=== PATIENT | female | born 1945 | race Caucasian/White ===

== ENCOUNTER → 2019-12-29 11:00 | Outpatient (BNVA) | payer MEDICARE, SELFPAY | PROVIDERS: PCP Internal Medicine; Referring Provider Internal Medicine; Visit Provider Internal Medicine Cardiovascular Disease | DX: J44.9 Chronic obstructive pulmonary disease, unspecified (principal); R91.1 Solitary pulmonary nodule; I25.10 Atherosclerotic heart disease of native coronary artery without angina pectoris; I10 Essential (primary) hypertension; I25.2 Old myocardial infarction; Z79.82 Long term (current) use of aspirin; Z79.899 Other long term (current) drug therapy; Z95.5 Presence of coronary angioplasty implant and graft | CPT/HCPCS: 93005; 99212 ==

== ENCOUNTER 2020-01-18 11:35 | Outpatient (REF) | payer MEDICARE, SELFPAY ==
--- NOTE | 2020-01-18 11:39 | MM_ITS ---
EXAMINATION: MM SCREENING DIGITAL BREAST TOMOSYNTHESIS, BILATERAL CLINICAL INFORMATION: Screening. Asymptomatic. The lifetime risk of breast cancer based on the Tyrer-Cuzick Model is 5.3%. COMPARISON: Mammography: July 08, 2018 and studies dating back to February 18, 2013 TECHNIQUE: Digital breast tomosynthesis is performed in both the craniocaudal and mediolateral oblique views along with computer-aided detection (CAD). Synthesized 2D images are generated from the tomosynthesis. FINDINGS: There are scattered areas of fibroglandular density (ACR BI-RADS breast composition Category b). There are no significant masses, abnormal calcifications, or other abnormalities. MM/MM tomosynthesis screening BI IMPRESSION: There are no significant changes from prior study. ASSESSMENT: BI-RADS 1: Negative RECOMMENDATION: Routine annual mammography screening. This patient's information was entered into a reminder system with a target due date for their next mammogram.
== END 2020-01-18 11:36 | disposition home or self-care (01) ==
LOC: HO.MAMMO 11:35
PROVIDERS: PCP Internal Medicine; Visit Provider Internal Medicine
DX: Z12.31 Encounter for screening mammogram for malignant neoplasm of breast (principal)
CPT/HCPCS: 77063; 77067

== ENCOUNTER 2020-03-21 07:17 | Outpatient (REF) | payer MEDICARE, SELFPAY ==
[2020-03-21 11:13] LABS: MANUAL DIFF FLAG NO
[2020-03-21 11:32] LABS: Basophils Percent Auto 0.6 % (0-2); Eosinophils Absolute Auto 0.3 X10*3/uL (0.0-0.4); Eosinophils Percent Auto 3.8 % (0-4); Hematocrit 47.6 % (37-47); Hemoglobin 14.7 g/dl (12.0-16.0); Imm Gran Abs Auto 0.02 X10*3/uL (0.00-0.03); Imm Gran Pct Auto 0.3 % (0.0-0.4); Lymphocytes Absolute Auto 2.2 X10*3/uL (1.2-4.9); Lymphocytes Percent Auto 33.1 % (20-40); Mean Corpuscular HGB Conc 30.9 g/dl (31.0-35.0); Mean Corpuscular Hemoglobin 26.7 pg (27.0-33.0); Mean Corpuscular Volume 86.5 fL (80-98); Mean Platelet Volume 10.6 fL (9.4-12.3); Monocytes Absolute Auto 0.6 X10*3/uL (0.1-1.2); Monocytes Percent Auto 8.8 % (2-11); Neutrophils Absolute Auto 3.5 X10*3/uL (2.0-8.3); Neutrophils Percent Auto 53.4 % (45-73); Platelet Count 268 X10*3/uL (160-400); Red Cell Distribution Width 14.1 % (11.0-16.0); White Blood Count 6.6 X10*3/uL (4.8-10.8)
[2020-03-21 11:35] LABS: Estimated Average Glucose 128 mg/dL; Hemoglobin A1c % 6.1 %
[2020-03-21 11:42] LABS: Alanine Aminotransferase 19 U/L (0-31); Albumin Level 4.2 g/dL (3.5-5.0); Alkaline Phosphatase 112 U/L (39-117); Anion Gap 14 (12-20); Aspartate Amino Transferase 19 U/L (5-31); Bilirubin Total 0.8 mg/dL (0.0-1.0); Blood Urea Nitrogen 15 mg/dL (9-16); Calcium 9.3 mg/dL (8.4-10.2); Carbon Dioxide 27 mmol/L (22-29); Chloride 107 mmol/L (96-108); Cholesterol 137 mg/dL; Estimated Glomerular Filt Rate 56; Glucose Random 122 mg/dL (60-115); HDL Cholesterol 50 mg/dL; LDL Cholesterol Calculated 61 mg/dl; Potassium 4.6 mmol/L (3.3-5.1); Sodium 143 mmol/L (135-145); Total Protein 6.8 g/dL (6.5-8.0); Triglycerides 133 mg/dL
[2020-03-21 11:52] LABS: Microalbum/Creatinine Ratio Ur 10.2 ug/mg cr
[2020-03-21 12:06] LABS: Thyroid Stimulating Hormone 1.54 uIU/mL (0.32-4.0); Vitamin D 25-OH Total 35.5 ng/mL (>30)
[2020-03-21 12:18] LABS: Folate 11.3 ng/mL (> or = 4.0); Vitamin B12 1006 pg/mL (200-900)
== END 2020-03-21 07:18 | disposition home or self-care (01) ==
LOC: HO.HMGCLDS 07:17
PROVIDERS: PCP Internal Medicine; Visit Provider Internal Medicine
DX: I10 Essential (primary) hypertension (principal); E11.65 Type 2 diabetes mellitus with hyperglycemia; E78.00 Pure hypercholesterolemia, unspecified
CPT/HCPCS: 36415; 80053; 80061; 82043; 82306; 82607; 82746; 83036; 84439; 84443; 85025

== ENCOUNTER 2020-06-14 08:17 | Outpatient (REF) | payer MEDICARE, SELFPAY ==
--- NOTE | ~2020-06-14 | CT_ITS ---
EXAMINATION: CT CHEST SCREENING CLINICAL INFORMATION: Nicotine dependence. COMPARISON: 08/10/2019 and 03/09/2019. CT abdomen and pelvis of 01/09/2016 and 07/17/2011. TECHNIQUE: Multidetector volumetric CT imaging of the chest is performed without contrast using low dose technique. Additional 2D coronal and sagittal reformatted images and axial 3D maximum intensity projection (MIP) images are generated on the CT workstation. This CT examination was performed using dose optimization techniques as appropriate, variously including the following: *Automated exposure control *Adjustment of mA and/or kV according to patient size (this includes techniques or standardized protocols for targeted exams where dose is matched to indication/reason for exam; i.e. extremities or head) *Use of iterative reconstruction technique DLP: 62.0 mGy-cm. FINDINGS: LUNGS: There are mild changes of centrilobular emphysema within the upper lobes. There is discoid scarring seen within the right middle lobe, right lower lobe, and left lower lobe. There are scattered sub-4 mm densities present. Central airways are patent. There is some bronchial wall thickening seen in regions of scarring. No significant bronchiectasis. There is a 6 mm noncalcified nodule seen within the right upper lobe on image 224 of 521. This was present on previous study of 08/10/2019 at 5 mm in diameter and at 4 mm in diameter on study of 03/09/2019. There is again noted to be a 9 x 8 mm noncalcified nodule within the right lower lobe on image 338 of 521 in series #6. This is stable dating back to study of 03/09/2019 and was seen on previous study of the abdomen and pelvis of 07/17/2011. MEDIASTINUM: Heart normal size. No pericardial effusion. Prominent coronary artery calcifications are present. No thoracic aortic aneurysm. No mediastinal or hilar lymphadenopathy. PLEURA: There is no pleural effusion. No pleural mass or thickening. AXILLA: No lymphadenopathy. UPPER ABDOMEN: Unremarkable. OSSEOUS STRUCTURES: Status post previous cervical spine surgery. No suspicious destructive bony lesions identified. CT/CT lung screening IMPRESSION: Bibasilar scarring which is stable. Stable left lower lobe nodule. Right upper lobe nodular density with question slight increase in size over time. ASSESSMENT: Lung-RADS category 4A, probably suspicious, (5-15% chance of malignancy). RECOMMENDATION: Short-interval 3-month follow up low dose CT chest.
== END 2020-06-14 08:18 | disposition home or self-care (01) ==
LOC: HO.CT 08:17
PROVIDERS: Visit Provider Surgery
DX: Z12.2 Encounter for screening for malignant neoplasm of respiratory organs (principal); F17.210 Nicotine dependence, cigarettes, uncomplicated
CPT/HCPCS: 71271

== ENCOUNTER → 2020-06-27 13:24 | Outpatient (BNVA) | payer MEDICARE, SELFPAY | PROVIDERS: PCP Internal Medicine; Visit Provider Internal Medicine | DX: J43.9 Emphysema, unspecified (principal); R91.1 Solitary pulmonary nodule | CPT/HCPCS: Q3014 ==

== ENCOUNTER → 2020-06-29 09:04 | Outpatient (BNVA) | payer MEDICARE, SELFPAY | PROVIDERS: PCP Internal Medicine; Visit Provider Surgery | DX: R91.1 Solitary pulmonary nodule (principal); Z87.891 Personal history of nicotine dependence; Z79.899 Other long term (current) drug therapy | CPT/HCPCS: 99212 ==

== ENCOUNTER 2020-08-25 14:23 | Outpatient (REF) | payer MEDICARE, SELFPAY | END 2020-08-25 14:24 | disposition home or self-care (01) | LOC: HO.LAB 14:23 | PROVIDERS: Visit Provider Physician Assistant Medical | DX: Z20.822 Contact with and (suspected) exposure to COVID-19 (principal); J02.9 Acute pharyngitis, unspecified; B37.0 Candidal stomatitis | CPT/HCPCS: 87071; 87102; 87205; U0003; U0005 ==

== ENCOUNTER 2020-10-19 08:18 | Outpatient (REF) | payer MEDICARE, SELFPAY ==
--- NOTE | ~2020-10-19 | CT_ITS ---
EXAMINATION: CT CHEST SCREENING CLINICAL INFORMATION: Former smoker. Quit 3 years ago. 50 pack-year history. COMPARISON: Previous CT scans most recent June 2020 TECHNIQUE: Multidetector volumetric CT imaging of the chest is performed without contrast using low dose technique. Additional 2D coronal and sagittal reformatted images and axial 3D maximum intensity projection (MIP) images are generated on the CT workstation. This CT examination was performed using dose optimization techniques as appropriate, variously including the following: *Automated exposure control *Adjustment of mA and/or kV according to patient size (this includes techniques or standardized protocols for targeted exams where dose is matched to indication/reason for exam; i.e. extremities or head) *Use of iterative reconstruction technique DLP: 80 mGy-cm FINDINGS: LUNGS: There is evidence of emphysema. The 6 mm right upper lobe nodule axial image 207 series 5 is stable. The 6 x 7 mm left lower lobe nodule is stable axial image 311 series 5. The 7 mm peripheral or subpleural right upper lobe nodule posterior the right mainstem bronchus axial image 173 series 5. Table. The 2 mm peripheral medial right upper lobe nodule axial image 87 series 6 is stable. No new pulmonary nodules are seen. There is bilateral subsegmental atelectasis. No endobronchial or endotracheal lesion is seen. MEDIASTINUM: There is coronary artery calcification. The mediastinum is otherwise normal. PLEURA: There is no pleural effusion. No pleural mass or thickening. AXILLA: No lymphadenopathy. UPPER ABDOMEN: Unremarkable OSSEOUS STRUCTURES: There are degenerative changes of the spine. There are postsurgical changes to the lower cervical spine with lower anterior plate and screws. Both most inferior screws appear to have backed out. The right screw appears completely out and is in the prevertebral soft tissues abutting the right posterior wall of the trachea. CT/CT lung screen follow up IMPRESSION: Emphysema. Stable pulmonary nodules. Bilateral subsegmental atelectasis. Coronary artery calcification. Postsurgical changes to the lower cervical spine. The most inferior screws appear to have backed out. The right sided screw is in the prevertebral soft tissues and abuts the right posterior wall of the trachea. ASSESSMENT: Lung-RADS category 2: Benign RECOMMENDATION: Annual low-dose chest CT follow-up recommended. Cervical spine x-ray for better evaluation of the cervical spine orthopedic hardware recommended.
== END 2020-10-19 08:19 | disposition home or self-care (01) ==
LOC: HO.CT 08:18
PROVIDERS: Visit Provider Surgery
DX: Z12.2 Encounter for screening for malignant neoplasm of respiratory organs (principal); Z87.891 Personal history of nicotine dependence
CPT/HCPCS: 71250

== ENCOUNTER 2020-10-25 07:47 | Outpatient (REF) | payer MEDICARE, SELFPAY ==
--- NOTE | ~2020-10-25 | XR_ITS ---
EXAMINATION: XR CERVICAL SPINE CLINICAL INFORMATION: Arthrodesis status COMPARISON: None TECHNIQUE: 4 views of the cervical spine were obtained. FINDINGS: Limited evaluation of the lower cervical spine secondary to patient positioning. Status post anterior cervical fusion of C5-C7. The right lower screw of the fixation plate demonstrates dislodgment. To lesser degree the left lower screw also demonstrates dislodgment. Spinal hardware is otherwise intact. No acute visible fracture or dislocation. Straightening of the normal cervical curvature which may be secondary to patient positioning versus muscle spasm. Multilevel degenerative changes with disc space narrowing, endplate sclerosis, osteophyte formation, and facet arthropathy. Grade 1 anterolisthesis of C2 on C3 and C3 on C4. Visualized dens is intact. Lateral masses are symmetric. Vertebral body heights and disc spaces are otherwise maintained. Prevertebral soft tissues are unremarkable in their visualized portions. Posterior elements are intact. Paraspinal soft tissues are unremarkable. XR/XR cervical spine 2V IMPRESSION: 1. Limited evaluation of the lower cervical spine secondary to patient positioning. 2. Status post anterior cervical fusion of C5-C7. Right lower screw of the fixation plate demonstrates dislodgment. To a lesser degree the left lower screw also demonstrates dislodgment. 3. No acute visible fracture or dislocation. 4. Straightening of the normal cervical curvature which may be secondary to patient positioning versus muscle spasm. 5. Multilevel degenerative changes with grade 1 anterolisthesis of C2 on C3 and C3 on C4.
== END 2020-10-25 07:48 | disposition home or self-care (01) ==
LOC: HO.XRAY 07:47
PROVIDERS: PCP Internal Medicine; Visit Provider Internal Medicine
DX: Z98.1 Arthrodesis status (principal)
CPT/HCPCS: 72040

== ENCOUNTER → 2020-10-26 09:40 | Outpatient (BNVA) | payer MEDICARE, SELFPAY | PROVIDERS: PCP Internal Medicine; Visit Provider Surgery | DX: R91.1 Solitary pulmonary nodule (principal); Z79.899 Other long term (current) drug therapy; Z87.891 Personal history of nicotine dependence | CPT/HCPCS: 99212 ==

== ENCOUNTER → 2020-11-14 10:54 | Outpatient (REF) | payer MEDICARE, SELFPAY ==
--- NOTE | 2020-11-14 11:20 | CA_ITS ---
Transthoracic Echocardiogram Patient (Last, First, Middle): Ann Gutierrez L Gender: Female Date of : 1945 Age: 75 Procedure Date: 11/14/2020 Procedure Type: Transthoracic Echocardiogram Location: OP Height: 152.4 cm Weight: 83.92 kg BSA: 1.81 m2 Heart Rate: bpm BP: 140 / 68 mmHg Director Of Solutions Architecture: JOSEFINA Referring MD: Liz Champagne [employer]ER[employer] REAL ESTATE ASSISTANTEmeli Symptoms: I25.10 - Atherosclerotic heart disease of [place] coronary... Study Quality: Fair ECG Rhythm: Sinus Conclusions: - The left ventricular systolic function is hyperdynamic. The visually estimated ejection fraction is >70%. - There is mild calcification of the aortic valve. - No obvious valvular pathology seen on this study. Findings Left Ventricle Normal left ventricular cavity size. There is normal left ventricular wall thickness. The left ventricular systolic function is hyperdynamic. The visually estimated ejection fraction is >70%. There is no evidence of regional wall motion abnormalities. Diastolic function is normal for age. LV peak GLS -17.4%. Right Ventricle Normal right ventricular cavity size and systolic function. Atria Both atria are normal in size. Aortic Valve There is a normal trileaflet aortic valve. There is mild calcification of the aortic valve. There is no aortic valve stenosis. There is no aortic valve regurgitation. Mitral Valve The mitral valve appears normal. There is no mitral valve regurgitation. There is no mitral valve stenosis. Pulmonic Valve The pulmonic valve was not well visualized. Tricuspid Valve There is trace tricuspid valve regurgitation. The pulmonary artery systolic pressure is normal. Great Vessels The aortic annulus, sinuses of valsalva, and asc aorta are normal in size. Venous The inferior vena cava is normal in size and collapses greater than 50% with inspiration. Pericardium/Pleural There is no evidence of pericardial effusion. Prior Study Comparison No prior study available for comparison. Recommendations, Care & Conclusions No obvious valvular pathology seen on this study. Measurements 2D Linear Measurements IVSd: 0.98 0.6-0.9/0.6-1.0 cm LVIDd: 4.02 3.9-5.3/4.2-5.9 cm LVIDd Index: 2.22 2.4-3.2/2.2-3.1 cm/m2 LVIDs: 2.62 2.0-3.6 cm LVPWd: 1.00 0.7-1.1 cm LA Diam: 3.10 2.7-3.8/3.0-4.0 cm LAIDs Index: 1.71 1.5-2.3 cm/m2 LV Mass: 157.19 67-162/88-224 g LV Mass Index: 86.84 43-95/49-115 g/m2 LVOT Diam: 1.80 3.0+(-)1.3 cm 2D Systolic Function EF 4C: 68.30 >55% EF 2C: 79.60 >55% EF BiP: 73.40 >55% Mitral Valve MV Pk E: 0.75 MV PK A: 0.97 MV Decel Time: 125.00 E/A: 0.80 E'Lateral: 6.85 E'Medial: 7.29 E/E' Med: 10.20 E/E' Lat: 10.90 PHT: 37.00 MVA PHT: 5.95 Decel Amelia: 5.99 Aortic Valve AoV Pk Marcos: 1.85 AoV Pk Grad: 14.00 LVOT LVOT Pk Marcos: 1.32 LVOT Mn Marcos: 0.89 LVOT VTI: 0.26 LVOT Pk Grad: 7.00 LVOT Mn Grad: 4.00 LVOT Diam: 1.80 LVOT Area: 2.54 Diastolic Function MV Pk E: 0.75 MV Pk A: 0.97 E/A: 0.80 E'Medial: 7.29 E/E' Med: 10.20 E' Laterial: 6.85 E/E' Lat: 10.90 Right Ventricle TAPSE (mm): 1.84 Tricuspid Valve TR Pk Marcos: 2.13 TR Pk Grad: 18.00 RA Press: 3.00 RVSP: 21.00 Great Vessels Aorta Ao Asc: 3.20 2.1-3.4 cm Updated in Other Vendor System with Status of Final Guanaco Tavares MD electronically signed on 11/14/2020 2:55:53 PM with status of Final
== END ==
LOC: HO.CARD 10:54
PROVIDERS: PCP Internal Medicine; Visit Provider Nurse Practitioner Family
DX: Z01.810 Encounter for preprocedural cardiovascular examination (principal); I25.10 Atherosclerotic heart disease of native coronary artery without angina pectoris; M51.36 Other intervertebral disc degeneration, lumbar region
CPT/HCPCS: 93306

== ENCOUNTER → 2020-11-15 08:34 | Outpatient (REF) | payer MEDICARE, SELFPAY ==
--- NOTE | ~2020-11-15 | NM_ITS ---
Myocardial perfusion study Indication: Preoperative cardiovascular risk stratification Technique: The patient was brought in for a Lexiscan perfusion study on 11/15/2020. Patient performed low-level exercise and was injected 0.4 mg of Lexiscan intravenously. Within a minute of injection, 35 mCi of sestamibi was given intravenously. Images were obtained using the SPECT gamma camera interlaced with the gating device. Images were obtained in supine position. Resting perfusion study was performed on 11/16/2020. Patient was administered 35 mCi of sestamibi intravenously at rest. Images were then obtained in supine position. Images obtained with and without CT attenuation. Total DLP 108 mGy-cm. Images were processed with the software and compared side to side in short axis, horizontal long axis and vertical long axis views. Findings: The stress perfusion study showed nonattenuated images show minimal thinning of the distal anterior wall of the LV myocardium. Attenuation corrected images show normal uptake of radiotracer in all segments of LV myocardium. There is suggestion of left ventricle hypertrophy. The gated study shows normal LV systolic function with calculated LVEF of 70%. LV cavity is normal in size. The gated study shows normal systolic wall thickening and contraction of segments. Resting study shows no change in perfusion pattern compared to stress perfusion study. Gating at rest reveals normal systolic wall motion with ejection fraction at 69%. The findings are consistent with normal myocardial perfusion. NM/NM krupa perf SPECT rest & str Impression: 1. Myocardial perfusion imaging study shows normal myocardial perfusion 2. Gated LVEF is 70% 3. Transient ischemic dilatation not present EKG is nondiagnostic for ischemia
--- NOTE | 2020-11-15 08:37 | CA_ITS ---
Acquisition Time: 2020-11-15 08:53:20 Total Exercise Time: 00:02:00 Test Indications: Pre-Op Evaluation Medications: SEE CHART Protocol: LEXISCAN Max HR: 105 BPM 71% of Pred: 147 BPM Max BP: 120/068 mmHG Max Work Load: 1.0 METS Pharmacological stress test with Lexiscan injection, while sitting and kicking her legs, with sob and chest tightness following injection, without arrythmia, with normotensive response to injection, with nondiagnostic EKG for ischemia, with borderline ST change inferiorly and V4-V6. In recovery she was treated with Aminophylline 75mg IVP with resolution of symptoms. Nuclear images pending. Test reviewed with Dr Tavares. Referred By: Liz Champagne Overread By: LIZ CHAMPAGNE
== END ==
LOC: HO.CARD 08:34
PROVIDERS: PCP Internal Medicine; Visit Provider Nurse Practitioner Family
DX: Z01.818 Encounter for other preprocedural examination (principal); I25.10 Atherosclerotic heart disease of native coronary artery without angina pectoris; M51.36 Other intervertebral disc degeneration, lumbar region
CPT/HCPCS: 78452; 93017; A9500; J0280; J2785

== ENCOUNTER → 2020-12-27 08:12 | Outpatient (BNVA) | payer MEDICARE, SELFPAY | PROVIDERS: PCP Internal Medicine; Referring Provider Internal Medicine; Visit Provider Internal Medicine Cardiovascular Disease | DX: J43.9 Emphysema, unspecified (principal); R91.1 Solitary pulmonary nodule; E66.9 Obesity, unspecified; I25.10 Atherosclerotic heart disease of native coronary artery without angina pectoris; I10 Essential (primary) hypertension; I25.2 Old myocardial infarction; Z95.5 Presence of coronary angioplasty implant and graft; Z79.899 Other long term (current) drug therapy | CPT/HCPCS: 93005; 99212 ==

== ENCOUNTER 2021-01-18 07:52 | Outpatient (REF) | payer MEDICARE, SELFPAY ==
--- NOTE | 2021-01-18 11:16 | PFT_ITS ---
FLOWS: FEV1 61% of predicted at 1.10 L. FVC 77% of predicted at 1.85 L. FEV1 to FVC ratio of 0.60. No bronchodilator response. LUNG VOLUMES: Total lung capacity 89% of predicted at 3.97 L. Residual volume 102% of predicted at 2.12 L. Slow vital capacity 77% of predicted at 1.85 L. Expiratory reserve volume 56% of predicted at 0.26 L. Diffusion capacity is moderately decreased, diffusion capacity adjust to being mildly decreased after correction for alveolar ventilation. In comparison to pulmonary function test from January of 2013, FVC, FEV1, FVC have been without significant changes; total lung capacity has decreased by 0.50 L; residual volume has decreased by 0.44 L; expiratory reserve volume has decreased by 0.45 L; diffusion capacity has decreased by 5.13 mL/minute/mmHg. IMPRESSION: Moderate obstructive ventilatory defect with no bronchodilator response. Decreased expiratory reserve volume suggests extrathoracic restriction likely secondary to abdominal obesity. Decreased diffusion capacity suggests emphysema. MD TAMIE Mcqueen/MODL / [id number]
== END 2021-01-18 07:53 | disposition home or self-care (01) ==
LOC: HO.RESP 07:52
PROVIDERS: PCP Internal Medicine; Visit Provider Internal Medicine
DX: J43.9 Emphysema, unspecified (principal); R91.1 Solitary pulmonary nodule
CPT/HCPCS: 94060; 94727; 94729

== ENCOUNTER 2021-04-17 08:40 | Outpatient (REF) | payer MEDICARE, SELFPAY ==
--- NOTE | ~2021-04-17 | CT_ITS ---
EXAMINATION: CT CHEST SCREENING CLINICAL INFORMATION: Former smoker. Quit smoking 4 years ago. COMPARISON: Previous chest CT October 2020 TECHNIQUE: Multidetector volumetric CT imaging of the chest is performed without contrast using low dose technique. Additional 2D coronal and sagittal reformatted images and axial 3D maximum intensity projection (MIP) images are generated on the CT workstation. This CT examination was performed using dose optimization techniques as appropriate, variously including the following: *Automated exposure control *Adjustment of mA and/or kV according to patient size (this includes techniques or standardized protocols for targeted exams where dose is matched to indication/reason for exam; i.e. extremities or head) *Use of iterative reconstruction technique DLP: 59 mGy-cm FINDINGS: LUNGS: The 5 mm right upper lobe nodule, axial image 221 series 5, is stable. The 7 mm left lower lobe nodule, axial image 337 series 5, is stable. The right upper lobe nodule posterior to the right mainstem bronchus appears decreased in size. This measures 3 x 6 mm in AP and transverse dimension compared to 4 x 7 mm October 2020 exam. No new pulmonary nodule is seen. There is scarring or subsegmental atelectasis, right middle and both lower lobes, that is stable. There is evidence of emphysema. No endobronchial or endotracheal lesion is seen. MEDIASTINUM: There is coronary artery calcification. The mediastinum is otherwise normal. PLEURA: There is no pleural effusion. No pleural mass or thickening. AXILLA: No lymphadenopathy. UPPER ABDOMEN: Unremarkable OSSEOUS STRUCTURES: There are degenerative changes of the spine. Orthopedic hardware in the cervical spine has been removed. CT/CT lung screen follow up IMPRESSION: Emphysema. Slight interval decrease in one of the right upper lobe nodules otherwise pulmonary nodules are stable. Stable chronic subsegmental atelectasis or scarring at the lung bases. Coronary artery calcification. ASSESSMENT: Lung-RADS category 2: Benign RECOMMENDATION: Annual low-dose chest CT follow-up recommended.
== END 2021-04-17 08:41 | disposition home or self-care (01) ==
LOC: HO.CT 08:40
PROVIDERS: PCP Internal Medicine; Visit Provider Surgery
DX: Z12.2 Encounter for screening for malignant neoplasm of respiratory organs (principal); Z87.891 Personal history of nicotine dependence
CPT/HCPCS: 71250

== ENCOUNTER → 2021-04-26 09:22 | Outpatient (BNVA) | payer MEDICARE, SELFPAY | PROVIDERS: PCP Internal Medicine; Visit Provider Surgery | DX: R91.8 Other nonspecific abnormal finding of lung field (principal); Z79.899 Other long term (current) drug therapy; Z79.82 Long term (current) use of aspirin; Z87.891 Personal history of nicotine dependence ==

== ENCOUNTER → 2021-05-02 13:30 | Outpatient (BNVA) | payer MEDICARE, SELFPAY | PROVIDERS: PCP Internal Medicine; Visit Provider Orthopaedic Surgery | DX: M17.11 Unilateral primary osteoarthritis, right knee (principal); M51.36 Other intervertebral disc degeneration, lumbar region | CPT/HCPCS: 20610; 99202; J1100 ==

== ENCOUNTER → 2021-06-19 11:51 | Outpatient (RCR) | payer MEDICARE, SELFPAY | END | disposition home or self-care (01) | LOC: HO.PTCHIC 11-22 14:53 | PROVIDERS: PCP Internal Medicine; Visit Provider Internal Medicine | DX: M25.561 Pain in right knee (principal) | CPT/HCPCS: 97014; 97110; 97140 ==

== ENCOUNTER → 2021-06-27 14:49 | Outpatient (BNVA) | payer MEDICARE, SELFPAY | PROVIDERS: PCP Internal Medicine; Visit Provider Internal Medicine | DX: J43.9 Emphysema, unspecified (principal); R91.1 Solitary pulmonary nodule; E66.9 Obesity, unspecified; Z68.37 Body mass index [BMI] 37.0-37.9, adult | CPT/HCPCS: 99212 ==

== ENCOUNTER 2021-07-11 06:15 | Outpatient (REF) | payer MEDICARE, SELFPAY ==
[2021-07-11 11:19] LABS: MANUAL DIFF FLAG NO
[2021-07-11 11:28] LABS: Basophils Percent Auto 0.7 % (0-2); Eosinophils Percent Auto 2.4 % (0-4); Hemoglobin 14.4 g/dl (12.0-16.0); Imm Gran Abs Auto 0.05 X10*3/uL (0.00-0.03); Imm Gran Pct Auto 0.7 % (0.0-0.4); Lymphocytes Absolute Auto 2.1 X10*3/uL (1.2-4.9); Lymphocytes Percent Auto 28.6 % (20-40); Mean Corpuscular HGB Conc 31.3 g/dl (31.0-35.0); Mean Corpuscular Hemoglobin 26.9 pg (27.0-33.0); Mean Platelet Volume 10.2 fL (9.4-12.3); Monocytes Percent Auto 8.6 % (2-11); Neutrophils Absolute Auto 4.3 x10*3/uL (2.0-8.3); Platelet Count 230 X10*3/uL (160-400); Red Blood Count 5.35 X10*6/uL (4.20-5.50); Red Cell Distribution Width 13.8 % (11.0-16.0); White Blood Count 7.2 X10*3/uL (4.8-10.8)
[2021-07-11 11:29] LABS: Basophils Absolute Auto 0.1 X10*3/uL (0.0-0.2); Eosinophils Absolute Auto 0.2 X10*3/uL (0.0-0.4); Monocytes Absolute Auto 0.6 X10*3/uL (0.1-1.2)
[2021-07-11 11:40] LABS: Creatinine Urine 71.89 mg/dL; Microalbumin Urine < 5.0 mg/L
[2021-07-11 11:42] LABS: Alanine Aminotransferase 26 U/L (0-31); Alkaline Phosphatase 120 U/L (39-117); Anion Gap 13 (12-20); Aspartate Amino Transferase 21 U/L (5-31); Bilirubin Total 0.8 mg/dL (0.0-1.0); Blood Urea Nitrogen 14 mg/dL (9-16); Calcium 9.8 mg/dL (8.4-10.2); Carbon Dioxide 26 mmol/L (22-29); Chloride 108 mmol/L (96-108); Cholesterol 119 mg/dL; Estimated Glomerular Filt Rate 50; Glucose Random 121 mg/dL (60-115); HDL Cholesterol 44 mg/dL; LDL Cholesterol Calculated 50 mg/dl; Potassium 4.5 mmol/L (3.3-5.1); Sodium 142 mmol/L (135-145); Total Protein 6.5 g/dL (6.5-8.0); Triglycerides 129 mg/dL
[2021-07-11 12:08] LABS: Free T4 (Free Thyroxine) 0.92 ng/dL (0.71-1.85); Thyroid Stimulating Hormone 1.35 uIU/mL (0.32-4.0); Vitamin D 25-OH Total 28.7 ng/mL (>30)
[2021-07-11 12:17] LABS: Vitamin B12 353 pg/mL (200-900)
== END 2021-07-11 06:16 | disposition home or self-care (01) ==
LOC: HO.HMGCLDS 06:15
PROVIDERS: PCP Internal Medicine; Visit Provider Internal Medicine
DX: E11.65 Type 2 diabetes mellitus with hyperglycemia (principal); E78.00 Pure hypercholesterolemia, unspecified; I25.10 Atherosclerotic heart disease of native coronary artery without angina pectoris; M81.0 Age-related osteoporosis without current pathological fracture
CPT/HCPCS: 36415; 80053; 80061; 82043; 82306; 82607; 82746; 84439; 84443; 85025

== ENCOUNTER 2021-07-23 15:05 | Outpatient (REF) | payer MEDICARE, SELFPAY ==
--- NOTE | ~2021-07-23 | MM_ITS ---
EXAMINATION: MM SCREENING DIGITAL BREAST TOMOSYNTHESIS, BILATERAL CLINICAL INFORMATION: Screening. Asymptomatic. The lifetime risk of breast cancer based on the Tyrer-Cuzick Model is 4%. COMPARISON: Mammography: 01/18/2020, 07/08/2018, 06/18/2017 TECHNIQUE: Digital breast tomosynthesis is performed in both the craniocaudal and mediolateral oblique views along with computer-aided detection (CAD). Synthesized 2D images are generated from the tomosynthesis. FINDINGS: There are scattered areas of fibroglandular density (ACR BI-RADS breast composition Category b). There are no significant masses, abnormal calcifications, or other abnormalities. Parenchymal pattern is similar to prior studies. No developing density. No significant changes. MM/MM tomosynthesis screening BI IMPRESSION: No mammographic evidence of malignancy. ASSESSMENT: BI-RADS 1: Negative RECOMMENDATION: Routine annual mammography screening. This patient's information was entered into a reminder system with a target due date for their next mammogram.
== END 2021-07-23 15:06 | disposition home or self-care (01) ==
LOC: HO.MAMMO 15:05
PROVIDERS: PCP Internal Medicine; Visit Provider Internal Medicine
DX: Z12.31 Encounter for screening mammogram for malignant neoplasm of breast (principal)
CPT/HCPCS: 77063; 77067

== ENCOUNTER 2021-08-08 12:27 | Outpatient (REF) | payer MEDICARE, SELFPAY ==
--- NOTE | ~2021-08-08 | XR_ITS ---
EXAMINATION: XR KNEE, RIGHT XR KNEE AP STANDING CLINICAL INFORMATION: Pain. COMPARISON: Prior radiographs, most recently 08/05/2019. TECHNIQUE: Lateral and axial views of the right knee. AP bilateral standing view of the knees was obtained. FINDINGS: Bony alignment and mineralization are normal. The lateral, medial and patellofemoral joint spaces of the right knee are well-maintained. No fracture, dislocation or unusual degenerative change is seen. There is a tiny right knee joint effusion. No foreign body is seen. The lateral and medial joint space compartments of the left knee are well-maintained. No significant varus or valgus configuration is seen of the bilateral knees. XR/XR knee RT 2V IMPRESSION: 1. No unusual degenerative change is seen of the bilateral knees. 2. No significant varus or valgus configuration is noted bilaterally. 3. There is a very small right knee joint effusion.
--- NOTE | ~2021-08-08 | XR_ITS ---
EXAMINATION: XR KNEE, RIGHT XR KNEE AP STANDING CLINICAL INFORMATION: Pain. COMPARISON: Prior radiographs, most recently 08/05/2019. TECHNIQUE: Lateral and axial views of the right knee. AP bilateral standing view of the knees was obtained. FINDINGS: Bony alignment and mineralization are normal. The lateral, medial and patellofemoral joint spaces of the right knee are well-maintained. No fracture, dislocation or unusual degenerative change is seen. There is a tiny right knee joint effusion. No foreign body is seen. The lateral and medial joint space compartments of the left knee are well-maintained. No significant varus or valgus configuration is seen of the bilateral knees. XR/XR knee standing BI IMPRESSION: 1. No unusual degenerative change is seen of the bilateral knees. 2. No significant varus or valgus configuration is noted bilaterally. 3. There is a very small right knee joint effusion.
== END 2021-08-08 12:28 | disposition home or self-care (01) ==
LOC: HO.HOSX 12:27
PROVIDERS: Visit Provider Orthopaedic Surgery
DX: M25.561 Pain in right knee (principal); M25.562 Pain in left knee; M51.36 Other intervertebral disc degeneration, lumbar region; M54.16 Radiculopathy, lumbar region
CPT/HCPCS: 73560; 73565; 99212

== ENCOUNTER 2021-09-04 07:46 | Outpatient (REF) | payer MEDICARE, SELFPAY ==
--- NOTE | ~2021-09-04 | MR_ITS ---
EXAMINATION: MR LUMBAR SPINE WITHOUT CONTRAST CLINICAL INFORMATION: Sciatica. COMPARISON: X-ray 09/28/2019. MRI 01/23/2011, only 2 sagittal sequences) available in PACS. TECHNIQUE: MRI of the lumbar spine was obtained using routine sequences without contrast. FINDINGS: VERTEBRAL BODIES AND PARASPINAL STRUCTURES: There is grade 1 anterolisthesis of L4 on L5, similar to previous. Vertebral body heights are maintained. No evidence of compression deformities. No evidence of acute fracture. No suspicious finding in the visualized retroperitoneum. Paraspinal musculature is within normal limits. CONUS MEDULLARIS AND CAUDA EQUINA: Normal, terminating at the level of T12. SPINAL LEVELS: T10-T11, T11-T12: Annular contour is normal. No central canal or foramen stenosis. T12-L1: Annular contour is normal. No central canal or foramen stenosis. L1-L2: Left paracentral and foraminal disc protrusion. Mild left neural foramen narrowing. Findings new from previous. No central canal stenosis. L2-L3: Mild broad-based disc bulge, more prominent in bilateral foraminal regions, similar to previous. Bilateral facet arthropathy. Ligamentum flavum hypertrophy. No central canal stenosis. Mild bilateral neural foramen narrowing. L3-L4: Mild broad-based posterior disc bulge, more prominent in foraminal regions. Mild central canal narrowing. Mild bilateral neural foramen narrowing, more prominent on the right, with possible right L3 nerve root abutment. L4-L5: Grade 1 anterolisthesis of L4, with unroofing of the disc/pseudo broad-based disc bulge. Bilateral facet arthropathy. Ligamentum flavum hypertrophy. Severe central canal stenosis. [id number] bilateral neural foramen stenosis, slight progression from previous. L5-S1: Mild right paracentral/foraminal disc bulge. This appears to abut the traversing right S1 nerve. Bilateral facet arthropathy. No significant central canal stenosis. Mild right and [id number] left neural foramen narrowing.. MR/MR lumbar spine wo con IMPRESSION: Comparison with previous MRI of 01/23/2011 is limited, no axial sequences are available in PACS. -Severe central canal stenosis at L4-L5. [id number] bilateral neural foramen stenosis, slight progression from previous. -At L5-S1, mild right paracentral/foraminal disc bulge, appearing to abut the traversing right S1 nerve. Associated neural foramen narrowing as detailed above. -Spondylosis and disc findings at the additional levels, detailed level by level.
== END 2021-09-04 07:47 | disposition home or self-care (01) ==
LOC: HO.MRI 07:46
PROVIDERS: Visit Provider Orthopaedic Surgery
DX: M51.36 Other intervertebral disc degeneration, lumbar region (principal); M54.30 Sciatica, unspecified side; M47.816 Spondylosis without myelopathy or radiculopathy, lumbar region; G89.4 Chronic pain syndrome
CPT/HCPCS: 72148; 99202

== ENCOUNTER 2021-12-27 09:54 | Day surgery (SDC) | payer MEDICARE, SELFPAY ==
--- NOTE | 2021-12-26 11:22 | HO.ANESPROP2 ---
Documented by User: Stella Reyes NP 12/26/21 11:26 HPI - Anesthesia Eval Consult details Narrative: 76yo F for Colonoscopy CAD with stent (vfib arrest following stent) - stable with yearly cardiac visits. Last 12/2020 [facility] Active Problems Active Problems: All Active Problems (Updated 11/05/21 @ 15:49 by Abilio Robin MD) Lumbar spinal stenosis (Acute) Arthropathy of lumbar facet joint (Acute) Chronic pain syndrome (Acute) Spondylosis of lumbar region without myelopathy or radiculopathy (Acute) Lumbar back pain with radiculopathy affecting right lower extremity (Acute) Peripheral vascular disease (Acute) Tubular adenoma of colon (Acute) Breast cancer screening by mammogram (Acute) Osteoarthritis of patellofemoral joint (Acute) Generalized anxiety disorder (Acute) Coronary artery disease (Acute) Hypertension (Acute) Hypercholesterolemia (Acute) Type 2 diabetes mellitus with hyperglycemia (Acute) COPD (chronic obstructive pulmonary disease) (Acute) Right upper lobe pulmonary nodule (Acute) Pulmonary nodule (Acute) Personal history of nicotine dependence (Acute) Serrated adenoma of colon (Acute ~2015) Obesity (BMI 30-39.9) (Acute) Failed cervical fusion (Acute) Degenerative disc disease, lumbar (Acute) Sciatica (Acute) Neuropathic arthritis (Acute) Right knee pain (Acute) Oral thrush (Acute) Tinea pedis (Acute) Past Medical History Medical History Carpal tunnel syndrome COPD (chronic obstructive pulmonary disease) Coronary artery disease Generalized anxiety disorder History of COVID-19 (~01/2020) Hypercholesterolemia Hypertension Obesity (BMI 30-39.9) Osteoarthritis Osteopenia (~2013) Peptic ulcer disease Peripheral neuropathy Personal history of nicotine dependence Pulmonary nodules Renal calculus Right upper lobe pulmonary nodule Serrated adenoma of colon (~2015) Type 2 diabetes mellitus with hyperglycemia Ulnar nerve entrapment Vitamin D deficiency Family History Family History Father CVD (cardiovascular disease) Throat cancer HTN (hypertension) Mother Alzheimer disease Surgical History Surgical History History of appendectomy (~07/2011) History of colonoscopy History of fusion of cervical spine (~07/2003) History of heart artery stent (~2009) History of lithotripsy (~2017) History of meniscectomy of left knee (~05/2014) History of removal of ureteral stent (~2017) History of tonsillectomy Social History Social History Housing: House Alcohol intake: current Alcohol intake frequency: holidays/special occasions only Patient Tobacco Use Status: Former Tobacco user e-Cigarette/Vaping Use: Never Used Second Hand Smoke Exposure: No Advance Directives: No Advance Directives Information Provided: Yes service: No Current occupational status: employed 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 Hearing needs: No Vision needs: Yes (Glasses) Meds Allergies Allergy/AdvReac Type Severity Reaction Status Date / Time meperidine [From DEMEROL] Allergy Unknown REFUSES TO Verified 11/05/21 15:32 TAKE DUE TO FAMILIAL ALLERGY morphine [MORPHINE] AdvReac Mild NAUSEA & Verified 11/05/21 15:32 VOMITING Home Medications Medication Instructions Recorded Confirmed Last Taken Type aspirin 81 mg tablet,delayed 81 mg PO DAILY 12/29/19 04/26/21 Unknown History release (Adult Low Dose Aspirin) albuterol sulfate 2.5 mg/3 mL mg inhalation 12/27/20 04/26/21 Unknown History (0.083 %) solution for nebulization Exam Exam Date and Time: December 26, 2021 1122 Pertinent Lab Results Pertinent Lab Results: Laboratory Tests 07/11/21 07/11/21 06:20 06:20 WBC 7.2 Hgb 14.4 Hct 46.0 Plt Count 230 Sodium 142 Potassium 4.5 Chloride 108 Carbon Dioxide 26 BUN 14 Creatinine 1.07 Narrative Narrative: EKG 12/2020 normal sinus rhythm with normal EKG NM krupa perf SPECT rest & str 11/2020 Impression: ? 1.? Myocardial perfusion imaging study shows normal myocardial perfusion 2.? Gated LVEF is 70% 3. Transient ischemic dilatation not present ? EKG is nondiagnostic for ischemia Assessment and Plan Assessment Anesthesia Assessment: Chart Reviewed Documented by User: Elissa Clarke MD 12/27/21 10:40 [facility] Past Medical History Medical History Carpal tunnel syndrome COPD (chronic obstructive pulmonary disease) Coronary artery disease Generalized anxiety disorder History of COVID-19 (~01/2020) Hypercholesterolemia Hypertension Obesity (BMI 30-39.9) Osteoarthritis Osteopenia (~2013) Peptic ulcer disease Peripheral neuropathy Personal history of nicotine dependence Pulmonary nodules Renal calculus Right upper lobe pulmonary nodule Serrated adenoma of colon (~2015) Type 2 diabetes mellitus with hyperglycemia Ulnar nerve entrapment Vitamin D deficiency Family History Family History Father CVD (cardiovascular disease) Throat cancer HTN (hypertension) Mother Alzheimer disease Family history of problems with anesthesia: No Surgical History Surgical History History of appendectomy (~07/2011) History of colonoscopy History of fusion of cervical spine (~07/2003) History of heart artery stent (~2009) History of lithotripsy (~2017) History of meniscectomy of left knee (~05/2014) History of removal of ureteral stent (~2017) History of tonsillectomy History of Problems with Anesthesia: No Social History Social History Housing: House Alcohol intake: current Alcohol intake frequency: holidays/special occasions only Patient Tobacco Use Status: Former Tobacco user e-Cigarette/Vaping Use: Never Used Second Hand Smoke Exposure: No Advance Directives: No Advance Directives Information Provided: Yes service: No Current occupational status: employed 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 Hearing needs: No Vision needs: Yes (Glasses) Meds Allergies Allergy/AdvReac Type Severity Reaction Status Date / Time meperidine [From DEMEROL] Allergy Unknown REFUSES TO Verified 11/05/21 15:32 TAKE DUE TO FAMILIAL ALLERGY morphine [MORPHINE] AdvReac Mild NAUSEA & Verified 11/05/21 15:32 VOMITING Home Medications Medication Instructions Recorded Confirmed Last Taken Type aspirin 81 mg tablet,delayed 81 mg PO DAILY 12/29/19 04/26/21 Unknown History release (Adult Low Dose Aspirin) albuterol sulfate 2.5 mg/3 mL mg inhalation 12/27/20 04/26/21 Unknown History (0.083 %) solution for nebulization Exam Airway Mallampati Class: II (Caps top front, one lateral) TM Dist: >3cm Neck ROM: Full Heart: rrr Lungs: cta Assessment and Plan Assessment Anesthesia Assessment: Anesthesia Plan Discussed Final Anesthetic Review Family History of Problems with Anesthesia: No History of Problems with Anesthesia: No NPO: Yes ASA Class: III Final Preanesthetic Review: No Changes in Pt Med Stat, Meds/Allgs Chart Reviewed and Consent Obtained/Reviewed Patient Risk: Intermediate Procedure Risk: Intermediate Anesthetic Plan Anesthetic Plan: MAC: Disposition: Standard PACU
[2021-12-27 06:20] VITALS: BMI 36.5
[2021-12-27 10:05] VITALS: BP 143/67; PULSE 77; RESP 18; TEMP 36.6; O2SAT 96
[2021-12-27] MEDS: Lactated Ringers 1,000 ML 100 ML IVCONT (10:29)
[2021-12-27 11:22] VITALS: BP 105/59; PULSE 69; RESP 16; TEMP 36.4; O2SAT 94
--- NOTE | 2021-12-27 11:28 | PM.OP ---
Brief Operative Note Date of Service: 12/27/21 Pre-op diagnosis: Screening Post-op diagnosis: other (Diverticulosis) Procedure: [id number] to the cecum and TI Surgeon: Kalyan Velasquez Anesthesia: MAC Was an Stem Cutter used for this Procedure?: No Estimated blood loss (mL): 0 Pathology: none sent Condition: stable Disposition: PACU
[2021-12-27 11:37] VITALS: BP 110/60; PULSE 60; RESP 16; O2SAT 95
[2021-12-27 11:52] VITALS: BP 122/63; PULSE 69; RESP 16; O2SAT 96
--- NOTE | 2021-12-27 12:05 | OP_ITS ---
SURGEON: Kalyan Velasquez MD INDICATIONS: The patient presents for followup of personal history of colon polyps and colorectal cancer screening. Full consent has been obtained from her for this, including risks of bleeding and perforation. PREOPERATIVE DIAGNOSIS: Colorectal cancer screening and personal history of colon polyps. POSTOPERATIVE DIAGNOSIS: PROCEDURE PERFORMED: Colonoscopy to the cecum and terminal ileum. ESTIMATED BLOOD LOSS: COMPLICATIONS: ANESTHESIA: Monitored anesthesia care. ASSISTANTS: SPECIMENS: POSTOPERATIVE DIAGNOSES: Colorectal cancer screening and personal history of colon polyps, diverticulosis, internal hemorrhoids. DESCRIPTION OF PROCEDURE: The patient was placed in the left lateral decubitus position the digital rectal exam revealed external hemorrhoidal tissue. The Olympus video pediatric colonoscope was entered into the rectum and advanced easily to the cecum. Once in the cecum, I did identify normal-appearing cecal pouch with appendiceal orifice and a normal-appearing ileocecal valve. The terminal ileum was cannulated and appeared normal. The scope was withdrawn back in the colon. The entire cecum and ileocecal valve appeared normal. The scope was slowly withdrawn assessing all mucosal surfaces carefully. Preparation was excellent. I did not visualize any sign of polyps, colitis, nor angiodysplasia. There was a mild amount of sigmoid diverticulosis. In the rectum, scope was retroflexed visualizing small internal hemorrhoids, but no other pathology. The rectal mucosa appeared normal. The scope was straightened and withdrawn from the patient. She tolerated the procedure well and was returned to the recovery area in stable condition. IMPRESSION: 1. Sigmoid diverticulosis. 2. Internal and external hemorrhoids. PLAN: Given her age and today's negative exam, I do not think she will need any further screening colonoscopies. She will otherwise see me on a p.r.n. basis. I did advise her to use some supplemental fiber such as Metamucil to see if that helps to improve her bowel movement irregularity. She will see me on a p.r.n. basis. MD ISIDORO Garay/RYAN / [phone]
[2021-12-27 12:07] VITALS: BP 120/65; PULSE 65; RESP 16; TEMP 36.4; O2SAT 98
== END 2021-12-27 12:30 | disposition home or self-care (01) ==
PROVIDERS: PCP Internal Medicine; Visit Provider Internal Medicine
PROC: 0DJD8ZZ Inspection of Lower Intestinal Tract, Via Natural or Artificial Opening Endoscopic (ICD-10-PCS; CPT 45378; principal; 2021-12-27 11:00)
DX: Z12.11 Encounter for screening for malignant neoplasm of colon (principal); Z86.010 Personal history of colon polyps; K57.30 Diverticulosis of large intestine without perforation or abscess without bleeding; K64.8 Other hemorrhoids; K64.4 Residual hemorrhoidal skin tags; R15.1 Fecal smearing; J44.9 Chronic obstructive pulmonary disease, unspecified; R91.1 Solitary pulmonary nodule; I10 Essential (primary) hypertension; E78.5 Hyperlipidemia, unspecified; Z79.51 Long term (current) use of inhaled steroids; Z79.82 Long term (current) use of aspirin; Z79.899 Other long term (current) drug therapy; Z88.8 Allergy status to other drugs, medicaments and biological substances; Z87.442 Personal history of urinary calculi; Z87.891 Personal history of nicotine dependence
CPT/HCPCS: G0105

== ENCOUNTER 2022-01-29 12:04 | Outpatient (REF) | payer MEDICARE, SELFPAY ==
[2022-01-29 13:35] LABS: Influenza A PCR NEGATIVE (Negative); Influenza B PCR NEGATIVE (Negative); Resp Syncy Virus RNA Qual PCR NEGATIVE (Negative); SARS COV2 PCR INHOUSE NEGATIVE (Negative)
== END 2022-01-29 12:05 | disposition home or self-care (01) ==
LOC: HO.LNP 12:04
PROVIDERS: Visit Provider Nurse Practitioner Family
DX: Z20.822 Contact with and (suspected) exposure to COVID-19 (principal); R09.89 Other specified symptoms and signs involving the circulatory and respiratory systems
CPT/HCPCS: 0241U

== ENCOUNTER → 2022-03-04 15:02 | Outpatient (BNVA) | payer MEDICARE, SELFPAY | PROVIDERS: PCP Internal Medicine; Referring Provider Internal Medicine; Visit Provider Internal Medicine Cardiovascular Disease | DX: I25.10 Atherosclerotic heart disease of native coronary artery without angina pectoris (principal); I10 Essential (primary) hypertension; Z79.82 Long term (current) use of aspirin; Z79.899 Other long term (current) drug therapy | CPT/HCPCS: 93005; 99212 ==

== ENCOUNTER 2022-04-08 14:47 | Outpatient (REF) | payer MEDICARE, SELFPAY ==
[2022-04-08 15:16] LABS: Binax Internal Control QC Valid; Binax Now Covid-19 Ag Negative (Negative); Binax Performed by: PAULP
[2022-04-08 18:15] LABS: Influenza A PCR NEGATIVE (Negative); Influenza B PCR NEGATIVE (Negative); Resp Syncy Virus RNA Qual PCR NEGATIVE (Negative); SARS COV2 PCR INHOUSE NEGATIVE (Negative)
== END 2022-04-08 14:48 | disposition home or self-care (01) ==
LOC: HO.HMGCLDS 14:47
PROVIDERS: PCP Internal Medicine; Visit Provider Physician Assistant
DX: J40 Bronchitis, not specified as acute or chronic (principal); Z20.822 Contact with and (suspected) exposure to COVID-19
CPT/HCPCS: 0241U; 87811; C9803

== ENCOUNTER 2022-04-30 08:02 | Outpatient (REF) | payer MEDICARE, SELFPAY ==
--- NOTE | ~2022-04-30 | MM_ITS ---
EXAMINATION: BONE DENSITOMETRY CLINICAL INDICATION: Age-related osteoporosis without current pathological fracture. COMPARISON: Previous BD dated 12/28/2018 and baseline BD dated 02/26/2006. TECHNIQUE: Using a [employer] DXA System (software version: 13.1) manufactured by [employer], dual-energy x-ray absorptiometry was performed of the lumbar spine and left hip. The images are of good technical quality. Summary results are attached. FINDINGS: AP SPINE L1-L4: Current: BMD 1.384 g/cm2, Z-score 2.9, T-score 1.7, normal, 2.7% increase from previous, 11.3% increase from baseline (<5% change is not significant). Prior: BMD 1.348 g/cm2. Baseline: BMD 1.244 g/cm2. LEFT FEMUR, NECK: Current: BMD 0.813 g/cm2, Z-score -0.1, T-score -1.6, osteopenia. Prior: BMD 0.854 g/cm2. Baseline: BMD 0.898 g/cm2. LEFT FEMUR, TOTAL: Current: BMD 1.036 g/cm2, Z-score 1.6, T-score 0.2, normal, 2.2% increase from previous, 2.1% decrease from baseline (<5% change is not significant). Prior: BMD 1.014 g/cm2. Baseline: BMD 1.058 g/cm2. IDENTIFIED RISK FACTORS: Low calcium intake. Menopause. HISTORY OF FRACTURE: None listed. MEDICATIONS: Vitamin D. MM/XR DEXA axial skeleton IMPRESSION: 1. DIAGNOSIS: Osteopenia based on the lowest T-score value of -1.6 in the femoral neck applying World Health Organization criteria. 2. 10-YEAR FRACTURE RISK PREDICTION, FRAX: Major osteoporotic fracture (clinical spine, forearm, hip or shoulder) 10.6%. Hip fracture 2.2%. 3. Treatment Recommendations: NOF guidelines recommend consideration for treatment in postmenopausal women and men age 50 and older presenting with the following: -A hip or vertebral (clinical or morphometric) fracture. -T-score less than or equal to -2.5 at the femoral neck or spine after appropriate evaluation to exclude secondary causes. -Low bone mass at the hip or spine and a 10-year fracture probability by FRAX of greater than or equal to 3% for hip fracture or greater than or equal to 20% for major osteoporotic fracture based on the [place] adapted WHO algorithm. 4. Other Recommendations: All treatment decisions require clinical judgment and consideration of individual patient factors, including patient preferences, comorbidities, previous drug use, risk factors not captured in the FRAX model (e.g. frailty, falls, vitamin D deficiency, increased bone turnover, interval significant decline in bone density) and possible under or overestimation of fracture risk by FRAX. Additional medical evaluation for secondary cause of low bone mineral density may be appropriate. FUTURE SCAN RECOMMENDATION: People with diagnosed cases of osteoporosis or at high risk for fracture should have regular bone mineral density tests. For patients eligible for Medicare, routine testing is allowed once every 2 years. The testing frequency can be increased to one year for patients who have rapidly progressing disease, those who are receiving or discontinuing medical therapy to restore bone mass, or have additional risk factors.
== END 2022-04-30 08:03 | disposition home or self-care (01) ==
LOC: HO.MAMMO 08:02
PROVIDERS: PCP Internal Medicine; Visit Provider Internal Medicine
DX: Z13.820 Encounter for screening for osteoporosis (principal); M81.0 Age-related osteoporosis without current pathological fracture; M85.80 Other specified disorders of bone density and structure, unspecified site; Z78.0 Asymptomatic menopausal state
CPT/HCPCS: 77080

== ENCOUNTER 2022-05-13 08:16 | Outpatient (REF) | payer MEDICARE, SELFPAY ==
--- NOTE | ~2022-05-13 | CT_ITS ---
EXAMINATION: CT CHEST SCREENING CLINICAL INFORMATION: Personal history of nicotine dependence. One pack per day 50 years. Quit smoking 6 years ago. COMPARISON: CT lung screening 04/17/2021. TECHNIQUE: Multidetector volumetric CT imaging of the chest is performed without contrast using low dose technique. Additional 2D coronal and sagittal reformatted images and axial 3D maximum intensity projection (MIP) images are generated on the CT workstation. This CT examination was performed using dose optimization techniques as appropriate, variously including the following: *Automated exposure control *Adjustment of mA and/or kV according to patient size (this includes techniques or standardized protocols for targeted exams where dose is matched to indication/reason for exam; i.e. extremities or head) *Use of iterative reconstruction technique DLP: 100 mGy-cm FINDINGS: LUNGS: There is a 6.6 mm nodule right upper lobe axial image 224/5, previously measured 5 mm. A 7 mm pulmonary nodule is seen left lower lobe axial image 338/5, stable. There is a 7 mm nodule right upper lobe posterior right mainstem bronchus image 192/5. Previously it measured 3 x 6 mm on last exam and is stable. The lungs are mildly emphysematous with atelectatic changes seen in both lower lobes, right middle lobe and lingula. MEDIASTINUM: The thyroid lobes are symmetrical and normal. The central trachea and the bronchi are widely patent. The heart size and the great vessels are normal caliber. There are small shotty lymph nodes aortic window. No pericardial effusion seen. CORONARY ARTERY CALCIFICATION: Mild coronary artery calcifications visualized. PLEURA: There is no pleural effusion. No pleural mass or thickening. AXILLA: No lymphadenopathy. UPPER ABDOMEN: Visualized liver, spleen, pancreas and bilateral adrenal glands are unremarkable. OSSEOUS STRUCTURES: No aggressive lytic or sclerotic process seen. There is mild ventral mid dorsal spine. CT/CT lung screening IMPRESSION: 1. Stable bilateral pulmonary nodules. 2. Atelectatic changes in both lungs are stable. 3. Low-dose annual CT chest. ASSESSMENT: Lung-RADS category 2: Benign RECOMMENDATION: Low-dose annual CT chest
== END 2022-05-13 08:17 | disposition home or self-care (01) ==
LOC: HO.CT 08:16
PROVIDERS: PCP Internal Medicine; Visit Provider Surgery
DX: Z12.2 Encounter for screening for malignant neoplasm of respiratory organs (principal); Z87.891 Personal history of nicotine dependence
CPT/HCPCS: 71271

== ENCOUNTER → 2022-06-12 13:54 | Outpatient (BNVA) | payer MEDICARE, SELFPAY | PROVIDERS: PCP Internal Medicine; Visit Provider Internal Medicine | DX: J43.9 Emphysema, unspecified (principal); E66.9 Obesity, unspecified; Z68.35 Body mass index [BMI] 35.0-35.9, adult; R91.1 Solitary pulmonary nodule | CPT/HCPCS: 99212 ==

== ENCOUNTER 2022-08-11 07:24 | Outpatient (REF) | payer MEDICARE, SELFPAY ==
[2022-08-11 11:09] LABS: MANUAL DIFF FLAG NO
[2022-08-11 11:40] LABS: Basophils Percent Auto 0.6 % (0-2); Eosinophils Absolute Auto 0.2 X10*3/uL (0.0-0.4); Eosinophils Percent Auto 2.4 % (0-4); Hematocrit 43.6 % (37.0-47.0); Hemoglobin 13.6 g/dl (12.0-16.0); Imm Gran Abs Auto 0.02 X10*3/uL (0.00-0.03); Imm Gran Pct Auto 0.3 % (0.0-0.4); Lymphocytes Absolute Auto 1.6 X10*3/uL (1.2-4.9); Lymphocytes Percent Auto 23.1 % (20-40); Mean Corpuscular HGB Conc 31.2 g/dl (31.0-35.0); Mean Corpuscular Hemoglobin 26.8 pg (27.0-33.0); Mean Platelet Volume 10.8 fL (9.4-12.3); Monocytes Absolute Auto 0.6 X10*3/uL (0.1-1.2); Monocytes Percent Auto 8.9 % (2-11); Neutrophils Absolute Auto 4.6 x10*3/uL (2.0-8.3); Neutrophils Percent Auto 64.7 % (45-73); Platelet Count 229 X10*3/uL (160-400); Red Blood Count 5.07 X10*6/uL (4.20-5.50); Red Cell Distribution Width 14.3 % (11.0-16.0); White Blood Count 7.1 X10*3/uL (4.8-10.8)
[2022-08-11 12:13] LABS: Alanine Aminotransferase 34 U/L (0-31); Albumin Level 3.9 g/dL (3.5-5.0); Alkaline Phosphatase 112 U/L (39-117); Anion Gap 14 (12-20); Aspartate Amino Transferase 33 U/L (5-31); Blood Urea Nitrogen 15 mg/dL (9-16); Calcium 9.7 mg/dL (8.4-10.2); Carbon Dioxide 23 mmol/L (22-29); Chloride 109 mmol/L (96-108); Cholesterol 113 mg/dL; Estimated Glomerular Filt Rate 56; Free T4 (Free Thyroxine) 0.77 ng/dL (0.71-1.85); Glucose Random 109 mg/dL (60-115); HDL Cholesterol 49 mg/dL; LDL Cholesterol Calculated 44 mg/dl; Sodium 142 mmol/L (135-145); Thyroid Stimulating Hormone 1.19 uIU/mL (0.32-4.0); Total Protein 6.6 g/dL (6.5-8.0); Triglycerides 101 mg/dL; Vitamin D 25-OH Total 60.6 ng/mL (>30)
== END 2022-08-11 07:25 | disposition home or self-care (01) ==
LOC: HO.HMGCLDS 07:24
PROVIDERS: PCP Internal Medicine; Visit Provider Internal Medicine
DX: E11.65 Type 2 diabetes mellitus with hyperglycemia (principal); E78.00 Pure hypercholesterolemia, unspecified; M85.80 Other specified disorders of bone density and structure, unspecified site; E55.9 Vitamin D deficiency, unspecified
CPT/HCPCS: 36415; 80053; 80061; 82043; 82306; 82607; 82746; 84439; 84443; 85025

== ENCOUNTER 2022-08-19 09:17 | Outpatient (AMB) | payer MEDICARE, SELFPAY ==
[2022-08-19 09:19] VITALS: BP 118/82; PULSE 81; O2SAT 95; BMI 36.2
--- NOTE | 2022-08-19 09:19 | MHC.PC.OV ---
Vital Signs 08/19/22 09:19 Height 5 ft Weight 185 lb 6 oz BMI 36.2 BP 118/82 Blood Pressure Location Lt brachial Position Sitting Pulse 81 Pulse Source Pulse Oximeter Pulse Oximetry (%) 95 Oxygen Delivery Method Room Air Intake Visit Reasons: DM Color Shop Helper Required: No Accompanied by: Self / Same As Patient Allergies meperidine [From DEMEROL] Allergy (Unknown, Verified 08/19/22 09:19) REFUSES TO TAKE DUE TO FAMILIAL ALLERGY morphine [MORPHINE] Adverse Reaction (Mild, Verified 08/19/22 09:19) NAUSEA & VOMITING Medication List - Last Reconciled 08/19/22 by Abilio Robin MD albuterol sulfate 90 mcg/actuation (ProAir HFA) 2 puffs inhalation Q4-6H PRN 30 days albuterol sulfate 1 mg inhalation Q4-6H PRN amlodipine 5 mg PO BEDTIME aspirin (Adult Low Dose Aspirin) 81 mg PO DAILY atorvastatin 80 mg PO DAILY fluticasone propionate 50 mcg/actuation (Flonase Allergy Relief) 2 sprays intranasal DAILY lisinopril 40 mg PO DAILY semaglutide 0.25 mg (0.4 mL) subcut QWEEK umeclidinium 62.5 mcg/actuation (Incruse Ellipta) 1 inh inhalation BEDTIME Tobacco use date assessed: 08/19/22 Fall risk assessment: No Falls in past year Last assessed Fall Risk: 08/19/22 Dental Screening Dental Screen Date: 08/19/22 Did you have a dental visit in the last 12 months?: Yes Did you have a dental problem in the last 6 months where you did not have access to dental care?: No Was dental information given to patient?: Patient has dentist HPI DM HPI Details 77-year-old obese female with controlled diabetes mellitus hypertension hypercholesterolemia COPD coronary artery disease and osteopenia last seen in March 2022 patient comes in for follow-up. Colonoscopy is up-to-date mammogram due for this month bone density up-to-date.. Patient follows up with Pulmonary and continuing on the inhalers. Patient has a history of smoking and had a CT scan of the chest done in May 2022 for the lung cancer screening program. stopped incruse (was given due to insurance not covering spiriva) But patient is not really sob and uses the albuterol once a week [facility] Medical History Carpal tunnel syndrome COPD (chronic obstructive pulmonary disease) Coronary artery disease Generalized anxiety disorder History of COVID-19 (~01/2020) Hypercholesterolemia Hypertension Obesity (BMI 30-39.9) Osteoarthritis Osteopenia (~2013) Peptic ulcer disease Peripheral neuropathy Personal history of nicotine dependence Pulmonary nodules Renal calculus Right upper lobe pulmonary nodule Serrated adenoma of colon (~2015) Ulnar nerve entrapment Vitamin D deficiency Surgical History History of appendectomy (~07/2011) History of colonoscopy History of fusion of cervical spine (~07/2003) History of heart artery stent (~2009) History of lithotripsy (~2017) History of meniscectomy of left knee (~05/2014) History of removal of ureteral stent (~2017) History of tonsillectomy Family History Father CVD (cardiovascular disease) Throat cancer HTN (hypertension) Mother Alzheimer disease Social History Housing: House Alcohol intake: current Alcohol intake frequency: holidays/special occasions only Patient Tobacco Use Status: Former Tobacco user e-Cigarette/Vaping Use: Never Used Second Hand Smoke Exposure: No service: No Current occupational status: employed 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 1. Little interest or pleasure in doing things: not at all 2. Feeling down, depressed, or hopeless: not at all 3. Trouble falling or staying asleep, or sleeping too much: several days 4. Feeling tired or having little energy: several days 5. Poor appetite or overeating: not at all 6. Feeling bad about yourself - or that you are a failure or have let yourself or your family down: not at all 7. Trouble concentrating on things, such as reading the newspaper or watching television: not at all 8. Moving or speaking so slowly that other people could have noticed. Or the opposite - being so fidgety or restless that you have been moving around a lot more than usual: not at all 9. Thoughts that you would be better off or of hurting yourself in some way: not at all Total score: 2 Depression Screening Interpretation: Positive Source: Developed by Drs. Kalyan Noguera, Jovana Clarke, Franklyn Lares and colleagues, with an educational elmo from [employer]. Thrive Questionnaire Date Thrive assessed: 08/19/22 I am a: Patient What is your living situation today?: I have a steady place to live Within the past 12 months, did the food you bought not last and you didn't have the money to get more?: Never true Within the past 12 months, did you worry whether your food would run out before you got money to buy more?: Never true Do you have trouble paying for medicines?: No Do you have trouble getting transportation to medical appointments?: No Do you have trouble paying your heating and electricity bill?: No Do you have trouble taking care of your child, family member or friend?: No Do you have trouble with day-to-day activities such as bathing, preparing meals, shopping, managing finances, etc.?: No Are you currently unemployed and looking for a job?: No Are you interested in more education?: No Currently or been in a relationship where the following occur: no concerns reported AUDIT C Alcohol Use Questionnaire (AUDIT-C) 1. How often do you have a drink containing alcohol?: Monthly or less 2. How many drinks containing alcohol do you have on a typical day when you are drinking?: 1 or 2 3. How often do you have six or more drinks on one occasion?: Never Total Score: 1 MADELINE-7 AMB Questionnaire MADELINE-7 Date MADELINE - 7 assessed: 08/19/22 Feeling nervous, anxious, or on edge: 0 = Not at all Not being able to stop or control worryin = Not at all Worrying too much about different things: 0 = Not at all Trouble relaxin = Not at all Being so restless that it is hard to sit still: 0 = Not at all Becoming easily annoyed or irritable: 0 = Not at all Feeling afraid as if something awful might happen: 0 = Not at all Total MADELINE-7 score (0-4 normal; 5-9 mild; 10-14 moderate; 15-21 severe): 0 Source: Developed by Drs. Kalyan Noguera, Jovana Clarke, Franklyn Lares and colleagues, with an educational elmo from [employer]. Physical exam (Primary Care) Vital Signs: Last Vital Signs Pulse 81 08/19/22 09:19 BP 118/82 08/19/22 09:19 Pulse Ox 95 08/19/22 09:19 Oxygen Delivery Method Room Air 08/19/22 09:19 BMI result Body Mass Index 36.2 Tobacco/Smoking Status: Tobacco use Status Tobacco use date assessed 08/19/22 08/19/22 09:26 Patient Tobacco Use Status Former Tobacco user 08/19/22 09:26 e-Cigarette/Vaping Use Never Used 08/19/22 09:26 PHQ-9: PHQ-9 Score PHQ-9: Total score 2 08/19/22 09:30 Depression Screening Interpretation: Positive Thrive Assessment: Date of Thrive Assessment Date Thrive assessed 08/19/22 08/19/22 09:26 Currently or been in a relationship where the following occur: no concerns reported Const General: alert; No acute distress Eyes Conjunctivae: conjunctivae normal Resp Auscultation: clear to auscultation bilaterally Cardio Rate: regular rate Rhythm: regular rhythm GI Inspection: Yes normal to inspection Extrem General: Yes normal to inspection and No edema Results AMB Hemoglobin A1c AMB Hemoglobin A1c 5.9 % Last Edit by Larissa Finch on 08/19/22 09:39 Assessment and Plan Assessment & Plan (1) Type 2 diabetes mellitus with hyperglycemia: Comment: [facility] 2022, will be seeing Dr. Pineda Code(s): E11.65 - Type 2 diabetes mellitus with hyperglycemia Qualifiers: Diabetes mellitus skilled nursing insulin use: without skilled nursing use Qualified Code(s): E11.65 - Type 2 diabetes mellitus with hyperglycemia Plan: Decrease the amount of carbohydrate intake, pasta, bread, rice and potatoes are all sugar and that is aside from all the sweet stuff, remember that fruits are good but they are Sweet also. Hemoglobin A1c goal of less than 7.0 patient is on diet control (2) COPD (chronic obstructive pulmonary disease): Comment: (Moderately severe , remains controlled, mild dyspnea on exertion, may be due to relatively sedentary life) TX continue Incruse Ellipta 1 inhalation daily, and ProAir 2 puffs or Albuterol solution in Neb.q.6 hours only p.r.n.. Encouraged to do deep breathing exercises 2 or 3 times a day. Code(s): J44.9 - Chronic obstructive pulmonary disease, unspecified Qualifiers: COPD type: emphysema Emphysema type: unspecified Qualified Code(s): J43.9 - Emphysema, unspecified Plan: Continue with inhalers patient follows up with Pulmonary (3) Hypertension: Code(s): I10 - Essential (primary) hypertension Qualifiers: Hypertension type: essential hypertension Qualified Code(s): I10 - Essential (primary) hypertension Plan: Continue with blood pressure medication. Decrease salt intake and exercise patient takes amlodipine 5 mg once a day lisinopril 40 mg once a day (4) Hypercholesterolemia: Code(s): E78.00 - Pure hypercholesterolemia, unspecified Plan: Avoid fried foods, chicken skin, eggs, butter margarine, pastries and meat. Be it pork or beef they have a lot of cholesterol LDL goal of less than 70 patient is a taking atorvastatin 80 mg once a day (5) Coronary artery disease: Comment: (2010 - STEMI /VFib arrest - s/p stent to circumflex) Code(s): I25.10 - Atherosclerotic heart disease of three affiliated coronary artery without angina pectoris Qualifiers: Coronary Disease-Associated Artery/Lesion type: three affiliated artery [place] vs. transplanted heart: three affiliated heart Associated angina: without angina Qualified Code(s): I25.10 - Atherosclerotic heart disease of three affiliated coronary artery without angina pectoris Plan: Control the cholesterol, weight, blood pressure, diabetes (6) Personal history of nicotine dependence: Comment: (former smoker, in LDCT screening program) Code(s): Z87.891 - Personal history of nicotine dependence (7) Obesity (BMI 30-39.9): Comment: Patient remains moderately obese, denies symptoms of obstructive sleep apnea. She is encouraged to walk daily and restrict intake of calories, and try to lose weight even by a few lb per month. Code(s): E66.9 - Obesity, unspecified Orders: Orders AMB Hemoglobin A1c Today E11.65 - Type 2 diabetes mellitus with hyperglycemia Medications: New semaglutide for 4 weeks 0.25 mg (0.4 mL) subcut QWEEK 3 mL 0RF E11.65 - Type 2 diabetes mellitus with hyperglycemia Coding Level of Care Code Est Pt Level 4 (88070) Diagnoses Type 2 diabetes mellitus with hyperglycemia E11.65 Diabetes mellitus bed bug exterminator insulin use: without bed bug exterminator use COPD (chronic obstructive pulmonary disease) J43.9 COPD type: emphysema Emphysema type: unspecified Hypertension I10 Hypertension type: essential hypertension Hypercholesterolemia E78.00 Coronary artery disease I25.10 Coronary Disease-Associated Artery/Lesion type: three affiliated artery [place] vs. transplanted heart: three affiliated heart Associated angina: without angina Personal history of nicotine dependence Z87.891 Obesity (BMI 30-39.9) E66.9
== END 2022-08-19 09:51 | disposition home or self-care (01) ==
PROVIDERS: PCP Internal Medicine; Visit Provider Internal Medicine
DX: E11.65 Type 2 diabetes mellitus with hyperglycemia (principal); E66.9 Obesity, unspecified; Z68.36 Body mass index [BMI] 36.0-36.9, adult; Z87.891 Personal history of nicotine dependence; J43.9 Emphysema, unspecified; I10 Essential (primary) hypertension; E78.00 Pure hypercholesterolemia, unspecified; I25.10 Atherosclerotic heart disease of native coronary artery without angina pectoris
CPT/HCPCS: 83036; 99214

== ENCOUNTER 2022-11-20 14:51 | Outpatient (AMB) | payer MEDICARE, SELFPAY ==
[2022-11-20 15:03] VITALS: BP 128/72; PULSE 80; O2SAT 97; BMI 35.5
--- NOTE | 2022-11-20 15:03 | A.OFFPC_ITS ---
Vital Signs 11/20/22 15:03 Height 5 ft Weight 182 lb BMI 35.5 BP 128/72 Blood Pressure Location Lt brachial Position Sitting Pulse 80 Pulse Source Pulse Oximeter Pulse Oximetry (%) 97 Oxygen Delivery Method Room Air Intake Visit Reasons: DM , OBEsity Allergies meperidine [From DEMEROL] Allergy (Unknown, Verified 11/20/22 15:03) REFUSES TO TAKE DUE TO FAMILIAL ALLERGY morphine [MORPHINE] Adverse Reaction (Mild, Verified 11/20/22 15:03) NAUSEA & VOMITING Medication List - Last Reconciled 11/20/22 by Abilio Robin MD albuterol sulfate 90 mcg/actuation (ProAir HFA) 2 puffs inhalation Q4-6H PRN 30 days albuterol sulfate 90 mcg/actuation (Proventil HFA) 2 puffs inhalation Q4-6H PRN albuterol sulfate 1 mg inhalation Q4-6H PRN amlodipine 5 mg PO BEDTIME aspirin (Adult Low Dose Aspirin) 81 mg PO DAILY atorvastatin 80 mg PO DAILY fluticasone propionate 50 mcg/actuation (Flonase Allergy Relief) 2 sprays intranasal DAILY lisinopril 40 mg PO DAILY Tobacco use date assessed: 08/19/22 Fall risk assessment: No Falls in past year Last assessed Fall Risk: 11/20/22 Dental Screening Dental Screen Date: 11/20/22 Did you have a dental visit in the last 12 months?: Yes Did you have a dental problem in the last 6 months where you did not have access to dental care?: No Was dental information given to patient?: Patient has dentist HPI DM , OBEsity HPI Details 77-year-old obese female with controlled diabetes mellitus COPD hypertension hypercholesterolemia coronary artery disease coming in for follow- up. Last seen in August 2022. Patient's colonoscopy is up-to-date mammogram due. Patient saw for droopy eyelids August 2019 ptosis not done due to out of pocket and consultation with blepharoplasty did describes done. COPD has been using the albuterol regularly. Patient also complaining of right upper quadrant pain with epigastric pain peer [facility] Medical History Serrated adenoma of colon (~2015) Generalized anxiety disorder History of COVID-19 (~01/2020) Right upper lobe pulmonary nodule Pulmonary nodules Personal history of nicotine dependence Osteopenia (~2013) Peptic ulcer disease Ulnar nerve entrapment Carpal tunnel syndrome Osteoarthritis Peripheral neuropathy Vitamin D deficiency Renal calculus Obesity (BMI 30-39.9) Hypertension COPD (chronic obstructive pulmonary disease) Coronary artery disease Hypercholesterolemia Surgical History History of colonoscopy History of appendectomy (~07/2011) History of fusion of cervical spine (~07/2003) History of meniscectomy of left knee (~05/2014) History of heart artery stent (~2009) History of removal of ureteral stent (~2017) History of tonsillectomy History of lithotripsy (~2017) Family History Father CVD (cardiovascular disease) Throat cancer HTN (hypertension) Mother Alzheimer disease Social History Housing: House Alcohol intake: current Alcohol intake frequency: holidays/special occasions only Patient Tobacco Use Status: Former Tobacco user e-Cigarette/Vaping Use: Never Used Second Hand Smoke Exposure: No service: No Current occupational status: employed 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 1. Little interest or pleasure in doing things: not at all 2. Feeling down, depressed, or hopeless: not at all 3. Trouble falling or staying asleep, or sleeping too much: several days 4. Feeling tired or having little energy: several days 5. Poor appetite or overeating: not at all 6. Feeling bad about yourself - or that you are a failure or have let yourself or your family down: not at all 7. Trouble concentrating on things, such as reading the newspaper or watching television: not at all 8. Moving or speaking so slowly that other people could have noticed. Or the opposite - being so fidgety or restless that you have been moving around a lot more than usual: not at all 9. Thoughts that you would be better off or of hurting yourself in some way: not at all Total score: 2 Depression Screening Interpretation: Positive Depression Screening Done: Yes Source: Developed by Drs. Kalyan Noguera, Franklyn Huff and colleagues, with an educational elmo from [email or web address] Thrive Questionnaire Date Thrive assessed: 08/19/22 AUDIT C Alcohol Use Questionnaire (AUDIT-C) 1. How often do you have a drink containing alcohol?: Monthly or less 2. How many drinks containing alcohol do you have on a typical day when you are drinking?: 1 or 2 3. How often do you have six or more drinks on one occasion?: Never Total Score: 1 MADELIEN-7 AMB Questionnaire MADELINE-7 Date MADELINE - 7 assessed: 08/19/22 Source: Developed by Drs. Kalyan Noguera, Jovana Clarke, Franklyn Lares and colleagues, with an educational elmo from [email or web address]. Physical exam (Primary Care) Vital Signs: Last Vital Signs Pulse 80 11/20/22 15:03 BP 128/72 11/20/22 15:03 Pulse Ox 97 11/20/22 15:03 Oxygen Delivery Method Room Air 11/20/22 15:03 Next steps: Tender on the epigastric area with vague right upper quadrant pain no guarding no rebound. BMI result Body Mass Index 35.5 Tobacco/Smoking Status: Tobacco use Status Tobacco use date assessed 08/19/22 11/20/22 15:09 Patient Tobacco Use Status Former Tobacco user 11/20/22 15:09 e-Cigarette/Vaping Use Never Used 11/20/22 15:09 PHQ-9: PHQ-9 Score PHQ-9: Total score 2 11/20/22 15:09 Depression Screening Interpretation: Positive Thrive Assessment: Date of Thrive Assessment Date Thrive assessed 08/19/22 11/20/22 15:09 Const General: alert; No acute distress Eyes Conjunctivae: conjunctivae normal Resp Auscultation: clear to auscultation bilaterally Cardio Rate: regular rate Rhythm: regular rhythm GI Inspection: Yes normal to inspection Extrem General: Yes normal to inspection and No edema Assessment and Plan Assessment & Plan (1) Type 2 diabetes mellitus with hyperglycemia: Comment: [facility] 2022, will be seeing Dr. Pineda Code(s): E11.65 - Type 2 diabetes mellitus with hyperglycemia Qualifiers: Diabetes mellitus detention insulin use: without detention use Qualified Code(s): E11.65 - Type 2 diabetes mellitus with hyperglycemia Plan: Decrease the amount of carbohydrate intake, pasta, bread, rice and potatoes are all sugar and that is aside from all the sweet stuff, remember that fruits are good but they are Sweet also. Hemoglobin A1c goal of less than 7.0 patient is diet controlled (2) COPD (chronic obstructive pulmonary disease): Comment: (Moderately severe , remains controlled, mild dyspnea on exertion, may be due to relatively sedentary life) TX continue Incruse Ellipta 1 inhalation daily, and ProAir 2 puffs or Albuterol solution in Neb.q.6 hours only p.r.n.. Encouraged to do deep breathing exercises 2 or 3 times a day. Code(s): J44.9 - Chronic obstructive pulmonary disease, unspecified Qualifiers: COPD type: emphysema Emphysema type: unspecified Qualified Code(s): J43.9 - Emphysema, unspecified Plan: Continue with a inhalers albuterol (3) Obesity (BMI 30-39.9): Comment: Patient remains moderately obese, denies symptoms of obstructive sleep apnea. She is encouraged to walk daily and restrict intake of calories, and try to lose weight even by a few lb per month. Code(s): E66.9 - Obesity, unspecified Plan: Diet and exercise (4) Hypercholesterolemia: Code(s): E78.00 - Pure hypercholesterolemia, unspecified Plan: Avoid fried foods, chicken skin, eggs, butter margarine, pastries and meat. Be it pork or beef they have a lot of cholesterol LDL goal of less than 70 and triglyceride of less than 150. (5) Hypertension: Code(s): I10 - Essential (primary) hypertension Qualifiers: Hypertension type: essential hypertension Qualified Code(s): I10 - Essential (primary) hypertension Plan: Continue with blood pressure medication. Decrease salt intake and exercise presently on lisinopril 40 mg once a day and amlodipine 5 mg once a day (6) Coronary artery disease: Comment: (2010 - STEMI /VFib arrest - s/p stent to circumflex) Code(s): I25.10 - Atherosclerotic heart disease of [place] coronary artery without angina pectoris Qualifiers: Coronary Disease-Associated Artery/Lesion type: [place] artery [place] vs. transplanted heart: [place] heart Associated angina: without angina Qualified Code(s): I25.10 - Atherosclerotic heart disease of [place] coronary artery without angina pectoris Plan: Control the cholesterol, weight, blood pressure, diabetes (7) Breast cancer screening by mammogram: Code(s): Z12.31 - Encounter for screening mammogram for malignant neoplasm of breast Plan: Reminded about mammogram (8) RUQ abdominal pain: Code(s): R10.11 - Right upper quadrant pain (9) Chronic pain syndrome: Code(s): G89.4 - Chronic pain syndrome (10) GERD (gastroesophageal reflux disease): Code(s): K21.9 - Gastro-esophageal reflux disease without esophagitis Orders: Orders MM tomosynthesis screening BI Today Z12.31 - Encounter for screening mammogram for malignant neoplasm of breast US abdomen complete Today R10.11 - Right upper quadrant pain, R79.89 - Other specified abnormal findings of blood chemistry Medications: New omeprazole 20 mg PO DAILY 30 caps 2RF K21.9 - Gastro-esophageal reflux disease without esophagitis budesonide-formoterol 160-4.5 mcg/actuation (Symbicort) 2 puffs inhalation BID 10.2 grams 11RF J43.9 - Emphysema, unspecified albuterol sulfate 90 mcg/actuation (Proventil HFA) 2 puffs inhalation Q4-6H PRN 8.5 grams 0RF Shortness Of Breath J43.9 - Emphysema, unspecified, J45.909 - Unspecified asthma, uncomplicated Coding Level of Care Code Est Pt Level 4 (69702) Diagnoses Type 2 diabetes mellitus with hyperglycemia, without long-term current use of insulin E11.65 Diabetes mellitus detention insulin use: without dealer relationship manager use Pulmonary emphysema, unspecified emphysema type J43.9 COPD type: emphysema Emphysema type: unspecified Obesity (BMI 30-39.9) E66.9 Hypercholesterolemia E78.00 Essential hypertension I10 Hypertension type: essential hypertension Coronary artery disease involving [place] coronary artery of [place] heart without angina pectoris I25.10 Coronary Disease-Associated Artery/Lesion type: [place] artery [place] vs. transplanted heart: [place] heart Associated angina: without angina Breast cancer screening by mammogram Z12.31 RUQ abdominal pain R10.11 Chronic pain syndrome G89.4 GERD (gastroesophageal reflux disease) K21.9
== END 2022-11-20 15:50 | disposition home or self-care (01) ==
PROVIDERS: PCP Internal Medicine; Visit Provider Internal Medicine
DX: E11.65 Type 2 diabetes mellitus with hyperglycemia (principal); J43.9 Emphysema, unspecified; E66.9 Obesity, unspecified; Z68.35 Body mass index [BMI] 35.0-35.9, adult; E78.00 Pure hypercholesterolemia, unspecified; I10 Essential (primary) hypertension; I25.10 Atherosclerotic heart disease of native coronary artery without angina pectoris; Z12.31 Encounter for screening mammogram for malignant neoplasm of breast; R10.11 Right upper quadrant pain; G89.4 Chronic pain syndrome; K21.9 Gastro-esophageal reflux disease without esophagitis
CPT/HCPCS: 99214

== ENCOUNTER 2022-12-09 08:41 | Outpatient (REF) | payer MEDICARE, SELFPAY ==
--- NOTE | ~2022-12-09 | US_ITS ---
EXAMINATION: US ABDOMEN COMPLETE CLINICAL INFORMATION: Other specified abnormal findings of blood chemistry.. COMPARISON: Renal ultrasound 04/07/2018 and 09/24/2017. X-ray abdomen KUB 09/02/2017. CT abdomen and pelvis 01/09/2016. TECHNIQUE: Real-time imaging of the abdominal viscera. FINDINGS: PANCREAS: Normal. ABDOMINAL AORTA: The proximal, mid, and distal segments are normal in caliber. INFERIOR VENA CAVA: Visualized portions are normal. LIVER: The liver is normal in size. The liver contour is normal. Heterogeneous with multiple echogenic lesions seen. The largest measuring 3.9 x 3.2 x 4.2 cm left hepatic lobe. On previous CT chest the liver appeared slightly heterogeneous but lack of IV contrast was dictated evaluation of liver. GALLBLADDER: Normal. The gallbladder is physiologically distended without evidence of stones, sludge, polyps, wall thickening or pericholecystic fluid. COMMON BILE DUCT: Normal in caliber measuring 0.4 cm in diameter. RIGHT KIDNEY: No hydronephrosis. No renal calculi or focal parenchymal lesions. The kidney measures 11.4 cm in maximum dimension. LEFT KIDNEY: There is increased liver echogenicity with mild cortical thinning. There is a echogenic stone in the lower pole measuring 0.64 x 0.40 x 0.50).The kidney measures 11.0 cm in maximum dimension SPLEEN: Normal. The spleen measures 8.9 cm in maximum dimension. FREE FLUID: None. US/US abdomen complete IMPRESSION: 1. Heterogeneous liver with multiple echogenic lesions. The largest lesion left hepatic lobe measures 4.[address] chest the liver appeared slightly heterogeneous. No contrast was injected on the CT chest exam. Recommend CT without and CT abdomen pelvis with contrast. 2. Nonobstructive echogenic renal calculi left kidney.
== END 2022-12-09 08:42 | disposition home or self-care (01) ==
LOC: HO.HMGCX 08:41
PROVIDERS: PCP Internal Medicine; Visit Provider Internal Medicine
DX: R79.89 Other specified abnormal findings of blood chemistry (principal); R10.11 Right upper quadrant pain
CPT/HCPCS: 76700

== ENCOUNTER 2022-12-23 08:10 | Outpatient (REF) | payer MEDICARE, SELFPAY | END 2022-12-23 08:11 | disposition home or self-care (01) | LOC: HO.MAMMO 08:10 | PROVIDERS: PCP Internal Medicine; Visit Provider Internal Medicine | DX: Z12.31 Encounter for screening mammogram for malignant neoplasm of breast (principal) | CPT/HCPCS: 77063; 77067 ==

== ENCOUNTER → 2022-12-23 08:30 | Outpatient (BNV) | payer MEDICARE, SELFPAY | PROVIDERS: PCP Internal Medicine; Visit Provider Radiology Diagnostic Radiology | DX: Z12.31 Encounter for screening mammogram for malignant neoplasm of breast (principal) | CPT/HCPCS: 77063; 77067 ==

== ENCOUNTER 2022-12-25 14:00 | Outpatient (AMB) | payer MEDICARE, SELFPAY ==
--- NOTE | 2022-12-25 14:14 | A.OFFVIS_ITS ---
Intake Vital Signs 12/25/22 14:16 Height 5 ft Weight 181 lb BMI 35.3 BP 120/60 Blood Pressure Location Lt brachial Position Sitting Pulse 85 Pulse Source Pulse Oximeter Pulse Oximetry (%) 95 Oxygen Delivery Method Room Air Intake Visit Reasons: copd Intake Note: pt is here for follow up and states is going through a work up for upper abd pain, and sometimes affects her breathing.. Allergies meperidine [From DEMEROL] Allergy (Unknown, Verified 12/25/22 14:28) REFUSES TO TAKE DUE TO FAMILIAL ALLERGY morphine [MORPHINE] Adverse Reaction (Mild, Verified 12/25/22 14:28) NAUSEA & VOMITING Medication List - Last Reconciled 12/25/22 by Ricky Andujar MD albuterol sulfate 90 mcg/actuation (Proventil HFA) 2 puffs inhalation Q4-6H PRN albuterol sulfate 1 mg inhalation Q4-6H PRN amlodipine 5 mg PO BEDTIME aspirin (Adult Low Dose Aspirin) 81 mg PO DAILY atorvastatin 80 mg PO DAILY budesonide-formoterol 160-4.5 mcg/actuation (Symbicort) 2 puffs inhalation BID fluticasone propionate 50 mcg/actuation (Flonase Allergy Relief) 2 sprays intranasal DAILY lisinopril 40 mg PO DAILY omeprazole 20 mg PO DAILY Do you need a note to return to daycare/school/sports/work: No HPI copd HPI Details 77 YEARS OLD VERY PLEASANT FEMALE MODERA TELY OBESE, IS BEING FOLLOWED FOR CHRONIC OBSTRUCTIVE PULMONARY DISEASE. SHE WAS HAVING SOME LEG CRAMPS AN THOUGHT IT WAS DUE TO INCRUSE ELLIPTA, SO DR. JAMES CHANGE HER MED TO SYMBICORT 160-4.52 PUFFS B.I.D. WHICH SHE HAS BEEN USING REGULARLY. SHE CLAIMS THAT HER BREATHING REMAINS GOOD EXCEPT FOR WHEN SHE HAS TO CLIMB 1 FLIGHT OF STAIRS. SOMETIMES SHE USES THE ALBUTEROL 2 PUFFS BEFORE CLIMBING STAIRS AND SHE FEELS BETTER. SHE HAS VERY LITTLE. COUGH OR EXPECTORATION DENIES ANY WHEEZING. SHE HAS HAD FLU VACCINE BUT DOES NOT WANT TO HAVE THE COVID SHOT BECAUSE SHE REACTS TO THE VACCINE [facility] Medical History Serrated adenoma of colon (~2015) Generalized anxiety disorder History of COVID-19 (~01/2020) Right upper lobe pulmonary nodule Pulmonary nodules Personal history of nicotine dependence Osteopenia (~2013) Peptic ulcer disease Ulnar nerve entrapment Carpal tunnel syndrome Osteoarthritis Peripheral neuropathy Vitamin D deficiency Renal calculus Obesity (BMI 30-39.9) Hypertension COPD (chronic obstructive pulmonary disease) Coronary artery disease Hypercholesterolemia Surgical History History of colonoscopy History of appendectomy (~07/2011) History of fusion of cervical spine (~07/2003) History of meniscectomy of left knee (~05/2014) History of heart artery stent (~2009) History of removal of ureteral stent (~2017) History of tonsillectomy History of lithotripsy (~2017) Family History Father CVD (cardiovascular disease) Throat cancer HTN (hypertension) Mother Alzheimer disease Social History Housing: House Alcohol intake: current Alcohol intake frequency: holidays/special occasions only Patient Tobacco Use Status: Former Tobacco user e-Cigarette/Vaping Use: Never Used Second Hand Smoke Exposure: No service: No Current occupational status: employed 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 Hearing needs: No Vision needs: Yes (Glasses) Review of Systems Const All systems reviewed & are unremarkable except as noted in HPI and below Eyes Reports no additional complaints ENT Reports no additional complaints Card Denies chest pain, Denies irregular heart rhythm, Denies leg edema and Reports dyspnea on exertion Resp Reports as per HPI and Reports dyspnea on exertion GI Reports no additional complaints Reports no additional complaints Musc Reports no additional complaints Skin/Breast Reports system reviewed and no additional complaints, except as documented Neuro Reports no additional complaints Psych Reports no additional complaints Physical Exam Vital Signs: Last Vital Signs Pulse 85 12/25/22 14:16 BP 120/60 12/25/22 14:16 Pulse Ox 95 12/25/22 14:16 Oxygen Delivery Method Room Air 12/25/22 14:16 BMI result Body Mass Index 35.3 Const General: comfortable, no acute distress, alert and awake Orientation/consciousness: patient oriented x3 HEENT Head: Yes normal to inspection General nose exam: No nasal polyps present and No nasal discharge present Face and sinus: Yes sinuses nontender Mouth: oropharynx normal Throat: Yes posterior oropharynx normal Eyes General: appearance normal, both eyes and all related structures Neck Neck: Yes normal visual inspection, Yes no lymphadenopathy, Yes trachea midline and Yes no JVD Thyroid: Thyroid normal Chest Chest palpation & inspection: normal inspection of the chest, normal palpation of entire chest wall and no tenderness Resp Other: Percussion note is resonant, breath sounds slightly distant with prolonged expiratory phase, No wheezes or rhonchi are heard. Cardio Palpation: normal PMI Rate: regular rate Rhythm: regular rhythm Heart sounds: no gallops and no murmurs Peripheral pulses: Peripheral pulses 2+ throughout GI Palpation (GI): Soft to palpation, nontender, No hepatosplenomegaly present and no masses Auscultation: normal bowel sounds Back/Spine/Pelvis Thoracic/Lumbar Spine: thoracic and lumbar spine normal to inspection Skin General skin exam: no rashes or lesions noted Neuro General: patient oriented x3 and no focal motor deficits Cranial nerves: Yes CN's II-XII intact bilaterally Extrem General: Yes normal to inspection, Yes no calf tenderness and Yes edema (1+ EDEMA OF RT ANKLE ) Psych Appearance: grossly normal and well kempt Speech and movement: Normal speech and movement present Assessment & Plan Assessment & Plan (1) COPD (chronic obstructive pulmonary disease): Comment: (Moderately severe , remains controlled, mild dyspnea on exertion, may be due to relatively sedentary life) TX continue Symbicort 160-4.52 puffs b.i.d. and ProAir 2 puffs or Albuterol solution in Neb.q.6 hours only p.r.n.. Encouraged to do deep breathing exercises 2 or 3 times a day. Code(s): J44.9 - Chronic obstructive pulmonary disease, unspecified Qualifiers: COPD type: emphysema Emphysema type: unspecified Qualified Code(s): J43.9 - Emphysema, unspecified (2) Obesity (BMI 30-39.9): Comment: Patient remains moderately obese, denies symptoms of obstructive sleep apnea. She is encouraged to walk daily and restrict intake of calories, and try to lose weight even by a few lb per month. Code(s): E66.9 - Obesity, unspecified (3) Personal history of nicotine dependence: Comment: (former smoker, in LDCT screening program) Code(s): Z87.891 - Personal history of nicotine dependence (4) Pulmonary nodule: Comment: CATEGORY -2 BENIGN . PATIENT PARTICIPATING IN ANNUAL LD CT SCAN PROGRAM Code(s): R91.1 - Solitary pulmonary nodule Coding Level of Care Code Est Pt Level 3 (49290) Diagnoses Pulmonary emphysema, unspecified emphysema type J43.9 COPD type: emphysema Emphysema type: unspecified Obesity (BMI 30-39.9) E66.9 Personal history of nicotine dependence Z87.891 Pulmonary nodule R91.1
[2022-12-25 14:16] VITALS: BP 120/60; PULSE 85; O2SAT 95; BMI 35.3
== END 2022-12-25 14:38 | disposition home or self-care (01) ==
PROVIDERS: PCP Internal Medicine; Visit Provider Internal Medicine
DX: J43.9 Emphysema, unspecified (principal); E66.9 Obesity, unspecified; Z87.891 Personal history of nicotine dependence; R91.1 Solitary pulmonary nodule
CPT/HCPCS: 99213

== ENCOUNTER → 2022-12-25 14:00 | Outpatient (BNVA) | payer MEDICARE, SELFPAY | PROVIDERS: PCP Internal Medicine; Visit Provider Internal Medicine | DX: J43.9 Emphysema, unspecified (principal); R91.1 Solitary pulmonary nodule; E66.9 Obesity, unspecified; Z87.891 Personal history of nicotine dependence; Z68.35 Body mass index [BMI] 35.0-35.9, adult | CPT/HCPCS: 99212 ==

== ENCOUNTER 2022-12-31 09:25 | Outpatient (REF) | payer MEDICARE, SELFPAY ==
--- NOTE | ~2022-12-31 | CT_ITS ---
EXAMINATION: CT ABDOMEN AND PELVIS WITHOUT AND WITH CONTRAST CLINICAL INFORMATION: Liver disease, heterogeneous liver with multiple echogenic lesions, largest in the left hepatic lobe measuring 4.2 cm COMPARISON: 12/09/2022 abdominal ultrasound, 05/13/[address] TECHNIQUE: Multidetector volumetric imaging was performed of the abdomen and pelvis before and after the IV administration of 85 mL of Omnipaque 300 intravenous contrast. Sagittal and coronal reformatted images were obtained on the technologist's workstation. This CT examination was performed using dose optimization techniques as appropriate, variously including the following: *Automated exposure control *Adjustment of mA and/or kV according to patient size (this includes techniques or standardized protocols for targeted exams where dose is matched to indication/reason for exam; i.e. extremities or head) *Use of iterative reconstruction technique DLP: 1193 mGy-cm FINDINGS: NEWS CAMERAMAN: Fecal retention. Eventrated right hemidiaphragm. Basilar atelectasis. Grade 1 anterolisthesis L4 on L5, L4-L5 disc space narrowing. LUNG BASES: Atelectasis. 7 mm left lower lobe lung nodule unchanged from 05/13/[address] LIVER, GALLBLADDER, AND BILIARY TREE: On noncontrast enhanced study, liver is enlarged with multiple ill-defined hypodense lesions. Findings are more pronounced on 05/13/[address] There was normal appearance of the liver in 2016. Following contrast administration, innumerable liver lesions of varying sizes are seen, largest in the right hepatic lobe measuring in the range of 5 cm, on the left, 4.3 cm. No internal calcifications, significant internal enhancement or peripheral possibly no contrast. No CT evidence of underlying cirrhosis. The gallbladder is unremarkable with no evidence of radiopaque gallstones, gallbladder wall thickening, or obvious pericholecystic inflammatory changes. PANCREAS: Unremarkable SPLEEN: Unremarkable ADRENAL GLANDS: Unremarkable KIDNEYS AND URETERS: The kidneys are normal in size, shape, and attenuation. No hydronephrosis, hydroureter, or calculi seen. Too small to characterize right renal hypodensities, likely cysts. 6 mm nonobstructing left lower pole renal calculus. No perinephric stranding. BLADDER: Unremarkable GASTROINTESTINAL TRACT: Decompressed stomach. Nonobstructive bowel pattern. Decompressed terminal ileum. Cecal anastomotic suture line. Appendix not seen. Focal narrowing ascending colon, axial 44/66, coronal 45/141 with adjacent diverticulum, unclear if transient or fixed. No surrounding inflammatory change or regional nodes. Moderate fecal retention with contrast seen to descending colon. Contrast does not reach the sigmoid colon are distally. ABDOMINAL WALL: Rectus diastasis and small fat filled umbilical hernia. LYMPH NODES: No pathologic lymphadenopathy. VASCULAR: Atherosclerotic calcifications nonaneurysmal aorta with question narrowing origin of the patent celiac artery. Superior and inferior mesenteric arteries are opacified. Patent portal system. PELVIC VISCERA: Possible bilateral small ovarian cysts, left greater than right. OSSEOUS STRUCTURES: Grade 1 anterolisthesis L4 on L5 with disc space narrowing and vacuum disc phenomena. No suspicious osseous lesions. CT/CT abdomen pelvis wo/w IV con IMPRESSION: CT findings concerning for metastatic disease to the liver. Hepatic lesions correlate with multiple echogenic liver lesions seen on 12/09/2022 ultrasound. Hyperechoic liver metastases have multiple possible origins, but commonly, with colorectal carcinoma. Focal narrowing of the ascending colon possible apple core lesion versus transient peristalsis. Liver lesions would be amenable to percutaneous biopsy. Consider colonoscopy.
[2022-12-31] MEDS: iohexoL 350 MG/ML 75 ML INFUS..BTL 85 ML IV (12:00)
[2022-12-31] MEDS: Barium Sulfate Oral (Berry) 450 ML ORAL.SUSP 900 ML PO (12:00)
[2023-01-02 08:20] LABS: GFR POC > 60
== END 2022-12-31 09:26 | disposition home or self-care (01) ==
LOC: HO.CT 09:25
PROVIDERS: PCP Internal Medicine; Visit Provider Internal Medicine
DX: K76.9 Liver disease, unspecified (principal); R16.0 Hepatomegaly, not elsewhere classified
CPT/HCPCS: 74178; 82565; Q9967

== ENCOUNTER 2023-01-13 16:50 | Outpatient (REF) | payer MEDICARE, SELFPAY ==
[2023-01-13 17:03] LABS: MANUAL DIFF FLAG NO
[2023-01-13 17:54] LABS: Basophils Absolute Auto 0.1 X10*3/uL (0.0-0.2); Basophils Percent Auto 0.6 % (0-2); Eosinophils Absolute Auto 0.1 X10*3/uL (0.0-0.4); Eosinophils Percent Auto 1.2 % (0-4); Hematocrit 47.3 % (37.0-47.0); Hemoglobin 14.9 g/dl (12.0-16.0); Imm Gran Abs Auto 0.04 X10*3/uL (0.00-0.03); Imm Gran Pct Auto 0.4 % (0.0-0.4); Lymphocytes Absolute Auto 2.2 X10*3/uL (1.2-4.9); Lymphocytes Percent Auto 23.2 % (20-40); Mean Corpuscular HGB Conc 31.5 g/dl (31.0-35.0); Mean Corpuscular Hemoglobin 26.2 pg (27.0-33.0); Mean Corpuscular Volume 83.3 fL (80.0-98.0); Mean Platelet Volume 10.3 fL (9.4-12.3); Monocytes Absolute Auto 0.8 X10*3/uL (0.1-1.2); Monocytes Percent Auto 8.6 % (2-11); Neutrophils Absolute Auto 6.4 x10*3/uL (2.0-8.3); Platelet Count 265 X10*3/uL (160-400); Red Blood Count 5.68 X10*6/uL (4.20-5.50); White Blood Count 9.7 X10*3/uL (4.8-10.8)
[2023-01-13 18:01] LABS: INTERNATIONAL NORM RATIO 0.9 (0.9-1.1); Prothrombin Time 10.7 SEC (11.1-13.3)
[2023-01-13 18:04] LABS: Partial Thromboplastin Time 41.4 SEC (26.0-36.4)
[2023-01-13 18:44] LABS: Alanine Aminotransferase 52 U/L (0-31); Albumin Level 4.4 g/dL (3.5-5.0); Alkaline Phosphatase 245 U/L (39-117); Anion Gap 15 (12-20); Aspartate Amino Transferase 62 U/L (5-31); Bilirubin Direct 0.3 mg/dL (0.0-0.5); Bilirubin Total 0.7 mg/dL (0.0-1.0); Blood Urea Nitrogen 13 mg/dL (9-16); Calcium 10.3 mg/dL (8.4-10.2); Carbon Dioxide 26 mmol/L (22-29); Chloride 106 mmol/L (96-108); Estimated Glomerular Filt Rate 55; Glucose Random 104 mg/dL (60-115); Potassium 4.2 mmol/L (3.3-5.1); Sodium 143 mmol/L (135-145); Total Protein 7.9 g/dL (6.5-8.0)
[2023-01-16 13:09] LABS: Alpha Fetoprotein 4.1 ng/mL
== END 2023-01-13 16:51 | disposition home or self-care (01) ==
LOC: HO.LAB 16:50
PROVIDERS: PCP Internal Medicine; Visit Provider Internal Medicine
DX: C78.7 Secondary malignant neoplasm of liver and intrahepatic bile duct (principal)
CPT/HCPCS: 36415; 80048; 80076; 82105; 82378; 85025; 85610; 85730

== ENCOUNTER 2023-01-20 06:31 | Day surgery (SDC) | payer MEDICARE, SELFPAY ==
[2023-01-20] VITALS (8 sets, daily range): BP systolic 103–132; BP diastolic 51–70; PULSE 69–89; RESP 16–18; TEMP 36.4–36.8; O2SAT 92–98; BMI 34.2
--- NOTE | ~2023-01-20 | US_ITS ---
CLINICAL HISTORY: Multiple large liver masses. PROCEDURES: 1. Limited preprocedure ultrasound of the abdomen. Permanent images saved in PACS. 2. Total of 7 core biopsies of the liver mass. 3. 22-gauge fine-needle aspiration of the liver mass. 3. Limited post procedure ultrasound of the abdomen. Permanent images taken PACS. CLINICIANS: Stuart Wallace PA-C MEDICATIONS: -Versed 1.5 mg, Fentanyl 75 mcg, and lidocaine 1% 10 mL SQ -Antibiotics: None -For additional details, please see nursing flowsheet. COMPLICATIONS: None ESTIMATED BLOOD LOSS: < 5 ml CONTRAST: None SPECIMENS: Total of 8 20-gauge biopsies of the liver mass. 22-gauge fine-needle aspirations of the liver mass. MODERATE SEDATION TIME: 25 min PROCEDURE NOTE: The procedure, risks, benefits, and alternatives were carefully explained to the patient and written informed consent was obtained. The patient was placed supine on the ultrasound table. A timeout was performed. A limited ultrasound of the abdomen was performed to localize the liver lesion and choose appropriate needle entry and trajectory. The patient was prepped and draped in usual sterile fashion. The skin and subcutaneous tissues were anesthetized with lidocaine. Under ultrasound guidance, a trocar was advanced to the lesion. A 20-gauge core biopsy device was inserted through the double wall needle, with the needle tip advanced into the lesion. Position was confirmed with ultrasound evaluation. A total of 7 core biopsies were obtained. Next, a 22-gauge Chiba needle was inserted through the trocar needle and advanced into the lesion. An aspiration was performed and the specimen was placed in CytoLyt. 2 Gelfoam torpedoes were inserted through the trocar needle and positioned in the biopsy tract and at the level of the capsule. The needle was then removed. A post procedure ultrasound was then obtained. The patient was stable after the procedure and was transferred to the post anesthesia care unit. The procedure was done under moderate sedation with a dedicated nurse for monitoring of vital signs. US/US biopsy liver IMPRESSION: Ultrasound-guided biopsy of liver mass This procedure was performed by Stuart Wallace PA-C and supervised by Dr. Jackson.
[2023-01-20] MEDS: Lidocaine HCl 1 % MPF 5 ML VIAL 10 ML SUBCUT (09:20)
[2023-01-20] MEDS: oxyCODONE HCl Immed Release 5 MG TABLET PO (10:41)
== END 2023-01-20 11:02 | disposition home or self-care (01) ==
PROVIDERS: Radiology Vascular & Interventional Radiology; PCP Internal Medicine; Visit Provider Internal Medicine
DX: C78.7 Secondary malignant neoplasm of liver and intrahepatic bile duct (principal); E11.9 Type 2 diabetes mellitus without complications; I10 Essential (primary) hypertension; E78.00 Pure hypercholesterolemia, unspecified; J44.9 Chronic obstructive pulmonary disease, unspecified; R16.0 Hepatomegaly, not elsewhere classified; K21.9 Gastro-esophageal reflux disease without esophagitis; Z87.442 Personal history of urinary calculi; Z87.891 Personal history of nicotine dependence
CPT/HCPCS: 47000; 76942; 86850; 86900; 86901; 88173; 88305; 88307; 88313; 88341; 88342; 88360; 99152; 99153; J2250; J2310; J3010

== ENCOUNTER → 2023-01-20 08:16 | Outpatient (BNV) | payer MEDICARE, SELFPAY | PROVIDERS: PCP Internal Medicine; Visit Provider Radiology Diagnostic Radiology | DX: C78.7 Secondary malignant neoplasm of liver and intrahepatic bile duct (principal) | CPT/HCPCS: 47000; 76942; 99152 ==

== ENCOUNTER → 2023-01-29 09:00 | Outpatient (BNV) | payer MEDICARE, SELFPAY | PROVIDERS: PCP Internal Medicine; Visit Provider Internal Medicine | DX: C7A.8 Other malignant neuroendocrine tumors (principal) | CPT/HCPCS: 99213; 99214; 99215; G2211 ==

== ENCOUNTER 2023-02-01 08:00 | Outpatient (REF) | payer MEDICARE, SELFPAY ==
[2023-02-15 14:53] LABS: Hydroindolacetic Acid,5- 32.6 mg/24 h (< OR = 6.0); Total Volume 1725 mL
== END 2023-02-01 08:01 | disposition home or self-care (01) ==
LOC: HO.HMGCLNP 08:00
PROVIDERS: PCP Internal Medicine; Visit Provider Internal Medicine
DX: D3A.00 Benign carcinoid tumor of unspecified site (principal)
CPT/HCPCS: 81050; 83497

== ENCOUNTER 2023-02-04 08:03 | Outpatient (REF) | payer MEDICARE, SELFPAY ==
[2023-02-04] MEDS: iohexoL 350 MG/ML 75 ML INFUS..BTL 65 ML IV (09:00)
== END 2023-02-04 08:04 | disposition home or self-care (01) ==
LOC: HO.CT 08:03
PROVIDERS: PCP Internal Medicine; Visit Provider Internal Medicine
DX: D3A.00 Benign carcinoid tumor of unspecified site (principal)
CPT/HCPCS: 71260; Q9967

== ENCOUNTER 2023-02-26 11:37 | Outpatient (AMB) | payer MEDICARE, SELFPAY ==
--- NOTE | 2023-02-26 11:52 | A.OFFVIS_ITS ---
Intake Vital Signs 02/26/23 11:54 Height 5 ft Weight 167 lb 8.821 oz BMI 32.7 BP 142/76 H Blood Pressure Location Lt brachial Position Sitting Pulse 80 Intake Visit Reasons: 1 yr f/up Intake Note: 1 year follow-up with ekg hearts doing ok Attending Physician Required: No Allergies meperidine [From DEMEROL] Allergy (Unknown, Verified 02/11/23 15:27) REFUSES TO TAKE DUE TO FAMILIAL ALLERGY morphine [MORPHINE] Adverse Reaction (Mild, Verified 02/11/23 15:27) NAUSEA & VOMITING Medication List - Last Reconciled 02/26/23 by Greg Stephen MD albuterol sulfate 1 mg inhalation Q4-6H PRN amlodipine 5 mg PO BEDTIME aspirin (Adult Low Dose Aspirin) 81 mg PO DAILY atorvastatin 80 mg PO DAILY budesonide-formoterol 160-4.5 mcg/actuation (Symbicort) 2 puffs inhalation BID fluticasone propionate 50 mcg/actuation (Flonase Allergy Relief) 2 sprays intranasal DAILY lisinopril 40 mg PO DAILY morphine ER (MS Contin) 15 mg PO Q12H oxycodone 5 mg PO Q8H PRN HPI HPI Comments History of Present Illness Details Ann comes for follow-up. 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 Unknown primary. She has been currently dealing with pain related to it. She also has going for treatment through Oncology Department. She has not had any cardiac symptoms. She denies any prolonged palpitation irregular heartbeat. No exertional chest pain. Exertional worsening shortness of breath, orthopnea, PND, leg edema. Takes all her medications. PENDING SALE TO [facility] Medical History Heart attack (~2009) Serrated adenoma of colon (~2015) Generalized anxiety disorder History of COVID-19 (~01/2020) Right upper lobe pulmonary nodule Pulmonary nodules Personal history of nicotine dependence Osteopenia (~2013) Peptic ulcer disease Ulnar nerve entrapment Carpal tunnel syndrome Osteoarthritis Peripheral neuropathy Vitamin D deficiency Renal calculus Obesity (BMI 30-39.9) Hypertension COPD (chronic obstructive pulmonary disease) Coronary artery disease Hypercholesterolemia Surgical History History of colonoscopy History of appendectomy (~07/2011) History of fusion of cervical spine (~07/2003) History of meniscectomy of left knee (~05/2014) History of heart artery stent (~2009) History of removal of ureteral stent (~2017) History of tonsillectomy History of lithotripsy (~2017) Family History Father CVD (cardiovascular disease) Throat cancer HTN (hypertension) Mother Alzheimer disease Social History Household Members: None Housing: House Alcohol intake: current Alcohol intake frequency: holidays/special occasions only Patient Tobacco Use Status: Former Tobacco user e-Cigarette/Vaping Use: Never Used Second Hand Smoke Exposure: No service: No Current occupational status: employed 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 Hearing needs: No Vision needs: Yes (Glasses) Review of Systems Const Denies chills, Denies fatigue, Denies fever(s), Denies frequent falls, Denies weakness, Denies weight gain and Denies weight loss ENT Denies dizziness Card Denies chest pain, Denies leg edema, Denies lightheadedness, Denies palpitations, Denies dyspnea, Denies dyspnea on exertion, Denies orthopnea and Denies other (loss of consciousness) Resp Denies cough, Denies dyspnea and Denies dyspnea on exertion GI Denies hematochezia and Denies change in stool character Musc Denies abnormal gait, Denies muscle weakness, Denies numbness, Denies radiating pain into limb and Denies tingling Neuro Denies abnormal gait, Denies dizziness, Denies frequent falls, Denies numbness, Denies tingling and Denies weakness Endo Denies fatigue and Denies palpitations Physical Exam Vital Signs: Last Vital Signs Pulse 80 02/26/23 11:54 BP 142/76 H 02/26/23 11:54 BMI result Body Mass Index 32.7 Const General: cooperative, comfortable, alert and awake Nutritional Appearance: obese Orientation/consciousness: patient oriented x3 Limitations: no limitations HEENT Head: Yes normal to inspection, Yes normocephalic and Yes atraumatic Eyes General: appearance normal, both eyes and all related structures Neck Neck: Yes trachea midline, Yes supple and Yes no JVD Carotids: other ( No carotid bruit) Chest Chest palpation & inspection: normal inspection of the chest Resp Effort & Inspection: normal respiratory effort Auscultation: clear to auscultation bilaterally and diminished lung sounds Cardio Jugular venous distension: no JVD Palpation: normal PMI Rate: regular rate Rhythm: regular rhythm Heart sounds: S1 normal heart sound present, S2 normal heart sound present and Other heart sounds present ( soft S4) Peripheral pulses: Peripheral pulses 2+ throughout GI Inspection: Yes obesity Auscultation: normal bowel sounds Skin General skin exam: no rashes or lesions noted and ecchymosis Neuro General: patient oriented x3 and no focal motor deficits Extrem General: Yes no clubbing, cyanosis or edema Psych Appearance: grossly normal Office Procedures EKG Details: EKG shows normal sinus rhythm with poor R-wave progression most likely due to lead placement with nonspecific ST changes [id number], Complete Assessment & Plan Assessment & Plan (1) Coronary artery disease: Comment: (2009 - STEMI /VFib arrest - s/p stent to circumflex) Code(s): I25.10 - Atherosclerotic heart disease of [place] coronary artery without angina pectoris Qualifiers: Coronary Disease-Associated Artery/Lesion type: [place] artery [place] vs. transplanted heart: [place] heart Associated angina: without angina Qualified Code(s): I25.10 - Atherosclerotic heart disease of [place] coronary artery without angina pectoris Plan: CAD status post prior stenting with no recurrent symptoms suggestive angina. Continue aggressive medical therapy. Low-dose aspirin therapy for life. Continue aggressive lipid modification goal LDL less than 70 mg/dL. However her main prognostic implications going to be related to her metastatic cancer which is being treated by Oncology team. Continue risk factor modification with target goal he woman A1c less than 7%. (2) Hypertension: Code(s): I10 - Essential (primary) hypertension Qualifiers: Hypertension type: essential hypertension Qualified Code(s): I10 - Essential (primary) hypertension Plan: Hypertension which is currently well optimized. Continue current therapy. Importance of good blood pressure control was discussed. Target goal blood pressure less than 130/84. Will follow up in the clinic in 1 year's time sooner p.r.n.. Thank partake in her care Coding Level of Care Code Est Pt Level 4 (60087) Diagnoses Coronary artery disease involving [place] coronary artery of [place] heart without angina pectoris I25.10 Coronary Disease-Associated Artery/Lesion type: [place] artery [place] vs. transplanted heart: [place] heart Associated angina: without angina Essential hypertension I10 Hypertension type: essential hypertension CPT Codes EKG - CPT: [id number], Complete ([id number])
[2023-02-26 11:54] VITALS: BP 142/76; PULSE 80; BMI 32.7
== END 2023-02-26 12:18 | disposition home or self-care (01) ==
PROVIDERS: Visit Provider Internal Medicine Cardiovascular Disease
DX: I25.10 Atherosclerotic heart disease of native coronary artery without angina pectoris (principal); I10 Essential (primary) hypertension
CPT/HCPCS: 93010; 99214

== ENCOUNTER → 2023-02-26 11:37 | Outpatient (BNVA) | payer MEDICARE, SELFPAY | PROVIDERS: Visit Provider Internal Medicine Cardiovascular Disease | DX: I25.10 Atherosclerotic heart disease of native coronary artery without angina pectoris (principal); I10 Essential (primary) hypertension | CPT/HCPCS: 93005; 99212 ==

== ENCOUNTER 2023-03-02 15:13 | Outpatient (AMB) | payer MEDICARE, SELFPAY ==
[2023-03-02 15:16] VITALS: BP 130/70; PULSE 87; O2SAT 93; BMI 32.8
--- NOTE | 2023-03-02 15:16 | MHC.PC.OV ---
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: No Allergies meperidine [From DEMEROL] Allergy (Unknown, Verified 03/02/23 15:16) REFUSES TO TAKE DUE TO FAMILIAL ALLERGY morphine [MORPHINE] Adverse Reaction (Mild, Verified 03/02/23 15:16) NAUSEA & VOMITING Tobacco use date assessed: 03/02/23 Fall risk assessment: No Falls in past year Last assessed Fall Risk: 03/02/23 Dental Screening Dental Screen Date: 03/02/23 Did you have a dental visit in the last 12 months?: Yes Did you have a dental problem in the last 6 months where you did not have access to dental care?: No Was dental information given to patient?: Patient has dentist HPI Follow Up HPI Details 77-year-old obese female with a history of diabetes mellitus COPD hypercholesterolemia hypertension coronary artery disease GERD coming in for follow-up. Last seen in November 2022. Patient's colonoscopy is up-to-date December 2021 mammogram December 2022 bone density April 2022. Patient has recently been diagnosed with metastatic neuroendocrine tumor of the liver unknown primary. Hematology-Oncology note metastatic carcinoid tumor December 2022 ultrasound done November 2022 multiple echogenic lesions largest in the left hepatic lobe 4.[address] abdomen December 2022 enlarged liver with multiple liver lesions consistent with metastatic disease CT-guided biopsy 01/20/2023 well-differentiated neuroendocrine tumor grade 2 presently on oxycodone 5 mg every 8 hours has an unresectable disease octreotide 30 mg IM 02/05/2023 if PET scan positive will need radiation therapy Review of the notes has followed up with Cardiology in February 2023 history of STEMI with VFib arrest with stent to circumflex no recurrent symptoms low-dose aspirin lipid LDL less than 70 goal. scheduled for embolization April 15. [facility] Medical History Heart attack (~2009) Serrated adenoma of colon (~2015) Generalized anxiety disorder History of COVID-19 (~01/2020) Right upper lobe pulmonary nodule Pulmonary nodules Personal history of nicotine dependence Osteopenia (~2013) Peptic ulcer disease Ulnar nerve entrapment Carpal tunnel syndrome Osteoarthritis Peripheral neuropathy Vitamin D deficiency Renal calculus Obesity (BMI 30-39.9) Hypertension COPD (chronic obstructive pulmonary disease) Coronary artery disease Hypercholesterolemia Surgical History History of colonoscopy History of appendectomy (~07/2011) History of fusion of cervical spine (~07/2003) History of meniscectomy of left knee (~05/2014) History of heart artery stent (~2009) History of removal of ureteral stent (~2017) History of tonsillectomy History of lithotripsy (~2017) Family History Father CVD (cardiovascular disease) Throat cancer HTN (hypertension) Mother Alzheimer disease Social History Household Members: None Housing: House Alcohol intake: current Alcohol intake frequency: holidays/special occasions only Patient Tobacco Use Status: Former Tobacco user e-Cigarette/Vaping Use: Never Used Second Hand Smoke Exposure: No service: No Current occupational status: employed 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 How often do you have a drink containing alcohol?: Monthly or less 2. How many drinks containing alcohol do you have on a typical day when you are drinking?: 1 or 2 3. How often do you have six or more drinks on one occasion?: Never Total Score: 1 MADELINE-7 AMB Questionnaire MADELINE-7 Date MADELINE - 7 assessed: 03/02/23 Source: Developed by Drs. Kalyan Noguera, Jovana Clarke, Franklyn Lares and colleagues, with an educational elmo from [employer]. Physical exam (Primary Care) Vital Signs: Last Vital Signs Pulse 87 03/02/23 15:16 BP 130/70 03/02/23 15:16 Pulse Ox 93 03/02/23 15:16 Oxygen Delivery Method Room Air 03/02/23 15:16 BMI result Body Mass Index 32.8 Tobacco/Smoking Status: Tobacco use Status Tobacco use date assessed 03/02/23 03/02/23 15:17 Patient Tobacco Use Status Former Tobacco user 03/02/23 15:17 e-Cigarette/Vaping Use Never Used 03/02/23 15:17 Thrive Assessment: Date of Thrive Assessment Date Thrive assessed 03/02/23 03/02/23 15:17 Const General: alert; No acute distress Eyes Conjunctivae: conjunctivae normal Resp Auscultation: clear to auscultation bilaterally Cardio Rate: regular rate Rhythm: regular rhythm GI Inspection: Yes normal to inspection Extrem General: Yes normal to inspection and No edema Results AMB Hemoglobin A1c AMB Hemoglobin A1c 6.1 % Last Edit by PRABHU Hansen on 03/02/23 15:28 Results Reviewed Results Reviewed: Laboratory Last Values Hgb A1c (Clinic) 6.1 % (4.0-6.0) H 03/02/23 09:38 Assessment and Plan Assessment & Plan (1) Neuroendocrine carcinoma metastatic to liver: Code(s): C7A.8 - Other malignant neuroendocrine tumors; C7B.8 - Other secondary neuroendocrine tumors Plan: Patient is being followed up by hematology oncology and Gastroenterology. On octreotide and PET scan requested, planned chemoembolization (2) GERD (gastroesophageal reflux disease): Code(s): K21.9 - Gastro-esophageal reflux disease without esophagitis Plan: Avoid the foods that causes that usually spicy foods, tomato products, juices, coffee, soda and foods that your sensitive to. After eating do not lie down, allow 3-4 hours before in lie down. And keep the head of bed above 30 degrees to avoid the acid from going up. (3) Type 2 diabetes mellitus with hyperglycemia: Comment: [facility] 2022, will be seeing Dr. Pineda Code(s): E11.65 - Type 2 diabetes mellitus with hyperglycemia Qualifiers: Diabetes mellitus intermediate manager insulin use: without intermediate manager use Qualified Code(s): E11.65 - Type 2 diabetes mellitus with hyperglycemia Plan: Decrease the amount of carbohydrate intake, pasta, bread, rice and potatoes are all sugar and that is aside from all the sweet stuff, remember that fruits are good but they are Sweet also. Presently on diet control (4) Coronary artery disease: Comment: (2009 - STEMI /VFib arrest - s/p stent to circumflex) Code(s): I25.10 - Atherosclerotic heart disease of shawnee coronary artery without angina pectoris Qualifiers: Coronary Disease-Associated Artery/Lesion type: shawnee artery [place] vs. transplanted heart: shawnee heart Associated angina: without angina Qualified Code(s): I25.10 - Atherosclerotic heart disease of shawnee coronary artery without angina pectoris Plan: Control the cholesterol, weight, blood pressure, diabetes lifelong aspirin (5) Hypertension: Code(s): I10 - Essential (primary) hypertension Qualifiers: Hypertension type: essential hypertension Qualified Code(s): I10 - Essential (primary) hypertension Plan: Continue with blood pressure medication. Decrease salt intake and exercise presently on amlodipine 5 mg once a day and lisinopril 40 mg once a day (6) Hypercholesterolemia: Code(s): E78.00 - Pure hypercholesterolemia, unspecified Plan: Avoid fried foods, chicken skin, eggs, butter margarine, pastries and meat. Be it pork or beef they have a lot of cholesterol LDL goal of less than 70 (7) COPD (chronic obstructive pulmonary disease): Comment: (Moderately severe , remains controlled, mild dyspnea on exertion, may be due to relatively sedentary life) TX continue Symbicort 160-4.52 puffs b.i.d. and ProAir 2 puffs or Albuterol solution in Neb.q.6 hours only p.r.n.. Encouraged to do deep breathing exercises 2 or 3 times a day. Code(s): J44.9 - Chronic obstructive pulmonary disease, unspecified Qualifiers: COPD type: emphysema Emphysema type: unspecified Qualified Code(s): J43.9 - Emphysema, unspecified Plan: Continue with the inhalers. Will call in with a covered controller inhaler Orders: Orders AMB Hemoglobin A1c Today E11.65 - Type 2 diabetes mellitus with hyperglycemia Coding Level of Care Code Est Pt Level 4 (04078) Diagnoses Neuroendocrine carcinoma metastatic to liver C7A.8; C7B.8 GERD (gastroesophageal reflux disease) K21.9 Type 2 diabetes mellitus with hyperglycemia, without long-term current use of insulin E11.65 Diabetes mellitus intermediate manager insulin use: without skilled nursing use Coronary artery disease involving shawnee coronary artery of shawnee heart without angina pectoris I25.10 Coronary Disease-Associated Artery/Lesion type: [place] artery [place] vs. transplanted heart: shawnee heart Associated angina: without angina Essential hypertension I10 Hypertension type: essential hypertension Hypercholesterolemia E78.00 Pulmonary emphysema, unspecified emphysema type J43.9 COPD type: emphysema Emphysema type: unspecified
== END 2023-03-02 15:57 | disposition home or self-care (01) ==
PROVIDERS: PCP Internal Medicine; Visit Provider Internal Medicine
DX: E11.65 Type 2 diabetes mellitus with hyperglycemia (principal); C7A.8 Other malignant neuroendocrine tumors; C7B.8 Other secondary neuroendocrine tumors; J43.9 Emphysema, unspecified; K21.9 Gastro-esophageal reflux disease without esophagitis; I25.10 Atherosclerotic heart disease of native coronary artery without angina pectoris; I10 Essential (primary) hypertension; E78.00 Pure hypercholesterolemia, unspecified
CPT/HCPCS: 83036; 99214

== ENCOUNTER 2023-04-01 13:19 | Outpatient (REF) | payer MEDICARE, SELFPAY ==
--- NOTE | ~2023-04-01 | MR_ITS ---
EXAMINATION: MR ABDOMEN WITHOUT AND WITH CONTRAST CLINICAL INFORMATION: Evaluate lesion suspected in pancreatic tail. Prior abnormal imaging. COMPARISON: CT abdomen/pelvis 12/31/2022 Abdominal ultrasound 12/09/2022 TECHNIQUE: MR abdomen was performed without and with use of 7 mL intravenous Gadavist gadolinium contrast. Postcontrast images are performed in multiphase dynamic sequences. Imaging was performed in 3 planes. MRCP was also performed. FINDINGS: LUNG BASES: Bibasilar atelectasis. 7 mm left lower lobe pulmonary nodule. LIVER, GALLBLADDER, AND BILIARY TREE: Loss of signal on opposed phase imaging compatible with hepatic steatosis. There are numerous conglomerate solid enhancing masses throughout the liver. For example a left hepatic mass measures 5.2 x 6.7 cm. Many of these masses demonstrate foci of T1 hyperintensity. There is nodular surface contour of the liver with areas of capsular retraction. Trace perihepatic free fluid. No significant biliary ductal dilatation. The common duct measures 5 mm at the darrin hepatis. No intraductal filling defects. The gallbladder is distended. PANCREAS: Homogeneous signal and enhancement. No dilatation of the main pancreatic duct. SPLEEN: Not enlarged. ADRENAL GLANDS: Thickening of the left adrenal gland. KIDNEYS AND URETERS: Atrophic changes and cortical thinning of the right kidney. The kidneys otherwise enhance symmetrically. Few small bilateral renal cysts are appreciated. No further imaging follow-up is needed. No hydronephrosis or perinephric fluid collection. GASTROINTESTINAL TRACT: No bowel obstruction. LYMPH NODES: T2 hyperintense focus in the left para-aortic region measuring 1.6 x 2.2 x 2.7 cm possibly an enlarged lymph node. VASCULAR: No abdominal aortic aneurysm. Atherosclerotic changes. There is suspected narrowing at the origin of the celiac axis. MR/MR abdomen wo/w con IMPRESSION: Apparent homogeneous signal and enhancement of the pancreas without discrete lesion. Evaluation is limited by the lack of the referential study for comparison. Numerous hepatic lesions suggesting metastatic disease with foci of T1 hyperintensity suggesting hemorrhagic component. Advise correlation with results of recent liver biopsy. Possible enlarged left para-aortic lymph node measuring 1.6 x 2.2 x 2.7 cm.
[2023-04-01] MEDS: gadobutroL 7.5 ML VIAL IVPUSH (14:36)
== END 2023-04-01 13:20 | disposition home or self-care (01) ==
LOC: HO.MRI 13:19
PROVIDERS: PCP Internal Medicine; Visit Provider Internal Medicine
DX: C7A.8 Other malignant neuroendocrine tumors (principal); C7B.8 Other secondary neuroendocrine tumors
CPT/HCPCS: 74183; A9585

== ENCOUNTER 2023-05-05 12:34 | Outpatient (REF) | payer MEDICARE, SELFPAY ==
--- NOTE | ~2023-05-05 | MR_ITS ---
EXAMINATION: MR ABDOMEN WITHOUT AND WITH CONTRAST MR CHOLANGIOPANCREATOGRAPHY CLINICAL INFORMATION: Multiple hepatic lesions, follow-up response to treatment COMPARISON: MRI of abdomen on 04/01/2023 TECHNIQUE: Examination was performed in a high field strength MRI scanner. Multiplanar multisequence MR imaging of the abdomen was performed without IV contrast enhancement. Multiphasic Axial T1-weighted fat-suppressed images of the upper abdomen were obtained after IV injection of 7 mL Gadavist. Coronal T1-weighted fat-suppressed images of the abdomen were obtained following the dynamic axial series. MR cholangiopancreatography was performed with heavily T2 weighted sequences. 3-dimensional reconstruction of image data was performed. This was performed under concurrent direct supervision and monitoring by radiologist. Maximum intensity projection images were constructed. FINDINGS: MR CHOLANGIOPANCREATOGRAPHY: Normal gallbladder without filling defects. Cystic duct is unremarkable. Bilateral intra hepatic bile ducts, common hepatic duct and common bile duct are normal in size without filling defects. Pancreatic duct is normal in size. LIVER: The liver is enlarged, measuring 19.5 cm in vertical length. Numerous T2 hyperintense observations with enhancing capsule are seen filling the right and left hepatic lobes. The 2 largest observations are seen in left hepatic lobe. The largest lateral left hepatic lobe segment 2 observation with enhancing capsule measures 4.7 x 5.0 cm in size (previously 4.6 x 4.9 cm), series 102 image #41. A similar observation with enhancing capsule is seen in Segment 4A measuring 5.1 x 4.4 cm in size (previously 5.1 x 4.4 cm), series 102 image #54. The largest right hepatic lobe observation is found in segment 8, measuring 4.2 x 5.1 cm in size (previously 4.4 x 4.8 cm), series 102 image #54. At medial border of right hepatic lobe segment 7, a similar observation is seen adjacent to the inferior vena cava, measuring 4.4 x 3.9 cm in size (previously 4.4 x 4.1 cm), series 102 image #54. T2 hyperintense possibly focal hemorrhagic or proteinaceous components are seen in the left hepatic lobe segment 2, segment 4A and segment 8, similar to the appearance on previous examination The visualized portal veins and hepatic veins are patent without signs of tumor in vein. The calculated hepatic fat percentage is 5.4%, compatible with mild hepatic steatosis. PANCREAS: No focal pancreatic lesion with abnormal signal can be seen. SPLEEN: Spleen is normal in size without focal lesion. ADRENAL: Bilateral adrenal glands are normal in shape and size. KIDNEYS: Bilateral kidneys are normal in size with unchanged bilateral multiple small T2 hyperintense nonenhancing simple cysts. The largest cyst is found in anterior lateral mid left renal cortex measuring 0.6 x 1.2 cm in size, series 5 image #28. The largest right renal cyst is seen in lateral anterior mid right renal cortex measuring 0.9 cm in diameter, series 5 image #35, for which no follow up imaging is recommended. At L2-L3 level, a persistent left posterior periaortic T2 hyperintense rim-enhancing lesion is seen measuring 1.7 cm in AP diameter, 2.1 cm in width, 2.6 cm in vertical height (previously 1.6 x 2.2 x 2.7 cm), series 5 image #25, series 4 image #16. Multilevel degenerative lumbar disc disease and posterior disc protrusions, marked grade 1 L4-L5 spondylolisthesis and marked spinal stenosis are seen. MR/MR abdomen wo/w con IMPRESSION: 1. Numerous T2 hyperintense observations with enhancing capsule are seen filling the right and left hepatic lobes, similar to the appearance on previous examination, compatible with multiple malignant tumors. Correlation with biopsy findings on 01/20/2023 is recommended. 2. Unchanged Mild hepatic steatosis. 3. Unchanged bilateral renal cysts, for which no follow up imaging is recommended. 4. Persistent left posterior periaortic T2 hyperintense rim-enhancing lesion at L2-L3 level, similar to the appearance on previous examination. Findings could represent a small lymphangioma or cystic lymphadenopathy 5. Unchanged Multilevel degenerative lumbar disc disease and posterior disc protrusions, marked grade 1 L4-L5 spondylolisthesis and marked spinal stenosis.
[2023-05-05] MEDS: gadobutroL 7.5 ML VIAL IVPUSH (13:48)
== END 2023-05-05 12:35 | disposition home or self-care (01) ==
LOC: HO.MRI 12:34
PROVIDERS: PCP Internal Medicine; Visit Provider Internal Medicine
DX: C7A.8 Other malignant neuroendocrine tumors (principal); C7B.8 Other secondary neuroendocrine tumors
CPT/HCPCS: 74183; A9585

== ENCOUNTER 2023-06-08 15:23 | Outpatient (AMB) | payer MEDICARE, SELFPAY ==
[2023-06-08 15:25] VITALS: BP 90/58; PULSE 102; O2SAT 96; BMI 28.3
--- NOTE | 2023-06-08 15:25 | MHC.PC.OV ---
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: No Allergies meperidine [From DEMEROL] Allergy (Unknown, Verified 06/08/23 15:25) REFUSES TO TAKE DUE TO FAMILIAL ALLERGY morphine [MORPHINE] Adverse Reaction (Mild, Verified 06/08/23 15:25) NAUSEA & VOMITING Medication List - Last Reconciled 06/08/23 by Abilio Harry Po, albuterol sulfate 1 mg inhalation Q4-6H PRN atorvastatin 80 mg PO DAILY capecitabine 300 mg (2 x 150 mg) PO BID capecitabine 1,000 mg (2 x 500 mg) PO BID cyclobenzaprine 10 mg PO BEDTIME famotidine 20 mg PO DAILY fluticasone propion-salmeterol 250-50 mcg/dose (Wixela Inhub) 1 inh inhalation BID 30 days fluticasone propionate 50 mcg/actuation (Flonase Allergy Relief) 2 sprays intranasal DAILY lisinopril 20 mg (1/2 x 40 mg) PO DAILY loperamide 2 mg PO Q6H PRN morphine ER (MS Contin) 30 mg PO Q12H ondansetron 8 mg PO Q8H PRN oxycodone 5 mg PO Q6H PRN temozolomide 250 mg PO DAILY temozolomide 100 mg PO DAILY Tobacco use date assessed: 06/08/23 Fall risk assessment: No Falls in past year Last assessed Fall Risk: 06/08/23 Dental Screening Dental Screen Date: 03/02/23 HPI 3 month f/u HPI Details 78-year-old overweight female with a history of 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 Mammogram colonoscopy bone density all up-to-date. Review of the notes was in [facility] recently 05/21/2023 abdominal pain and diarrhea on capecitabine/temozolomide. Patient underwent bland embolization of the right hepatic lobe tumor presently on MS Contin 30 mg twice a day, oxycodone every 6 hours dexamethasone 4 mg twice a day. Hematology-Oncology notes did have a colonoscopy December 29-patient had systemic chemotherapy March 2023 with kept him [facility] Medical History (Updated 06/08/23 @ 15:39 by Abilio Robin MD) Liver lesion Liver mass Heart attack (~2009) Serrated adenoma of colon (~2015) Generalized anxiety disorder History of COVID-19 (~01/2020) Right upper lobe pulmonary nodule Pulmonary nodules Personal history of nicotine dependence Osteopenia (~2013) Peptic ulcer disease Ulnar nerve entrapment Carpal tunnel syndrome Osteoarthritis Peripheral neuropathy Vitamin D deficiency Renal calculus Obesity (BMI 30-39.9) Hypertension COPD (chronic obstructive pulmonary disease) Coronary artery disease Hypercholesterolemia Surgical History History of colonoscopy History of appendectomy (~07/2011) History of fusion of cervical spine (~07/2003) History of meniscectomy of left knee (~05/2014) History of heart artery stent (~2009) History of removal of ureteral stent (~2017) History of tonsillectomy History of lithotripsy (~2017) Family History Father CVD (cardiovascular disease) Throat cancer HTN (hypertension) Mother Alzheimer disease Social History Household Members: None Housing: House Alcohol intake: current Alcohol intake frequency: holidays/special occasions only Patient Tobacco Use Status: Former Tobacco user e-Cigarette/Vaping Use: Never Used Second Hand Smoke Exposure: No service: No Current occupational status: employed 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 How often do you have a drink containing alcohol?: Monthly or less 2. How many drinks containing alcohol do you have on a typical day when you are drinking?: 1 or 2 3. How often do you have six or more drinks on one occasion?: Never Total Score: 1 MADELINE-7 AMB Questionnaire MADELINE-7 Date MADELINE - 7 assessed: 03/02/23 Source: Developed by Drs. Kalyan Noguera, Jovana Clarke, Franklyn Lares and colleagues, with an educational elmo from [employer]. Physical exam (Primary Care) Vital Signs: Last Vital Signs Pulse 102 H 06/08/23 15:25 BP 90/58 L 06/08/23 15:25 Pulse Ox 96 06/08/23 15:25 Oxygen Delivery Method Room Air 06/08/23 15:25 BMI result Body Mass Index 28.3 Tobacco/Smoking Status: Tobacco use Status Tobacco use date assessed 06/08/23 06/08/23 15:26 Patient Tobacco Use Status Former Tobacco user 06/08/23 15:26 e-Cigarette/Vaping Use Never Used 06/08/23 15:26 Thrive Assessment: Date of Thrive Assessment Date Thrive assessed 03/02/23 06/08/23 15:26 Const General: alert; No acute distress Eyes Conjunctivae: conjunctivae normal Resp Auscultation: clear to auscultation bilaterally Cardio Rate: regular rate Rhythm: regular rhythm GI Inspection: Yes normal to inspection Extrem General: Yes normal to inspection and No edema Results AMB Hemoglobin A1c AMB Hemoglobin A1c 7.4 % Last Edit by PRABHU Hansen on 06/08/23 15:36 Results Reviewed Results Reviewed: Laboratory Last Values Hgb A1c (Clinic) 7.4 % (4.0-6.0) H 06/08/23 14:40 Assessment and Plan Assessment & Plan (1) Neuroendocrine carcinoma metastatic to liver: Code(s): C7A.8 - Other malignant neuroendocrine tumors; C7B.8 - Other secondary neuroendocrine tumors Plan: Patient had embolization as well as chemotherapy recent admission for pain control. dicsussed my concern on driving being that patient is on MScontin (2) GERD (gastroesophageal reflux disease): Code(s): K21.9 - Gastro-esophageal reflux disease without esophagitis Plan: Avoid the foods that causes that usually spicy foods, tomato products, juices, coffee, soda and foods that your sensitive to. After eating do not lie down, allow 3-4 hours before in lie down. And keep the head of bed above 30 degrees to avoid the acid from going up. (3) Type 2 diabetes mellitus with hyperglycemia: Comment: [place] [facility] 2022, will be seeing Dr. Pineda Code(s): E11.65 - Type 2 diabetes mellitus with hyperglycemia Qualifiers: Diabetes mellitus skilled nursing insulin use: without skilled nursing use Qualified Code(s): E11.65 - Type 2 diabetes mellitus with hyperglycemia Plan: Decrease the amount of carbohydrate intake, pasta, bread, rice and potatoes are all sugar and that is aside from all the sweet stuff, remember that fruits are good but they are Sweet also. Presently no medication (4) Coronary artery disease: Comment: (2009 - STEMI /VFib arrest - s/p stent to circumflex) Code(s): I25.10 - Atherosclerotic heart disease of [place] coronary artery without angina pectoris Qualifiers: Coronary Disease-Associated Artery/Lesion type: [place] artery [place] vs. transplanted heart: [place] heart Associated angina: without angina Qualified Code(s): I25.10 - Atherosclerotic heart disease of [place] coronary artery without angina pectoris Plan: Control the cholesterol, weight, blood pressure, diabetes (5) Hypertension: Code(s): I10 - Essential (primary) hypertension Qualifiers: Hypertension type: essential hypertension Qualified Code(s): I10 - Essential (primary) hypertension Plan: Continue with blood pressure medication. Decrease salt intake and exercise presently on amlodipine 5 mg once a day lisinopril 40 mg once a day (6) Hypercholesterolemia: Code(s): E78.00 - Pure hypercholesterolemia, unspecified Plan: Avoid fried foods, chicken skin, eggs, butter margarine, pastries and meat. Be it pork or beef they have a lot of cholesterol on atorvastatin 80 mg once a day (7) COPD (chronic obstructive pulmonary disease): Comment: (Moderately severe , remains controlled, mild dyspnea on exertion, may be due to relatively sedentary life) TX continue Symbicort 160-4.52 puffs b.i.d. and ProAir 2 puffs or Albuterol solution in Neb.q.6 hours only p.r.n.. Encouraged to do deep breathing exercises 2 or 3 times a day. Code(s): J44.9 - Chronic obstructive pulmonary disease, unspecified Qualifiers: COPD type: emphysema Emphysema type: unspecified Qualified Code(s): J43.9 - Emphysema, unspecified (8) Generalized anxiety disorder: Code(s): F41.1 - Generalized anxiety disorder Orders: Orders AMB Hemoglobin A1c Today E11.65 - Type 2 diabetes mellitus with hyperglycemia Medications: Changed From lisinopril 40 mg PO DAILY 90 tabs 3RF To lisinopril 20 mg (1/2 x 40 mg) PO DAILY 90 tabs 3RF Discontinued amlodipine Discontinued Reason: Doctor's Order 5 mg PO BEDTIME 90 tabs 3RF Coding Level of Care Code Est Pt Level 4 (64215) Diagnoses Neuroendocrine carcinoma metastatic to liver C7A.8; C7B.8 GERD (gastroesophageal reflux disease) K21.9 Type 2 diabetes mellitus with hyperglycemia, without long-term current use of insulin E11.65 Diabetes mellitus skilled nursing insulin use: without skilled nursing use Coronary artery disease involving [place] coronary artery of [place] heart without angina pectoris I25.10 Coronary Disease-Associated Artery/Lesion type: [place] artery [place] vs. transplanted heart: [place] heart Associated angina: without angina Essential hypertension I10 Hypertension type: essential hypertension Hypercholesterolemia E78.00 Pulmonary emphysema, unspecified emphysema type J43.9 COPD type: emphysema Emphysema type: unspecified Generalized anxiety disorder F41.1
== END 2023-06-08 15:53 | disposition home or self-care (01) ==
PROVIDERS: PCP Internal Medicine; Visit Provider Internal Medicine
DX: C7A.8 Other malignant neuroendocrine tumors (principal); C7B.8 Other secondary neuroendocrine tumors; E11.65 Type 2 diabetes mellitus with hyperglycemia; I25.10 Atherosclerotic heart disease of native coronary artery without angina pectoris; I10 Essential (primary) hypertension; E78.00 Pure hypercholesterolemia, unspecified; J43.9 Emphysema, unspecified; F41.1 Generalized anxiety disorder
CPT/HCPCS: 83036; 99214

== ENCOUNTER 2023-06-25 14:11 | Outpatient (AMB) | payer MEDICARE, SELFPAY ==
[2023-06-25 14:20] VITALS: BP 120/68; PULSE 94; O2SAT 97; BMI 27.5
--- NOTE | 2023-06-25 14:20 | A.OFFVIS_ITS ---
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: No Allergies meperidine [From DEMEROL] Allergy (Unknown, Verified 06/25/23 14:40) REFUSES TO TAKE DUE TO FAMILIAL ALLERGY morphine [MORPHINE] Adverse Reaction (Mild, Verified 06/25/23 14:40) NAUSEA & VOMITING Medication List - Last Reconciled 06/25/23 by Ricky Andujar MD albuterol sulfate 1 mg inhalation Q4-6H PRN atorvastatin 40 mg PO DAILY capecitabine 300 mg (2 x 150 mg) PO BID capecitabine 1,000 mg (2 x 500 mg) PO BID cyclobenzaprine 10 mg PO BEDTIME famotidine 20 mg PO DAILY fluticasone propion-salmeterol 250-50 mcg/dose (Wixela Inhub) 1 inh inhalation BID 30 days fluticasone propionate 50 mcg/actuation (Flonase Allergy Relief) 2 sprays intranasal DAILY PRN lisinopril 20 mg (1/2 x 40 mg) PO DAILY loperamide 2 mg PO Q6H PRN morphine ER (MS Contin) 30 mg PO Q12H ondansetron 8 mg PO Q8H PRN oxycodone 5 mg PO Q6H PRN temozolomide 250 mg PO DAILY temozolomide 100 mg PO DAILY Do you need a note to return to daycare/school/sports/work: No HPI HPI copd: Details: ALEXANDRA IS 78 YEARS OLD VERY PLEASANT FEMALE WHO IS HERE FOR FOLLOW-UP FOR HER COPD SHE USES WIXELA 250-51 INHALATION B.I.D. AND HARDLY NEEDS TO USE THE RESCUE INHALER WHICH IS ALBUTEROL. BECAUSE OF HER HEPATOCELLULAR CARCINOMA WHICH IS BEING TREATED SHE HAS LOST ABOUT 40 LB OF WEIGHT. ONE POSITIVE THING WHICH HAS HAPPENED IS THAT SHE IS NOT SHORT OF BREATH ON WALKING. OVERALL FROM PULMONARY POINT OF VIEW SHE IS DOING VERY WELL. [facility] Medical History Liver lesion Liver mass Heart attack (~2009) Serrated adenoma of colon (~2015) Generalized anxiety disorder History of COVID-19 (~01/2020) Right upper lobe pulmonary nodule Pulmonary nodules Personal history of nicotine dependence Osteopenia (~2013) Peptic ulcer disease Ulnar nerve entrapment Carpal tunnel syndrome Osteoarthritis Peripheral neuropathy Vitamin D deficiency Renal calculus Obesity (BMI 30-39.9) Hypertension COPD (chronic obstructive pulmonary disease) Coronary artery disease Hypercholesterolemia Surgical History History of colonoscopy History of appendectomy (~07/2011) History of fusion of cervical spine (~07/2003) History of meniscectomy of left knee (~05/2014) History of heart artery stent (~2009) History of removal of ureteral stent (~2017) History of tonsillectomy History of lithotripsy (~2017) Family History Father CVD (cardiovascular disease) Throat cancer HTN (hypertension) Mother Alzheimer disease Social History Household Members: None Housing: House Alcohol intake: current Alcohol intake frequency: holidays/special occasions only Patient Tobacco Use Status: Former Tobacco user e-Cigarette/Vaping Use: Never Used Second Hand Smoke Exposure: No service: No Current occupational status: employed 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 Hearing needs: No Vision needs: Yes (Glasses) Review of Systems Const All systems reviewed & are unremarkable except as noted in HPI and below Eyes Reports no additional complaints ENT Reports no additional complaints Card Denies chest pain, Denies irregular heart rhythm, Denies leg edema and Reports dyspnea on exertion Resp Reports as per HPI and Reports dyspnea on exertion GI Reports no additional complaints Reports no additional complaints Musc Reports no additional complaints Skin/Breast Reports system reviewed and no additional complaints, except as documented Neuro Reports no additional complaints Psych Reports no additional complaints Physical Exam Vital Signs: Last Vital Signs Pulse 94 06/25/23 14:20 BP 120/68 06/25/23 14:20 Pulse Ox 97 06/25/23 14:20 Oxygen Delivery Method Room Air 06/25/23 14:20 BMI result Body Mass Index 27.5 Const General: comfortable, no acute distress, alert and awake Orientation/consciousness: patient oriented x3 HEENT Head: Yes normal to inspection General nose exam: No nasal polyps present and No nasal discharge present Face and sinus: Yes sinuses nontender Mouth: oropharynx normal Throat: Yes posterior oropharynx normal Eyes General: appearance normal, both eyes and all related structures Neck Neck: Yes normal visual inspection, Yes no lymphadenopathy, Yes trachea midline and Yes no JVD Thyroid: Thyroid normal Chest Chest palpation & inspection: normal inspection of the chest, normal palpation of entire chest wall and no tenderness Resp Other: Percussion note is resonant, breath sounds slightly distant with prolonged expiratory phase, No wheezes or rhonchi are heard. Cardio Palpation: normal PMI Rate: regular rate Rhythm: regular rhythm Heart sounds: no gallops and no murmurs Peripheral pulses: Peripheral pulses 2+ throughout GI Palpation (GI): Soft to palpation, nontender, No hepatosplenomegaly present and no masses Auscultation: normal bowel sounds Back/Spine/Pelvis Thoracic/Lumbar Spine: thoracic and lumbar spine normal to inspection Skin General skin exam: no rashes or lesions noted Neuro General: patient oriented x3 and no focal motor deficits Cranial nerves: Yes CN's II-XII intact bilaterally Extrem General: Yes normal to inspection, Yes no calf tenderness and Yes edema (1+ EDEMA OF RT ANKLE ) Psych Appearance: grossly normal and well kempt Speech and movement: Normal speech and movement present Assessment & Plan Assessment & Plan (1) COPD (chronic obstructive pulmonary disease): Comment: (Moderately severe , remains controlled, mild dyspnea on exertion, may be due to relatively sedentary life) Code(s): J44.9 - Chronic obstructive pulmonary disease, unspecified Category: Medical Qualifiers: COPD type: emphysema Emphysema type: unspecified Qualified Code(s): J43.9 - Emphysema, unspecified Plan: TX Continue WIXELA 25--50 1 inhalation b.i.d. and ProAir 2 puffs or Albuterol solution in Neb.q.6 hours only p.r.n.. Encouraged to do deep breathing exercises 2 or 3 times a day. (2) Pulmonary nodule: Comment: CATEGORY -2 BENIGN . PATIENT PARTICIPATING IN ANNUAL LD CT SCAN PROGRAM Code(s): R91.1 - Solitary pulmonary nodule Category: Medical Plan: Advised to continue getting annual lung screening . Medications: Changed From atorvastatin 80 mg PO DAILY 90 tabs 3RF To atorvastatin 40 mg PO DAILY Greg Stephen MD From fluticasone propionate 50 mcg/actuation (Flonase Allergy Relief) administer into each nostril 2 sprays intranasal DAILY 16 grams 11RF J98.8 - Other specified respiratory disorders To fluticasone propionate 50 mcg/actuation (Flonase Allergy Relief) administer into each nostril 2 sprays intranasal DAILY PRN J98.8 - Other specified respiratory disorders Abilio Robin MD Coding Level of Care Code Est Pt Level 3 (44534) Diagnoses Pulmonary emphysema, unspecified emphysema type J43.9 COPD type: emphysema Emphysema type: unspecified Pulmonary nodule R91.1
== END 2023-06-25 14:48 | disposition home or self-care (01) ==
PROVIDERS: PCP Internal Medicine; Visit Provider Internal Medicine
DX: J43.9 Emphysema, unspecified (principal); R91.1 Solitary pulmonary nodule
CPT/HCPCS: 99213

== ENCOUNTER → 2023-06-25 14:11 | Outpatient (BNVA) | payer MEDICARE, SELFPAY | PROVIDERS: PCP Internal Medicine; Visit Provider Internal Medicine | DX: J43.9 Emphysema, unspecified (principal); R91.1 Solitary pulmonary nodule | CPT/HCPCS: 99212 ==

== ENCOUNTER 2023-09-25 14:31 | Outpatient (REF) | payer MEDICARE, SELFPAY ==
--- NOTE | ~2023-09-25 | MR_ITS ---
EXAMINATION: MR ABDOMEN WITHOUT AND WITH CONTRAST CLINICAL INFORMATION: Evaluate response to treatment. COMPARISON: Abdomen CT from 12/31/2022. Abdomen MRI from 04/01/2023 and 05/05/2023. TECHNIQUE: MR imaging of the abdomen performed using standard sequences on a high-field magnet without and with intravenous administration of 6.5 mL Gadavist. FINDINGS: LUNG BASES: Linear opacity of atelectasis or scarring in right lower lobe. 0.7 cm nodule in the lateral left lower lobe is unchanged in size compared to 02/04/2023. No pulmonary consolidation or pleural effusion. LIVER: Multiple metastatic lesions are scattered throughout the liver and many lesions have decreased in size and developed decreased T2 signal intensity and peripheral rim-like enhancement from necrosis. For example, interval lack of enhancement of 3.5 cm necrotic lesion of the anterior left hepatic lobe, previously heterogeneously enhancing, 5.3 cm on 05/05/2023 (image 12, series 5). 3.7 cm nonenhancing necrotic focus in the lateral right hepatic lobe corresponds to the heterogeneous and hypoenhancing metastatic lesion previously 5.5 cm on 05/05/2023 (image 22, series 5). Mild intrinsic T1 signal shortening from blood products within a necrotic subcapsular 3.6 cm lesion anterolateral aspect of segment 5 near junction with segment 4, previously 6 cm (image 26, series 5). 3.1 cm lesion at medial aspect of segment 7 is heterogeneously enhancing and although representing residual viable tumor, has decreased in size, previously 4.3 cm on 05/05/2023 (image 15, series 5). 1.4 cm arterial phase hyperenhancing lesion in the posterior right lobe is unchanged (image 25, series 15). Other scattered heterogeneously hypoenhancing enhancing liver lesions either remain stable in size or have decreased in size compared to 05/05/2023. Interval development of capsular retraction over some of the treated liver lesions. GALLBLADDER AND BILIARY TREE: Gallbladder contains sludge. No wall edema or pericholecystic fluid. No dilated bile ducts. PANCREAS: No edema, pancreatic ductal dilatation or mass. SPLEEN: Normal. ADRENAL GLANDS: Normal. KIDNEYS: Chronic atrophy of the right kidney. Simple cysts of both kidneys. No renal imaging follow-up is recommended for simple cysts. BOWEL AND PERITONEUM: Stomach is unremarkable. No dilated loops of bowel. No bowel wall thickening or mesenteric fat stranding. No abdominal free fluid. VASCULATURE: Atherosclerosis of the abdominal aorta without aneurysm. Inferior vena cava is normal. Splenic, mesenteric and portal veins are patent. LYMPH NODES: No pathologic sized lymph nodes in the abdomen. A nonenhancing cystic focus of measures 2.1 cm transverse projecting superior to the region of the left adrenal, posterior to left iliac vein, could represent a lymphatic cyst/lymphangioma. It was present on CT images from 01/09/2016. OTHER: Images acquired at a large [id number] demonstrate an old 1.3 cm simple cyst of the left adnexa. No pelvic imaging follow-up recommended. SKELETAL: No suspicious osseous lesions. Chronic severe facet arthropathy, disc degenerative change, grade 2 anterolisthesis and spinal canal stenosis at L4-L5. MR/MR abdomen wo/w con IMPRESSION: There has been a positive treatment response with regards to the extensive hepatic metastatic disease. Many of the lesions have decreased in size and/or have become nonenhancing due to posttreatment necrosis. Although there are residual viable contrast enhancing metastatic lesions, many of these have decreased in size, as well, whereas others remain unchanged compared to 05/05/2023.
[2023-09-25] MEDS: gadobutroL 7.5 ML VIAL IVPUSH (15:28)
== END 2023-09-25 14:32 | disposition home or self-care (01) ==
LOC: HO.MRI 14:31
PROVIDERS: Visit Provider Internal Medicine
DX: C7A.8 Other malignant neuroendocrine tumors (principal); C7B.8 Other secondary neuroendocrine tumors
CPT/HCPCS: 74183; A9585

== ENCOUNTER 2023-12-16 14:08 | Outpatient (AMB) | payer MEDICARE, SELFPAY ==
[2023-12-16 14:14] VITALS: BP 108/64; PULSE 79; O2SAT 97; BMI 29.5
--- NOTE | 2023-12-16 14:14 | MHC.OFFVIS ---
Vital Signs 12/16/23 14:14 Height 5 ft Weight 151 lb 0.266 oz BMI 29.5 BP 108/64 Blood Pressure Location Rt brachial Position Sitting Pulse 79 Pulse Source Pulse Oximeter Pulse Oximetry (%) 97 Oxygen Delivery Method Room Air Intake Visit Reasons: COPD Lead Web Developer Required: No Trench Digging Machine Operator: Trench Digging Machine Operator offered & declined Accompanied by: Self / Same As Patient Allergies morphine [MORPHINE] Adverse Reaction (Mild, Verified 12/16/23 14:30) NAUSEA & VOMITING Medication List - Last Reconciled 12/16/23 by Ricky Andujar MD albuterol sulfate 1 mg inhalation Q4-6H PRN atorvastatin 40 mg PO DAILY capecitabine 1,000 mg (2 x 500 mg) PO BID capecitabine 300 mg (2 x 150 mg) PO BID cyclobenzaprine 10 mg PO BEDTIME doxycycline hyclate 100 mg PO BID famotidine 20 mg PO DAILY fluticasone propion-salmeterol 250-50 mcg/dose (Wixela Inhub) 1 inh inhalation BID 30 days fluticasone propionate 50 mcg/actuation 2 sprays intranasal DAILY lisinopril 20 mg (1/2 x 40 mg) PO DAILY loperamide 2 mg PO Q6H PRN morphine ER (MS Contin) 30 mg PO Q12H omeprazole 40 mg PO DAILY ondansetron 8 mg PO Q8H PRN oxycodone 5 mg PO Q6H PRN prednisone 20 mg PO DAILY temozolomide 250 mg PO DAILY temozolomide 100 mg PO DAILY Do you need a note to return to daycare/school/sports/work: No HPI HPI COPD: Details: ALEXANDRA IS 78 YEARS OLD VERY PLEASANT FEMALE WHO COMES FOR FOLLOW-UP AFTER 6 MONTHS, HER COPD. HAS REMAINED VERY STABLE IN THE LAST 6 MONTHS WITHOUT ANY ACUTE EXACERBATION. SHE NEEDS TO USE THE RESCUE INHALER OR ALBUTEROL IN THE NEBULIZER ONLY ONCE IN A WHILE DOES HAVE MILD INTERMITTENT RUNNY NOSE DUE TO HER ALLERGIC RHINITIS, AND USES FLONASE DAILY HAS COMPLETED TREATMENT FOR HEPATOCELLULAR CARCINOMA AND IS STAYING VERY STABLE. * Will be vacationing on a cruise for 2 weeks. [facility] Medical History Liver lesion Liver mass Heart attack (~2009) Serrated adenoma of colon (~2015) Generalized anxiety disorder History of COVID-19 (~01/2020) Right upper lobe pulmonary nodule Pulmonary nodules Personal history of nicotine dependence Osteopenia (~2013) Peptic ulcer disease Ulnar nerve entrapment Carpal tunnel syndrome Osteoarthritis Peripheral neuropathy Vitamin D deficiency Renal calculus Obesity (BMI 30-39.9) Hypertension COPD (chronic obstructive pulmonary disease) Coronary artery disease Hypercholesterolemia Surgical History History of colonoscopy History of appendectomy (~07/2011) History of fusion of cervical spine (~07/2003) History of meniscectomy of left knee (~05/2014) History of heart artery stent (~2009) History of removal of ureteral stent (~2017) History of tonsillectomy History of lithotripsy (~2017) Family History Father CVD (cardiovascular disease) Throat cancer HTN (hypertension) Mother Alzheimer disease Social History Household Members: None Housing: House Alcohol intake: current Alcohol intake frequency: holidays/special occasions only Patient Tobacco Use Status: Former Tobacco user e-Cigarette/Vaping Use: Never Used Second Hand Smoke Exposure: No service: No Current occupational status: employed 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 Hearing needs: No Vision needs: Yes (Glasses) Review of Systems Const All systems reviewed & are unremarkable except as noted in HPI and below Eyes Reports no additional complaints ENT Reports no additional complaints Card Denies chest pain, Denies irregular heart rhythm, Denies leg edema and Reports dyspnea on exertion Resp Reports as per HPI and Reports dyspnea on exertion GI Reports no additional complaints Reports no additional complaints Musc Reports no additional complaints Skin/Breast Reports system reviewed and no additional complaints, except as documented Neuro Reports no additional complaints Psych Reports no additional complaints Physical Exam Vital Signs: Last Vital Signs Pulse 79 12/16/23 14:14 BP 108/64 12/16/23 14:14 Pulse Ox 97 12/16/23 14:14 Oxygen Delivery Method Room Air 12/16/23 14:14 BMI result Body Mass Index 29.5 Const General: comfortable, no acute distress, alert and awake Orientation/consciousness: patient oriented x3 HEENT Head: Yes normal to inspection General nose exam: No nasal polyps present and No nasal discharge present Face and sinus: Yes sinuses nontender Mouth: oropharynx normal Throat: Yes posterior oropharynx normal Eyes General: appearance normal, both eyes and all related structures Neck Neck: Yes normal visual inspection, Yes no lymphadenopathy, Yes trachea midline and Yes no JVD Thyroid: Thyroid normal Chest Chest palpation & inspection: normal inspection of the chest, normal palpation of entire chest wall and no tenderness Resp Other: Percussion note is resonant, breath sounds slightly distant with prolonged expiratory phase, No wheezes or rhonchi are heard. Cardio Palpation: normal PMI Rate: regular rate Rhythm: regular rhythm Heart sounds: no gallops and no murmurs Peripheral pulses: Peripheral pulses 2+ throughout GI Palpation (GI): Soft to palpation, nontender, No hepatosplenomegaly present and no masses Auscultation: normal bowel sounds Back/Spine/Pelvis Thoracic/Lumbar Spine: thoracic and lumbar spine normal to inspection Skin General skin exam: no rashes or lesions noted Neuro General: patient oriented x3 and no focal motor deficits Cranial nerves: Yes CN's II-XII intact bilaterally Extrem General: Yes normal to inspection, Yes no calf tenderness and Yes edema (1+ EDEMA OF RT ANKLE ) Psych Appearance: grossly normal and well kempt Speech and movement: Normal speech and movement present Assessment & Plan Assessment & Plan (1) COPD (chronic obstructive pulmonary disease): Comment: (COPD is Moderately severe , remains controlled, c/o mild dyspnea on exertion, Code(s): J44.9 - Chronic obstructive pulmonary disease, unspecified Category: Medical Qualifiers: COPD type: emphysema Emphysema type: unspecified Qualified Code(s): J43.9 - Emphysema, unspecified Plan: Continue using Wixela 250-51 inhalation b.i.d.. Albuterol solution 1.25 mg in the nebulizer Q 6 hours p.r.n.. (2) Pulmonary nodule: Comment: CATEGORY -2 BENIGN . PATIENT PARTICIPATING IN ANNUAL LD CT SCAN PROGRAM Code(s): R91.1 - Solitary pulmonary nodule Category: Medical Plan: Continue to have annual CT scan of the lung. Coding Level of Care Code Est Pt Level 3 (10487) Diagnoses Pulmonary emphysema, unspecified emphysema type J43.9 COPD type: emphysema Emphysema type: unspecified Pulmonary nodule R91.1
== END 2023-12-16 14:31 | disposition home or self-care (01) ==
LOC: HO.HPS 14:08
PROVIDERS: PCP Internal Medicine; Visit Provider Internal Medicine
DX: J43.9 Emphysema, unspecified (principal); R91.1 Solitary pulmonary nodule
CPT/HCPCS: 99213

== ENCOUNTER → 2023-12-16 14:08 | Outpatient (BNVA) | payer MEDICARE, SELFPAY | PROVIDERS: PCP Internal Medicine; Visit Provider Internal Medicine | DX: J43.9 Emphysema, unspecified (principal); J30.9 Allergic rhinitis, unspecified; R91.1 Solitary pulmonary nodule | CPT/HCPCS: 99212 ==

== ENCOUNTER 2023-12-22 10:15 | Outpatient (REF) | payer MEDICARE, SELFPAY ==
--- NOTE | ~2023-12-22 | MR_ITS ---
EXAMINATION: MR ABDOMEN WITHOUT AND WITH CONTRAST CLINICAL INFORMATION: Assess treatment response. COMPARISON: Abdominal MRI 09/25/2023. TECHNIQUE: MR abdomen was performed without and with use of 7 mL intravenous Gadavist gadolinium contrast. Postcontrast images are performed in multiphase dynamic sequences. Imaging was performed in 3 planes. FINDINGS: LUNG BASES: A 7 mm nodule in the left lower lobe (19:8) is unchanged. A linear opacity in the right lower lobe is unchanged. LIVER, GALLBLADDER, AND BILIARY TREE: Complex examination with redemonstration of numerous liver lesions. Similar to prior, some lesions demonstrate decreased central enhancement and decreased T2 bright signal with associated hemorrhagic products in keeping with treatment changes, and many still demonstrate viable disease with enhancement, T2 bright signal and restricted diffusion. Overall, these are not convincingly changed compared to most recent prior from 09/25/2023. A few of the passenger service representative lesions that demonstrate viable disease include a 2 cm lesion in the left hepatic lobe (19:20) previously 1.9 cm, a 3 cm lesion in the posterior right hepatic lobe adjacent to the retrohepatic IVC (19:33) previously 3.3 cm and a 2.2 cm lesion more superiorly in the right hepatic lobe (19:26) previously 2 cm. Again noted is gallbladder sludge. No evidence of gallbladder wall thickening or pericholecystic inflammatory changes to suspect acute cholecystitis. No biliary ductal dilatation. PANCREAS: Unremarkable. SPLEEN: Normal. ADRENAL GLANDS: Normal. KIDNEYS AND URETERS: Stable asymmetric atrophy of the right kidney. Redemonstration of benign-appearing cortical and peripelvic cysts, for which no imaging follow-up is recommended. GASTROINTESTINAL TRACT: No evidence of bowel obstruction or ascites. ABDOMINAL WALL: No significant hernia is appreciated. LYMPH NODES: A 2.1 cm T2 bright nonenhancing cystic-appearing observation in the retroperitoneum to the left of the aorta, posterior to the left adrenal gland (5:19) is unchanged. No lymphadenopathy by size criteria. VASCULAR: Normal caliber of the abdominal aorta. Atherosclerotic disease. OSSEOUS STRUCTURES: No acute or aggressive-appearing osseous findings. Degenerative changes of the spine. Stable anterolisthesis of L4 on L5. ADDITIONAL FINDINGS: Stable 1.5 cm T2 hypointense lesion in the region of the left ovary (4:36) with unchanged immediately adjacent 1.5 cm T2 bright cyst (4:37). These are unchanged compared to a CT dating back to 12/31/2022. MR/MR abdomen wo/w con IMPRESSION: Examination is not significantly changed compared to 09/25/2023. Electronically signed by: Duyen Butler MD 12/22/2023 03:20 PM [facility]
[2023-12-22] MEDS: gadobutroL 7.5 ML VIAL IVPUSH (11:41)
== END 2023-12-22 10:16 | disposition home or self-care (01) ==
LOC: HO.MRI 10:15
PROVIDERS: PCP Internal Medicine; Visit Provider Internal Medicine
DX: C7A.8 Other malignant neuroendocrine tumors (principal); C7B.8 Other secondary neuroendocrine tumors
CPT/HCPCS: 74183; A9585

== ENCOUNTER 2023-12-25 08:33 | Outpatient (REF) | payer MEDICARE, SELFPAY ==
--- NOTE | ~2023-12-25 | MM_ITS ---
EXAMINATION: MM SCREENING DIGITAL BREAST TOMOSYNTHESIS, BILATERAL CLINICAL INFORMATION: Screening. Asymptomatic. COMPARISON: Mammography: Comparison is made with available priors TECHNIQUE: Digital breast mammography with tomosynthesis is performed in both the craniocaudal and mediolateral oblique views along with computer-aided detection (CAD). FINDINGS: There are scattered areas of fibroglandular density (ACR BI-RADS breast composition Category b). There are no significant masses, abnormal calcifications, or other abnormalities. MM/MM tomosynthesis screening BI IMPRESSION: No mammographic evidence of malignancy. ASSESSMENT: BI-RADS BI-RADS 1 - Negative RECOMMENDATION: Routine annual mammography screening. 1 year F/U This examination should not preclude the clinical evaluation of a suspicious palpable abnormality. This patient's information was entered into a reminder system with a target due date for their next mammogram. Electronically signed by: Mervat Rowe DO 01/01/2024 01:03 PM [facility]
== END 2023-12-25 08:34 | disposition home or self-care (01) ==
LOC: HO.MAMMO 08:33
PROVIDERS: PCP Internal Medicine; Visit Provider Internal Medicine
DX: Z12.31 Encounter for screening mammogram for malignant neoplasm of breast (principal)
CPT/HCPCS: 77063; 77067

== ENCOUNTER → 2023-12-25 08:45 | Outpatient (BNV) | payer MEDICARE, SELFPAY | PROVIDERS: PCP Internal Medicine; Visit Provider Internal Medicine | DX: Z12.31 Encounter for screening mammogram for malignant neoplasm of breast (principal) | CPT/HCPCS: 77063; 77067 ==

== ENCOUNTER 2024-01-26 14:10 | Outpatient (AMB) | payer MEDICARE, SELFPAY ==
--- OUTSIDE RECORDS SUMMARY | 2024-01-26 14:14 | XMS_ITS | Patient Health Record ---
Author Organization [facility] Address [address] [place] [address] Care Team Providers Care Computer Systems Hardware Analyst Name Role Phone Po Abilio ASHRAF Primary Care Provider Kalyan Meade [phone] ALLERGIES Allergen (clinical drug ingredient) Drug/Non Drug Allergy documented on EMR Reaction Allergy Type Onset Date Status morphine Morphine Unknown Drug Allergy Active meperidine Demerol Unknown Drug Allergy Active REASON FOR REFERRAL No Information MEDICATIONS Medication SIG (Take, Route, Frequency, Duration) Notes Start Date End Date Status Symbicort Active Atorvastatin Calcium 40 MG Orally Active Lisinopril 40 MG Orally Act inez amLODIPine Besylate 5 MG Oral for 90 Active Vitamin D Active Baby Aspirin Active Flovent HFA Active IMMUNIZATIONS Vaccine Route Administration Date Status Comme nts Influenza Unknown 01/01/2021 Administered SOCIAL HISTORY Tobacco Use: Social History Observation Description Date Details (start date - stop date) Former Smoker NA - NA Sex Assigned At : Social History Observation Description Sex Assigned At Unknown Tobacco Use/Smoking Question Answer Notes Patient is a former smoker PROBLEMS Problem Type ICD Code Onset Dates Problem Status W/U Status Risk SNOMED Code Notes Problem Colon cancer screening (Z12.11) Active confirmed Colon cancer screening (586873843) Problem Encounter for screening for malignant neoplasm of colon (Z12.11) Active confirmed 441186541 Problem Personal history of colonic polyps (Z86.010) Active confirmed History of poly p of colon (situation) (962716335) Problem Other malignant neuroendocrine tumors (C7A.8) Active confirmed 7090372069 Problem Encounter for screening for malignant neoplasm of rectum (Z12.12) Active confirmed Screening fo r malignant neoplasm of rectum (051688210) Problem Preprocedural examination (Z01.818) Active confirmed 82239599 Problem Abnormal CT scan, colon (R93.3) Active confirmed 681614502 Problem Long-term use of aspirin therapy (Z79.82) Active confirmed 039999793 Problem Irregular bowel habits (R19.8) Active confirmed Irregular bow el habits (252381068) Problem Diverticulosis of sigmoid colon (K57.30) Active confirmed Diverticulosis of sigmoid colon (885186480) Problem Abnormal computed tomography of sigmoid colon (R93.3) Active confirmed 890381572 Problem Fecal soiling (R15.1) Active confirmed Fecal soiling (222551615) Problem Serrated adenoma of colon (D12.6) Active confirmed Benign neop lasm of colon (67821889) Problem Metastasis to liver (C78.7) Active confirmed 01272372 Encounters Encounter Location Date Provider Diagnosis [facility] [address] [place] [id number] 03/12/2023 Kalyan Velasquez [facility] [address] [place] [address] [phone] 03/19/2023 Kalyan Velasquez [facility] [address] [place] [phone] 01/29/2023 Kalyan Velasquez Other malignant neuroendocrine tumors C7A.[address] scan, colon R93.3 [facility] [address] [place] [phone] 02/03/2023 Kalyan Velasquez [facility] [address] [place] [phone] 03/05/2023 Kalyan Velasquez ASSESSMENTS Encounter Date Diagnosis Assessment Notes Treatment Notes Treatment Clinical Notes 01/29/2023 Other malignant neuroendocrine tumors (ICD-10 - C7A.8) Stop aspirin for 1 week before the procedures 01/29/[address] scan, colon (ICD-10 - R93.3) PLAN OF TREATMENT Pending Test Test Name Order Date CHEM 7 PROFILE 01/13/2023 LIVER PROFILE 01/13/2023 CEA 01/13/2023 CBC w DIFF 01/13/2023 US BIOPSY NEEDLE GUIDE 01/13/2023 Future Test Test Name Order Date COLONOSCOPY 08/28/2015 COLONOSCOPY 10/30/2021 UPPER GI ENDOSCOPY 02/03/2023 COLONOSCOPY 02/03/2023 Insurance Providers Payer Name Payer Address Payer Phone Subscriber Number Group Number Insured Name Patient Relationship to Insured Coverage Start Date Coverage End Date [facility] [address] [place] [address] [id number] MARYFATUMA BRADLEYS Self - patient is the insured MEDICAL (GENERAL) HISTORY Medical History History ICD Code MO 2009-has 1 stent--fine since--sees Dr Kike Stephen COPD/asthma Hypertension Kidney stones--ESWL and cystoscopies Denies DM,CVA,renal disease Hyperlipidemia She denies any definitive hi story of sleep apnea, but does describe that when she lays flat in bed she will have frequent episodes of either awakening from sleep or having a sense of choking Carpal tunnel R>L Anxiety disorder Osteoarthritis Pulmonary nodule Vitamin D deficiency Colonosopy 10/2015 with remov al of a serrated adenoma, 2 small nonbleeding AVM's in the ascending colon Negative screening colonoscopy in 2 Surgical History Surgery Date(Month/Year) Cervical spinal fusion 1999 Appendectomy 2011 Left knee surgery/meniscus tear 2014 Tonsillectomy Neck surgery to remove hardware 11/2020
--- OUTSIDE RECORDS SUMMARY | 2024-01-26 14:14 | XMS_ITS ---
Author Organization [facility] Address [address] [place] [address] Care Team Providers Care Director Corporate Sales Name Role Phone Abilio oRbin MD Primary Care Provider Kalyan Meade [phone] REASON FOR VISIT Cancel EGD and Colonoscopy Encounters Encounter Location Date Provider Diagnosis [facility] [address] [place] [address] 03/05/2023 Kalyan Velasquez PLAN OF TREATMENT No Information
--- OUTSIDE RECORDS SUMMARY | 2024-01-26 14:14 | XMS_ITS ---
Author Organization [facility] Address [address] [place] [address] Care Team Providers Care Plant Operator Control Room Operator Name Role Phone Abilio Robin MD Primary Care Provider Kalyan Medae [phone] RE[address]ON FOR VISIT abn ct scan of colon,other malignant neuroendocrines tumors Encounters Encounter Location Date Provider Diagnosis [facility] Out[facility] [address] [place], [place] [phone] 03/12/2023 Kalyan Velasquez PLAN OF TREATMENT No Information
--- OUTSIDE RECORDS SUMMARY | 2024-01-26 14:14 | XMS_ITS ---
Author Organization [facility] Address [address] [place] [address] Care Team Providers Care Child Care Associate Teacher Name Role Phone Po Abilio ASHRAF Primary Care Provider Unavailpreeti e Kalyan Velasquez [phone] REASON FOR VISIT malignant neuendocrine tumors,abn ct csan colon Encounters Encounter Location Date Provider Diagnosis [facility] Out[facility] [address], [place] [phone] 03/19/2023 Kalyan Velasquez PLAN OF TREATMENT No Information
[2024-01-26 14:26] VITALS: BP 114/62; PULSE 75; O2SAT 97; BMI 29.1
--- NOTE | 2024-01-26 14:26 | A.OFFPC_ITS ---
Vital Signs 01/26/24 14:26 Height 5 ft Weight 149 lb BMI 29.1 BP 114/62 Blood Pressure Location Lt brachial Position Sitting Pulse 75 Pulse Source Pulse Oximeter Pulse Oximetry (%) 97 Oxygen Delivery Method Room Air Intake Visit Reasons: follow up Allergies morphine [MORPHINE] Adverse Reaction (Mild, Verified 01/26/24 14:26) NAUSEA & VOMITING Medication List - Last Reconciled 01/26/24 by Abilio Harry Po, albuterol sulfate 1 mg inhalation Q4-6H PRN atorvastatin 40 mg PO DAILY capecitabine 1,000 mg (2 x 500 mg) PO BID capecitabine 300 mg (2 x 150 mg) PO BID cyclobenzaprine 10 mg PO BEDTIME doxycycline hyclate 100 mg PO BID famotidine 20 mg PO DAILY fluticasone propion-salmeterol 250-50 mcg/dose (Wixela Inhub) 1 inh inhalation BID 30 days fluticasone propionate 50 mcg/actuation 2 sprays intranasal DAILY lisinopril 20 mg PO DAILY loperamide 2 mg PO Q6H PRN morphine ER (MS Contin) 30 mg PO Q12H omeprazole 40 mg PO DAILY ondansetron 8 mg PO Q8H PRN oxycodone 5 mg PO Q6H PRN temozolomide 250 mg PO DAILY temozolomide 100 mg PO DAILY Tobacco use date assessed: 01/26/24 Fall risk assessment: No Falls in past year Last assessed Fall Risk: 01/26/24 Dental Screening Dental Screen Date: 03/02/23 HPI follow up HPI Details The patient is a 78-year-old female presenting with 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 She has a history of COPD and CAD and was a former smoker. The patient began treatment in March 2023. An abdominal MRI conducted in April 2023 revealed numerous enhancing lesions in both hepatic lobes. Embolization procedures were conducted in May for the right lobe and in June 2023 for the left lobe. A scan in September 2023 indicated a positive response to treatment with decreased lesion size. Blood work on June 28 showed normal counts and functions, with a blood sugar level of 148. Follow-up imaging in December showed significant changes from the September scan. The patient is compliant with medications, including specific dosages of dicyclomine and oxycodone for symptom management. She continues to be monitored by pulmonary specialists with annual CAT scans, most recently assessed in December. [facility] Medical History Liver lesion Liver mass Heart attack (~2009) Serrated adenoma of colon (~2015) Generalized anxiety disorder History of COVID-19 (~01/2020) Right upper lobe pulmonary nodule Pulmonary nodules Personal history of nicotine dependence Osteopenia (~2013) Peptic ulcer disease Ulnar nerve entrapment Carpal tunnel syndrome Osteoarthritis Peripheral neuropathy Vitamin D deficiency Renal calculus Obesity (BMI 30-39.9) Hypertension COPD (chronic obstructive pulmonary disease) Coronary artery disease Hypercholesterolemia Surgical History History of colonoscopy History of appendectomy (~07/2011) History of fusion of cervical spine (~07/2003) History of meniscectomy of left knee (~05/2014) History of heart artery stent (~2009) History of removal of ureteral stent (~2017) History of tonsillectomy History of lithotripsy (~2017) Family History (Updated 01/26/24 @ 14:28 by Suzanne Bliss CMA) Father CVD (cardiovascular disease) Throat cancer HTN (hypertension) Mother Alzheimer disease Social History Household Members: None Housing: House Alcohol intake: current Alcohol intake frequency: holidays/special occasions only Patient Tobacco Use Status: Former Tobacco user Tobacco use type: Cigarette e-Cigarette/Vaping Use: Never Used Second Hand Smoke Exposure: No service: No Current occupational status: employed 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 1. Little interest or pleasure in doing things: not at all 2. Feeling down, depressed, or hopeless: not at all 3. Trouble falling or staying asleep, or sleeping too much: several days 4. Feeling tired or having little energy: several days 5. Poor appetite or overeating: not at all 6. Feeling bad about yourself - or that you are a failure or have let yourself or your family down: not at all 7. Trouble concentrating on things, such as reading the newspaper or watching television: not at all 8. Moving or speaking so slowly that other people could have noticed. Or the opposite - being so fidgety or restless that you have been moving around a lot more than usual: not at all 9. Thoughts that you would be better off or of hurting yourself in some way: not at all Total score: 2 Depression Screening Interpretation: Positive Depression Screening Done: Yes Source: Developed by Drs. Kalyan Noguera, Franklyn Huff and colleagues, with an educational elmo from [employer]. Thrive Questionnaire Date Thrive assessed: 03/02/23 AUDIT C Alcohol Use Questionnaire (AUDIT-C) 1. How often do you have a drink containing alcohol?: Monthly or less 2. How many drinks containing alcohol do you have on a typical day when you are drinking?: 1 or 2 3. How often do you have six or more drinks on one occasion?: Never Total Score: 1 MADELINE-7 AMB Questionnaire MADELINE-7 Date MADELINE - 7 assessed: 03/02/23 Source: Developed by Drs. Kalyan Noguera, Jovana Clarke, Franklyn Lares and colleagues, with an educational elmo from [employer]. Physical exam (Primary Care) Vital Signs: Last Vital Signs Pulse 75 01/26/24 14:26 BP 114/62 01/26/24 14:26 Pulse Ox 97 01/26/24 14:26 Oxygen Delivery Method Room Air 01/26/24 14:26 BMI result Body Mass Index 29.1 Tobacco/Smoking Status: Tobacco use Status Tobacco use date assessed 01/26/24 01/26/24 14:28 Patient Tobacco Use Status Former Tobacco user 01/26/24 14:28 Tobacco use type Cigarette 01/26/24 14:28 e-Cigarette/Vaping Use Never Used 01/26/24 14:28 PHQ-9: PHQ-9 Score PHQ-9: Total score 2 01/26/24 14:52 Depression Screening Interpretation: Positive Thrive Assessment: Date of Thrive Assessment Date Thrive assessed 03/02/23 01/26/24 14:28 Const General: alert; No acute distress Eyes Conjunctivae: conjunctivae normal Resp Auscultation: clear to auscultation bilaterally Cardio Rate: regular rate Rhythm: regular rhythm GI Inspection: Yes normal to inspection Extrem General: Yes normal to inspection and No edema Coding Level of Care Code Est Pt Level 4 (92835) Complex EM visit Add On G2211 Diagnoses Neuroendocrine carcinoma metastatic to liver C7A.8; C7B.8 Type 2 diabetes mellitus with hyperglycemia, without long-term current use of insulin E11.65 Diabetes mellitus senior living insulin use: without termite control representative use Coronary artery disease involving [place] coronary artery of [place] heart without angina pectoris I25.10 Coronary Disease-Associated Artery/Lesion type: [place] artery [place] vs. transplanted heart: [place] heart Associated angina: without angina Essential hypertension I10 Hypertension type: essential hypertension Hypercholesterolemia E78.00 Pulmonary emphysema, unspecified emphysema type J43.9 COPD type: emphysema Emphysema type: unspecified Right upper lobe pulmonary nodule R91.1 Gastroesophageal reflux disease without esophagitis K21.9 Esophagitis presence: without esophagitis Assessment & Plan Assessment & Plan (1) Neuroendocrine carcinoma metastatic to liver: Code(s): C7A.8 - Other malignant neuroendocrine tumors; C7B.8 - Other secondary neuroendocrine tumors Category: Medical Plan: Patient is having chemotherapy under Hematology-Oncology and continuing to be monitored with MRI. 12/30/2023 last MRI (2) Type 2 diabetes mellitus with hyperglycemia: Comment: [facility] 2022, will be seeing Dr. Pineda Code(s): E11.65 - Type 2 diabetes mellitus with hyperglycemia Category: Medical Qualifiers: Diabetes mellitus senior living insulin use: without termite control representative use Qualified Code(s): E11.65 - Type 2 diabetes mellitus with hyperglycemia Plan: Decrease the amount of carbohydrate intake, pasta, bread, rice and potatoes are all sugar and that is aside from all the sweet stuff, remember that fruits are good but they are Sweet also. Hemoglobin A1c goal of less than 7.0 patient is diet controlled (3) Coronary artery disease: Comment: (2009 - STEMI /VFib arrest - s/p stent to circumflex) Code(s): I25.10 - Atherosclerotic heart disease of [place] coronary artery without angina pectoris Category: Medical Qualifiers: Coronary Disease-Associated Artery/Lesion type: [place] artery [place] vs. transplanted heart: [place] heart Associated angina: without angina Qualified Code(s): I25.10 - Atherosclerotic heart disease of [place] coronary artery without angina pectoris Plan: Control the cholesterol, weight, blood pressure, diabetes on atorvastatin 40 needs to get cholesterol testing. (4) Hypertension: Code(s): I10 - Essential (primary) hypertension Category: Medical Qualifiers: Hypertension type: essential hypertension Qualified Code(s): I10 - Essential (primary) hypertension Plan: Continue with blood pressure medication. Decrease salt intake and exercise patient takes lisinopril 20 mg once a day (5) Hypercholesterolemia: Code(s): E78.00 - Pure hypercholesterolemia, unspecified Category: Medical Plan: Avoid fried foods, chicken skin, eggs, butter margarine, pastries and meat. Be it pork or beef they have a lot of cholesterol LDL goal of less than 70 and triglyceride of less than 150 on atorvastatin (6) COPD (chronic obstructive pulmonary disease): Comment: (COPD is Moderately severe , remains controlled, c/o mild dyspnea on exertion, Code(s): J44.9 - Chronic obstructive pulmonary disease, unspecified Category: Medical Qualifiers: COPD type: emphysema Emphysema type: unspecified Qualified Code(s): J43.9 - Emphysema, unspecified Plan: Continue with Wixela follows up with Pulmonary (7) Right upper lobe pulmonary nodule: Code(s): R91.1 - Solitary pulmonary nodule Category: Medical Plan: Stable and continue with lung cancer screening program. (8) GERD (gastroesophageal reflux disease): Code(s): K21.9 - Gastro-esophageal reflux disease without esophagitis Category: Medical Qualifiers: Esophagitis presence: without esophagitis Qualified Code(s): K21.9 - Gastro-esophageal reflux disease without esophagitis Plan: Avoid the foods that causes that usually spicy foods, tomato products, juices, coffee, soda and foods that your sensitive to. After eating do not lie down, allow 3-4 hours before in lie down. And keep the head of bed above 30 degrees to avoid the acid from going up. Plan - Continue current therapy for metastatic neuroendocrine carcinoma. - Maintain regular follow-up with oncology to monitor treatment response and manage complications. -. - Continue pulmonary follow-up and monitoring, especially for COPD management. - Advise patient to maintain regular monitoring of blood glucose levels due to elevated readings. - Ensure compliance with prescribed medications, including the oncologic and symptomatic treatment regimen. - Monitor for any potential adverse effects of embolization and symptomatic management with oxycodone. Orders: Orders Free T4 (Free Thyroxine) Today E78.00 - Pure hypercholesterolemia, unspecified Vitamin B12 and Folate Today E78.00 - Pure hypercholesterolemia, unspecified AMB Hemoglobin A1c Today Z13.9 - Encounter for screening, unspecified Complete Blood Count Auto Diff Today E78.00 - Pure hypercholesterolemia, unspecified Comprehensive Met. Panel Today E78.00 - Pure hypercholesterolemia, unspecified Thyroid Stimulating Hormone Today E78.00 - Pure hypercholesterolemia, unspecified Lipid Panel Today E78.00 - Pure hypercholesterolemia, unspecified Creatinine Urine Today E11.65 - Type 2 diabetes mellitus with hyperglycemia, E78.00 - Pure hypercholesterolemia, unspecified Microalbumin, Random (w Creat) Today E11.65 - Type 2 diabetes mellitus with hyperglycemia, E78.00 - Pure hypercholesterolemia, unspecified Influenza [id number] Immunization Today Z23 - Encounter for immunization Medications: New Fluarix Triv [id number] (PF) (flu vacc [id number] 6mos up(PF)) 0.5 mL IM ONCE 0.5 mL 0RF NS Z23 - Encounter for immunization atorvastatin 40 mg PO DAILY 90 tabs 3RF E78.00 - Pure hypercholesterolemia, unspecified Changed From lisinopril 20 mg (1/2 x 40 mg) PO DAILY 90 tabs 3RF I10 - Essential (primary) hypertension To lisinopril 20 mg PO DAILY 90 tabs 3RF I10 - Essential (primary) hypertension Discontinued omeprazole Discontinued Reason: Doctor's Order 40 mg PO DAILY 30 caps 1RF famotidine Discontinued Reason: Patient Refused 20 mg PO DAILY 90 tabs 1RF cyclobenzaprine Discontinued Reason: Change Referral Type 10 mg PO BEDTIME 30 tabs 0RF doxycycline hyclate Discontinued Reason: Doctor's Order 100 mg PO BID 20 caps 0RF
== END 2024-01-26 15:14 | disposition home or self-care (01) ==
PROVIDERS: PCP Internal Medicine; Visit Provider Internal Medicine
DX: E11.65 Type 2 diabetes mellitus with hyperglycemia (principal); C7A.8 Other malignant neuroendocrine tumors; C7B.8 Other secondary neuroendocrine tumors; J43.9 Emphysema, unspecified; I25.10 Atherosclerotic heart disease of native coronary artery without angina pectoris; I10 Essential (primary) hypertension; E78.00 Pure hypercholesterolemia, unspecified; R91.1 Solitary pulmonary nodule; K21.9 Gastro-esophageal reflux disease without esophagitis; Z23 Encounter for immunization

== ENCOUNTER → 2024-01-26 14:10 | Outpatient (BNVA) | payer MEDICARE, SELFPAY | PROVIDERS: PCP Internal Medicine; Visit Provider Internal Medicine | DX: I25.10 Atherosclerotic heart disease of native coronary artery without angina pectoris (principal); J44.9 Chronic obstructive pulmonary disease, unspecified; I10 Essential (primary) hypertension; E78.00 Pure hypercholesterolemia, unspecified; J43.9 Emphysema, unspecified; R91.1 Solitary pulmonary nodule; E11.65 Type 2 diabetes mellitus with hyperglycemia; C7A.8 Other malignant neuroendocrine tumors; C7B.8 Other secondary neuroendocrine tumors; K21.9 Gastro-esophageal reflux disease without esophagitis; Z23 Encounter for immunization; Z79.899 Other long term (current) drug therapy | CPT/HCPCS: 90471; 90656; 96127; 99212 ==

== ENCOUNTER 2024-04-13 14:53 | Outpatient (REF) | payer MEDICARE, SELFPAY ==
--- NOTE | ~2024-04-13 | MR_ITS ---
CLINICAL HISTORY: Worsening pain, assess response to Rx MR abdomen with and without contrast Comparison: MR/FL/SR - MR ABDOMEN WO/W CON - 12/22/23 10:35 EST MR/FL/SR - MR ABDOMEN WO/W CON - 09/25/23 14:43 EDT MR/FL/SR - MR ABDOMEN WO/W CON - 05/05/23 13:10 EDT MR/FL/SR - MR ABDOMEN WO/W CON - 04/01/23 14:[address]/REG/FL/SR - CT ABDOMEN PELVIS WO/W IV CON - 12/31/22 11:45 EST Findings: Atelectasis versus scarring in the lung bases, unchanged. There is sludge in the gallbladder. No cholelithiasis, gallbladder wall thickening or pericholecystic fluid. Innumerable liver lesions are again seen; lesions are extensive in confluent in portions of the liver, measuring up to 7.3 cm, previously 7.0 cm. Abnormal contour of the liver capsule could be secondary to retraction. The lesions are predominantly T2 hyperintense, however there are also T2 hypointense lesions. The largest discrete lesion is in the right lobe of the liver and measures up to 4.6 cm, previously measuring 4.9 cm. Interval decrease in lesions which demonstrate increased signal on the T1 weighted images fat to represent hemorrhage. Most of the lesions restrict diffusion, such as T2 hyperintense confluent lesions. These lesions also demonstrate enhancement. The T2 hypointense lesions do not enhance or restrict diffusion. Hypoenhancing T2 hyperintense lesion of the pancreatic body which restricted diffusion seen on the prior study is not well seen on this exam and may have been secondary to artifact. There is a 7 mm focus of restricted diffusion in the pancreatic body which is distal to the region seen on the prior study and is without signal abnormality or abnormal enhancement on the other series and favored to be secondary to artifact (series 13, image 16). Atrophic multi-cystic right kidney. Left renal cysts, including parapelvic cysts. 1.5 cm cyst in left ovary, stable. The other solid organs are unremarkable. No bowel wall thickening or dilation. No aneurysm. Cystic/necrotic lymph node left periaortic region measuring 1.5 x 2.1 x 2.1 cm, stable. No ascites. No bone marrow edema or enhancement. Grade 1 anterolisthesis of L4 on L5 secondary to bilateral pars defects. Impression: No significant interval change to extensive hepatic metastatic disease. This document has been electronically signed by: Avani Johnston MD on 04/13/2024 16:55:40
[2024-04-13] MEDS: gadobutroL 7.5 ML VIAL IVPUSH (16:00)
--- OUTSIDE RECORDS SUMMARY | 2024-04-13 18:02 | XMS_ITS ---
Author Organization [facility] Address [address] [place] [address] Care Team Providers Care Senior Engineer Name Role Phone Abilio Robin MD Primary Care Provider Kalyan Meade [phone] REASON FOR VISIT malignant neuendocrine tumors,abn ct csan colon Encounters Encounter Location Date Provider Diagnosis [facility] [address] [place] [phone] 03/19/2023 Kalyan Velasquez Plan Of Treatment No Information Progress Notes * ALEXANDRA CASTILLO LDOB:[birth year] (79 yo F)Acc No.[id number]:03/19/2023 EGD&COL/MAC Patient:?ALEXANDRA CASTILLO Provider:?Kalyan Velasquez MD :1945???Age:77 Y???Sex:Female D ate:03/19/2023 Address:[address], [place], [place] Pcp:Abilio Robin MD Subjective: * Chief Complaints: * ???1. Malignant neuendocrine tumors,abn ct csan colon. * Medical History:? Objective: * Vitals:? Assessment: Plan: * Treatment: * * The named appointment provid er may or may not be the originator of this progress note, and it is not deemed complete until electronically signed by the appointment provider. Sign off status: Pending * Provider:?Kalyan Velasquez MD Date:? 024 Generated for Printi ng/Monse/Stefanyitting on:?04/13/2024 06:02 PM EST
--- OUTSIDE RECORDS SUMMARY | 2024-04-13 18:02 | XMS_ITS ---
Author Organization [facility] Address [address] [place] [address] Care Team Providers Care Sales Warehouse Driver Name Role Phone Abilio Robin MD Primary Care Provider Kalyan Meade [phone] REASON FOR VISIT abn ct scan of colon,other malignant neuroendocrines tumors Encounters Encounter Location Date Provider Diagnosis [facility] [address] [place] [phone] 03/12/2023 Kalyan Velasquez Plan Of Treatment No Information Progress Notes * ALEXANDRA CASTILLO LDOB:[birth year] (79 yo F)Acc No.[id number]:03/12/2023 EGD&COL/MAC Patient:?WALDEMARJOY ALEXANDRA Tipton Provider:?Kalyan Velasquez MD :1945???Age:77 Y???Sex:Female D ate:03/12/2023 Address:[address], [id number] Pcp:Abilio Robin MD Subjective: * Chief Complaints: * ???1. Abn ct scan of colon,o ther malignant neuroendocrines tumors. * Medical History:? Objective: * Vitals:? Assessment: Plan: * Treatment: * * The named appointment provid er may or may not be the originator of this progress note, and it is not deemed complete until electronically signed by the appointment provider. Sign off status: Pending * Provider:?Kalyan Velasquez MD Date:? 024 Generated for Jai betancourt/Monse/Jessica on:?04/13/2024 06:02 PM EST
--- OUTSIDE RECORDS SUMMARY | 2024-04-13 18:03 | XMS_ITS ---
Author Organization [facility] Address [address] [place] [address] Care Team Providers Care Sprinkling System Irrigator Name Role Phone Abilio Robin MD Primary Care Provider Kalyan Meade [phone] REASON FOR VISIT Cancel EGD and Colonoscopy Encounters Encounter Location Date Provider Diagnosis [facility] [address] [place] [address] 03/05/2023 Kalyan Velasquez Plan Of Treatment No Information Progress Notes * ALEXANDRA CASTILLO LDOB:[birth year] (77 yo F)Acc No.[id number]:03/05/2023 Patient:?ALEXANDRA CASTILLO :1945???Age:77 Y???Sex:Female Address:[address] [place], [place], [address] * true * Date:? Generated for Jai betancourt/Monse/eTransmitting on:?04/13/2024 06:03 PM EST
--- OUTSIDE RECORDS SUMMARY | 2024-04-13 18:03 | XMS_ITS | Patient Health Record ---
Author Organization [facility] Address [address] [place] [address] Care Team Providers Care Dragger Name Role Phone Po Abilio ASHRAF Primary Care Provider Kalyan Meade [phone] Allergies Allergen (clinical drug ingredient) Drug/Non Drug Allergy documented on EMR Reaction Allergy Type Onset Date Status morphine Morphine Unknown Drug Allergy Active meperidine Demerol Unknown Drug Allergy Active Reason For Referral No Information Medications Medication SIG (Take, Route, Frequency, Duration) Notes Start Date End Date Status Symbicort Active Atorvastatin Calcium 40 MG Orally Active Lisinopril 40 MG Orally Act inez amLODIPine Besylate 5 MG Oral for 90 Active Vitamin D Active Baby Aspirin Active Flovent HFA Active Immunizations Vaccine Route Administration Date Status Comme nts Influenza Unknown 01/01/2021 Administered Social History Tobacco Use: Social History Observation Description Date Details (start date - stop date) Former Smoker NA - NA Tobacco Use/Smoking Question Answer Notes Patient is a former smoker Section Notes: Patient currently on chantix ---still having 1-2 cigs per day; no sig alcohol Nonsmoker > 5 years ago; no sig alcohol Nonsmoker > 5 years ago; no sig alcohol Problems Problem Type SNOMED Code ICD Code Onset Dates Problem Status W/U Status Risk Notes Problem Colon cancer screening (919945681) Colon cancer screening (Z12.11) Active confirmed Problem 907987643 Encounter for screening for malignant neoplasm of colon (Z12.11) Active confirmed Problem History of polyp of colon (situation) (303077635) Personal history of colonic polyps (Z86.010) Active confirmed Problem 5025744777 Other malignant neuroendocrine tumors (C7A.8) Active confirmed Problem Screening for malignant neoplasm of rectum (993594828) Encounter for screening for malignant neoplasm of rectum (Z12.12) Active confirmed Problem 39820662 Preprocedural examination (Z01.818) Active confirmed Problem 863472864 Abnormal CT scan , colon (R93.3) Active confirmed Problem 658334436 Long-term use of aspirin therapy (Z79.82) Active confirmed Problem Irregular bowel habits (234903538) Irregular bowel habits (R19.8) Active confirmed Problem Diverticulosis of sigmoid colon (739238082) Diverticulosis of sigmoid colon (K57.30) Active confirmed Problem 902145611 Abnormal compute d tomography of sigmoid colon (R93.3) Active confirmed Problem Fecal soiling (913431565) Fecal soiling (R15.1) Active confirmed Problem Benign neoplasm of colon (26318558) Serrated adenoma of colon (D12.6) Active confirmed Problem 58559921 Metastasis to liver (C78.7) Active confirmed Plan Of Treatment Pending Test Test Name Order Date CHEM [...] Insured Coverage Start Date Coverage End Date [facility] [address] [place] [address] [phone] [id number] ALEXANDRA CASTILLO Self - patient is the insured Medical (General) History Medical History History ICD Code IN 2009-has 1 stent--fine since--sees Dr Kike Stephen [...]
== END 2024-04-13 14:54 | disposition home or self-care (01) ==
LOC: HO.MRI 14:53
PROVIDERS: PCP Internal Medicine; Visit Provider Internal Medicine
DX: C7A.8 Other malignant neuroendocrine tumors (principal); C7B.8 Other secondary neuroendocrine tumors
CPT/HCPCS: 74183; A9585

== ENCOUNTER → 2024-04-13 15:02 | Outpatient (BNV) | payer MEDICARE, SELFPAY | PROVIDERS: PCP Internal Medicine; Visit Provider Radiology Diagnostic Radiology | DX: C7A.8 Other malignant neuroendocrine tumors (principal); C7B.8 Other secondary neuroendocrine tumors; R10.9 Unspecified abdominal pain | CPT/HCPCS: 74183 ==

== ENCOUNTER 2024-04-22 13:29 | Outpatient (AMB) | payer MEDICARE, SELFPAY ==
[2024-04-22 13:31] VITALS: BP 110/60; PULSE 84; O2SAT 96; BMI 30.2
--- NOTE | 2024-04-22 13:31 | MHC.PC.OV ---
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 Required: No Accompanied by: Self / Same As Patient Allergies morphine [MORPHINE] Adverse Reaction (Mild, Verified 04/22/24 13:31) NAUSEA & VOMITING Medication List - Last Reconciled 04/22/24 by Abilio Robin MD albuterol sulfate 1 mg inhalation Q4-6H PRN atorvastatin 40 mg PO DAILY capecitabine 1,000 mg (2 x 500 mg) PO BID capecitabine 300 mg (2 x 150 mg) PO BID docusate sodium 50 mg PO BID doxycycline hyclate 100 mg PO BID fluticasone propion-salmeterol 250-50 mcg/dose (Wixela Inhub) 1 inh inhalation BID 30 days fluticasone propionate 50 mcg/actuation 2 sprays intranasal DAILY lisinopril 20 mg PO DAILY loperamide 2 mg PO Q6H PRN morphine ER (MS Contin) 30 mg PO Q12H omeprazole 20 mg PO DAILY ondansetron 8 mg PO Q8H PRN oxycodone 5 mg PO Q4H PRN psyllium husk (Metamucil) 1 tsp PO DAILY temozolomide 250 mg PO DAILY temozolomide 100 mg PO DAILY Tobacco use date assessed: 04/22/24 Fall risk assessment: No Falls in past year Last assessed Fall Risk: 04/22/24 Dental Screening Dental Screen Date: 04/22/24 Did you have a dental visit in the last 12 months?: Yes Did you have a dental problem in the last 6 months where you did not have access to dental care?: No Was dental information given to patient?: Patient has dentist [facility] Medical History Liver lesion Liver mass Heart attack (~2009) Serrated adenoma of colon (~2015) Generalized anxiety disorder History of COVID-19 (~01/2020) Right upper lobe pulmonary nodule Pulmonary nodules Personal history of nicotine dependence Osteopenia (~2013) Peptic ulcer disease Ulnar nerve entrapment Carpal tunnel syndrome Osteoarthritis Peripheral neuropathy Vitamin D deficiency Renal calculus Obesity (BMI 30-39.9) Hypertension COPD (chronic obstructive pulmonary disease) Coronary artery disease Hypercholesterolemia Surgical History History of colonoscopy History of appendectomy (~07/2011) History of fusion of cervical spine (~07/2003) History of meniscectomy of left knee (~05/2014) History of heart artery stent (~2009) History of removal of ureteral stent (~2017) History of tonsillectomy History of lithotripsy (~2017) Family History Father CVD (cardiovascular disease) Throat cancer HTN (hypertension) Mother Alzheimer disease Social History Household Members: None Housing: House Alcohol intake: current Alcohol intake frequency: holidays/special occasions only Patient Tobacco Use Status: Former Tobacco user Tobacco use type: Cigarette e-Cigarette/Vaping Use: Never Used Second Hand Smoke Exposure: No service: No Current occupational status: employed 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 1. Little interest or pleasure in doing things: not at all 2. Feeling down, depressed, or hopeless: not at all 3. Trouble falling or staying asleep, or sleeping too much: several days 4. Feeling tired or having little energy: several days 5. Poor appetite or overeating: not at all 6. Feeling bad about yourself - or that you are a failure or have let yourself or your family down: not at all 7. Trouble concentrating on things, such as reading the newspaper or watching television: not at all 8. Moving or speaking so slowly that other people could have noticed. Or the opposite - being so fidgety or restless that you have been moving around a lot more than usual: not at all 9. Thoughts that you would be better off or of hurting yourself in some way: not at all Total score: 2 Depression Screening Interpretation: Positive Depression Screening Done: Yes Source: Developed by Drs. Kalyan Noguera, Jovana Clarke, Franklyn Lares and colleagues, with an educational elmo from [employer]. Thrive Questionnaire Date Thrive assessed: 04/22/24 I am a: Patient What is your living situation today?: I have a steady place to live Within the past 12 months, did the food you bought not last and you didn't have the money to get more?: Never true Within the past 12 months, did you worry whether your food would run out before you got money to buy more?: Never true Do you have trouble paying for medicines?: No Do you have trouble getting transportation to medical appointments?: No Do you have trouble paying your heating and electricity bill?: No Do you have trouble taking care of your child, family member or friend?: No Do you have trouble with day-to-day activities such as bathing, preparing meals, shopping, managing finances, etc.?: No Are you currently unemployed and looking for a job?: No Are you interested in more education?: No Please select the resources that you would like help with: None Currently or been in a relationship where the following occur: No concerns reported THRIVE Score: 0 AUDIT C Alcohol Use Questionnaire (AUDIT-C) 1. How often do you have a drink containing alcohol?: Monthly or less 2. How many drinks containing alcohol do you have on a typical day when you are drinking?: 1 or 2 3. How often do you have six or more drinks on one occasion?: Never Total Score: 1 MADELINE-7 AMB Questionnaire MADELINE-7 Date MADELINE - 7 assessed: 04/22/24 Feeling nervous, anxious, or on edge: 0 = Not at all Not being able to stop or control worryin = Not at all Worrying too much about different things: 0 = Not at all Trouble relaxin = Not at all Being so restless that it is hard to sit still: 0 = Not at all Becoming easily annoyed or irritable: 0 = Not at all Feeling afraid as if something awful might happen: 0 = Not at all Total MADELINE-7 score (0-4 normal; 5-9 mild; 10-14 moderate; 15-21 severe): 0 Source: Developed by Drs. Kalyan Noguera, Jovana Clrake, Franklyn Lares and colleagues, with an educational elmo from [id number]. Physical exam (Primary Care) Vital Signs: Last Vital Signs Pulse 84 04/22/24 13:31 BP 110/60 04/22/24 13:31 Pulse Ox 96 04/22/24 13:31 Oxygen Delivery Method Room Air 04/22/24 13:31 BMI result Body Mass Index 30.2 Tobacco/Smoking Status: Tobacco use Status Tobacco use date assessed 04/22/24 04/22/24 13:39 Patient Tobacco Use Status Former Tobacco user 04/22/24 13:39 Tobacco use type Cigarette 04/22/24 13:39 e-Cigarette/Vaping Use Never Used 04/22/24 13:39 PHQ-9: PHQ-9 Score PHQ-9: Total score 2 04/22/24 14:07 Depression Screening Interpretation: Positive Thrive Assessment: Date of Thrive Assessment Date Thrive assessed 04/22/24 04/22/24 13:39 Currently or been in a relationship where the following occur: No concerns reported Const General: alert; No acute distress Eyes Conjunctivae: conjunctivae normal Resp Auscultation: clear to auscultation bilaterally Cardio Rate: regular rate Rhythm: regular rhythm GI Inspection: Yes normal to inspection Extrem General: Yes normal to inspection and No edema Coding Level of Care Code Est Pt Level 4 (49117) Complex EM visit Add On G2211 Diagnoses Neuroendocrine carcinoma metastatic to liver C7A.8; C7B.8 Gastroesophageal reflux disease without esophagitis K21.9 Esophagitis presence: without esophagitis Type 2 diabetes mellitus with hyperglycemia, without long-term current use of insulin E11.65 Diabetes mellitus intermission coordinator insulin use: without intermission coordinator use Pulmonary emphysema, unspecified emphysema type J43.9 COPD type: emphysema Emphysema type: unspecified Obesity (BMI 30-39.9) E66.9 Essential hypertension I10 Hypertension type: essential hypertension Hypercholesterolemia E78.00 Assessment & Plan Assessment & Plan (1) Neuroendocrine carcinoma metastatic to liver: Code(s): C7A.8 - Other malignant neuroendocrine tumors; C7B.8 - Other secondary neuroendocrine tumors Category: Medical Plan: Patient had chemoembolization and being monitored by hematology oncology. Last MRI has shown some pancreatic lesions. But on the recent MRI no changes. (2) GERD (gastroesophageal reflux disease): Code(s): K21.9 - Gastro-esophageal reflux disease without esophagitis Category: Medical Qualifiers: Esophagitis presence: without esophagitis Qualified Code(s): K21.9 - Gastro-esophageal reflux disease without esophagitis Plan: Avoid the foods that causes that usually spicy foods, tomato products, juices, coffee, soda and foods that your sensitive to. After eating do not lie down, allow 3-4 hours before in lie down. And keep the head of bed above 30 degrees to avoid the acid from going up. (3) Type 2 diabetes mellitus with hyperglycemia: Comment: [facility], will be seeing Dr. Pineda Code(s): E11.65 - Type 2 diabetes mellitus with hyperglycemia Category: Medical Qualifiers: Diabetes mellitus intermission coordinator insulin use: without intermission coordinator use Qualified Code(s): E11.65 - Type 2 diabetes mellitus with hyperglycemia Plan: Decrease the amount of carbohydrate intake, pasta, bread, rice and potatoes are all sugar and that is aside from all the sweet stuff, remember that fruits are good but they are Sweet also. Hemoglobin A1c goal of less than 7.0 patient not on any medication/diet controlled (4) COPD (chronic obstructive pulmonary disease): Comment: (COPD is Moderately severe , remains controlled, c/o mild dyspnea on exertion, Code(s): J44.9 - Chronic obstructive pulmonary disease, unspecified Category: Medical Qualifiers: COPD type: emphysema Emphysema type: unspecified Qualified Code(s): J43.9 - Emphysema, unspecified Plan: Continue with albuterol inhaler and Wixela (5) Obesity (BMI 30-39.9): Comment: Patient remains moderately obese, denies symptoms of obstructive sleep apnea. She is encouraged to walk daily and restrict intake of calories, and try to lose weight even by a few lb per month. Code(s): E66.9 - Obesity, unspecified Category: Medical Plan: Diet and exercise (6) Hypertension: Code(s): I10 - Essential (primary) hypertension Category: Medical Qualifiers: Hypertension type: essential hypertension Qualified Code(s): I10 - Essential (primary) hypertension Plan: Continue with blood pressure medication. Decrease salt intake and exercise on lisinopril 20 mg once a day (7) Hypercholesterolemia: Code(s): E78.00 - Pure hypercholesterolemia, unspecified Category: Medical Plan: Avoid fried foods, chicken skin, eggs, butter margarine, pastries and meat. Be it pork or beef they have a lot of cholesterol on atorvastatin 40 mg once a day Plan History of Present Illness The patient is a 79-year-old female presenting with multifaceted chronic conditions, including metastatic neuroendocrine carcinoma to the liver, as well as ongoing management of comorbidities such as hypertension, COPD, diabetes, and coronary artery disease. The liver metastasis has been an active focus with repeated imaging and interventional procedures including embolization. Despite these measures, the patient reports significant and persistent upper abdominal pain attributed potentially to these lesions. Additionally, the patient's pulmonary nodules and pancreatic lesion require ongoing surveillance. There?s an association of chronic back pain largely attributed to lumbar spondylosis. In light of GERD symptoms which are symptomatic despite omeprazole, an evaluation for further gastrointestinal investigation is considered, as suggested by her presenting symptoms and history. The management strategies for hypertension and hypercholesterolemia involve lisinopril and atorvastatin. The patient adheres to an exercise regimen attempting to mitigate the progression of these conditions. Her diabetic care involves lifestyle modification, aiming to achieve an A1c of less than 7.0. Health Maintenance - Blood sugar management aiming for HbA1c goal <7.0 - Hypertension controlled with lisinopril 20 mg once daily - Hyperlipidemia management with atorvastatin 40 mg daily - Continuation of albuterol inhaler and Wexela for COPD - Follow-up MRI for assessment of hepatic lesions performed, with no significant interval change noted Social History - The patient is physically active, engaging in exercises multiple times a week. - The patient recently ceased smoking (quit in 2017). - Current employment status and housing situation were not discussed. - The patient exhibits dietary control as part of managing diabetes mellitus. Review of Systems - Gastrointestinal: Reports abdominal pain, exacerbated in the morning - Musculoskeletal: Reports chronic low back pain - Respiratory: Denies current respiratory distress but utilizes albuterol inhaler as needed Physical Exam Results - April 2022 MRI: No significant interval change in pancreatic lesion - Recent ultrasound (November 2022): Multiple hepatic lesions, largest at 4.2 cm in left hepatic lobe - Blood work (April): Hemoglobin 11.9 indicating anemia; normal electrolytes and renal function, elevated alkaline phosphatase Plan The patient will maintain current cancer-related follow-up with hematology-oncology, with periodic imaging to track lesion progression in the liver and pancreas. Abdominal pain, potentially linked to hepatic lesions, requires further evaluation through gastroenterology consultation, potentially an upper GI series. Current cardiovascular risk factors are managed pharmacologically alongside lifestyle interventions. Nutritional advice and blood sugar monitoring will continue as part of diabetes management. Patient was informed and verbally consented to the use of an ambient scribe for clinic note documentation during this visit. Discussion Notes During the visit, we discussed the involvement of metastatic neuroendocrine carcinoma with the liver and its management through ongoing hematology-oncology follow-ups. The need for a comprehensive gastroenterological investigation, such as an upper GI series, was emphasized given the persistence and pattern of pain, despite omeprazole treatment. We discussed potential advancements in pain management, aware of opioid medication implications on the patient's quality of life and gastrointestinal symptoms. The patient understands the importance of ongoing surveillance of her chronic conditions and is advised to remain under regular care for hypertension and hyperlipidemia, alongside lifestyle adjustments for diabetes management. Her respiratory management via inhalation therapy for COPD continues with recommendations for ongoing monitoring. Patient Instructions - Continue current medications as prescribed, including lisinopril, atorvastatin, and inhalation therapies. - Follow up with the hepatology physician as arranged for further evaluation of abdominal discomfort. - Maintain healthy lifestyle habits to manage diabetes and cardiovascular risks. - Be attentive to pain management strategies and alert the need for adjustments to current prescriptions. - Ensure timely follow-up appointments with hematology-oncology. - Seek urgent care if experiencing worsening symptoms or new acute issues. Orders: Orders Hemoglobin A1c Today E11.65 - Type 2 diabetes mellitus with hyperglycemia Referrals Gastroenterology Referral K21.9 - Gastro-esophageal reflux disease without esophagitis Medications: New albuterol sulfate 2.5 mg (3 mL) inhalation Q6H 180 mL 3RF J43.9 - Emphysema, unspecified
--- OUTSIDE RECORDS SUMMARY | 2024-04-22 15:06 | XMS_ITS ---
Author Organization [facility] Address [address] [place] [address] Care Team Providers Care Dogman/Woman Name Role Phone Abilio Robin MD Primary Care Provider Kalyan Meade [phone] REASON FOR VISIT Cancel EGD and Colonoscopy Encounters Encounter Location Date Provider Diagnosis [facility] [address] [place] [address] 03/05/2023 Kalyan Velasquez Plan Of Treatment No Information Progress Notes * ALEXANDRA CASTILLO LDOB:[birth year] (77 yo F)Acc No.[id number]:03/05/2023 Patient:?ALEXANDRA CASTILLO :1945???Age:77 Y???Sex:Female Address:[address] [place], [place], [address] * true * Date:? Generated for Jaskarani asia/Monse/eTransmitting on:?04/22/2024 03:06 PM EDT
--- OUTSIDE RECORDS SUMMARY | 2024-04-22 15:06 | XMS_ITS ---
Author Organization [facility] Address [address] [place] [address] Care Team Providers Care Manager Social Services Name Role Phone Abiloi Robin MD Primary Care Provider Kalyan Meade [phone] REASON FOR VISIT malignant neuendocrine tumors,abn ct csan colon Encounters Encounter Location Date Provider Diagnosis [facility] Outpatient [address] [place] [id number] 03/19/2023 Kalyan Velasquez Plan Of Treatment No Information Progress Notes * ALEXANDRA CASTILLO LDOB:[birth year] (79 yo F)Acc No.[id number]:03/19/2023 EGD and COL/MAC Patient:?ALEXANDRA CASTILLO Provider:?Kalyan Velasquez MD :1945???Age:77 Y???Sex:Female D ate:03/19/2023 Address[address], [place], [place] Pcp:Abilio Robin MD Subjective: * Chief Complaints: [...] MD Date:? 024 Generated for Printi ng/Monse/Stefanyitting on:?04/22/2024 03:05 PM EDT
--- OUTSIDE RECORDS SUMMARY | 2024-04-22 15:06 | XMS_ITS | Patient Health Record ---
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 Name Role Phone Po Abilio ASHRAF Primary Care Provider Kalyan Meade [phone] Allergies Allergen (clinical drug ingredient) Drug/Non Drug [...] Status Risk Notes Problem Colon cancer screening (165177722) Colon cancer screening (Z12.11) Active confirmed Problem 579113083 Encounter for screening for malignant neoplasm of colon (Z12.11) Active confirmed Problem History of polyp of colon (situation) (626096105) Personal history of colonic polyps (Z86.010) Active confirmed Problem 3055596779 Other malignant neuroendocrine tumors (C7A.8) Active confirmed Problem Screening for malignant neoplasm of rectum (636307810) Encounter for screening for malignant neoplasm of rectum (Z12.12) Active confirmed Problem 93876943 Preprocedural examination (Z01.818) Active confirmed Problem 941311018 Abnormal CT scan , colon (R93.3) Active confirmed Problem 775612708 Long-term use of aspirin therapy (Z79.82) Active confirmed Problem Irregular bowel habits (459657910) Irregular bowel habits (R19.8) Active confirmed Problem Diverticulosis of sigmoid colon (769337803) Diverticulosis of sigmoid colon (K57.30) Active confirmed Problem 855710450 Abnormal compute d tomography of sigmoid colon (R93.3) Active confirmed Problem Fecal soiling (278970877) Fecal soiling (R15.1) Active confirmed Problem Benign neoplasm of colon (98136544) Serrated adenoma of colon (D12.6) Active confirmed Problem 31131496 Metastasis to liver (C78.7) Active confirmed Plan [...] Insured Coverage Start Date Coverage End Date [facility] [address] [place] [address] [phone] [id number] ALEXANDRA CASTILLO Self - patient is the insured Medical (General) History Medical History History ICD Code SC 2009-has 1 stent--fine since--sees Dr Kike Stephen [...]
--- OUTSIDE RECORDS SUMMARY | 2024-04-22 15:06 | XMS_ITS ---
Author Organization [facility] Address [address] [place] [address] Care Team Providers Care Treer Name Role Phone Abilio Robin MD Primary Care Provider Kalyan Meade [phone] RE[address]ON FOR VISIT ab[address] ct scan of colon,other malignant neuroendocrines tumors Encounters Encounter Location Date Provider Diagnosis [facility] [place] [address] [place] [phone] 03/12/2023 Kalyan Velasquez Plan Of Treatment No Information Progress Notes * ALEXANDRA CASTILLO LDOB:[birth year] (79 yo F)Acc No.[id number]:03/12/2023 EGD and COL/MAC Patient:?ALEXANDRA CASTILLO Provider:?Kalyan Velasquez MD :1945???Age:77 Y???Sex:Female D ate:03/12/2023 Address:[address], [place] Pcp:Abilio Robin MD Subjective: * Chief Complaints: [...] MD Date:? 024 Generated for Jai betancourt/Monse/Jessica on:?04/22/2024 03:05 PM EDT
== END 2024-04-22 14:28 | disposition home or self-care (01) ==
LOC: HO.HMCH 13:30
PROVIDERS: PCP Internal Medicine; Visit Provider Internal Medicine
DX: E11.65 Type 2 diabetes mellitus with hyperglycemia (principal); C7A.8 Other malignant neuroendocrine tumors; C7B.8 Other secondary neuroendocrine tumors; J43.9 Emphysema, unspecified; K21.9 Gastro-esophageal reflux disease without esophagitis; E66.9 Obesity, unspecified; I10 Essential (primary) hypertension; E78.00 Pure hypercholesterolemia, unspecified

== ENCOUNTER → 2024-04-22 13:29 | Outpatient (BNVA) | payer MEDICARE, SELFPAY | PROVIDERS: PCP Internal Medicine; Visit Provider Internal Medicine | DX: C7A.8 Other malignant neuroendocrine tumors (principal); C7B.8 Other secondary neuroendocrine tumors; K21.9 Gastro-esophageal reflux disease without esophagitis; E11.65 Type 2 diabetes mellitus with hyperglycemia; J43.9 Emphysema, unspecified; E66.9 Obesity, unspecified; E78.00 Pure hypercholesterolemia, unspecified; I10 Essential (primary) hypertension | CPT/HCPCS: 99212 ==

== ENCOUNTER 2024-05-09 14:25 | Outpatient (AMB) | payer MEDICARE, SELFPAY ==
--- NOTE | 2024-05-09 14:26 | A.OFFVIS_ITS ---
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 Required: No Allergies morphine [MORPHINE] Adverse Reaction (Mild, Verified 04/22/24 13:31) NAUSEA & VOMITING Medication List - Last Reconciled 05/09/24 by Greg Stephen MD albuterol sulfate 1 mg inhalation Q4-6H PRN albuterol sulfate 2.5 mg (3 mL) inhalation Q6H atorvastatin 40 mg PO DAILY capecitabine 300 mg (2 x 150 mg) PO BID capecitabine 1,000 mg (2 x 500 mg) PO BID docusate sodium 50 mg PO BID fluticasone propion-salmeterol 250-50 mcg/dose (Wixela Inhub) 1 inh inhalation BID 30 days fluticasone propionate 50 mcg/actuation 2 sprays intranasal DAILY lisinopril 20 mg PO DAILY loperamide 2 mg PO Q6H PRN morphine ER (MS Contin) 30 mg PO Q12H omeprazole 20 mg PO DAILY ondansetron 8 mg PO Q8H PRN oxycodone 5 mg PO Q4H PRN psyllium husk (Metamucil) 1 tsp PO DAILY temozolomide 250 mg PO DAILY temozolomide 100 mg PO DAILY HPI Comments Details: Ann comes for follow-up for her coronary artery disease. She is currently undergoing treatment for her metastatic neuroendocrine tumor with chemotherapy as well as octreotide. She says that has not been much more recently she has been noticing retrosternal chest tightness especially when she is doing exertional activity like carrying a laundry basket up a flight of stairs or today while she was walking around. Symptoms today were associated with some back spasm. Symptoms subside after resting. She has been taking all medications except for aspirin, which was discontinued by Oncology because of her thrombocytopenia as per her. She was taking all her medications. Denies any orthopnea, PND, worsening shortness of breath, lightheadedness, syncope, prolonged palpitations. [facility] Medical History Liver lesion Liver mass Heart attack (~2009) Serrated adenoma of colon (~2015) Generalized anxiety disorder History of COVID-19 (~01/2020) Right upper lobe pulmonary nodule Pulmonary nodules Personal history of nicotine dependence Osteopenia (~2013) Peptic ulcer disease Ulnar nerve entrapment Carpal tunnel syndrome Osteoarthritis Peripheral neuropathy Vitamin D deficiency Renal calculus Obesity (BMI 30-39.9) Hypertension COPD (chronic obstructive pulmonary disease) Coronary artery disease Hypercholesterolemia Surgical History History of colonoscopy History of appendectomy (~07/2011) History of fusion of cervical spine (~07/2003) History of meniscectomy of left knee (~05/2014) History of heart artery stent (~2009) History of removal of ureteral stent (~2017) History of tonsillectomy History of lithotripsy (~2017) Family History Father CVD (cardiovascular disease) Throat cancer HTN (hypertension) Mother Alzheimer disease Social History Household Members: None Housing: House Alcohol intake: current Alcohol intake frequency: holidays/special occasions only Patient Tobacco Use Status: Former Tobacco user Tobacco use type: Cigarette e-Cigarette/Vaping Use: Never Used Second Hand Smoke Exposure: No service: No Current occupational status: employed 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 Hearing needs: No Vision needs: Yes (Glasses) Review of Systems Const Denies chills, Denies fatigue, Denies fever(s), Denies frequent falls, Denies weakness, Denies weight gain and Denies weight loss ENT Denies dizziness Card Denies chest pain, Denies leg edema, Denies lightheadedness, Denies palpitations, Denies dyspnea, Denies dyspnea on exertion, Denies orthopnea and Denies other (loss of consciousness) Resp Denies cough, Denies dyspnea and Denies dyspnea on exertion GI Denies hematochezia and Denies change in stool character Musc Denies abnormal gait, Denies muscle weakness, Denies numbness, Denies radiating pain into limb and Denies tingling Neuro Denies abnormal gait, Denies dizziness, Denies frequent falls, Denies numbness, Denies tingling and Denies weakness Endo Denies fatigue and Denies palpitations Physical Exam Vital Signs: Last Vital Signs Pulse 80 05/09/24 14:29 BP 136/80 05/09/24 14:29 BMI result Body Mass Index 30.6 Const General: cooperative, comfortable, alert and awake Nutritional Appearance: obese Orientation/consciousness: patient oriented x3 Limitations: no limitations HEENT Head: Yes normal to inspection, Yes normocephalic and Yes atraumatic Eyes General: appearance normal, both eyes and all related structures Neck Neck: Yes trachea midline, Yes supple and Yes no JVD Carotids: other ( No carotid bruit) Chest Chest palpation & inspection: normal inspection of the chest Resp Effort & Inspection: normal respiratory effort Auscultation: clear to auscultation bilaterally and diminished lung sounds Cardio Jugular venous distension: no JVD Palpation: normal PMI Rate: regular rate Rhythm: regular rhythm Heart sounds: S1 normal heart sound present, S2 normal heart sound present and Other heart sounds present ( soft S4) Peripheral pulses: Peripheral pulses 2+ throughout GI Inspection: Yes obesity Auscultation: normal bowel sounds Skin General skin exam: no rashes or lesions noted and ecchymosis Neuro General: patient oriented x3 and no focal motor deficits Extrem General: Yes no clubbing, cyanosis or edema Psych Appearance: grossly normal Office Procedures EKG Details: EKG shows normal sinus rhythm with poor R-wave progression with no acute ST T wave changes [id number]-[place], Complete Assessment & Plan Assessment & Plan (1) Exertional chest pain: Code(s): R07.9 - Chest pain, unspecified Category: Medical Plan: Recent onset exertional chest pain which is highly concerning for myocardial ischemia in this elderly woman but multiple comorbidities including metastatic neuro endocrine tumor. She was otherwise in good functional shape. Progressive coronary artery disease highly likely. Suggest exercise myocardial perfusion imaging to assess for the same. Will meanwhile start her on Toprol-XL 25 mg daily to reduce ischemic burden. This was discussed with her. Continue other medications at this point time. Will also obtain echocardiogram to evaluate LV systolic and diastolic function. (2) Coronary artery disease: Comment: (2009 - STEMI /VFib arrest - s/p stent to circumflex) Code(s): I25.10 - Atherosclerotic heart disease of [place] coronary artery without angina pectoris Category: Medical Qualifiers: Associated angina: without angina Coronary Disease-Associated Artery/Lesion type: [place] artery [place] vs. transplanted heart: [place] heart Qualified Code(s): I25.10 - Atherosclerotic heart disease of [place] coronary artery without angina pectoris Plan: CAD with prior stenting to the circumflex in 2009. Currently having symptoms as above. Currently not on aspirin therapy due to thrombocytopenia related to her chemotherapy related to her malignancy. Will hold off on the same. Continue aggressive blood pressure control. Continue high-intensity statin therapy. Advised to avoid sudden and strenuous exertion. Advised to seek emergency care for symptoms at rest. (3) Hypertension: Code(s): I10 - Essential (primary) hypertension Category: Medical Qualifiers: Hypertension type: essential hypertension Qualified Code(s): I10 - Essential (primary) hypertension Plan: Hypertension which is currently well optimized advised to monitor blood pressure at home maintain a log. Goal blood pressure less than 130/84. Low-salt diet was discussed. Will follow up in the clinic in 6 weeks time, sooner p.r.n.. Thank you for allowing me to partake in his care Orders: Orders NM cardiolite stress test 1 Day R07.9 - Chest pain, unspecified CA echo transthoracic complete Today R07.9 - Chest pain, unspecified CA stress test Today R07.9 - Chest pain, unspecified Medications: New metoprolol succinate ER (Toprol XL) 25 mg PO DAILY 30 tabs 4RF Coding Level of Care Code Est Pt Level 4 (04548) Complex EM visit Add On G2211 Diagnoses Exertional chest pain R07.9 Coronary artery disease involving [place] coronary artery of [place] heart without angina pectoris I25.10 Associated angina: without angina Coronary Disease-Associated Artery/Lesion type: [place] artery [place] vs. transplanted heart: [place] heart Essential hypertension I10 Hypertension type: essential hypertension CPT Codes EKG - CPT: 88747-Bjlsqlbglcptojrje, Complete ([id number])
[2024-05-09 14:29] VITALS: BP 136/80; PULSE 80; BMI 30.6
--- OUTSIDE RECORDS SUMMARY | 2024-05-09 16:21 | XMS_ITS ---
Author Organization [facility] Address [address] [place] [address] Care Team Providers Care Electrical Solderer Name Role Phone Abilio Robin MD Primary Care Provider Kalyan Meade [phone] Allergies No Known Allergies REASON FOR VISIT [...] Status W/U Status Risk Notes Problem Constipation (29327852) Constipation (K59.00) Active confirmed Vital Signs Blood pressure systolic 111 mm Hg 05/04/19 Blood pressure diastolic 111 mm Hg 025 Height 59.75 in 05/03/2024 Weight 155 lbs 05/03/2024 BMI 30.52 kg/m2 05/03/2024 Encounters Encounter Location Date Provider Diagnosis [facility] [address] [place] [address] 05/03/2024 Kalyan Velasquez Metastasis to liver C78.7 ; Other malignant neuroendocrine tumors C7A.8 and Constipation K59.00 Assessments Encounter Date Diagnosis (ICD Code) Assessment [...] to try to treat the pain symptomatically if she is doing and to continue to [...] to try to treat the pain symptomatically if she is doing and to continue to [...] to try to treat the pain symptomatically if she is doing and to continue to [...] * ANN CASTILLO LDOB:[birth year] (79 yo F)Acc No.[id number]:05/03/2024 Progress Notes Patient:?ANN CASTILLO Provider:?Kalyan Velasquez MD :1945???Age:79 Y???Sex:Female D ate:05/03/2024 Address:[address] [place], [place] [id number] Pcp:Abilio Robin MD Subjective: * Chief Complaints: * ???1. Patient presents today forGERD. * HPI: ???incontinence:? 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 I last saw Ann in January 2023 when her diagnosis of her metastatic carcinoid tumor to her liver?was made by biopsy. Subsequent to that she has been followed by Dr. Ortiz in oncology and has been receiving treatment with her. She has also undergone at least 1 procedure at [facility] with Dr. Bond for embolization ablation [...] she was here in January 2023. * Medical History:?DE 2009-has 1 stent--fine since--sees Dr. 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 She has been treated by Dr. Ortiz at with chemotherapy and by Dr. Bond at [facility] with embolization ablation treatment of some of the larger lesions in the liver.. * Surgical History:?Cervical s leonard fusion 1999, Appendectomy 2011, Left knee surgery/meniscus tear 2014, Tonsillectomy , Neck surgery to remove hardware 11/2020, liver ablasions [facility] dr. bond - presently on chemo 2023. * Family History:?Father: dece ased, throat cancer, diagnosed with HTN (hypertension).?Mother: , diagnosed with Diabetes, HTN (hypertension).?Siblings: sister, diagnosed with HTN (hypertension).? No known hx of colon cancer nor liver disease. * Social History:?Tobacco Use:?Tobacco Use/Smoking?Patient is a?former smoker.?Drugs/Alcohol:?Alcohol Screen?Points: 1, Interpretation: Negative.?Miscellaneous:?Marital status: single. 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 ???Drug/Alcohol:?AUDIT-C (Standard)?Did you have a drink containing alcohol in the past year??No,?Points?0,?Interpretation?Negative.?Nonsmoker > 5 years ago; no sig alcohol. * Medications:?Taking Omeprazo le 20 MG Capsule Delayed Release 1 capsule 1/2 to 1 hour before morning meal Orally Once a day , Taking Temozolomide 250 MG Capsule as directed Orally , Taking Cyclobenzaprine HCl 10 MG Tablet 1 tablet at bedtime as needed Orally Once a day , Taking Loperamide HCl 2 MG Capsule 1 capsule as needed Orally Four times a day , Taking Fluticasone Propionate 50 MCG/ACT Suspension 1 spray in each nostril Nasally Twice a day , Taking Ondansetron 8 MG Tablet Disintegrating 1 tablet on the tongue and allow to dissolve as needed Orally Once a day , Taking Wixela Inhub 250-50 MCG/ACT Aerosol Powder Breath Activated 1 puff Inhalation Twice a day , Taking Atorvastatin Calcium 40 MG Tablet Orally , Taking Lisinopril 20 MG Tablet 1 tablet Orally Once a day , Taking Capecitabine 150 MG Tablet Oral , Taking Capecitabine 500 MG Tablet Oral , Taking Albuterol Sulfate (2.5 MG/3ML) 0.083% Nebulization Solution USE 2.5 MG (3 ML) INHALED EVERY 6 HOURS Inhalation , Taking Morphine Sulfate ER 30 MG Tablet Extended Release TAKE 1 TABLET BY MOUTH EVERY 12 HOURS Oral , Taking oxyCODONE HCl 5 MG Tablet TAKE 1 TABLET BY MOUTH EVERY 4 HOURS NEEDED FOR PAIN (SCALE SCORE 7-10) Oral , Not-Taking/PRN Famotidine 20 MG Tablet 1 tablet at bedtime as needed Orally Once a day , Discontinued Vitamin D , Discontinued Baby Aspirin , Discontinued Symbicort , Discontinued amLODIPine Besylate 5 MG Tablet Oral , Discontinued Flovent HFA , Medication List reviewed and reconciled with the patient * Allergies:?N.K.D.A. Objective: * Vitals:?Wt: 155 lbs, Ht: 59. 75 in, BMI: 30.52 Index, BP: 111/111 mm Hg, Wt-k.31. Assessment: * Assessment: 1.?Metastasis to liver - C78 .7 (Primary)???2.?Other malignant neuroendocrine tumors - C7A.8???3.?Constipation - K59.00??? Overall, Ann appears wendy te well from [...] to try to treat the pain symptomatically if she is doing and to continue to [...] in the future. Plan: * Treatment: * Preventive Medicine:? ??Counseling:?Care goal follow-up plan:?Above Normal BMI Follow-up?Giving encouragement to exercise,?BMI management provided?Yes.? ??Urinary Incontinence:?Urinary Incontinence?Assessment:?Absent,?Plan of care documented:?No, reason not specified.? ??Screenings:?Fall Risk Screening?Fall Risk Assessment:?No falls in the past year,?Screening:?No falls in the past year,?Assessment:?Not performed, no reason specified,?Plan of Care:?Not documented, no reason specified.? * Follow Up:?prn * * The named appointment provid er may or may not be the originator of this progress note, and it is not deemed complete until electronically signed by the appointment provider. Sign off status: Pending * Provider:?Kalyan Velasquez MD Date:? 025 Generated for Jai betancourt/Monse/Piotrsmitting on:?05/09/2024 04:20 PM EDT
--- OUTSIDE RECORDS SUMMARY | 2024-05-09 16:21 | XMS_ITS ---
Author Organization [facility] Address [address] [place] [address] Care Team Providers Care Director Cardiac Name Role Phone Abilio Robin MD Primary Care Provider Kalyan Meade [phone] REASON FOR VISIT abn ct scan of colon,other malignant neuroendocrines tumors Encounters Encounter Location Date Provider Diagnosis [facility] Outpatient [address] [place] [phone] 03/12/2023 Kalyan Velasquez Plan Of Treatment No Information Progress Notes * ALEXANDRA CASTILLO LDOB:[birth year] (79 yo F)Acc No.[id number]:03/12/2023 EGD and COL/MAC Patient:?ALEXANDRA CASTILLO Provider:?Kalyan Velasquez MD :1945???Age:77 Y???Sex:Female D ate:03/12/2023 Address:[address], [id number] Pcp:Abilio Robin MD Subjective: * Chief Complaints: [...] MD Date:? 024 Generated for Jai betancourt/Monse/Jessica on:?05/09/2024 04:20 PM EDT
--- OUTSIDE RECORDS SUMMARY | 2024-05-09 16:21 | XMS_ITS ---
Author Organization [facility] Address [address] [place] [address] Care Team Providers Care Dozer Operator Name Role Phone Abilio Robin MD Primary Care Provider Kalyan Meade [phone] REASON FOR VISIT malignant neuendocrine tumors,abn ct csan colon Encounters Encounter Location Date Provider Diagnosis [facility] Outpatient [address] [place] [phone] 03/19/2023 Kalyan Velasquez Plan Of Treatment No Information Progress Notes * ALEXANDRA CASTILLO LDOB:[birth year] (79 yo F)Acc No.[id number]:03/19/2023 EGD and COL/MAC Patient:?ALEXANDRA CASTILLO Provider:?Kalyan Velasquez MD :1945???Age:77 Y???Sex:Female D ate:03/19/2023 Address:[address], [place] Pcp:Abilio Robin MD Subjective: * Chief Complaints: [...] MD Date:? 024 Generated for Printi ng/Monse/Stefanyitting on:?05/09/2024 04:20 PM EDT
--- OUTSIDE RECORDS SUMMARY | 2024-05-09 16:21 | XMS_ITS | Patient Health Record ---
Author Organization [facility] Address [address] [place] [address] Care Team Providers Care Hospice Rn Name Role Phone Po Abilio ASHRAF Primary Care Provider Kalyan Meade [phone] Allergies No Known Allergies Reason For Referral No Information Medications Medication SIG (Take, Route, Frequency, Duration) Notes Start Date End Date Status Lisinopril 20 MG 1 tablet Orally Once a day Active Temozolomide 250 MG as directed Orally Active Albuterol Sulfate (2.5 MG/3ML) 0.083% USE 2.5 MG (3 ML) INHALED EVERY 6 HOURS Inhalation for 13 Days Active Cyclobenzaprine HCl 10 MG 1 tablet at be dtime as needed Orally Once a day Active Morphine Sulfate ER 30 MG TAKE 1 TABLET BY MOUTH EVERY 12 HOURS Oral for 30 Days Active Loperamide HCl 2 MG 1 capsule as needed Orally Four times a day Active oxyCODONE HCl 5 MG TAKE 1 TABLET BY MOUTH EVERY 4 HOURS NEEDED FOR PAIN (SCALE SCORE 7-10) Oral for 10 Days Active Fluticasone Propionate 50 MCG/ACT 1 spray in each nostril Nasally Twice a day Active Famotidine 20 MG 1 tablet at bedtime as needed Orally Once a day Not-Taking Ondansetron 8 MG 1 tablet on the tongue and allow to dissolve as needed Orally Once a day Active Wixela Inhub 250-50 MCG/ACT 1 puff Inhal ation Twice a day Active Atorvastatin Calcium 40 MG Orally Active Capecitabine 150 MG Oral for 14 Days Active Omeprazole 20 MG 1 capsule 1/2 to 1 hour before morning meal Orally Once a day 05/03/2024 Active Capecitabine 500 MG Oral for 14 Days Active Immunizations Vaccine Route Administration Date Status [...] > 5 years ago; no sig alcohol Patient currently on chantix ---still having 1-2 cigs per day; no sig alcohol Nonsmoker > 5 years ago; no sig alcohol Nonsmoker > 5 years ago; no sig alcohol Problems Problem Type SNOMED Code ICD Code Onset Dates Problem Status W/U Status Risk Notes Problem Colon cancer screening (933172703) Colon cancer screening (Z12.11) Active confirmed Problem 072951270 Encounter for screening for malignant neoplasm of colon (Z12.11) Active confirmed Problem Constipation (50432535) Constipation (K59.00) Active confirmed Problem History of polyp of colon (situation) (601020070) Personal history of colonic polyps (Z86.010) Active confirmed Problem 2829041890 Other malignant neuroendocrine tumors (C7A.8) Active confirmed Problem Screening for malignant neoplasm of rectum (414079072) Encounter for screening for malignant neoplasm of rectum (Z12.12) Active confirmed Problem 70700930 Preprocedural examination (Z01.818) Active confirmed Problem 443545888 Abnormal CT scan , colon (R93.3) Active confirmed Problem 682813516 Long-term use of aspirin therapy (Z79.82) Active confirmed Problem Irregular bowel habits (751991987) Irregular bowel habits (R19.8) Active confirmed Problem Diverticulosis of sigmoid colon (326207139) Diverticulosis of sigmoid colon (K57.30) Active confirmed Problem 940683769 Abnormal compute d tomography of sigmoid colon (R93.3) Active confirmed Problem Fecal soiling (851264019) Fecal soiling (R15.1) Active confirmed Problem Benign neoplasm of colon (23463883) Serrated adenoma of colon (D12.6) Active confirmed Problem 66700622 Metastasis to liver (C78.7) Active confirmed Vital Signs Blood pressure diastolic 111 mm Hg 05/03/2024 Height 59.75 in 05/03/2024 Blood pressure systolic 111 mm Hg 05/03/2024 Weight 155 lbs 05/03/2024 BMI 30.52 kg/m2 05/03/2024 Encounters Encounter Location Date Provider Diagnosis [facility] [address] [place] [address] 05/03/2024 Kalyan Velasquez Metastasis to liver C78.7 ; Other malignant neuroendocrine tumors C7A.8 and Constipation K59.00 Assessments Encounter Date Diagnosis (ICD Code) Assessment Notes Treatment Notes Treatment Clinical Notes Section Notes 05/03/2024 Other malignant neuroendocrine tumors (ICD-10 - [...] any further assistance in the future. 05/03/2024 Metastasis to liver (ICD-10 - C78.7) [...] assistance in the future. Plan Of Treatment Pending Test Test Name [...] Insured Coverage Start Date Coverage End Date [facility] [address] [place] [address] [id number] ANN CASTILLO Self - patient is the insured Medical (General) History Medical History History ICD Code CO 2009-has 1 stent--fine since--sees Dr Kike Stephen [...] ascending colon Negative screening colonoscopy in 2 Metastatic carcinoid tumor t o the liver with multiple large lesions diagnosed in January 2023. She has been treated by Dr. Ortiz at with chemotherapy and by Dr. Wiggins at [facility] with embolization ablation treatment of some of the larger lesions in the liver. Surgical History Surgery Date(Month/Year) liver ablasions [facility] dr. varun peter resently on chemo 2023 Neck surgery to remove hardware 11/2020 Tonsillectomy Left knee surgery/meniscus tear 2015 Appendectomy 2011 Cervical spinal fusion 2000
== END 2024-05-09 14:59 | disposition home or self-care (01) ==
LOC: HO.HCS 14:26
PROVIDERS: PCP Internal Medicine; Visit Provider Internal Medicine Cardiovascular Disease
DX: R07.9 Chest pain, unspecified (principal); I25.10 Atherosclerotic heart disease of native coronary artery without angina pectoris; I10 Essential (primary) hypertension
CPT/HCPCS: 93010; 99214; G2211

== ENCOUNTER → 2024-05-09 14:25 | Outpatient (BNVA) | payer MEDICARE, SELFPAY | PROVIDERS: PCP Internal Medicine; Visit Provider Internal Medicine Cardiovascular Disease | DX: I25.10 Atherosclerotic heart disease of native coronary artery without angina pectoris (principal); I10 Essential (primary) hypertension; R07.9 Chest pain, unspecified | CPT/HCPCS: 93005; 99212 ==

== ENCOUNTER → 2024-05-26 13:50 | Outpatient (REF) | payer MEDICARE, SELFPAY ==
--- NOTE | 2024-05-26 13:54 | CA_ITS ---
Transthoracic Echocardiogram Patient (Last, First, Middle): Ann Gutierrez L Gender: Female Date of : 1945 Age: 79 Procedure Date: 05/26/2024 Procedure Type: Transthoracic Echocardiogram Location: OP Height: 152.4 cm Weight: 70.76 kg BSA: 1.68 m2 Heart Rate: bpm BP: 136 / 80 mmHg Moto Mix Operator: THEODORE Referring MD: Greg Stephen MD Entry Operator: Greg Stephen MD Symptoms: R07.9 - Chest pain, unspecified Study Quality: Adequate ECG Rhythm: Sinus Conclusions: - 1. Normal LV ejection fraction 65-70% with impaired relaxation filling pattern 2. Mild calcification of aortic valves with normal cardiac valvular Dopplers 3. No gross pericardial effusion Findings Left Ventricle Normal left ventricular size, thickness, and systolic function. The visually estimated ejection fraction is between 65-70%. Spectral Doppler is indicative of an impaired relaxation filling pattern. E/E prime ratio is between 8 and 15 consistent with indeterminate filling pressures. Peak GLS is -20.4%, within normal limits. Right Ventricle Normal right ventricular cavity size and systolic function. Atria Both atria are normal in size. There is no evidence of interatrial shunt. Aortic Valve There is mild calcification of the aortic valve. There is no aortic valve stenosis. There is no aortic valve regurgitation. Mitral Valve There is mild anterior and posterior mitral leaflet thickening. There is mild mitral annular calcification. There is trace mitral valve regurgitation. There is no mitral valve stenosis. Pulmonic Valve The pulmonic valve was not well visualized. Tricuspid Valve Likely normal tricuspid valve structure and function. Tricuspid regurgitation envelope is inadequate for calculation of right ventricular systolic pressure. Normal right atrial pressure. Great Vessels All visible segments of the aorta are normal in size. The pulmonary artery was not well visualized. There is no dilatation of the ascending aorta measuring 3.40 cm. Venous The inferior vena cava is normal in size and collapses greater than 50% with inspiration. Pericardium/Pleural There is no evidence of pericardial effusion. Prior Study Comparison No significant change compared to prior study dated: 11/14/2020. Measurements 2D Linear Measurements IVSd: 1.00 0.6-0.9/0.6-1.0 cm LVIDd: 4.92 3.9-5.3/4.2-5.9 cm LVIDd Index: 2.93 2.4-3.2/2.2-3.1 cm/m2 LVIDs: 3.56 2.0-3.6 cm LVPWd: 0.90 0.7-1.1 cm LA Diam: 3.60 2.7-3.8/3.0-4.0 cm LAIDs Index: 2.14 1.5-2.3 cm/m2 LV Mass: 205.75 67-162/88-224 g LV Mass Index: 122.47 43-95/49-115 g/m2 LVOT Diam: 2.00 3.0+(-)1.3 cm 2D Systolic Function EF 4C: 68.60 >55% EF 2C: 65.70 >55% EF BiP: 67.40 >55% Mitral Valve MV Pk E: 0.72 MV PK A: 0.90 MV Decel Time: 235.00 E/A: 0.80 E'Lateral: 5.11 E'Medial: 4.57 E/E' Med: 15.80 E/E' Lat: 14.20 PHT: 69.00 MVA PHT: 3.19 Decel Haines: 3.09 Aortic Valve AoV Pk Marcos: 1.56 AoV Mn Marcos: 1.09 AoV VTI: 0.34 AoV Pk Grad: 10.00 Aov Mn Grad: 5.00 ROBERT Cont.VTI: 2.15 LVOT LVOT Pk Marcos: 1.01 LVOT Mn Marcos: 0.59 LVOT VTI: 0.23 LVOT Pk Grad: 4.00 LVOT Mn Grad: 2.00 LVOT Diam: 2.00 LVOT Area: 3.14 Diastolic Function MV Pk E: 0.72 MV Pk A: 0.90 E/A: 0.80 E'Medial: 4.57 E/E' Med: 15.80 E' Laterial: 5.11 E/E' Lat: 14.20 Right Ventricle TAPSE (mm): 24.20 TVS' Marcos: 11.10 Tricuspid Valve RA Press: 3.00 Great Vessels Aorta Sinus of Valsalva: 2.99 2.0-3.[address] Ridge: 2.05 1.7-3.4 cm Ao Asc: 3.40 2.1-3.4 cm Updated in Other Vendor System with Status of Final Greg Stephen MD electronically signed on 05/27/2024 1:33:50 PM with status of Final
--- OUTSIDE RECORDS SUMMARY | 2024-05-26 16:54 | XMS_ITS ---
Author Organization [facility] Address [address] [place] [address] Care Team Providers Care Guidance Director Name Role Phone Abilio Robin MD Primary Care Provider Kalyan Meade [phone] Allergies No Known Allergies REASON FOR VISIT [...] Status W/U Status Risk Notes Problem Constipation (34135199) Constipation (K59.00) Active confirmed Vital Signs Blood pressure systolic 111 mm Hg 05/04/19 Blood pressure diastolic 111 mm Hg 025 Height 59.75 in 05/03/2024 Weight 155 lbs 05/03/2024 BMI 30.52 kg/m2 05/03/2024 Encounters Encounter Location Date Provider Diagnosis [facility] [address] [place] [address] 05/03/2024 Kalyan Velasquez Metastasis to liver C78.7 [...] * ANN CASTILLO LDOB:[birth year] (79 yo F)Acc No.[id number]:05/03/2024 Progress Notes Patient:?ANN CASTILLO Provider:?Kalyan Velasquez MD :1945???Age:79 Y???Sex:Female D ate:05/03/2024 Address:[address] [place], [place] [id number] Pcp:Abilio Robin MD Subjective: * Chief Complaints: * ???Patient presents today fo rGERD * HPI: ???incontinence:? I saw Ann in [...] also undergone at least 1 procedure at [facility] with Dr. Bond for embolization ablation of [...] she was here in January 2023. * ROS:?General/Constitutional:?Change in appetite?denies.?Chills?denies.?Fatigue?denies.?Ophthalmologic:?Comments?all negative.?ENT:?Comments?all negative.?Respiratory:?hemoptysis?denies.?Cough?denies.?Cardiovascular:?Chest pain?denies.?Orthopnea?denies.?Gastrointestinal:?Comments?See HPI for details.?Genitourinary:?Hematuria?denies.?Dysuria?denies.?Musculoskeletal:?Painful joints?denies.?Weakness?denies.?Skin:?Itching?denies.?Rash?denies.?Neurologic:?Headache?denies.?Seizures?denies.?Psychiatric:?Comments?all negative.? * Medical History:? * Surgical History:?Cervical s leonard fusion 2000Appendectomy 2012Left knee surgery/meniscus tear 2015Tonsillectomy Neck surgery to remove hardware iver ablasions [facility] dr. bond - presently on 2023 * Hospitalization/Major Diagno stic Procedure:?No Hospitalization History. * Family History:?Father: dece ased, throat cancer, diagnosed with HTN (hypertension).?Mother: , diagnosed with HTN (hypertension), Diabetes.?Siblings: sister, diagnosed with HTN (hypertension).? No known hx of colon cancer nor liver disease. * Social History:?Tobacco Use:?Tobacco Use/Smoking?Patient is a?former smoker.?Drugs/Alcohol:?Alcohol Screen?Points: 1, Interpretation: Negative.?Miscellaneous:?Marital status: single. 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 ???Drug/Alcohol:?AUDIT-C (Standard)?Did you have a drink containing alcohol in the past year??No,?Points?0,?Interpretation?Negative.?Nonsmoker > 5 years ago; no sig alcohol. * Medications:?TakingOmeprazol e 20 MG Capsule Delayed Release 1 capsule [...] 4 HOURS NEEDED FOR PAIN (SCALE SCORE 7- 10) Oral Taking Omeprazole 20 MG Capsule Delayed [...] reviewed and reconciled with the patient * Allergies:?N.K.D.A.yes[Aller gies Verified] Objective: * Vitals:?Wt: 155 lbs, Ht: 59. 75 in, BMI: 30.52 Index, BP: 111/111 mm Hg, Wt-k.31. * Examination: ???General Examination: ?GENERAL APPEARANCE:?pleasant, well nourished, well developed, in no acute distress.?EYES:?sclera non-icteric.?ORAL CAVITY:?mucosa moist.?NECK/THYROID:?no cervical lymphadenopathy, neck supple.?SKIN:?nonjaundiced, no spider angiomata.?HEART:?S1, S2 normal.?LUNGS:?End-expiratory wheezes bilaterally--.?ABDOMEN:?normal bowel sounds, tenderness along the right upper quadrant, no guarding or rigidity, no masses palpable, soft,? nondistended.?EXTREMITIES:?no edema.?NEUROLOGIC:?alert and oriented.? Assessment: * Assessment: 1.?Constipation - K59.00 (Pr imary)???2.?Metastasis to liver - C78.7???3.?Other malignant neuroendocrine tumors - C7A.8??? Overall, Ann appears wendy te well from [...] the future. Plan: * Treatment: * Procedure Codes:?1036F TOBAC CO NON-[id number] BP SCR NOT PRFRM REC REASON NOS * Preventive Medicine:? ??Counseling:?Care goal follow-up plan:?Above Normal BMI Follow-up?Giving encouragement to exercise,?BMI management provided?Yes.? ??Urinary Incontinence:?Urinary Incontinence?Assessment:?Absent,?Plan of care documented:?No, reason not specified.? ??Screenings:?Fall Risk Screening?Fall Risk Assessment:?No falls in the past year,?Screening:?No falls in the past year,?Assessment:?Not performed, no reason specified,?Plan of Care:?Not documented, no reason specified.? * Follow Up:?prn * * Sign off status: Completed true * Provider:?Kalyan Velasquez MD Date:? 025 Generated for Jai betancourt/Monse/eTransmitting on:?05/26/2024 04:54 PM EDT History and Physical Notes * [...]
--- OUTSIDE RECORDS SUMMARY | 2024-05-26 16:55 | XMS_ITS ---
Author Organization [facility] Address [address] [place] [address] Care Team Providers Care Freelance Photographer Name Role Phone Abilio Robin MD Primary Care Provider Kalyan Meade [phone] REASON FOR VISIT abn ct scan of colon,other malignant neuroendocrines tumors Encounters Encounter Location Date Provider Diagnosis [facility] [place] [address] [place] [phone] 03/12/2023 Kalyan Velasquez Plan Of Treatment No Information Progress Notes * ALEXANDRA CASTILLO LDOB:[birth year] (79 yo F)Acc No.[id number]:03/12/2023 EGD and COL/MAC Patient:?ALEXANDRA CASTILLO Provider:?Kalyan Velasquez MD :1945???Age:77 Y???Sex:Female D ate:03/12/2023 Address:[address], [id number] Pcp:Abilio Robin MD Subjective: * Chief Complaints: [...] Velasquez MD Date:? 024 Generated for Jai betancourt/Monse/Stefanyitting on:?05/26/2024 04:54 PM EDT
--- OUTSIDE RECORDS SUMMARY | 2024-05-26 16:55 | XMS_ITS | Patient Health Record ---
Author Organization [facility] Address [address] [place] [address] Care Team Providers Care Information Technology Consultant Name Role Phone Po Abilio ASHRAF Primary Care Provider Kalyan Meade [phone] Allergies No Known Allergies Reason For Referral [...] No Points 0 Interpretation Negative Section Notes: Patient currently on chantix ---still having 1-2 cigs per day; no sig alcohol Nonsmoker > 5 years ago; no sig alcohol Nonsmoker > 5 years ago; no sig alcohol Nonsmoker > 5 years ago; no sig alcohol Problems Problem Type SNOMED Code ICD Code Onset Dates Problem Status W/U Status Risk Notes Problem Colon cancer screening (896287358) Colon cancer screening (Z12.11) Active confirmed Problem 689006458 Encounter for screening for malignant neoplasm of colon (Z12.11) Active confirmed Problem Constipation (11521366) Constipation (K59.00) Active confirmed Problem History of polyp of colon (situation) (531767870) Personal history of colonic polyps (Z86.010) Active confirmed Problem 7578042066 Other malignant neuroendocrine tumors (C7A.8) Active confirmed Problem Screening for malignant neoplasm of rectum (216009092) Encounter for screening for malignant neoplasm of rectum (Z12.12) Active confirmed Problem 54572211 Preprocedural examination (Z01.818) Active confirmed Problem 538175843 Abnormal CT scan , colon (R93.3) Active confirmed Problem 875633574 Long-term use of aspirin therapy (Z79.82) Active confirmed Problem Irregular bowel habits (458223309) Irregular bowel habits (R19.8) Active confirmed Problem Diverticulosis of sigmoid colon (330380310) Diverticulosis of sigmoid colon (K57.30) Active confirmed Problem 345378078 Abnormal compute d tomography of sigmoid colon (R93.3) Active confirmed Problem Fecal soiling (078677075) Fecal soiling (R15.1) Active confirmed Problem Benign neoplasm of colon (73310752) Serrated adenoma of colon (D12.6) Active confirmed Problem 26881845 Metastasis to liver (C78.7) Active confirmed Vital Signs Blood pressure diastolic 111 mm Hg 05/03/2024 Height 59.75 in 05/03/2024 Blood pressure systolic 111 mm Hg 05/03/2024 Weight 155 lbs 05/03/2024 BMI 30.52 kg/m2 05/03/2024 Encounters Encounter Location Date Provider Diagnosis [facility] [address] [place] [address] 05/03/2024 Kalyan Velasquez Metastasis to liver C78.7 ; Constipation K59.00 and Other malignant neuroendocrine tumors C7A.8 Assessments Encounter Date Diagnosis (ICD Code) Assessment Notes Treatment Notes Treatment Clinical Notes Section Notes 05/03/2024 Constipation (ICD-10 - K59.00) Use the [...] Insured Coverage Start Date Coverage End Date [facility] [address] [place] [address] [phone] [id number] ANN CASTILLO Self - patient is the insured Medical (General) History Medical History History ICD Code [place] 2009-has 1 stent--fine since--sees Dr Kike Stephen [...] with chemotherapy and by Dr. Wiggins at [facility] with embolization ablation treatment of some of the larger lesions in the liver. Surgical History Surgery Date(Month/Year) liver ablasions [facility] dr. varun peter resently on chemo 2023 Neck surgery to remove hardware 11/2020 Tonsillectomy Left knee surgery/meniscus tear 2015 Appendectomy 2011 Cervical spinal fusion 2000
--- OUTSIDE RECORDS SUMMARY | 2024-05-26 16:55 | XMS_ITS ---
Author Organization [facility] Address [address] [place] [address] Care Team Providers Care Family Therapist Name Role Phone Abilio Robin MD Primary Care Provider Kalyan Meade [phone] REASON FOR VISIT malignant neuendocrine tumors,abn ct csan colon Encounters Encounter Location Date Provider Diagnosis [facility] [place] [address] [place] [phone] 03/19/2023 Kalyan Velasquez Plan Of Treatment No Information Progress Notes * ALEXANDRA CASTILLO LDOB:[birth year] (79 yo F)Acc No.[id number]:03/19/2023 EGD and COL/MAC Patient:?ALEXANDRA CASTILLO Provider:?Kalyan Velasquez MD :1945???Age:77 Y???Sex:Female D ate:03/19/2023 Address:[address], [id number] Pcp:Abilio Robin MD Subjective: * Chief Complaints: [...] MD Date:? 024 Generated for Printi ng/Monse/Stefanyitting on:?05/26/2024 04:54 PM EDT
== END ==
LOC: HO.CARD 13:50
PROVIDERS: PCP Internal Medicine; Visit Provider Internal Medicine Cardiovascular Disease
DX: R07.9 Chest pain, unspecified (principal)
CPT/HCPCS: 93306

== ENCOUNTER → 2024-05-26 13:54 | Outpatient (BNV) | payer MEDICARE, SELFPAY | PROVIDERS: PCP Internal Medicine; Visit Provider Internal Medicine Cardiovascular Disease | DX: R07.9 Chest pain, unspecified (principal) | CPT/HCPCS: 93306; 93356 ==

== ENCOUNTER → 2024-06-16 08:12 | Outpatient (REF) | payer MEDICARE, SELFPAY ==
--- NOTE | ~2024-06-16 | NM_ITS ---
EXERCISE MYOCARDIAL PERFUSION STUDY INDICATION: Chest pain TECHNIQUE: The patient was brought in for an exercise perfusion study on 06/16/2024. Patient performed exercise as per Nils protocol and was injected 25 mCi of sestamibi once target heart rate was achieved. Images were obtained using the SPECT gamma camera interlaced with the gating device. Images were obtained in supine position. Resting perfusion study was performed on 06/17/2024. Patient was administered 25 mCi of sestamibi intravenously at rest. Images were then obtained in supine position. Total DLP 106 mGy-cm. Images were processed with the software and compared side to side in short axis, horizontal long axis and vertical long axis views. FINDINGS: Raw aquisition reviewed. Arms by the patient's side. The stress perfusion study showed no significant perfusion abnormality. Both uncorrected as well as CT attenuation corrected images were reviewed. The gated study shows normal LV systolic function with calculated LVEF of 60%. LV cavity is normal in size. The gated study shows normal wall thickening and contraction of segments. Resting study shows no significant perfusion abnormality. Gating at rest reveals normal wall motion with ejection fraction at 67%. The findings are consistent with no clear reversible or fixed perfusion abnormality. NM/NM cardiolite stress test IMPRESSION: 1. Myocardial perfusion imaging study shows normal myocardial perfusion. 2. Gated LVEF is 60% during stress and 67% during rest. 3. Transient ischemic dilatation not present. EKG component of the test reported separately. Electronically signed by: Guanaco Tavares MD 06/19/2024 02:28 PM EDT
--- NOTE | 2024-06-16 08:16 | CA_ITS ---
Acquisition Time: 2024-06-16 08:21:40 Total Exercise Time: 00:05:15 Test Indications: CP Medications: SEE H&P Protocol: VIDAL Max HR: 103 BPM 72% of Pred: 143 BPM Max BP: 184/64 mmHG Max Work Load: 5.1 METS Exercise stress test with exercise 5 mins 15 secs of Vidal Protocol, reduced speed at 1.7mph at Satge 2, achieving 72% MPHR, with reports of severe SOB, 6/10 mid chest burning/ tightness sensation that resolved quickly in early recovery, with isolated PACs and PVCs, with normotensive response to exercise. With ST depression inferiorly and in leads V5- V6 meeting criteria for ischemia. In recovery, pt's breathing back to baseline. ST segment improved. Nuclear images pending. Test reviewed with Dr. Tavares. Medium Risk of -9.5% with Wallis Treadmill Score. Plts at 94, will start aspirin therapy. Reviewed with Dr. Stephen. Referred By: Greg Stephen Electronically Signed By: Sb Decker
== END ==
LOC: HO.CARD 08:12
PROVIDERS: PCP Internal Medicine; Visit Provider Internal Medicine Cardiovascular Disease
DX: R07.9 Chest pain, unspecified (principal)
CPT/HCPCS: 78452; 93017; A9500

== ENCOUNTER → 2024-06-16 08:16 | Outpatient (BNV) | payer MEDICARE, SELFPAY | PROVIDERS: PCP Internal Medicine | DX: R06.02 Shortness of breath (principal); I49.1 Atrial premature depolarization; I49.3 Ventricular premature depolarization | CPT/HCPCS: 78452; 93016; 93018 ==

== ENCOUNTER 2024-06-22 14:13 | Outpatient (AMB) | payer MEDICARE, SELFPAY ==
[2024-06-22 14:15] VITALS: BP 110/68; PULSE 69; O2SAT 97; BMI 30.5
--- NOTE | 2024-06-22 14:15 | MHC.OFFVIS ---
Vital Signs 06/22/24 14:15 Height 5 ft Weight 156 lb BMI 30.5 BP 110/68 Blood Pressure Location Lt brachial Position Sitting Pulse 69 Pulse Source Pulse Oximeter Pulse Oximetry (%) 97 Oxygen Delivery Method Room Air Intake Visit Reasons: COPD Intake Note: pt is here for follow up and states her breathing is not too bad., sinus congestion Shoe Sewing Machine Operator And Tender Required: No Allergies No Known Allergies Allergy (Verified 06/22/24 14:19) HPI HPI COPD: Details: ALEXANDRA IS A PLEASANT 79-YEAR-OLD HERE TODAY FOR SIX-MONTH FOLLOW-UP FOR HER COPD. SHE HAS BEEN FEELING WELL AND HAS HAD NO RECENT RESPIRATORY INFECTIONS. HAS BEEN USING WIXELA 250-50 MCG 1 INHALATION TWICE DAILY AND ONLY VERY RARELY NEEDS TO USE ALBUTEROL SULFATE UPDRAFT OR RESCUE INHALER. HAS NOT HAD ANY INCREASE IN SHORTNESS OF BREATH AND REPORTS SEASONAL ALLERGIES ARE WORSE IN THE FALL BUT HAVE BEEN WELL CONTROLLED. CONTINUES TO UNDERGO TREATMENT FOR LIVER MASS.( MOST LIKELY METASTATIC CARCINOMA ) [facility] Medical History Liver lesion Liver mass Heart attack (~2009) Serrated adenoma of colon (~2015) Generalized anxiety disorder History of COVID-19 (~01/2020) Right upper lobe pulmonary nodule Pulmonary nodules Personal history of nicotine dependence Osteopenia (~2013) Peptic ulcer disease Ulnar nerve entrapment Carpal tunnel syndrome Osteoarthritis Peripheral neuropathy Vitamin D deficiency Renal calculus Obesity (BMI 30-39.9) Hypertension COPD (chronic obstructive pulmonary disease) Coronary artery disease Hypercholesterolemia Surgical History History of colonoscopy History of appendectomy (~07/2011) History of fusion of cervical spine (~07/2003) History of meniscectomy of left knee (~05/2014) History of heart artery stent (~2009) History of removal of ureteral stent (~2017) History of tonsillectomy History of lithotripsy (~2017) Family History Father CVD (cardiovascular disease) Throat cancer HTN (hypertension) Mother Alzheimer disease Social History Household Members: None Housing: House Alcohol intake: current Alcohol intake frequency: holidays/special occasions only Patient Tobacco Use Status: Former Tobacco user Tobacco use type: Cigarette e-Cigarette/Vaping Use: Never Used Second Hand Smoke Exposure: No service: No Current occupational status: employed 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 Hearing needs: No Vision needs: Yes (Glasses) Review of Systems Const All systems reviewed & are unremarkable except as noted in HPI and below Eyes Reports no additional complaints ENT Reports no additional complaints Card Denies chest pain, Denies irregular heart rhythm, Denies leg edema and Reports dyspnea on exertion Resp Reports as per HPI and Reports dyspnea on exertion GI Reports no additional complaints Reports no additional complaints Musc Reports no additional complaints Skin/Breast Reports system reviewed and no additional complaints, except as documented Neuro Reports no additional complaints Psych Reports no additional complaints Physical Exam Vital Signs: Last Vital Signs Pulse 69 06/22/24 14:15 BP 110/68 06/22/24 14:15 Pulse Ox 97 06/22/24 14:15 Oxygen Delivery Method Room Air 06/22/24 14:15 BMI result Body Mass Index 30.5 Const General: comfortable, no acute distress, alert and awake Orientation/consciousness: patient oriented x3 HEENT Head: Yes normal to inspection General nose exam: No nasal polyps present and No nasal discharge present Face and sinus: Yes sinuses nontender Mouth: oropharynx normal Throat: Yes posterior oropharynx normal Eyes General: appearance normal, both eyes and all related structures Neck Neck: Yes normal visual inspection, Yes no lymphadenopathy, Yes trachea midline and Yes no JVD Thyroid: Thyroid normal Chest Chest palpation & inspection: normal inspection of the chest, normal palpation of entire chest wall and no tenderness Resp Other: Percussion note is resonant, breath sounds slightly distant with prolonged expiratory phase, No wheezes or rhonchi are heard. Cardio Palpation: normal PMI Rate: regular rate Rhythm: regular rhythm Heart sounds: no gallops and no murmurs Peripheral pulses: Peripheral pulses 2+ throughout GI Palpation (GI): Soft to palpation, nontender, No hepatosplenomegaly present and no masses Auscultation: normal bowel sounds Back/Spine/Pelvis Thoracic/Lumbar Spine: thoracic and lumbar spine normal to inspection Skin General skin exam: no rashes or lesions noted Neuro General: patient oriented x3 and no focal motor deficits Cranial nerves: Yes CN's II-XII intact bilaterally Extrem General: Yes normal to inspection, Yes no calf tenderness and Yes edema (1+ EDEMA OF RT ANKLE ) Psych Appearance: grossly normal and well kempt Speech and movement: Normal speech and movement present Assessment & Plan Assessment & Plan (1) COPD (chronic obstructive pulmonary disease): Comment: COPD is Moderately severe , remains controlled, c/o mild dyspnea on exertion. Code(s): J44.9 - Chronic obstructive pulmonary disease, unspecified Category: Medical Qualifiers: COPD type: emphysema Emphysema type: unspecified Qualified Code(s): J43.9 - Emphysema, unspecified Plan: CONTINUE USING WIXELA 250-50 MCG 1 INHALATION B.I.D. ALBUTEROL SULFATE 2.5 MG NEBULIZER SOLUTION EVERY 6 HOURS NEEDED FOR SHORTNESS OF BREATH. MAY USE ALBUTEROL SULFATE 90 MCG 2 PUFFS EVERY 46 HOURS NEEDED FOR SHORTNESS OF BREATH WHEN OUTDOORS (2) Pulmonary nodule: Comment: CATEGORY -2 BENIGN . PATIENT PARTICIPATING IN ANNUAL LD CT SCAN PROGRAM Code(s): R91.1 - Solitary pulmonary nodule Category: Medical Plan: CONTINUE YEARLY LOW DOSE CHEST CT PROGRAM Coding Level of Care Code Est Pt Level 3 (06382) Diagnoses Pulmonary emphysema, unspecified emphysema type J43.9 COPD type: emphysema Emphysema type: unspecified Pulmonary nodule R91.1
--- OUTSIDE RECORDS SUMMARY | 2024-06-22 14:16 | XMS_ITS ---
Author Organization [facility] Address [address] [place] [address] Care Team Providers Care Surgical Elastic Knitter Hand Frame Name Role Phone Abilio Robin MD Primary Care Provider Kalyan Meade [phone] Allergies No Known Allergies REASON FOR VISIT [...] Status W/U Status Risk Notes Problem Constipation (K59.00) Active confirmed Vital Signs Blood pressure systolic 111 mm Hg 05/04/19 25 Blood pressure diastolic 111 mm Hg 025 Height 59.75 in 05/03/2024 Weight 155 lbs 05/03/2024 BMI 30.52 kg/m2 05/03/2024 Encounters Encounter Location Date Provider Diagnosis [facility] [address] [place] [address] 05/03/2024 Kalyan Velasquez Metastasis to liver C78.7 [...] * ANN CASTILLO LDOB:[birth year] (79 yo F)Acc No.[id number]:05/03/2024 Progress Notes Patient:ANN BOWERS Provider:?Kalyan Velasquez MD :1945???Age:79 Y???Sex:Female D ate:05/03/2024 Address:[address] [place], [place] [id number] Pcp:Abilio Robin MD Subjective: * Chief Complaints: [...] also undergone at least 1 procedure at [facility] with Dr. Bond for embolization ablation [...] Neck surgery to remove hardware iver ablasions [facility] dr. bond - presently on 2023 * [...] * Treatment: * Procedure Codes:?1036F TOBAC CO [id number] BP SCR NOT PRFRM REC REASON NOS [...] Velasquez MD Date:? 025 Generated for Jai betancourt/Monse/eTcathysmitting on:?06/22/2024 02:15 PM EDT History and Physical Notes * [...]
--- OUTSIDE RECORDS SUMMARY | 2024-06-22 14:16 | XMS_ITS ---
Author Organization [facility] Address [address] [place] [address] Care Team Providers Care Venipuncturist Name Role Phone Abilio Robin MD Primary Care Provider Kalyan Meade [phone] REASON FOR VISIT malignant neuendocrine tumors,abn ct csan colon Encounters Encounter Location Date Provider Diagnosis [facility] [place] Outpatient [address] [place] [phone] 03/19/2023 Kalyan Velasquez Plan Of Treatment No Information Progress Notes * ALEXANDRA CASTILLO LDOB:[birth year] (79 yo F)Acc No.[id number]:03/19/2023 EGD and COL/MAC Patient:?ALEXANDRA CASTILLO Provider:?Kalyan Velasquez MD :1945???Age:77 Y???Sex:Female D ate:03/19/2023 Address:[address], [id number] Pcp:Abilio Robin MD Subjective: * Chief Complaints: [...] MD Date:? 024 Generated for Printi ng/Monse/Stefanyitting on:?06/22/2024 02:15 PM EDT
--- OUTSIDE RECORDS SUMMARY | 2024-06-22 14:16 | XMS_ITS ---
Author Organization [facility] Address [address] [place] [address] Care Team Providers Care Child Care Attendant School Name Role Phone Abilio Robin MD Primary Care Provider Kalyan Meade [phone] REASON FOR VISIT abn ct scan of colon,other malignant neuroendocrines tumors Encounters Encounter Location Date Provider Diagnosis [facility] [place] Outpatient [address] [place] [phone] 03/12/2023 Kalyan Velasquez Plan Of Treatment No Information Progress Notes * ALEXANDRA CASTILLO LDOB:[birth year] (79 yo F)Acc No.[id number]:03/12/2023 EGD and COL/MAC Patient:?ALEXANDRA CASTILLO Provider:?Kalyan Velasquez MD :1945???Age:77 Y???Sex:Female D ate:03/12/2023 Address:[address], [id number] Pcp:Abilio Robin MD Subjective: * Chief Complaints: [...] MD Date:? 024 Generated for Jai betancourt/Monse/Jessica on:?06/22/2024 02:15 PM EDT
--- OUTSIDE RECORDS SUMMARY | 2024-06-22 14:16 | XMS_ITS | Patient Health Record ---
Author Organization [facility] Address [address] [place] [address] Care Team Providers Care Lease Administrator Name Role Phone Po Abilio ASHRAF Primary Care Provider Kalyan Meade [phone] Allergies No Known Allergies Reason For Referral [...] Status Risk Notes Problem Colon cancer screening (719319468) Colon cancer screening (Z12.11) Active confirmed Problem 593059252 Encounter for screening for malignant neoplasm of colon (Z12.11) Active confirmed Problem Constipation (K59.00) Active confirmed Problem History of polyp of colon (situation) (972407048) Personal history of colonic polyps (Z86.010) Active confirmed Problem 7300929211 Other malignant neuroendocrine tumors (C7A.8) Active confirmed Problem Screening for malignant neoplasm of rectum (065486302) Encounter for screening for malignant neoplasm of rectum (Z12.12) Active confirmed Problem 86718032 Preprocedural examination (Z01.818) Active confirmed Problem 628641866 Abnormal CT scan , colon (R93.3) Active confirmed Problem 247950341 Long-term use of aspirin therapy (Z79.82) Active confirmed Problem Irregular bowel habits (289609401) Irregular bowel habits (R19.8) Active confirmed Problem Diverticulosis of sigmoid colon (859020275) Diverticulosis of sigmoid colon (K57.30) Active confirmed Problem 096495712 Abnormal compute d tomography of sigmoid colon (R93.3) Active confirmed Problem Fecal soiling (469057372) Fecal soiling (R15.1) Active confirmed Problem Benign neoplasm of colon (96120981) Serrated adenoma of colon (D12.6) Active confirmed Problem 37943653 Metastasis to liver (C78.7) Active confirmed Vital Signs Blood pressure diastolic 111 mm Hg 05/03/2024 Height 59.75 in 05/03/2024 Blood pressure systolic 111 mm Hg 05/03/2024 Weight 155 lbs 05/03/2024 BMI 30.52 kg/m2 05/03/2024 Encounters Encounter Location Date Provider Diagnosis [facility] [address] [place] [address] 05/03/2024 Kalyan Velasquez Metastasis to liver C78.7 [...] End Date [facility] [address] [place] [address] [id number] ANNA ANN Self - patient is the insured Medical (General) History Medical History History ICD Code OR 2009-has 1 stent--fine since--sees Dr Kike Stephen [...] with chemotherapy and by Dr. Wiggins at [facility] with embolization ablation treatment of some of the larger lesions in the liver. Surgical History Surgery Date(Month/Year) liver ablasions [facility] dr. varun peter resently on chemo 2023 Neck surgery to remove hardware 11/2020 Tonsillectomy Left knee surgery/meniscus tear 2015 Appendectomy 2011 Cervical spinal fusion 1999
== END 2024-06-22 14:39 | disposition home or self-care (01) ==
LOC: HO.HPS 14:13
PROVIDERS: PCP Internal Medicine; Visit Provider Internal Medicine
DX: J43.9 Emphysema, unspecified (principal); R91.1 Solitary pulmonary nodule
CPT/HCPCS: 99213

== ENCOUNTER → 2024-06-22 14:13 | Outpatient (BNVA) | payer MEDICARE, SELFPAY | PROVIDERS: PCP Internal Medicine; Visit Provider Internal Medicine | DX: J43.9 Emphysema, unspecified (principal); R91.1 Solitary pulmonary nodule; Z79.899 Other long term (current) drug therapy | CPT/HCPCS: 99212 ==

== ENCOUNTER 2024-07-27 06:24 | Outpatient (REF) | payer MEDICARE, SELFPAY ==
[2024-07-27 10:22] LABS: MANUAL DIFF FLAG NO
[2024-07-27 10:27] LABS: Basophils Percent Auto 0.4 % (0-2); Eosinophils Absolute Auto 0.3 X10*3/uL (0.0-0.4); Hemoglobin 12.8 g/dl (12.0-16.0); Imm Gran Abs Auto 0.02 X10*3/uL (0.00-0.03); Imm Gran Pct Auto 0.4 % (0.0-0.4); Lymphocytes Absolute Auto 1.3 X10*3/uL (1.2-4.9); Lymphocytes Percent Auto 25.5 % (20-40); Mean Corpuscular Hemoglobin 31.1 pg (27.0-33.0); Mean Corpuscular Volume 97.1 fL (80.0-98.0); Mean Platelet Volume 10.6 fL (9.4-12.3); Monocytes Absolute Auto 0.6 X10*3/uL (0.1-1.2); Monocytes Percent Auto 11.8 % (2-11); Neutrophils Absolute Auto 2.8 x10*3/uL (2.0-8.3); Neutrophils Percent Auto 56.9 % (45-73); Platelet Count 94 X10*3/uL (160-400); Red Blood Count 4.12 X10*6/uL (4.20-5.50); Red Cell Distribution Width 16.5 % (11.0-16.0)
[2024-07-27 10:39] LABS: Estimated Average Glucose 137 mg/dL; Hemoglobin A1C 155.1714 umol/L; Hemoglobin A1c % 6.4 % (<6.0)
[2024-07-27 10:41] LABS: Alanine Aminotransferase 25 U/L (0-31); Alkaline Phosphatase 154 U/L (39-117); Anion Gap 10 (12-20); Aspartate Amino Transferase 41 U/L (5-31); Blood Urea Nitrogen 19 mg/dL (9-16); Calcium 9.3 mg/dL (8.4-10.2); Carbon Dioxide 27 mmol/L (22-29); Chloride 107 mmol/L (96-108); Cholesterol 124 mg/dL (<200); Estimated Glomerular Filt Rate > 60; Glucose Random 119 mg/dL (60-115); HDL Cholesterol 49 mg/dL (>40); LDL Cholesterol Calculated 58 mg/dL (<100); Potassium 4.6 mmol/L (3.3-5.1); Sodium 139 mmol/L (135-145); Total Protein 6.5 g/dL (6.5-8.0); Triglycerides 86 mg/dL (<150)
[2024-07-27 11:03] LABS: Free T4 (Free Thyroxine) 0.89 ng/dL (0.71-1.85); Thyroid Stimulating Hormone 2.25 uIU/mL (0.32-4.0)
[2024-07-27 11:16] LABS: Folate 7.7 ng/mL (> or = 4.0); Vitamin B12 250 pg/mL (200-900)
== END 2024-07-27 06:25 | disposition home or self-care (01) ==
LOC: HO.HMGCLDS 06:24
PROVIDERS: PCP Internal Medicine; Visit Provider Internal Medicine
DX: E11.65 Type 2 diabetes mellitus with hyperglycemia (principal); E78.00 Pure hypercholesterolemia, unspecified
CPT/HCPCS: 36415; 80053; 80061; 82043; 82570; 82607; 82746; 83036; 84439; 84443; 85025

== ENCOUNTER 2024-07-28 12:48 | Outpatient (AMB) | payer MEDICARE, SELFPAY ==
--- OUTSIDE RECORDS SUMMARY | 2024-05-03 05:30 | XMS_ITS ---
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 Role Phone Abilio Robin MD Primary Care Provider Kalyan Meade [phone] Allergies No Known Allergies REASON FOR VISIT Patient presents today forGERD Medications Medication SIG (Take, Route, Frequency, Duration) Notes Start Date End Date Status Capecitabine 150 MG Oral for 14 Days Active Capecitabine 500 MG Oral for 14 Days Active Albuterol Sulfate (2.5 MG/3ML) 0.083% USE 2.5 MG (3 ML) INHALED EVERY 6 HOURS Inhalation for 13 Days Active Morphine Sulfate ER 30 MG TAKE 1 TABLET BY MOUTH EVERY 12 HOURS Oral for 30 Days Active oxyCODONE HCl 5 MG TAKE 1 TABLET BY MOUTH EVERY 4 HOURS NEEDED FOR PAIN (SCALE SCORE 7-10) Oral for 10 Days Active Lisinopril 20 MG 1 tablet Orally Once a day Active Famotidine 20 MG 1 tablet at bedtime as needed Orally Once a day Not-Taking Ondansetron 8 MG 1 tablet on the tongue and allow to dissolve as needed Orally Once a day Active Wixela Inhub 250-50 MCG/ACT 1 puff Inhal ation Twice a day Active Atorvastatin Calcium 40 MG Orally Active Omeprazole 20 MG 1 capsule 1/2 to 1 hour before morning meal Orally Once a day 05/03/2024 Active Temozolomide 250 MG as directed Orally Active Cyclobenzaprine HCl 10 MG 1 tablet at be dtime as needed Orally Once a day Active Loperamide HCl 2 MG 1 capsule as needed Orally Four times a day Active Fluticasone Propionate 50 MCG/ACT 1 spray in each nostril Nasally Twice a day Active Social History Tobacco Use: Social History Observation Description Date Details (start date - stop date) Former Smoker NA - NA Tobacco Use/Smoking Question Answer Notes Patient is a former smoker AUDIT-C (Standard) Question Answer Notes Did you have a drink containing alcohol in the p ast year? No Points 0 Interpretation Negative Section Notes: Nonsmoker > 5 years ago; no sig alcohol Problems Problem Type SNOMED Code ICD Code Onset Dates Problem Status W/U Status Risk Notes Problem Constipation (51268724) Constipation (K59.00) Active confirmed Vital Signs Blood pressure systolic 111 mm Hg 05/04/19 Blood pressure diastolic 111 mm Hg 025 Height 59.75 in 05/03/2024 Weight 155 lbs 05/03/2024 BMI 30.52 kg/m2 05/03/2024 Encounters Encounter Location Date Provider Diagnosis [facility] [address] [place] [address] 05/03/2024 Kalyan Velasquez Metastasis to liver C78.7 ; Constipation K59.00 and Other malignant neuroendocrine tumors C7A.8 Assessments Encounter Date Diagnosis (ICD Code) Assessment Notes Treatment Notes Treatment Clinical Notes Section Notes 05/03/2024 Metastasis to liver (ICD-10 - C78.7) Overall, Ann appears quite well from a clinical standpoint given the 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 I advised her that I strongly suspect her ongoing issues of abdominal pain are in relation to the metastatic liver disease with stretching of her liver capsule and infiltration of the liver itself. I do not think her abdominal pain is from another primary GI source such as ulcer disease. Unfortunately, I advised her that I do not have much to offer her in the way of pain relief and I do not think endoscopy would be helpful for her from a diagnostic or therapeutic standpoint. I did advise her to certainly continue omeprazole to treat any component of some acid related symptoms but again I advised her that I do not think that is the main issue. I did advise her to try to treat the pain symptomatically as she is doing and to continue to follow-up with you in that regard In regard to her constipation I did give her instructions to begin a daily regimen of increasing Colace, MiraLAX, and Metamucil. I did advise her to use the Dulcolax every second or third day as needed so as to be sure not to become overly constipated that could worsen her abdominal pain as well. At this point she will see me again as needed. However, I did advise her to certainly call if she has any particular issues, questions, or problems I can be of assistance with. Ann was comfortable with this plan. Thank you again for allowing me to participate in Ann's care. I shall continue to keep you advised of her progress as needed. Please do not hesitate to contact me if I can be of any further assistance in the future. 05/03/2024 Constipation (ICD-10 - K59.00) Use the Colace twice a day. 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 I advised her that I strongly suspect her ongoing issues of abdominal pain are in relation to the metastatic liver disease with stretching of her liver capsule and infiltration of the liver itself. I do not think her abdominal pain is from another primary GI source such as ulcer disease. Unfortunately, I advised her that I do not have much to offer her in the way of pain relief and I do not think endoscopy would be helpful for her from a diagnostic or therapeutic standpoint. I did advise her to certainly continue omeprazole to treat any component of some acid related symptoms but again I advised her that I do not think that is the main issue. I did advise her to try to treat the pain symptomatically as she is doing and to continue to follow-up with you in that regard In regard to her constipation I did give her instructions to begin a daily regimen of increasing Colace, MiraLAX, and Metamucil. I did advise her to use the Dulcolax every second or third day as needed so as to be sure not to become overly constipated that could worsen her abdominal pain as well. At this point she will see me again as needed. However, I did advise her to certainly call if she has any particular issues, questions, or problems I can be of assistance with. Ann was comfortable with this plan. Thank you again for allowing me to participate in Ann's care. I shall continue to keep you advised of her progress as needed. Please do not hesitate to contact me if I can be of any further assistance in the future. 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 I advised her that I strongly suspect her ongoing issues of abdominal pain are in relation to the metastatic liver disease with stretching of her liver capsule and infiltration of the liver itself. I do not think her abdominal pain is from another primary GI source such as ulcer disease. Unfortunately, I advised her that I do not have much to offer her in the way of pain relief and I do not think endoscopy would be helpful for her from a diagnostic or therapeutic standpoint. I did advise her to certainly continue omeprazole to treat any component of some acid related symptoms but again I advised her that I do not think that is the main issue. I did advise her to try to treat the pain symptomatically as she is doing and to continue to follow-up with you in that regard In regard to her constipation I did give her instructions to begin a daily regimen of increasing Colace, MiraLAX, and Metamucil. I did advise her to use the Dulcolax every second or third day as needed so as to be sure not to become overly constipated that could worsen her abdominal pain as well. At this point she will see me again as needed. However, I did advise her to certainly call if she has any particular issues, questions, or problems I can be of assistance with. Ann was comfortable with this plan. Thank you again for allowing me to participate in Ann's care. I shall continue to keep you advised of her progress as needed. Please do not hesitate to contact me if I can be of any further assistance in the future. Plan Of Treatment Treatment Notes Assessment Notes Constipation Use the Colace twice a day. Add a dose of Miralax once or twice every day Try 2 Metamucil fiber pills with a large glass of water every day Use the Dulcolax pill every 3rd day as needed Next Appt Details Follow Up: prn, Reason: Progress Notes * ANN CASTILLO LDOB:[birth year] (79 yo F)Acc No.[id number]:05/03/2024 Progress Notes Patient: ANN REYES Provider: Aurelia Velasquez MD :1945 A ge:79 Y S ex:Female Date:05/03/2024 Address: [address] Pcp:Abilio Robin MD Subjective: * Chief Complaints: * P atient presents today forGERD * HPI: i ncontinence: I saw Ann in follow-up today regard to her underlying history of metastatic carcinoid tumor to the liver with associated abdominal pain and constipation. 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 Subsequent to that she has been followed by Dr. Ortiz in oncology and has been receiving treatment with her. She has also undergone at least 1 procedure at [facility] with Dr. Bond for embolization ablation of some of the larger tumors in the liver. Recent imaging is that of a MRI of the abdomen earlier this month describing innumerable liver lesions as large as 7 cm with distortion of the liver capsule. There were no other acute changes within the abdomen. Her main issue from a GI standpoint is that of constipation and ongoing upper abdominal pain primarily in the right upper quadrant and epigastric area with radiation along the right chest wall. She is on oxycodone and MS Contin with only partial relief. She describes using 1 Colace every day and a Dulcolax pill every second or third day to help with her bowel movements. However, she does have continued constipation. She reports that she is eating fairly well and denies any significant heartburn, dysphagia, odynophagia, nor vomiting. She has not noticed any jaundice, signs of GI bleeding, nor fevers.She has lost about 20 pounds since she was here in January 2023. * ROS: G eneral/Constitutional: Change in appetite d enies. C hills d enies. F atigue d enies. O phthalmologic: Comments a ll negative. E NT: Comments a ll negative. R espiratory: hemoptysis d enies. C ough d enies. ? C ardiovascular: Chest pain d enies. O rthopnea d enies. ? G astrointestinal: Comments S [facility] for details. G enitourinary: Hematuria d enies. D ysuria d enies. ? M usculoskeletal: Painful joints d enies. W eakness d enies. ? S kin: Itching d enies. R shine d enies. N eurologic: Headache d enies. S eizures d enies. ? P sychiatric: Comments a ll negative. * Medical History: * Surgical History: C ervical spinal fusion 2000Appendectomy 2012Left knee surgery/meniscus tear 2015Tonsillectomy Neck surgery to remove hardware [facility] dr. bond - presently on 2023 * Hospitalization/Major Diagno stic Procedure: N o Hospitalization History. * Family History: F ather: , throat cancer, diagnosed with HTN (hypertension). M other: , diagnosed with HTN (hypertension), Diabetes. S iblings: sister, diagnosed with HTN (hypertension).? No known hx of colon cancer nor liver disease. * Social History: T obacco Use: T obacco Use/Smoking P atient is a f ormer smoker. D rugs/Alcohol: A lcohol Screen P oints: 1, Interpretation: Negative. M iscellaneous: M arital status: single. 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 D rug/Alcohol: A MAGAN-C (Standard) D id you have a drink containing alcohol in the past year? N o,?Points 0 , I nterpretation N egative. N onsmoker > 5 years ago; no sig alcohol. * Medications: T akingOmeprazole 20 MG Capsule Delayed Release 1 capsule 1/2 to 1 hour before morning meal Orally Once a day Temozolomide 250 MG Capsule as directed Orally Cyclobenzaprine HCl 10 MG Tablet 1 tablet at bedtime as needed Orally Once a day Loperamide HCl 2 MG Capsule 1 capsule as needed Orally Four times a day Fluticasone Propionate 50 MCG/ACT Suspension 1 spray in each nostril Nasally Twice a day Ondansetron 8 MG Tablet Disintegrating 1 tablet on the tongue and allow to dissolve as needed Orally Once a day Wixela Inhub 250-50 MCG/ACT Aerosol Powder Breath Activated 1 puff Inhalation Twice a day Atorvastatin Calcium 40 MG Tablet Orally Lisinopril 20 MG Tablet 1 tablet Orally Once a day Capecitabine 150 MG Tablet Oral Capecitabine 500 MG Tablet Oral Albuterol Sulfate (2.5 MG/3ML) 0.083% Nebulization Solution USE 2.5 MG (3 ML) INHALED EVERY 6 HOURS Inhalation Morphine Sulfate ER 30 MG Tablet Extended Release TAKE 1 TABLET BY MOUTH EVERY 12 HOURS Oral oxyCODONE HCl 5 MG Tablet TAKE 1 TABLET BY MOUTH EVERY 4 HOURS NEEDED FOR PAIN (SCALE SCORE 7-10) Oral Taking Omeprazole 20 MG Capsule Delayed Release 1 capsule 1/2 to 1 hour before morning meal Orally Once a day Taking Temozolomide 250 MG Capsule as directed Orally Taking Cyclobenzaprine HCl 10 MG Tablet 1 tablet at bedtime as needed Orally Once a day Taking Loperamide HCl 2 MG Capsule 1 capsule as needed Orally Four times a day Taking Fluticasone Propionate 50 MCG/ACT Suspension 1 spray in each nostril Nasally Twice a day Taking Ondansetron 8 MG Tablet Disintegrating 1 tablet on the tongue and allow to dissolve as needed Orally Once a day Taking Wixela Inhub 250-50 MCG/ACT Aerosol Powder Breath Activated 1 puff Inhalation Twice a day Taking Atorvastatin Calcium 40 MG Tablet Orally Taking Lisinopril 20 MG Tablet 1 tablet Orally Once a day Taking Capecitabine 150 MG Tablet Oral Taking Capecitabine 500 MG Tablet Oral Taking Albuterol Sulfate (2.5 MG/3ML) 0.083% Nebulization Solution USE 2.5 MG (3 ML) INHALED EVERY 6 HOURS Inhalation Taking Morphine Sulfate ER 30 MG Tablet Extended Release TAKE 1 TABLET BY MOUTH EVERY 12 HOURS Oral Taking oxyCODONE HCl 5 MG Tablet TAKE 1 TABLET BY MOUTH EVERY 4 HOURS NEEDED FOR PAIN (SCALE SCORE 7-10) Oral Not-Taking/PRNFamotidine 20 MG Tablet 1 tablet at bedtime as needed Orally Once a day Not-Taking/PRN Famotidine 20 MG Tablet 1 tablet at bedtime as needed Orally Once a day DiscontinuedVitamin D Baby Aspirin Symbicort amLODIPine Besylate 5 MG Tablet Oral Flovent HFA Medication List reviewed and reconciled with the patientDiscontinued Vitamin D Discontinued Baby Aspirin Discontinued Symbicort Discontinued amLODIPine Besylate 5 MG Tablet Oral Discontinued Flovent HFA Medication List reviewed and reconciled with the patient * Allergies: Mahendra Woodardyes[Allergies Verified] Objective: * Vitals: W t: 155 lbs, Ht: 59.75 in, BMI: 30.52 Index, BP: 111/111 mm Hg, [id number]. * Examination: G eneral Examination: GENERAL APPEARANCE: p jenny, well nourished, well developed, in no acute distress. EYES: s clera non-icteric. ORAL CAVITY: m ucosa moist. NECK/THYROID: n o cervical lymphadenopathy, neck supple.? SKIN: n onjaundiced, no spider angiomata. HEART: S 1, S2 normal. LUNGS: E nd-expiratory wheezes bilaterally--. ABDOMEN: n ormal bowel sounds, tenderness along the right upper quadrant, no guarding or rigidity, no masses palpable, soft, nondistended. EXTREMITIES: n o edema. NEUROLOGIC: a lert and oriented. Assessment: * Assessment: 1. C onstipation - K59.00 (Primary) 2 . M etastasis to liver - C78.7 ? 3 . 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 I advised her that I strongly suspect her ongoing issues of abdominal pain are in relation to the metastatic liver disease with stretching of her liver capsule and infiltration of the liver itself. I do not think her abdominal pain is from another primary GI source such as ulcer disease. Unfortunately, I advised her that I do not have much to offer her in the way of pain relief and I do not think endoscopy would be helpful for her from a diagnostic or therapeutic standpoint. I did advise her to certainly continue omeprazole to treat any component of some acid related symptoms but again I advised her that I do not think that is the main issue. I did advise her to try to treat the pain symptomatically as she is doing and to continue to follow-up with you in that regard In regard to her constipation I did give her instructions to begin a daily regimen of increasing Colace, MiraLAX, and Metamucil. I did advise her to use the Dulcolax every second or third day as needed so as to be sure not to become overly constipated that could worsen her abdominal pain as well. At this point she will see me again as needed. However, I did advise her to certainly call if she has any particular issues, questions, or problems I can be of assistance with. Ann was comfortable with this plan. Thank you again for allowing me to participate in Ann's care. I shall continue to keep you advised of her progress as needed. Please do not hesitate to contact me if I can be of any further assistance in the future. Plan: * Treatment: * Procedure Codes: 1 036F TOBACCO [id number] BP SCR NOT PRFRM REC REASON NOS * Preventive Medicine: Counseling: C are goal follow-up plan: A luan Normal BMI Follow-up G iving encouragement to exercise, B [place] management provided Y es. Urinary Incontinence: U rinary Incontinence A ssessment: A bsent, P vonnie of care documented: N o, reason not specified. Screenings: F all Risk Screening F all Risk Assessment: N o falls in the past year, S creening: N o falls in the past year, A ssessment: N ot performed, no reason specified, P vonnie of Care: N ot documented, no reason specified. * Follow Up: p rn * * Sign off status: Completed true * Provider: Aurelia Velasquez MD Date: 05/03/2024 Generated for Jai betancourt/Monse/Stefanyitting on: 0 07/28/2024 01:52 PM EDT History and Physical Notes * Examination Category Sub-Category Detail Notes Category Not es General Examination GENERAL APPEARANCE: pleasant , well nourished, well developed, in no acute distress EYES: sclera non-icteric NECK/THYROID: no cervical lymphade nopathy, neck supple HEART: S1, S2 normal LUNGS: End-expiratory wheez es bilaterally-- ABDOMEN: normal bowel sounds, tenderness along the right upper quadrant, no guarding or rigidity, no masses palpable, soft, nondistended NEUROLOGIC: alert and oriented SKIN: nonjaundiced, no spi poncho angiomata EXTREMITIES: no edema ORAL CAVITY: mucosa moist
--- NOTE | 2024-07-28 12:54 | MHC.PC.OV ---
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: No Accompanied by: Self / Same As Patient Allergies No Known Allergies Allergy (Verified 07/28/24 12:55) Tobacco use date assessed: 07/28/24 Fall risk assessment: No Falls in past year Last assessed Fall Risk: 07/28/24 Dental Screening Dental Screen Date: 07/28/24 Did you have a dental visit in the last 12 months?: Yes Did you have a dental problem in the last 6 months where you did not have access to dental care?: No Was dental information given to patient?: Patient has dentist ON LICENSE OF [facility] Medical History Liver lesion Liver mass Heart attack (~2009) Serrated adenoma of colon (~2015) Generalized anxiety disorder History of COVID-19 (~01/2020) Right upper lobe pulmonary nodule Pulmonary nodules Personal history of nicotine dependence Osteopenia (~2013) Peptic ulcer disease Ulnar nerve entrapment Carpal tunnel syndrome Osteoarthritis Peripheral neuropathy Vitamin D deficiency Renal calculus Obesity (BMI 30-39.9) Hypertension COPD (chronic obstructive pulmonary disease) Coronary artery disease Hypercholesterolemia Surgical History History of colonoscopy History of appendectomy (~07/2011) History of fusion of cervical spine (~07/2003) History of meniscectomy of left knee (~05/2014) History of heart artery stent (~2009) History of removal of ureteral stent (~2017) History of tonsillectomy History of lithotripsy (~2017) Family History Father CVD (cardiovascular disease) Throat cancer HTN (hypertension) Mother Alzheimer disease Social History Household Members: None Housing: House Alcohol intake: current Alcohol intake frequency: holidays/special occasions only Patient Tobacco Use Status: Former Tobacco user Tobacco use type: Cigarette e-Cigarette/Vaping Use: Never Used Second Hand Smoke Exposure: No service: No Current occupational status: employed 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 1. Little interest or pleasure in doing things: not at all 2. Feeling down, depressed, or hopeless: not at all 3. Trouble falling or staying asleep, or sleeping too much: several days 4. Feeling tired or having little energy: several days 5. Poor appetite or overeating: not at all 6. Feeling bad about yourself - or that you are a failure or have let yourself or your family down: not at all 7. Trouble concentrating on things, such as reading the newspaper or watching television: not at all 8. Moving or speaking so slowly that other people could have noticed. Or the opposite - being so fidgety or restless that you have been moving around a lot more than usual: not at all 9. Thoughts that you would be better off or of hurting yourself in some way: not at all Total score: 2 Depression Screening Interpretation: Positive Depression Screening Done: Yes Source: Developed by Drs. Kalyan Noguera, Jovana Clarke, Franklyn Lraes and colleagues, with an educational elmo from [employer] Thrive Questionnaire Date Thrive assessed: 07/28/24 I am a: Patient What is your living situation today?: I have a steady place to live Within the past 12 months, did the food you bought not last and you didn't have the money to get more?: Never true Within the past 12 months, did you worry whether your food would run out before you got money to buy more?: Never true Do you have trouble paying for medicines?: No Do you have trouble getting transportation to medical appointments?: No Do you have trouble paying your heating and electricity bill?: No Do you have trouble taking care of your child, family member or friend?: No Do you have trouble with day-to-day activities such as bathing, preparing meals, shopping, managing finances, etc.?: No Are you currently unemployed and looking for a job?: No Are you interested in more education?: No Please select the resources that you would like help with: None Currently or been in a relationship where the following occur: No concerns reported THRIVE Score: 0 AUDIT C Alcohol Use Questionnaire (AUDIT-C) 1. How often do you have a drink containing alcohol?: Monthly or less 2. How many drinks containing alcohol do you have on a typical day when you are drinking?: 1 or 2 3. How often do you have six or more drinks on one occasion?: Never Total Score: 1 MADELINE-7 AMB Questionnaire MADELINE-7 Date MADELINE - 7 assessed: 07/28/24 Feeling nervous, anxious, or on edge: 0 = Not at all Not being able to stop or control worryin = Not at all Worrying too much about different things: 0 = Not at all Trouble relaxin = Not at all Being so restless that it is hard to sit still: 0 = Not at all Becoming easily annoyed or irritable: 0 = Not at all Feeling afraid as if something awful might happen: 0 = Not at all Total MADELINE-7 score (0-4 normal; 5-9 mild; 10-14 moderate; 15-21 severe): 0 Source: Developed by Drs. Kalyan Noguera, Jovana Clarke, Franklyn Lares and colleagues, with an educational elmo from [employer]. Physical exam (Primary Care) Vital Signs: Last Vital Signs Pulse 72 07/28/24 12:55 BP 122/68 07/28/24 12:55 Pulse Ox 95 07/28/24 12:55 Oxygen Delivery Method Room Air 07/28/24 12:55 BMI result Body Mass Index 29.8 Tobacco/Smoking Status: Tobacco use Status Tobacco use date assessed 07/28/24 07/28/24 12:58 Patient Tobacco Use Status Former Tobacco user 07/28/24 12:58 Tobacco use type Cigarette 07/28/24 12:58 e-Cigarette/Vaping Use Never Used 07/28/24 12:58 PHQ-9: PHQ-9 Score PHQ-9: Total score 2 07/28/24 13:28 Depression Screening Interpretation: Positive Thrive Assessment: Date of Thrive Assessment Date Thrive assessed 07/28/24 07/28/24 12:58 Currently or been in a relationship where the following occur: No concerns reported Const General: alert; No acute distress Eyes Conjunctivae: conjunctivae normal Resp Auscultation: clear to auscultation bilaterally Cardio Rate: regular rate Rhythm: regular rhythm GI Inspection: Yes normal to inspection Extrem General: Yes normal to inspection and No edema Coding Level of Care Code Est Pt Level 4 (50390) Complex EM visit Add On G2211 Diagnoses Neuroendocrine carcinoma metastatic to liver C7A.8; C7B.8 Coronary artery disease involving [place] coronary artery of [place] heart without angina pectoris I25.10 Associated angina: without angina Coronary Disease-Associated Artery/Lesion type: [place] artery [place] vs. transplanted heart: [place] heart Hypercholesterolemia E78.00 Generalized anxiety disorder F41.1 Type 2 diabetes mellitus with hyperglycemia, without long-term current use of insulin E11.65 Diabetes mellitus correction insulin use: without manager terminal use Gastroesophageal reflux disease without esophagitis K21.9 Esophagitis presence: without esophagitis Pulmonary emphysema, unspecified emphysema type J43.9 COPD type: emphysema Emphysema type: unspecified Personal history of nicotine dependence Z87.891 RUQ abdominal pain R10.11 Assessment & Plan Assessment & Plan (1) Neuroendocrine carcinoma metastatic to liver: Code(s): C7A.8 - Other malignant neuroendocrine tumors; C7B.8 - Other secondary neuroendocrine tumors Category: Medical Plan: Continue to follow-up with Hematology-Oncology and has ordered for an ultrasound of the liver (2) Coronary artery disease: Comment: (2009 - STEMI /VFib arrest - s/p stent to circumflex) Code(s): I25.10 - Atherosclerotic heart disease of [place] coronary artery without angina pectoris Category: Medical Qualifiers: Associated angina: without angina Coronary Disease-Associated Artery/Lesion type: [place] artery [place] vs. transplanted heart: [place] heart Qualified Code(s): I25.10 - Atherosclerotic heart disease of [place] coronary artery without angina pectoris Plan: Control the cholesterol, weight, blood pressure, diabetes patient on aspirin 81 mg once a day (3) Hypercholesterolemia: Code(s): E78.00 - Pure hypercholesterolemia, unspecified Category: Medical Plan: Avoid fried foods, chicken skin, eggs, butter margarine, pastries and meat. Be it pork or beef they have a lot of cholesterol LDL goal of less than 70 and triglyceride of less than 150 patient takes atorvastatin (4) Generalized anxiety disorder: Code(s): F41.1 - Generalized anxiety disorder Category: Medical Plan: Continue with counseling and therapy (5) Type 2 diabetes mellitus with hyperglycemia: Comment: [facility] 2022, will be seeing Dr. Pineda Code(s): E11.65 - Type 2 diabetes mellitus with hyperglycemia Category: Medical Qualifiers: Diabetes mellitus manager terminal insulin use: without correction use Qualified Code(s): E11.65 - Type 2 diabetes mellitus with hyperglycemia Plan: Decrease the amount of carbohydrate intake, pasta, bread, rice and potatoes are all sugar and that is aside from all the sweet stuff, remember that fruits are good but they are Sweet also. Hemoglobin A1c goal of less than 7.0 (6) GERD (gastroesophageal reflux disease): Code(s): K21.9 - Gastro-esophageal reflux disease without esophagitis Category: Medical Qualifiers: Esophagitis presence: without esophagitis Qualified Code(s): K21.9 - Gastro-esophageal reflux disease without esophagitis Plan: Avoid the foods that causes that usually spicy foods, tomato products, juices, coffee, soda and foods that your sensitive to. After eating do not lie down, allow 3-4 hours before in lie down. And keep the head of bed above 30 degrees to avoid the acid from going up. (7) COPD (chronic obstructive pulmonary disease): Comment: COPD is Moderately severe , remains controlled, c/o mild dyspnea on exertion. Code(s): J44.9 - Chronic obstructive pulmonary disease, unspecified Category: Medical Qualifiers: COPD type: emphysema Emphysema type: unspecified Qualified Code(s): J43.9 - Emphysema, unspecified Plan: , on albuterol inhaler as needed Wixela for controller (8) Personal history of nicotine dependence: Comment: (former smoker, in LDCT screening program) Code(s): Z87.891 - Personal history of nicotine dependence Category: Medical Plan: Patient is a former smoker and is enrolled in the lung cancer screening program (9) RUQ abdominal pain: Code(s): R10.11 - Right upper quadrant pain Category: Medical Plan History of Present Illness The patient is a 79-year-old female presenting for follow-up of multiple chronic conditions and preventative care. She has a history of tubular adenoma of the colon, with her last colonoscopy performed in December 2021. She is a former smoker and is currently enrolled in a lung cancer screening program due to her smoking history and COPD diagnosis. 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 She underwent systemic chemotherapy in March 2023 and continues to follow up with hematology oncology. Her most recent MRI in 2024 showed stable disease, and an ultrasound has been advised for further evaluation of liver lesions. She has a history of coronary artery disease and was seen by cardiology in April 2024. A stress test conducted in June showed normal myocardial perfusion with an ejection fraction of 60 to 67%, and an echocardiogram in May showed an ejection fraction of 65 to 70% with mild calcification of the aortic valves. The patient also has a history of COPD and is on Wixela and albuterol for management. She is advised to stop smoking and continues to be monitored in the lung cancer screening program. Her diabetes mellitus is controlled with a hemoglobin A1c of 6.4 as of July 27. She also has hypercholesterolemia with an LDL of 58, and she is on atorvastatin therapy. The patient has thrombocytopenia, but her blood count was otherwise normal with no anemia as of her last blood work on July 27. Her liver function tests showed elevation, prompting the request for an ultrasound. [facility] - Lung cancer screening program enrollment due to smoking history and COPD - Colonoscopy last performed in December 2021 - Mammogram is up to date - Bone density assessment Social History - Former smoker, currently enrolled in a lung cancer screening program Review of Systems Physical Exam Results - Labs: Normal blood count, no anemia, thrombocytopenia, elevated liver function tests, hemoglobin A1c 6.4, LDL 58, low B12 at 250, normal thyroid, no proteinuria - Imaging: MRI in 2024 showed stable disease, echocardiogram in May showed EF 65 to 70% with mild calcification of the aortic valves - Tests: Stress test in June showed normal myocardial perfusion with EF 60 to 67% Plan The patient will continue to follow up with hematology oncology for her metastatic neuroendocrine carcinoma of the liver. An ultrasound of the liver has been ordered to further evaluate the lesions noted on MRI. For her coronary artery disease, she is on aspirin 81 mg daily and will continue with her current regimen. Her cholesterol management includes atorvastatin with a goal LDL of less than 70 and triglycerides less than 150. The patient is advised to stop smoking and continues to use albuterol as needed and Wixela as a controller for her COPD. She remains enrolled in the lung cancer screening program. Her diabetes management aims for a hemoglobin A1c of less than 7.0, and she will continue with her current therapy. Regular follow-up appointments will be scheduled to monitor her conditions and adjust treatments as necessary. Patient was informed and verbally consented to the use of an ambient scribe for clinic note documentation during this visit. Discussion Notes Patient Instructions - Continue follow-up with hematology oncology for liver cancer management. - Undergo scheduled ultrasound for liver evaluation. - Take aspirin 81 mg daily for coronary artery disease. - Continue atorvastatin for cholesterol management. - Stop smoking and use albuterol as needed for COPD. - Maintain enrollment in the lung cancer screening program. - Aim for hemoglobin A1c of less than 7.0 for diabetes management. Orders: Orders US abdomen complete Today R10.11 - Right upper quadrant pain, R79.89 - Other specified abnormal findings of blood chemistry FL barium swallow Today K21.9 - Gastro-esophageal reflux disease without esophagitis, R13.10 - Dysphagia, unspecified FL upper GI series Today R10.11 - Right upper quadrant pain, R13.10 - Dysphagia, unspecified
[2024-07-28 12:55] VITALS: BP 122/68; PULSE 72; O2SAT 95; BMI 29.8
== END 2024-07-28 13:42 | disposition home or self-care (01) ==
PROVIDERS: PCP Internal Medicine; Visit Provider Internal Medicine
DX: E11.65 Type 2 diabetes mellitus with hyperglycemia (principal); C7A.8 Other malignant neuroendocrine tumors; C7B.8 Other secondary neuroendocrine tumors; J43.9 Emphysema, unspecified; I25.10 Atherosclerotic heart disease of native coronary artery without angina pectoris; E78.00 Pure hypercholesterolemia, unspecified; F41.1 Generalized anxiety disorder; K21.9 Gastro-esophageal reflux disease without esophagitis; Z87.891 Personal history of nicotine dependence; R10.11 Right upper quadrant pain

== ENCOUNTER → 2024-07-28 12:48 | Outpatient (BNVA) | payer MEDICARE, SELFPAY | PROVIDERS: PCP Internal Medicine; Visit Provider Internal Medicine | DX: I25.10 Atherosclerotic heart disease of native coronary artery without angina pectoris (principal); C7A.8 Other malignant neuroendocrine tumors; C7B.8 Other secondary neuroendocrine tumors; E78.00 Pure hypercholesterolemia, unspecified; F41.1 Generalized anxiety disorder; E11.65 Type 2 diabetes mellitus with hyperglycemia; K21.9 Gastro-esophageal reflux disease without esophagitis; J43.9 Emphysema, unspecified; R10.11 Right upper quadrant pain; E11.9 Type 2 diabetes mellitus without complications; R79.89 Other specified abnormal findings of blood chemistry; R13.10 Dysphagia, unspecified; Z87.891 Personal history of nicotine dependence | CPT/HCPCS: 96127; 99212 ==

== ENCOUNTER 2024-09-01 08:47 | Outpatient (REF) | payer MEDICARE, SELFPAY ==
--- OUTSIDE RECORDS SUMMARY | 2023-03-12 09:30 | XMS_ITS ---
Author Organization [facility] Address [address] [place] [id number] Care Team Providers Care Journalism Intern Name Role Phone Abilio Robin MD Primary Care Provider Kalyan Meade [phone] [address] VISIT abn ct scan of colon,other malignant neuroendocrines tumors Encounters Encounter Location Date Provider Diagnosis [facility] [place] [place] Out[place] [address] [place] [phone] 03/12/2023 Kalyan Velasquez Plan Of Treatment No Information Progress Notes * DARBY CASTILLOLIS LDOB:[birth year] (79 yo F)Acc No.[id number]:03/12/2023 EGD and COL/MAC Patient: ALEXANDRA REYES Provider: Aurelia Velasquez MD :1945 A ge:77 Y S ex:Female Date:03/12/2023 Address[address], [facility] Pcp:Abilio Robin MD Subjective: * Chief Complaints: [...] 03/12/2023 Generated for Jai betancourt/Monse/Jessica on: 0 09/01/2024 09:13 AM EDT
--- NOTE | ~2024-09-01 | US_ITS ---
EXAMINATION: US ABDOMEN HISTORY: R79.89 - Other specified abnormal findings of blood chemistry TECHNIQUE: Real-time grayscale ultrasound imaging of the abdomen was performed and images were reviewed. COMPARISON: Comparison is made with the prior examination dated 12/09/2022. FINDINGS: Liver: The right lobe of the liver measures 17.0 cm in size. The left lobe of the liver measures 14.0 cm in size. The liver demonstrates markedly heterogeneous echotexture with multiple masses noted measuring up to 4.9 cm in size, consistent with known metastatic disease. No intrahepatic biliary ductal dilatation is identified. There is normal hepatopedal flow in the portal vein. Gallbladder and biliary tree: There is echogenic sludge in the gallbladder. There are polyps measuring up to 7 mm in size. There is no wall thickening or pericholecystic fluid. The technologist reports that the patient is diffusely tender throughout the abdomen. The common bile duct is normal in caliber measuring 3 mm. Kidneys: The right kidney measures 10.8 cm in length. The left kidney measures 11.7 cm in length. There is a 1.2 cm cyst at the lower pole of the left kidney and a 0.7 cm cyst at the upper pole of the left kidney. There is a 1.4 x 0.7 x 1.3 cm nonobstructing left renal calculus. There is no hydronephrosis. Pancreas: The pancreatic head and neck are unremarkable. The pancreatic body and tail are heterogeneously hypoechoic. Spleen: The spleen is normal in size and contour, measuring 10.6 cm in length. Abdominal aorta and inferior vena cava: The visualized portions of the abdominal aorta and inferior vena cava are normal in caliber. There is no free fluid in the abdomen. US/US abdomen complete IMPRESSION: 1. Diffuse hepatic metastatic disease as seen previously. 2. Echogenic sludge in the gallbladder with multiple gallbladder polyps measuring up to 7 mm in size. The patient is diffusely tender throughout the abdomen. If there is clinical concern for acute cholecystitis, HIDA scan could be performed. 3. 1.4 cm nonobstructing left renal calculus. 4. Heterogeneous appearing pancreatic body and tail. Electronically signed by: Kalyan Ruiz MD 09/01/2024 10:54 AM EDT
--- OUTSIDE RECORDS SUMMARY | 2024-09-01 09:13 | XMS_ITS | Patient Health Record ---
Author Organization [facility] Address [address] [place] [address] Care Team Providers Care Meeting Manager Name Role Phone Abilio Robin Primary Care Provider Anabel Salcedo [phone] Allergies Allergen (clinical drug ingredient) Drug/Non Drug Allergy documented on EMR Reaction Allergy Type Onset Date Status meperidine demerol (uncoded) refuses Allergy A ctive Reason For Referral No Information Medications Medication SIG (Take, Route, Frequency, Duration) Notes Start Date End Date Status Metoprolol Succinate Active Lisinopril Active Atorvastatin Calcium Active ASA Active Krill Oil Active traMADol HCl Active Vitamin D Active Clotrimazole-Betamethason e 1-0.05 % 1 application to affected area Externally Twice a day to affected areas on feet; Duration: 30 days 04/03/2015 Active Ciclopirox Olamine 0.77% external Apply to effected areas twice a day; Duration: 30 days 02/22/2015 Active Chantix Not-Taking Problems No Known Problems Plan Of Treatment Pending Test Test Name Order Date [id number] NAIL, 6 OR MORE 04/03/2015 Insurance Providers Payer Name Payer Address Payer Phone Subscriber Number Group Number Insured Name Patient Relationship to Insured Coverage Start Date Coverage End Date [facility] [id number] [place] [id number] [id number] Ann Nash Self - patient is the insured Medical (General) History Medical History History ICD Code asthma Back,Hip,and Knee pain High blood pressure COPD Sciatica Measles Chicken pox Surgical History Surgery Date(Month/Year) appendectomy 07/2011 heart attack/stent 05/2009 spinal fusion c-3-c-5
--- OUTSIDE RECORDS SUMMARY | 2024-09-01 09:13 | XMS_ITS | Clinical Summary ---
Author Organization [facility] Address [address] [facility] [address] [place] [address] Phone Care Team Providers Care Pipe Fitter Name Role Phone Abilio Robin MD Primary Care Provider [phone] Tonja Ortiz MD Unavailable [phone] Keo Darby MD Unavailable [phone] Felecia Wiggins MD Unavailable [phone] Allergies Active Allergy Reactions Criticality Noted Date Comments Meperidine Unknown 08/11/2023 Morphine Rash Low 08/11/2023 Medications temozolomide (TEMODAR) 250 MG capsule Take by mouth daily 05/20/19 24 Active temozolomide (TEMODAR) 100 MG capsule Take by mouth daily 07/10/19 24 Active SENNA 8.6 mg tablet Take 2 tablets by mouth nightly at bedtime as needed for constipation. 05/21/19 24 Active polyethylene glycol (MIRALAX) 17 gram/dose powder Take 17 g by mouth daily. 05/21/19 24 Active oxyCODONE 5 MG immediate release tablet Take 5 mg by mouth every 6 (six) hours as needed for pain (specific location in comments). 07/30/19 24 Active ondansetron (ZOFRAN-ODT) 8 MG disintegrating tablet Take 8 mg by mouth every 8 (eight) hours as needed for nausea. 07/10/19 24 Active omeprazole (PRILOSEC) 40 MG capsule Take 40 mg by mouth daily. 07/22/19 Active nystatin (MYCOSTATIN) 100,000 units/mL suspension Swish and spit 10 mL 4 (four) times a day. 05/14/19 Active morphine (MS CONTIN) 30 MG ER tablet Take 30 mg by mouth 2 (two) times a day. 07/30/19 Active lisinopril (PRINIVIL,ZESTRIL) 40 MG tablet Take 20 mg by mouth daily. Active WIXELA INHUB 250-50 mcg/dose DISKUS Inhale 250 mcg/actuation of fluticasone into the lungs 2 (two) times a day. Active famotidine (PEPCID) 20 MG tablet Take 20 mg by mouth 2 (two) times a day. 05/20/19 Active cyclobenzaprine (FLEXERIL) 10 MG tablet Take 10 mg by mouth nightly at bedtime. at bedtime. 05/12/19 Active capecitabine (XELODA) 500 MG tablet 0 Refills, Maintenance, 05/20/23 7:13:00 EDT, Partial fill upon patient request if the prescription is for a schedule II opioid drug. 05/20/19 Active capecitabine (XELODA) 150 MG tablet 0 Refills, Maintenance, 05/20/23 7:13:00 EDT, Partial fill upon patient request if the prescription is for a schedule II opioid drug. 05/20/19 24 Active atorvastatin (LIPITOR) 80 MG tablet Take 80 mg by mouth daily. 07/01/19 Active amLODIPine (NORVASC) 5 MG tablet Take 5 mg by mouth daily. Active Active Problems Problem Noted Date Diagnosed Date Abdominal pain 08/11/2023 Abnormal computed tomography of sigmoid colon Arteriosclerosis of coronary artery 08/11/2023 Benign essential hypertension 08/11/2023 Benign neoplasm of colon 08/11/2023 Class 1 obesity 08/11/2023 Diverticulosis of sigmoid colon 08/11/2023 Fecal soiling 08/11/2023 Hemorrhoid 08/11/2023 History of appendectomy 08/11/2023 History of colonic polyps 08/11/2023 History of tonsillectomy 08/11/2023 Hyperlipidemia 08/11/2023 Long-term use of aspirin therapy 08/11/2023 Metastatic carcinoid tumor 08/11/2023 Myocardial infarction 08/11/2023 Polyp of colon 08/11/2023 Family History Medical History Relation Comments Cardiovascular disease Father Throat cancer Father Alzheimer's disease Mother Relation Status Comments Father Mother Social History Tobacco Use Types Packs/Day Years Used Date Smoking Tobacco: Former Cigarettes Q uit: 05/12/2018 Smokeless Tobacco: Former Tobacco Cessation:Counseling Given: Not Answered Child or Family Care Answer Date Record ed Do you have problems with on e of the following making it difficult for you to work, study, or receive health care? No 08/06/2023 Education Answer Date Recorded Are you interested in more education? Not on emil e 03/10/2023 Are you concerned about learning? Not on file 03/10/2023 No 03/10/2023 No 03/10/2023 Food Answer Date Recorded Within the past 6 months we worried whether our food would run out before we got money to buy more. Never True 08/06/2023 Within the past 6 months the food we bought just didn't last and we didn't have enough money to get more. Never True Residential Stability Answer Date Recor ded What is your housing situation today? I have juli sing 08/06/2023 How many times have you move d in the past 12 months? Zero (I did not move) 08/06/2023 Paying for Meds Answer Date Recorded Do you have trouble paying for medicines? Yes 08/06/2023 Paying Utility Bills Answer Date Record ed Do you have trouble paying your heating or elect ricity bill? No 08/06/2023 Transportation Answer Date Recorded Has the lack of transportati on kept you from medical appointments or from getting medications? No 08/06/2023 Digital Access Answer Date Recorded No 03/10/2023 No 03/10/2023 Reliable internet access at home? Not on file 03/10/2023 Device with a working camera? Not on file Comments Unknown Sex and Gender Information Value Date Recorded Sex Assigned at Female 07/17/2023 12:37 PM EDT Legal Sex Female 6:53 PM EST Gender Identity Female 07/17/2023 12:37 PM EDT Sexual Orientation Straight 07/17/2023 12 :37 PM EDT Last Filed Vital Signs Vital Sign Reading Time Taken Comments Blood Pressure 129/62 08/06/2023 3:13 PM EDT Pulse 85 08/06/2023 3:13 PM EDT Temperature 36.8 C (98.3 F) 08/06/2023 3:12 PM EDT Respiratory Rate 16 08/06/2023 3:10 PM EDT Oxygen Saturation 96% 08/06/2023 3:13 PM EDT Inhaled Oxygen Concentration - - Weight 64.3 kg (141 lb 12.1 oz) 08/06/2023 3:10 PM EDT Height 148.9 cm (4' 10.62 ) 08/06/2023 3:10 PM E DT Body Mass Index 29 08/06/2023 3:10 PM EDT Plan of Treatment Health Maintenance Due Date Last Done Comments Adult Td,Tdap Booster 1945 CREATININE LEVEL 1947 POTASSIUM LEVEL 1947 DEPRESSION SCREENING 1959 SMOKING Hx and SMOKELESS TOBACCO SCREENING 1960 HEPATITIS C SCREENING 1965 OSTEOPOROSIS SCREENING INITI AL (ONE-TIME) 2012 RSV VACCINE (1 - 1-dose 75+ series) 2022 COVID-19 VACCINE (2023-2 5 season) 2023 12/15/2020, 05/02/2020, 04/04/2020 BLOOD PRESSURE 02/05/2024 08/06/2023 PNEUMOCOCCAL VACCINES (50+ years) Completed 09/10/2017, 01/23/2015 ZOSTER VACCINES Completed 11/24/2019, 10/01/2019 HEPATITIS A VACCINES Aged Out No long er eligible based on patient's age to complete this topic HIB VACCINES Aged Out No longer eligi ble based on patient's age to complete this topic MENINGOCOCCAL VACCINES (ACWY) Aged Out No longer eligible based on patient's age to complete this topic MENINGOCOCCAL VACCINES (B) Aged Out N o longer eligible based on patient's age to complete this topic Medical Devices Not on file Insurance [place] BLUE REPLACEMENT [facility] MEDICARE PPO BLUE REPLACEMENT [facility] MEDICARE PPO BLUE REPLACEMENT [facility] MEDICARE PPO BLUE REPLACEMENT [facility] MEDICARE PPO BLUE REPLACEMENT Care Teams Pipe Fitter Relationship Specialty Start Date End Date Po, Abilio Hernandez MD [address] [place] [phone] PCP - General 02/19/23 Tonja Ortiz MD [address] [place] [phone] [email or web address] Referring Physician Internal Medicine 07/17/23 Keo Darby MD [address] [place] [phone] [email or web address] Medical Oncology 07/17/23 Felecia Wiggins MD [address] [place] [phone] Hematology and Oncology 07/17/23 Additional Source Comments The information contained in this document represents components of the legal health record. It is not the complete legal health record.[facility]
== END 2024-09-01 08:48 | disposition home or self-care (01) ==
LOC: HO.HMGCX 08:47
PROVIDERS: PCP Internal Medicine; Visit Provider Internal Medicine
DX: R79.89 Other specified abnormal findings of blood chemistry (principal); R10.11 Right upper quadrant pain
CPT/HCPCS: 76700

== ENCOUNTER → 2024-09-01 08:52 | Outpatient (BNV) | payer MEDICARE, SELFPAY | PROVIDERS: PCP Internal Medicine; Visit Provider Radiology Diagnostic Radiology | DX: C78.7 Secondary malignant neoplasm of liver and intrahepatic bile duct (principal) | CPT/HCPCS: 76700 ==

== ENCOUNTER → 2024-09-06 14:37 | Outpatient (BNV) | payer MEDICARE, SELFPAY | PROVIDERS: PCP Internal Medicine; Visit Provider Radiology Diagnostic Radiology | DX: C78.7 Secondary malignant neoplasm of liver and intrahepatic bile duct (principal) | CPT/HCPCS: 74183 ==

== ENCOUNTER 2024-09-06 15:02 | Outpatient (REF) | payer MEDICARE, SELFPAY ==
--- OUTSIDE RECORDS SUMMARY | 2023-03-12 09:30 | XMS_ITS ---
Author Organization [facility] Address [address] [place] [id number] Care Team Providers Care Outbound Sales Consultant Name Role Phone Abilio Robin MD Primary Care Provider Kalyan Meade [phone]IT ab[address] scan of colon,other malignant neuroendocrines tumors Encounters Encounter Location Date Provider Diagnosis [facility] [place] [facility] [address] [place] [phone] 03/12/2023 Kalyan Velasquez Plan Of Treatment No Information Progress Notes * DARBY CASTILLOLIS LDOB:[birth year] (79 yo F)Acc No.[id number]:03/12/2023 EGD and COL/MAC Patient: ALEXANDRA REYES Provider: Aurelia Velasquez MD :1945 A ge:77 Y S ex:Female Date:03/12/2023 [id number] Pcp:Abilio Robin MD Subjective: * Chief Complaints: * [address] scan of colon,other malignant neuroendocrines tumors. * Medical History: Objective: * Vitals: Assessment: Plan: * Treatment: * * The named appointment provid er may or may not be the originator of this progress note, and it is not deemed complete until electronically signed by the appointment provider. Sign off status: Pending * Provider: Aurelia Velasquez MD Date: 0 03/12/2023 Generated for Jai betancourt/Monse/Jessica on: 0 09/06/2024 03:54 PM EDT
--- NOTE | ~2024-09-06 | MR_ITS ---
EXAMINATION: MR ABDOMEN WITHOUT THEN WITH IV CONTRAST HISTORY: Assess response to treatment COMPARISON: Comparison is made with the prior examination dated 04/13/2024. TECHNIQUE: Axial in and out of phase T1-weighted gradient echo, axial diffusion weighted, and axial and coronal HASTE T2 with fat saturation images were obtained through the abdomen. 3D MRCP Reconstructed and thin and thick slab images of the biliary tree were obtained. Subsequently, fat suppressed axial and coronal T1-weighted images were obtained after the intravenous administration of 7 mL Gadavist. FINDINGS: Liver: There is no loss of signal intensity in the liver on opposed phase imaging to suggest steatosis. Again seen are numerous masses scattered throughout the liver, many of which are confluent. There is associated capsular retraction and surface nodularity. The lesions are mildly T2 hyperintense and demonstrate enhancement and restricted diffusion. Many of the masses appear larger. For instance, a mass in segment IV (series 5, image 17) measures 3.7 x 3.4 x 3.4 cm (previously 2.8 x 2.8 x 2.9 cm). The hepatic and portal veins are patent. There is no intrahepatic biliary dilatation. Gallbladder/biliary tree: Again seen is heterogeneous material in the gallbladder which is T1 hyperintense and may represent sludge or hemorrhagic bile. The common bile duct is normal in caliber. No intraluminal filling defects are identified to suggest choledocholithiasis. Spleen: The spleen is unremarkable. Pancreas: Tiny foci of restricted diffusion are noted in the pancreas which are not seen on any other sequence.. There is no enhancing pancreatic mass. The pancreatic duct is normal in caliber. Adrenals: The adrenal glands are unremarkable. Kidneys: There are small cysts in both kidneys. There is no hydronephrosis. Lymph nodes: Again seen is a 2.1 cm T2 hyperintense para-aortic lesion which demonstrates mild enhancement and likely represents a lymph node. Fluid: There is no ascites in the upper abdomen. Visualized bowel: The visualized small and large bowel loops are unremarkable in appearance. Visualized bones: There is grade I spondylolisthesis of L4 on L5. MR/MR abdomen wo/w con IMPRESSION: Progression of hepatic metastatic disease as described. Electronically signed by: Kalyan Ruiz MD 09/07/2024 07:42 AM EDT RP
--- OUTSIDE RECORDS SUMMARY | 2024-09-06 15:54 | XMS_ITS | Patient Health Record ---
Author Organization [facility] Address [address] [place] [address] Care Team Providers Care Wool Tamper Name Role Phone Abilio Robin Primary Care Provider Anabel Salcedo [phone] Allergies Allergen (clinical drug ingredient) Drug/Non Drug [...] Treatment Pending Test Test Name Order Date [id number] NAIL, 6 OR MORE 04/03/2015 Insurance Providers Payer Name Payer Address Payer Phone Subscriber Number Group Number Insured Name Patient Relationship to Insured Coverage Start Date Coverage End Date [facility] [address] LISA [place]ison [phone] [id number] Ann Nash Self - patient is the insured Medical (General) History Medical History History ICD Code asthma Back,Hip,and Knee pain High blood pressure COPD Sciatica Measles Chicken pox Surgical History Surgery Date(Month/Year) appendectomy 07/2011 heart attack/stent 05/2009 spinal fusion c-3-c-5
--- OUTSIDE RECORDS SUMMARY | 2024-09-06 15:54 | XMS_ITS | Clinical Summary ---
Author Organization [facility] Address [address] [facility] [address] [place] [address] Phone Care Team Providers Care Referral Clerk Name Role Phone Abilio Robin MD Primary Care Provider [phone] Tonja Ortiz MD Unavailable [phone] Keo Darby MD Unavailable [phone] Felecia Wiggins MD Unavailable [phone] Allergies Active Allergy Reactions Criticality Noted Date [...] [place] BLUE REPLACEMENT [facility] MEDICARE PPO BLUE REPLACEMENT [facility] MEDICARE PPO BLUE REPLACEMENT [facility] MEDICARE PPO BLUE REPLACEMENT [facility] MEDICARE PPO BLUE REPLACEMENT Care Teams Referral Clerk Relationship Specialty Start Date End Date Po, Abilio Hernandez MD [address] [place] [phone] PCP - General 02/19/23 Tonja Ortiz MD [address] [place] [phone] [email or web address] Referring Physician Internal Medicine 07/17/23 Keo Darby MD [address] [place] [phone] [email or web address] Oncology 07/17/23 Felecia Wiggins MD [address] [place] [phone] Hematology and Oncology 07/17/23 Additional Source Comments The information contained in this document represents components of the legal health record. It is not the complete legal health record.[facility]
== END 2024-09-06 15:03 | disposition home or self-care (01) ==
LOC: HO.MRI 15:02
PROVIDERS: PCP Internal Medicine; Visit Provider Internal Medicine
DX: C7A.8 Other malignant neuroendocrine tumors (principal); C7B.8 Other secondary neuroendocrine tumors
CPT/HCPCS: 74183; A9585

== ENCOUNTER 2024-09-15 12:39 | Outpatient (AMB) | payer MEDICARE, SELFPAY ==
--- OUTSIDE RECORDS SUMMARY | 2023-03-19 09:00 | XMS_ITS ---
Author Organization [facility] Address [address] [place] [id number] Care Team Providers Care Director Of Market Analysis Name Role Phone Abilio Robin MD Primary Care Provider Kalyan Meade [phone] REASON FOR VISIT malignant neuendocrine tumors,abn ct csan colon Encounters Encounter Location Date Provider Diagnosis [facility] [place] [facility] [address] [place] [phone] 03/19/2023 Kalyan Velasquez Plan Of Treatment No Information Progress Notes * FATUMA CASTILLOS LDOB:[birth year] (79 yo F)Acc No.[id number]:03/19/2023 EGD and COL/MAC Patient: ALEXANDRA REYES Provider: Aurelia Velasquez MD :1945 A ge:77 Y S ex:Female Date:03/19/2023 [address] [facility] Pcp:Abilio Robin MD Subjective: * Chief Complaints: * 1 . Malignant neuendocrine tumors,abn ct csan colon. * Medical History: Objective: * Vitals: Assessment: Plan: * Treatment: * * The named appointment provid er may or may not be the originator of this progress note, and it is not deemed complete until electronically signed by the appointment provider. Sign off status: Pending * Provider: Aurelia Velasquez MD Date: 0 03/19/2023 Generated for Jai betancourt/Monse/Stefanyitting on: 0 09/15/2024 12:42 PM EDT
--- OUTSIDE RECORDS SUMMARY | 2024-09-15 12:42 | XMS_ITS | Clinical Summary ---
Author Organization [facility] Address [address] [facility] [address] [place] [address] Phone Care Team Providers Care Precision Instrument Maker Name Role Phone Abilio Robin MD Primary Care Provider [phone] Tonja Ortiz MD Unavailable [phone] Keo Darby MD Unavailable [phone] Felecia Wiggins MD Unavailable [phone] Allergies Active Allergy Reactions Criticality Noted Date [...] [place] REPLACEMENT [address] [facility] MEDICARE PPO BLUE REPLACEMENT [address] [facility] MEDICARE PPO BLUE REPLACEMENT [address] [facility] MEDICARE PPO BLUE REPLACEMENT [facility] MEDICARE PPO BLUE REPLACEMENT [address] [facility] MEDICARE PPO BLUE REPLACEMENT [address] [facility] MEDICARE PPO BLUE REPLACEMENT [facility] MEDICARE PPO BLUE REPLACEMENT [address] [facility] MEDICARE PPO BLUE REPLACEMENT [address] [facility] MEDICARE PPO BLUE REPLACEMENT [facility] MEDICARE PPO BLUE REPLACEMENT [facility] MEDICARE PPO BLUE REPLACEMENT Care Teams Precision Instrument Maker Relationship Specialty Start Date End Date Po, Abilio Hernandez MD [address] [place] [phone] PCP - General 02/19/23 Tonja Ortiz MD [address] [place] [phone] [email or web address] Referring Physician Internal Medicine 07/17/23 Keo Darby MD [address] [place] [phone] [email or web address] Medical Oncology 07/17/23 Felecia Wiggins MD [address] [place] [phone] Hematology and Oncology 07/17/23 Additional Source Comments The information contained in this document represents components of the legal health record. It is not the complete legal health record.[facility]
--- OUTSIDE RECORDS SUMMARY | 2024-09-15 12:42 | XMS_ITS | Patient Health Record ---
Author Organization [facility] Address [address] [place] [address] Care Team Providers Care Supervisor Final Name Role Phone Abilio Robin Primary Care Provider Anabel Salcedo [phone] Allergies Allergen (clinical drug ingredient) Drug/Non Drug [...] Treatment Pending Test Test Name Order Date [id number] NAIL, 6 OR MORE 04/03/2015 Insurance Providers Payer Name Payer Address Payer Phone Subscriber Number Group Number Insured Name Patient Relationship to Insured Coverage Start Date Coverage End Date [facility] [address] [place] [phone] [id number] Ann Nash Self - patient is the insured Medical (General) History Medical History History ICD Code asthma Back,Hip,and Knee pain High blood pressure COPD Sciatica Measles Chicken pox Surgical History Surgery Date(Month/Year) appendectomy 07/2011 heart attack/stent 05/2009 spinal fusion c-3-c-5
--- NOTE | 2024-09-15 12:49 | MHC.OFFVIS ---
Vital Signs 09/15/24 12:50 Height 5 ft Weight 154 lb 5.177 oz BMI 30.1 BP 108/66 Blood Pressure Location Lt brachial Position Sitting Pulse 63 Pulse Source Pulse Oximeter Intake Visit Reasons: f/up mibi/ echo/cta Intake Note: f/up mibi echo and cta feeling ok . Fuel Handler Required: No Allergies No Known Allergies Allergy (Verified 07/28/24 12:55) Medication List - Last Reconciled 09/15/24 by Greg Stephen MD albuterol sulfate 2.5 mg (3 mL) inhalation Q6H aspirin (Adult Aspirin Regimen) 81 mg PO DAILY atorvastatin 40 mg PO DAILY cabozantinib 60 mg PO DAILY docusate sodium 50 mg PO BID fluticasone propion-salmeterol 250-50 mcg/dose (Wixela Inhub) 1 inh inhalation BID 30 days fluticasone propionate 50 mcg/actuation 2 sprays intranasal DAILY lisinopril 20 mg PO DAILY loperamide 2 mg PO Q6H PRN metoprolol succinate ER 25 mg PO DAILY morphine ER (MS Contin) 30 mg PO Q12H ondansetron 8 mg PO Q8H PRN oxycodone 5 mg PO Q4H PRN psyllium husk (Metamucil) 1 tsp PO DAILY HPI Comments Details: Ann comes for follow-up. She was recently told that she has worsening of her neuroendocrine tumor with increasing size. There was planned to change her chemotherapy. She underwent recently coronary CTA showed diffuse three-vessel coronary disease but mild severity and nonobstructive lesions. She has had no recurrent chest pain. She is taking all her medications. [facility] Medical History Liver lesion Liver mass Heart attack (~2009) Serrated adenoma of colon (~2015) Generalized anxiety disorder History of COVID-19 (~01/2020) Right upper lobe pulmonary nodule Pulmonary nodules Personal history of nicotine dependence Osteopenia (~2013) Peptic ulcer disease Ulnar nerve entrapment Carpal tunnel syndrome Osteoarthritis Peripheral neuropathy Vitamin D deficiency Renal calculus Obesity (BMI 30-39.9) Hypertension COPD (chronic obstructive pulmonary disease) Coronary artery disease Hypercholesterolemia Surgical History History of colonoscopy History of appendectomy (~07/2011) History of fusion of cervical spine (~07/2003) History of meniscectomy of left knee (~05/2014) History of heart artery stent (~2009) History of removal of ureteral stent (~2017) History of tonsillectomy History of lithotripsy (~2017) Family History Father CVD (cardiovascular disease) Throat cancer HTN (hypertension) Mother Alzheimer disease Social History Household Members: None Housing: House Alcohol intake: current Alcohol intake frequency: holidays/special occasions only Patient Tobacco Use Status: Former Tobacco user Tobacco use type: Cigarette e-Cigarette/Vaping Use: Never Used Second Hand Smoke Exposure: No service: No Current occupational status: employed 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 Hearing needs: No Vision needs: Yes (Glasses) Review of Systems Const Denies chills, Denies fatigue, Denies fever(s), Denies frequent falls, Denies weakness, Denies weight gain and Denies weight loss ENT Denies dizziness Card Denies chest pain, Denies leg edema, Denies lightheadedness, Denies palpitations, Denies dyspnea, Denies dyspnea on exertion, Denies orthopnea and Denies other (loss of consciousness) Resp Denies cough, Denies dyspnea and Denies dyspnea on exertion GI Denies hematochezia and Denies change in stool character Musc Denies abnormal gait, Denies muscle weakness, Denies numbness, Denies radiating pain into limb and Denies tingling Neuro Denies abnormal gait, Denies dizziness, Denies frequent falls, Denies numbness, Denies tingling and Denies weakness Endo Denies fatigue and Denies palpitations Physical Exam Vital Signs: Last Vital Signs Pulse 63 09/15/24 12:50 BP 108/66 09/15/24 12:50 BMI result Body Mass Index 30.1 Const General: cooperative, comfortable, alert and awake Nutritional Appearance: obese Orientation/consciousness: patient oriented x3 Limitations: no limitations HEENT Head: Yes normal to inspection, Yes normocephalic and Yes atraumatic Eyes General: appearance normal, both eyes and all related structures Neck Neck: Yes trachea midline, Yes supple and Yes no JVD Carotids: other ( No carotid bruit) Chest Chest palpation & inspection: normal inspection of the chest Resp Effort & Inspection: normal respiratory effort Auscultation: clear to auscultation bilaterally and diminished lung sounds Cardio Jugular venous distension: no JVD Palpation: normal PMI Rate: regular rate Rhythm: regular rhythm Heart sounds: S1 normal heart sound present, S2 normal heart sound present and Other heart sounds present ( soft S4) Peripheral pulses: Peripheral pulses 2+ throughout GI Inspection: Yes obesity Auscultation: normal bowel sounds Skin General skin exam: no rashes or lesions noted and ecchymosis Neuro General: patient oriented x3 and no focal motor deficits Extrem General: Yes no clubbing, cyanosis or edema Psych Appearance: grossly normal Assessment & Plan Assessment & Plan (1) Coronary artery disease: Comment: (2009 - STEMI /VFib arrest - s/p stent to circumflex) Code(s): I25.10 - Atherosclerotic heart disease of [place] coronary artery without angina pectoris Category: Medical Qualifiers: Coronary Disease-Associated Artery/Lesion type: [place] artery Lime vs. transplanted heart: [place] heart Associated angina: without angina Qualified Code(s): I25.10 - Atherosclerotic heart disease of [place] coronary artery without angina pectoris Plan: CAD which is nonobstructive by coronary CTA. This carries overall good prognosis. Does not require any further interventional or invasive therapy. Continue aggressive medical therapy. Low-dose aspirin therapy. Continue high-intensity statin therapy with target goal LDL less than 70 mg/dL. Continue aggressive blood pressure control. (2) Hypertension: Code(s): I10 - Essential (primary) hypertension Category: Medical Qualifiers: Hypertension type: essential hypertension Qualified Code(s): I10 - Essential (primary) hypertension Plan: Hypertension which is currently well optimized advised to monitor blood pressure at home maintain a log. Goal blood pressure less than 130/84. Low-salt diet was discussed. Continue current therapy. Advised to participate in regular physical activity as tolerated. Will follow up in the clinic in 1 year's time, sooner p.r.n.. Thank you for allowing me to partake in her care Coding Level of Care Code Est Pt Level 4 (65017) Complex EM visit Add On G2211 Diagnoses Coronary artery disease involving [place] coronary artery of [place] heart without angina pectoris I25.10 Coronary Disease-Associated Artery/Lesion type: [place] artery Lime vs. transplanted heart: [place] heart Associated angina: without angina Essential hypertension I10 Hypertension type: essential hypertension
[2024-09-15 12:50] VITALS: BP 108/66; PULSE 63; BMI 30.1
== END 2024-09-15 13:10 | disposition home or self-care (01) ==
LOC: HO.HCS 12:40
PROVIDERS: PCP Internal Medicine; Visit Provider Internal Medicine Cardiovascular Disease
DX: I25.10 Atherosclerotic heart disease of native coronary artery without angina pectoris (principal); I10 Essential (primary) hypertension
CPT/HCPCS: 99214; G2211

== ENCOUNTER → 2024-09-15 12:39 | Outpatient (BNVA) | payer MEDICARE, SELFPAY | PROVIDERS: PCP Internal Medicine; Visit Provider Internal Medicine Cardiovascular Disease | DX: I25.10 Atherosclerotic heart disease of native coronary artery without angina pectoris (principal); I10 Essential (primary) hypertension | CPT/HCPCS: 99212 ==

== ENCOUNTER → 2024-09-23 07:45 | Outpatient (REF) | payer MEDICARE, SELFPAY ==
--- NOTE | ~2024-09-23 | NM_ITS ---
EXAMINATION: NM HEPATOBILIARY WITH PHARM HISTORY: R10.11 - Right upper quadrant pain. TECHNIQUE: An hepatobiliary scan was performed following the intravenous administration of 5 mCi technetium 99m-mebrofenin. Sequential images were obtained over 1 hour. Subsequently, the patient received 1.4 microgram of IV CCK over 30 minutes and additional imaging was performed. COMPARISON: Correlation is made with an MRI of the abdomen dated 09/06/2024. FINDINGS: There is normal uptake and excretion of the radiopharmaceutical by the liver. Multiple cold defects are seen within the liver consistent with metastatic disease as noted on prior imaging. Gallbladder activity is noted at 67 minutes. Common bile duct activity is seen at 20 minutes. Small bowel activity is noted at 24 minutes. After the administration of intravenous CCK, the estimated gallbladder ejection fraction is 61%, which is within normal limits (normal 35-80%). NM/NM hepatobiliary w pharm IMPRESSION: 1. No evidence of acute cholecystitis. 2. Cold defects within the liver, consistent with metastatic disease as noted on prior imaging. 3. Normal gallbladder ejection fraction. Electronically signed by: Kalyan Ruiz MD 09/23/2024 10:47 AM EDT
--- OUTSIDE RECORDS SUMMARY | 2024-09-23 07:48 | XMS_ITS | Clinical Summary ---
Author Organization [facility] Address [address] [place] [address] Phone Care Team Providers Care Fast Food Manager Name Role Phone Abilio Robin MD Primary Care Provider [phone] Tonja Ortiz MD Unavailable [phone] Keo Darby MD Unavailable [phone] Felecia Wiggins MD Unavailable [phone] Allergies Active Allergy Reactions Criticality Noted Date [...] [place] BLUE REPLACEMENT [facility] MEDICARE PPO BLUE REPLACEMENT [facility] MEDICARE PPO BLUE REPLACEMENT [facility] MEDICARE PPO BLUE REPLACEMENT [facility] MEDICARE PPO BLUE REPLACEMENT Care Teams Fast Food Manager Relationship Specialty Start Date End Date Po, Abilio Hernandez MD [address] [place] [phone] PCP - General 02/19/23 Tonja Ortiz MD [address] [place] [id number] [email or web address] Referring Physician Internal Medicine 07/17/23 Keo Darby MD [address] [place] [phone] [email or web address] 07/17/23 Felecia Wiggins MD [address] [place] [phone] Hematology and Oncology 07/17/23 Additional Source Comments The information contained in this document represents components of the legal health record. It is not the complete legal health record.[facility]
--- OUTSIDE RECORDS SUMMARY | 2024-09-23 07:48 | XMS_ITS | Patient Health Record ---
Author Organization [facility] Address [address] [place] [address] Care Team Providers Care Activities Coordinator Name Role Phone Abilio Robin Primary Care Provider Anabel Salcedo [phone] Allergies Allergen (clinical drug ingredient) Drug/Non Drug [...] Treatment Pending Test Test Name Order Date [id number] NAIL, 6 OR MORE 04/03/2015 Insurance Providers Payer Name Payer Address Payer Phone Subscriber Number Group Number Insured Name Patient Relationship to Insured Coverage Start Date Coverage End Date [facility] [address] [place] [phone] [id number] Ann Nash Self - patient is the insured Medical (General) History Medical History History ICD Code asthma Back,Hip,and Knee pain High blood pressure COPD Sciatica Measles Chicken pox Surgical History Surgery Date(Month/Year) appendectomy 07/2011 heart attack/stent 05/2009 spinal fusion c-3-c-5
--- OUTSIDE RECORDS SUMMARY | 2024-09-23 07:48 | XMS_ITS | Patient Health Record ---
Author Organization [facility] Address [address] [place] [address] Care Team Providers Care Dulite Machine Bluer Name Role Phone Po Abilio ASHRAF Primary Care Provider Kalyan Meade [phone] Allergies No Known Allergies Reason For Referral [...] Status Risk Notes Problem Colon cancer screening (274730824) Colon cancer screening (Z12.11) Active confirmed Problem 294907403 Encounter for screening for malignant neoplasm of colon (Z12.11) Active confirmed Problem Constipation (40557570) Constipation (K59.00) Active confirmed Problem History of polyp of colon (situation) (603187575) Personal history of colonic polyps (Z86.010) Active confirmed Problem 9506193048 Other malignant neuroendocrine tumors (C7A.8) Active confirmed Problem Screening for malignant neoplasm of rectum (014510339) Encounter for screening for malignant neoplasm of rectum (Z12.12) Active confirmed Problem 08335820 Preprocedural examination (Z01.818) Active confirmed Problem 323275629 Abnormal CT scan , colon (R93.3) Active confirmed Problem 127065297 Long-term use of aspirin therapy (Z79.82) Active confirmed Problem Irregular bowel habits (430728337) Irregular bowel habits (R19.8) Active confirmed Problem Diverticulosis of sigmoid colon (719823201) Diverticulosis of sigmoid colon (K57.30) Active confirmed Problem 195218482 Abnormal compute d tomography of sigmoid colon (R93.3) Active confirmed Problem Fecal soiling (255842138) Fecal soiling (R15.1) Active confirmed Problem Benign neoplasm of colon (70409858) Serrated adenoma of colon (D12.6) Active confirmed Problem 57914483 Metastasis to liver (C78.7) Active confirmed Vital Signs Blood pressure diastolic 111 mm Hg 05/03/2024 Height 59.75 in 05/03/2024 Blood pressure systolic 111 mm Hg 05/03/2024 Weight 155 lbs 05/03/2024 BMI 30.52 kg/m2 05/03/2024 Encounters Encounter Location Date Provider Diagnosis [facility] [address] [place] [address] 05/03/2024 Kalyan Velasquez Metastasis to liver C78.7 [...] Insured Coverage Start Date Coverage End Date [facility] [address] [place] [address] [id number] ANN CASTILLO Self - patient is the [...] with chemotherapy and by Dr. Wiggins at [facility] with embolization ablation treatment of some of the larger lesions in the liver. Surgical History Surgery Date(Month/Year) liver ablasions [facility] dr. varun peter resently on chemo 2023 Neck surgery to remove hardware 11/2020 Tonsillectomy Left knee surgery/meniscus tear 2015 Appendectomy 2011 Cervical spinal fusion 2000
== END ==
LOC: HO.NUCMED 07:45
PROVIDERS: PCP Internal Medicine; Visit Provider Internal Medicine
DX: R10.11 Right upper quadrant pain (principal)
CPT/HCPCS: 78227; A9537; J2805

== ENCOUNTER → 2024-09-23 08:00 | Outpatient (BNV) | payer MEDICARE, SELFPAY | PROVIDERS: PCP Internal Medicine; Visit Provider Radiology Diagnostic Radiology | DX: C78.7 Secondary malignant neoplasm of liver and intrahepatic bile duct (principal) | CPT/HCPCS: 78227 ==

== ENCOUNTER 2024-11-05 14:42 | Inpatient (IN) | payer MEDICARE, SELFPAY ==
[2024-11-05] VITALS (13 sets, daily range): BP systolic 83–141; BP diastolic 56–85; PULSE 81–92; RESP 14–20; TEMP 36.5–36.7; O2SAT 94–97; BMI 29.3
--- NOTE | ~2024-11-05 | CT_ITS ---
CLINICAL HISTORY: epigastric pain CT abdomen and pelvis with contrast Comparison: MR/SR - MR ABDOMEN WITHOUT THEN WITH IV CONTRAST - 09/06/24 15:20 EDT Findings: Small volume free fluid in the pelvis. Mild diffuse small bowel wall thickening. No abnormally dilated loop of small bowel. No significant abnormality of the colon. No findings of appendicitis or diverticulitis. Innumerable hepatic hypodensity suspicious for metastases. Dominant left and right hepatic lobe mass measuring 8 cm. Perihepatic small volume ascites. Small volume perisplenic ascites. Otherwise normal spleen. Unremarkable pancreas and adrenal glands. No significant abnormality of the kidneys or ureters. Urinary bladder is within normal limits. Bones intact. IMPRESSION: 1. Progression of hepatic metastatic disease when compared with 09/06/2024 MRI. 2. Diffuse small bowel wall thickening may indicate enteritis, either infectious or potentially portal enteropathy. This document has been electronically signed by: Caleb Coronado MD on 11/05/2024 19:27:43
--- NOTE | 2024-11-05 14:44 | ED.GENADULT ---
HPI - General Adult General Chief complaint: Abdominal Pain Stated complaint: abd pain Time Seen by Provider: 11/05/24 16:03 History of Present Illness HPI narrative: Patient is a 79-year-old female presents today with having abdominal pain nausea diarrhea that is been ongoing for the past few weeks getting worse in the last few days. Patient's diarrhea is brown in color. There is no blood. Has a history of neuroendocrine tumor with Mets to the liver currently is undergoing chemo on a daily basis. Patient from home. There is no fever no chills. There is also blisters noted on her right big toe. There is no vomiting. Pain mostly over the epigastric area no history of abdominal surgery done in the past. No chest pain or shortness of breath no diaphoresis. No recent antibiotics. Related Data Home Medications ?Medication ?Instructions ?Recorded ?Confirmed docusate sodium 50 mg capsule 50 mg PO BID 03/11/24 10/21/24 aspirin 81 mg tablet,delayed 81 mg PO DAILY 06/22/24 10/21/24 release (Adult Aspirin Regimen) Previous Rx's ?Medication ?Instructions ?Recorded loperamide 2 mg tablet 2 mg PO Q6H PRN Diarrhea #30 tabs 03/10/23 fluticasone propionate 50 2 spray intranasal DAILY #48 mL 07/15/23 mcg/actuation nasal spray,suspension fluticasone 250 mcg-salmeterol 50 1 inh inhalation BID copd 30 days 12/09/23 mcg/dose blistr powdr for #60 ea inhalation (Wixela Inhub) lisinopril 20 mg tablet 20 mg PO DAILY #90 tabs 01/26/24 albuterol sulfate 2.5 mg/3 mL 2.5 mg (3 mL) inhalation Q6H #180 04/22/24 (0.083 %) solution for nebulization mL metoprolol succinate 25 mg 25 mg PO DAILY #90 tabs 07/08/24 tablet,extended release 24 hr atorvastatin 40 mg tablet 40 mg PO DAILY #90 tabs 07/18/24 cabozantinib 60 mg tablet 60 mg PO DAILY #30 tabs 09/13/24 amlodipine 10 mg tablet 10 mg PO DAILY #30 tabs 09/30/24 ondansetron 8 mg disintegrating 8 mg PO Q8H PRN Nausea And 10/03/24 tablet Vomiting #30 tabs morphine 30 mg tablet,extended 30 mg PO Q12H #60 tabs 10/21/24 release (MS Contin) oxycodone 5 mg tablet 5 mg PO Q4H PRN Pain (Scale Score 10/21/24 7-10) #60 tabs Allergies Allergy/AdvReac Type Severity Reaction Status Date / Time No Known Allergies Allergy Verified 11/05/24 14:49 Review of Systems Review of Systems: Positive abdominal pain PMFSH Past Medical History Attestation statement: The following information was validated with the patient. Medical History Liver lesion Liver mass Heart attack (~2009) Serrated adenoma of colon (~2015) Generalized anxiety disorder History of COVID-19 (~01/2020) Right upper lobe pulmonary nodule Pulmonary nodules Personal history of nicotine dependence Osteopenia (~2013) Peptic ulcer disease Ulnar nerve entrapment Carpal tunnel syndrome Osteoarthritis Peripheral neuropathy Vitamin D deficiency Renal calculus Obesity (BMI 30-39.9) Hypertension COPD (chronic obstructive pulmonary disease) Coronary artery disease Hypercholesterolemia Surgical History History of colonoscopy History of appendectomy (~07/2011) History of fusion of cervical spine (~07/2003) History of meniscectomy of left knee (~05/2014) History of heart artery stent (~2009) History of removal of ureteral stent (~2017) History of tonsillectomy History of lithotripsy (~2017) Family History Family History Father CVD (cardiovascular disease) Throat cancer HTN (hypertension) Mother Alzheimer disease Social History Social History Household Members: None Housing: House Alcohol intake: current Alcohol intake frequency: holidays/special occasions only Patient Tobacco Use Status: Former Tobacco user Tobacco use type: Cigarette Smoked in Last 30 Days: No e-Cigarette/Vaping Use: Never Used Second Hand Smoke Exposure: No Use of substances other than those prescribed or required for medical reasons: Yes Advance Directives: No Advance Directives Information Provided: No service: No Current occupational status: employed 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 Oriented X3. No acute distress. Eyes: Pupils equal, round and reactive to light. ENT: Pharynx normal. Neck: Normal inspection. Neck supple. No lymph nodes noted. No crepitus CVS: Normal heart rate and rhythm. Pulses normal. Normal S1 and S2 Respiratory: No respiratory distress. Breath sounds normal. No Wheezing. No rales Abdomen: Soft and nontender. No rigidity. No distention. good BS x4 Skin: Skin warm and dry. Normal skin color. Normal skin turgor. Extremities: No lower extremity edema. Neurovascular intact to all extremities. No Lacerations. No Rash Neuro: Oriented X 3. No motor deficit. No sensory deficit. Moving all extermities. No slurred speech Vital Signs: Vital Signs - 24 hr 11/05/24 14:44 11/05/24 15:28 11/05/24 16:50 Temperature 97.7 F 97.7 F 97.7 F Pulse Rate 92 89 81 Respiratory Rate 16 16 18 Blood Pressure 118/72 116/81 105/63 Pulse Oximetry 94 97 95 Oxygen Delivery Method Room Air Room Air Room Air BMI result Body Mass Index 29.3 Course Course Course Narrative: This is a rapid medical exam performed by Allyson Chang NP: Additional HPI, ROS, PE not included below will be deferred to primary provider. 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 Started Cabometyx 7 weeks ago, sxs worsening since starting this. Blistering to soles of feet. Sent in by Dr. Lane. Plan: labs, UA Medications Administered Discontinued Medications Generic Name Dose Route Start Last Admin Trade Name Freq PRN Reason Stop Dose Admin Ceftriaxone Sodium 1 gm 11/05/24 17:23 11/05/24 18:08 Ceftriaxone Sodium 1 Gm Vial IVPUSH 11/05/24 17:24 1 gm ONCE ONE Administration Sodium Chloride 1,000 mls @ 999 mls/hr 11/05/24 17:30 11/05/24 18:08 Ns IV 11/05/24 18:30 999 mls/hr .Q1H1M BALDOMERO Administration Sodium Chloride 1,000 mls @ 999 mls/hr 11/05/24 17:30 11/05/24 18:08 Ns IV 11/05/24 18:30 999 mls/hr .Q1H1M BALDOMERO Administration Magnesium Sulfate 2 gm in 50 mls @ 150 mls/hr 11/05/24 17:22 11/05/24 19:43 Magnesium Sulfate/H2o IV 11/05/24 17:41 Infused ONCE ONE Infusion Iohexol 100 ml 11/05/24 18:31 11/05/24 18:31 Iohexol 350 Mg/Ml 100 Ml Infus..Btl IV 11/05/24 18:32 85 ml ONCE ONE Administration Medical Decision Making Medical Decision Making [facility] Narrative: 79 years old with a history of neuroendocrine tumor presented today with having nausea diarrhea symptom has been ongoing getting worse over the last few weeks. Patient's CT scan of the abdomen showed no acute obstruction it does stroke fairly extensive enteritis. Given IV fluid hydrated. Patient's labs were basically okay. Had a long discussion with patient. Wants to stay in the hospital for additional hydration. Urine also infected. Review patient's previous culture sensitive to Rocephin. Currently in stable condition hospitalist team consulted will admit for further evaluation Differential Diagnosis Differential Diagnoses: The differential diagnosis associated with the presentation includes Dehydration, diarrhea, enteritis Admission/Observation Consideration of admission/observation: Escalation of care including admission/observation considered Consult Healthcare Provider Management of the patient was discussed with: Hospitalist Lab Data [facility] Lab Attestation statement: I reviewed the patient's lab results. 11/05/24 14:58 11/05/24 14:58 Labs: Lab Results 11/05/24 11/05/24 11/05/24 Range/Units 14:58 15:05 17:42 WBC 6.2 (4.8-10.8) X10*3/uL RBC 4.96 (4.20-5.50) X10*6/uL Hgb 15.2 (12.0-16.0) g/dl Hct 44.4 (37.0-47.0) % MCV 89.5 (80.0-98.0) fL MCH 30.6 (27.0-33.0) pg MCHC 34.2 (31.0-35.0) g/dl RDW 17.8 H (11.0-16.0) % Plt Count 71 L (160-400) X10*3/uL MPV 11.6 (9.4-12.3) fL Immature Gran % (Auto) 0.3 (0.0-0.4) % Neut % (Auto) 67.9 (45-73) % Lymph % (Auto) 25.7 (20-40) % [place] % (Auto) 5.5 (2-11) % Eos % (Auto) 0.3 (0-4) % Baso % (Auto) 0.3 (0-2) % Lymph # (Auto) 1.6 (1.2-4.9) X10*3/uL [place] # (Auto) 0.3 (0.1-1.2) X10*3/uL Eos # (Auto) 0.0 (0.0-0.4) X10*3/uL Baso # (Auto) 0.0 (0.0-0.2) X10*3/uL Abs Immat Gran (auto) 0.02 (0.00-0.03) X10*3/uL Absolute Neuts (auto) 4.2 (2.0-8.3) x10*3/uL Absolute Nucleated RBC 0.000 (0.0-0.012) X10*3/uL Nucleated RBC % (auto) 0.0 (0.0-0.2) /100WBC ESR 2 (0-20) MM/HR PT 11.9 (10.9-12.4) SEC INR 1.0 (0.9-1.1) Sodium 140 (135-145) mmol/L Potassium 4.3 (3.3-5.1) mmol/L Chloride 109 H (96-108) mmol/L Carbon Dioxide 24 (22-29) mmol/L Anion Gap 11 L (12-20) BUN 12 (9-16) mg/dL Creatinine 0.92 (0.5-1.4) mg/dL Estim Creat Clear Calc 44.0 Estimated GFR 59 Random Glucose 152 H (60-115) mg/dL Lactic Acid 1.3 (0.5-2.0) mmol/L Calcium 8.3 L (8.4-10.2) mg/dL Magnesium 1.3 L* (1.6-2.6) mg/dL Total Bilirubin 1.4 H (0.0-1.0) mg/dL AST 88 H (5-31) U/L ALT 51 H (0-31) U/L Alkaline Phosphatase 146 H (39-117) U/L C-Reactive Protein 0.46 (< or = 0.50) mg/dL Total Protein 6.4 L (6.5-8.0) g/dL Albumin 3.6 (3.5-5.0) g/dL Lipase 29 (8-78) U/L Urine Color Dark Yellow Urine Appearance Cloudy Urine pH 5.5 (5.0-9.0) Ur Specific Purcell 1.020 (1.005-1.025) Urine Protein 30 (1+) H (Neg-Trace) mg/dL Urine Glucose (UA) Negative (Negative) mg/dL Urine Ketones Negative (Negative) mg/dL Urine Blood Negative (Negative) Urine Nitrite Negative (Negative) Ur Leukocyte Esterase Moderate (2+) H (Negative) Urine RBC 0-2 (0-2) /HPF Urine WBC >50 H (0-5) /HPF Ur Squamous Epith Cells >20 (0-2) /HPF Urine Bacteria 3+ (None Seen) Hyaline Casts 0-2 (0-2) /LPF Independent Interpretation I performed an independent interpretation of an: CT Scan (No obvious obstruction) Radiology Impression Discussion of test interpretation with radiology: I have reviewed the radiologist's reading. External Record Review External record reviewed: Inpatient record Social Determinants Patient?s care significantly limited by Social Determinants of Health including: Problems related to primary support group Discharge Plan Discharge Clinical Impression: Diarrhea, Enteritis Patient Disposition: Admitted As Inpatient Print Language: Swazi
[2024-11-05 15:06] LABS: MANUAL DIFF FLAG NO
[2024-11-05 15:11] LABS: Hematocrit 44.4 % (37.0-47.0); Hemoglobin 15.2 g/dl (12.0-16.0); Imm Gran Abs Auto 0.02 X10*3/uL (0.00-0.03); Imm Gran Pct Auto 0.3 % (0.0-0.4); Lymphocytes Absolute Auto 1.6 X10*3/uL (1.2-4.9); Mean Corpuscular HGB Conc 34.2 g/dl (31.0-35.0); Mean Corpuscular Hemoglobin 30.6 pg (27.0-33.0); Mean Corpuscular Volume 89.5 fL (80.0-98.0); NRBC Abs Auto 0.000 X10*3/uL (0.0-0.012); NRBC Pct Auto 0.0 /100WBC (0.0-0.2); Platelet Count 71 X10*3/uL (160-400); Red Blood Count 4.96 X10*6/uL (4.20-5.50); White Blood Count 6.2 X10*3/uL (4.8-10.8)
[2024-11-05 15:14] LABS: Appearance Urine Cloudy; Glucose Urine UA Negative (Negative); PH 5.5 (5.0-9.0); Specific Gravity - Urine 1.020 (1.005-1.025); UMIC TRIGGER UACC YES
[2024-11-05 15:19] LABS: INTERNATIONAL NORM RATIO 1.0 (0.9-1.1); Prothrombin Time 11.9 SEC (10.9-12.4)
[2024-11-05 15:19] LABS: UACC Culture Trigger YES
--- NOTE | 2024-11-05 15:31 | PC.NURSE ---
Patient presents to Ed c/o ABD pain rated 9/10 in the LUQ and RUQ and radiates to right mid back Patient reports having diarrhea. patient has blistering on feet, patient believes it to be a side effect of new medication cabometyx VSS provider in to see patient
[2024-11-05 15:39] LABS: Alanine Aminotransferase 51 U/L (0-31); Albumin Level 3.6 g/dL (3.5-5.0); Alkaline Phosphatase 146 U/L (39-117); Anion Gap 11 (12-20); Aspartate Amino Transferase 88 U/L (5-31); Blood Urea Nitrogen 12 mg/dL (9-16); Calcium 8.3 mg/dL (8.4-10.2); Carbon Dioxide 24 mmol/L (22-29); Chloride 109 mmol/L (96-108); Creatinine Clr Calc Pharmacy 44.0; Estimated Glomerular Filt Rate 59; Lipase 29 U/L (8-78); Magnesium 1.3 mg/dL (1.6-2.6); Potassium 4.3 mmol/L (3.3-5.1); Sodium 140 mmol/L (135-145); Total Protein 6.4 g/dL (6.5-8.0)
--- OUTSIDE RECORDS SUMMARY | 2024-11-05 16:02 | XMS_ITS | Patient Health Record ---
[facility] Organization [facility] Address [address] [place] [address] Care Team Providers Care Jazz Singer Name Role Phone Abilio Robin Primary Care Provider Anabel Salcedo [phone] Allergies Allergen (clinical drug ingredient) Drug/Non Drug [...] Treatment Pending Test Test Name Order Date [id number] NAIL, 6 OR MORE 04/03/2015 Insurance Providers Payer Name Payer Address Payer Phone Subscriber Number Group Number Insured Name Patient Relationship to Insured Coverage Start Date Coverage End Date [facility] [address] [place] [phone] [id number] Ann Nash Self - patient is the insured Medical (General) History Medical History History ICD Code asthma Back,Hip,and Knee pain High blood pressure COPD Sciatica Measles Chicken pox Surgical History Surgery Date(Month/Year) appendectomy 07/2011 heart attack/stent 05/2009 spinal fusion c-3-c-5
--- OUTSIDE RECORDS SUMMARY | 2024-11-05 16:02 | XMS_ITS | Patient Health Record ---
Author Organization [facility] Address [address] [place] [address] Care Team Providers Care Mineral Resources Inspector Name Role Phone Po Abilio ASHRAF Primary Care Provider Kalyan Meade [phone] Allergies No Known Allergies Reason For Referral [...] Status Risk Notes Problem Colon cancer screening (809326932) Colon cancer screening (Z12.11) Active confirmed Problem 818912180 Encounter for screening for malignant neoplasm of colon (Z12.11) Active confirmed Problem Constipation (33867765) Constipation (K59.00) Active confirmed Problem History of polyp of colon (situation) (794195627) Personal history of colonic polyps (Z86.010) Active confirmed Problem 3200142298 Other malignant neuroendocrine tumors (C7A.8) Active confirmed Problem Screening for malignant neoplasm of rectum (615777230) Encounter for screening for malignant neoplasm of rectum (Z12.12) Active confirmed Problem 06505813 Preprocedural examination (Z01.818) Active confirmed Problem 350765828 Abnormal CT scan , colon (R93.3) Active confirmed Problem 906280838 Long-term use of aspirin therapy (Z79.82) Active confirmed Problem Irregular bowel habits (143473708) Irregular bowel habits (R19.8) Active confirmed Problem Diverticulosis of sigmoid colon (835968541) Diverticulosis of sigmoid colon (K57.30) Active confirmed Problem 518470302 Abnormal compute d tomography of sigmoid colon (R93.3) Active confirmed Problem Fecal soiling (019603698) Fecal soiling (R15.1) Active confirmed Problem Benign neoplasm of colon (45438489) Serrated adenoma of colon (D12.6) Active confirmed Problem 16145610 Metastasis to liver (C78.7) Active confirmed Vital Signs Blood pressure diastolic 111 mm Hg 05/03/2024 Height 59.75 in 05/03/2024 Blood pressure systolic 111 mm Hg 05/03/2024 Weight 155 lbs 05/03/2024 BMI 30.52 kg/m2 05/03/2024 Encounters Encounter Location Date Provider Diagnosis [facility] [address] [place] [address] 05/03/2024 Kalyan Velasquez Metastasis to liver C78.7 [...] Insured Coverage Start Date Coverage End Date [facility] [address] [place] [address] [id number] ANN CASTILLO Self - patient is the insured Medical (General) History Medical History History ICD Code GA 2009-has 1 stent--fine since--sees Dr Kike Stephen [...] with chemotherapy and by Dr. Wiggins at [facility] with embolization ablation treatment of some of the larger lesions in the liver. Surgical History Surgery Date(Month/Year) liver ablasions [facility] dr. varun peter resently on chemo 2023 Neck surgery to remove hardware 11/2020 Tonsillectomy Left knee surgery/meniscus tear 2015 Appendectomy 2011 Cervical spinal fusion 2000
--- OUTSIDE RECORDS SUMMARY | 2024-11-05 16:02 | XMS_ITS | Clinical Summary ---
Author Organization [facility] Address [address] [place] [id number] Phone Care Team Providers Care Mobile Device Developer Name Role Phone Abilio Robin MD Primary Care Provider [phone] Tonja Ortiz MD Unavailable [phone] Keo Darby MD Unavailable [phone] Felecia Wiggins MD Unavailable Allergies Active Allergy Reactions Criticality Noted Date [...] mouth nightly at bedtime. at bedtime. 05/12/19 24 Active capecitabine (XELODA) 500 MG tablet 0 Refills, Maintenance, 05/20/23 7:13:00 EDT, Partial fill upon patient request if the prescription is for a schedule II opioid drug. 05/20/19 24 Active capecitabine (XELODA) 150 MG tablet 0 [...] 1960 HEPATITIS C SCREENING 1965 OSTEOPOROSIS SCREENING INITIAL (ONE-TIME) 2012 RSV VACCINE (1 - 1-dose 75+ series) 2022 BLOOD PRESSURE 02/05/2024 08/06/2023 INFLUENZA VACCINE (#1) 2024 3, 12/17/2021, 12/15/2020, Additional history exists COVID-19 VACCINE ( season) 2024 12/15/2020, 05/02/2020, 04/04/2020 PNEUMOCOCCAL VACCINES (50+ years) Completed 09/10/2017, 01/23/2015 [...] topic Medical Devices Not on file Insurance [facility] MEDICARE PPO BLUE REPLACEMENT [facility] MEDICARE PPO BLUE REPLACEMENT [facility] MEDICARE PPO BLUE REPLACEMENT [facility] MEDICARE PPO BLUE REPLACEMENT [facility] MEDICARE PPO BLUE REPLACEMENT [facility] MEDICARE PPO BLUE REPLACEMENT [facility] MEDICARE PPO BLUE REPLACEMENT [facility] MEDICARE PPO BLUE REPLACEMENT Care Teams Mobile Device Developer Relationship Specialty Start Date End Date Po, Abilio Hernandez MD [address] [place] [phone] PCP - General 02/19/23 Tonja Ortiz MD [address] [place] [id number] [email or web address] Physician Internal Medicine 07/17/23 Keo Darby MD [address] [place] [id number] [email or web address] Medical Oncology 07/17/23 Felecia Wiggins MD [address] [place] [address] Hematology and Oncology 07/17/23 Additional Source Comments The information contained in this document represents components of the legal health record. It is not the complete legal health record.[facility]
[2024-11-05] MEDS: Magnesium Sulfate/H2O 2 GM/50 ML PIGGYBACK IV (18:08)
[2024-11-05] MEDS: iohexoL 350 MG/ML 100 ML INFUS..BTL IV (18:31)
--- NOTE | 2024-11-05 20:04 | PM.HEMONCCN ---
Subjective - Subjective Chief complaint: Consult for: Neuro-endocrine Tumor of pancreas. Patient: known to practice within the last 3 years Consult date: 11/05/24 Requesting Physician: Zaire. Primary Care Provider: Abilio Robin MD Family Provider: Abilio Robin MD Medical Summary: DIAGNOSIS: Neuro-endocrine Tumor of Pancreas. Shingle Sawyer Utilized?: No - Guinean Speaking HPI - Consult Narrative Reason for consult: Consult for: Neuro-endocrine tumor of Pancreas. 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 She has had previous treatment with chemotherapy and Embolization. Most recently she has been on Cabozantinib, since 09/13. She presented with abdominal pain nausea diarrhea, ongoing for the past few weeks getting worse in the last few days. Pain mostly over the epigastric area. There is no vomiting. Patient's diarrhea is brown in color. There is no blood. No history of abdominal surgery done in the past. She also complains of blistering of her right big toe. There is no fever no chills. No chest pain or shortness of breath no diaphoresis. No recent antibiotics. PAST MEDICAL HISTORY: 1. 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 She presented with complaints of right upper quadrant pain since November 2022. Prior to that she noticed fecal incontinence, report tried liquid stools 2 to 3 times a day that forced her to wear diapers. She did have a colonoscopy in December 2021 which was negative. No complaints such as hematochezia or melena. Her appetite was good and no symptoms to suggest heartburn or reflux. She underwent ultrasound abdomen in November 2022 which showed multiple echogenic lesions largest in the left hepatic lobe measuring 4.[address] abdomen/pelvis with contrast performed in December 2022 revealed enlarged liver with multiple liver lesions consistent with metastatic disease. PET DOTATATE scan was performed at [facility] on 03/09/2023. This revealed heterogenous uptake within liver representing areas of necrosis SUV max in right hepatic lobe of 9.6. There was also uptake in the tail of pancreas SUV 13.6 for a lesion measuring 1 cm. Focal increased uptake along sigmoid colon max SUV 10, no CT correlate identified. Nonobstructing 0.5 cm left renal calculus. I was not able to see images but intervention radiologist at [facility] Dr. Wiggins has reviewed images, there appears to be minimal uptake on the PET DOTATATE scan and tail of pancreas is the most likely primary. She was scheduled for EGD/colonoscopy with Dr. Velasquez but patient did not want to go through another procedure. MRI abdomen performed March 2023 showed homogeneous signal or enhancement of pancreas without discrete lesion, numerous hepatic lesions suggesting metastatic disease. Possible enlarged left para-aortic lymph node measuring 1.6 x 2.7 cm. She was started on systemic chemotherapy 03/17/23, with CAPTEM, capecitabine 750 milligram/meter squared day 1-14 and temozolomide 200 milligram/meter squared day 10 to 14q28 day cycle which has best disease control for well-differentiated neuroendocrine tumors of pancreas that are not eligible for PRRT/liver directed therapies or surgery. She was seen at [facility] by Dr. Darby, she was recommended to stay the course. MRI abdomen in September 2023 showed positive treatment response with decrease in size of many of the lesions. Abdomen MRI performed 05/05/2023 shows numerous enhancing lesions in the right and left hepatic lobe similar to previous examination. She underwent embolization of lesions in right lobe of liver on 05/20/2023. She underwent embolization of lesion in left lobe of liver on 07/01/2023. She was admitted to [facility] on 02/18/24 with complaints of abdominal pain. She underwent imaging which revealed gallbladder sludge without evidence of cholecystitis. A 12 mm hypoechoic lesion in the neck of the pancreas which correlates with MRI from [facility]. 2. She does have cardiac stent, had an ND around 2009. FAMILY HISTORY: She denies any family history of cancer, no personal history of cancer. SOCIAL HISTORY: She quit smoking 7 years ago. She was on lung cancer screening program because of extensive past smoking history. [facility] Medical History: Medical History (Last Reviewed 11/05/24 @ 17:28 by Lucy Bailey MD) Carpal tunnel syndrome COPD (chronic obstructive pulmonary disease) Coronary artery disease Generalized anxiety disorder Heart attack Onset Date: ~2009 History of COVID-19 Onset Date: ~01/2020 Hypercholesterolemia Hypertension Liver lesion Liver mass Obesity (BMI 30-39.9) Osteoarthritis Osteopenia Onset Date: ~2013 Peptic ulcer disease Peripheral neuropathy Personal history of nicotine dependence Pulmonary nodules Renal calculus Right upper lobe pulmonary nodule Serrated adenoma of colon Onset Date: ~2015 Ulnar nerve entrapment Vitamin D deficiency Family History: Family History (Last Reviewed 11/05/24 @ 17:28 by Lucy Bailey MD) Father CVD (cardiovascular disease) Throat cancer HTN (hypertension) Mother Alzheimer disease Surgical History: Surgical History (Last Reviewed 11/05/24 @ 17:28 by Lucy Bailey MD) History of appendectomy Onset Date: ~07/2011 History of colonoscopy History of fusion of cervical spine Onset Date: ~07/2003 History of heart artery stent Onset Date: ~2009 History of lithotripsy Onset Date: ~2017 History of meniscectomy of left knee Onset Date: ~05/2014 History of removal of ureteral stent Onset Date: ~2017 History of tonsillectomy Social History: Social History (Last Reviewed 10/21/24 @ 11:21 by Anny Sánchez) Living Situation History: Household Members: None Housing: Apartment Do you presently have visiting nurse or other home services: No Alcohol History Details: 1. How often do you have a drink containing alcohol?: a. Never 3. How often do you have six or more drinks on one occasion?: a. Never AUDIT-C Alcohol total score: 0 Tobacco History: Patient Tobacco Use Status: Former Tobacco user Tobacco use type: Cigarette Smoked in Last 30 Days: No e-Cigarette/Vaping Use: Never Used Second Hand Smoke Exposure: No Substance Use History: Use of substances other than those prescribed or required for medical reasons: Yes Domestic Abuse History: Have you been hit, kicked, punched, or otherwise hurt by someone within the past year? If so, by whom?: No Do you feel safe in your current relationship?: Yes Is there a partner from a previous relationship who is making you feel unsafe now?: No Are you made to feel afraid or neglected: No Advance Directives: Advance Directives: No Advance Directives Information Provided: No Homicidal Assessment: Do you have a plan to hurt others: No Plan Nutrition Assessment: Recently lost weight without trying: Yes How much weight loss: 34pounds or more Eating poorly because of decreased appetite: Yes Nutrition screen score: 7 Nutrition Risks: Acute nausea or vomiting Patient : No : No Poor oral hygiene: No Occupation Assessmet: service: No Current occupational status: employed 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 Home Medications and Allergies Current Medications: Current Medications Acetaminophen (Acetaminophen 325 Mg Tablet) 650 mg PO Q6H PRN PRN Reason: Pain, Mild 1-3,fever,headache Calcium Carbonate (Calcium Carbonate 750 Mg Tab.Chew) 750 mg PO Q4H PRN PRN Reason: Heartburn Enoxaparin Sodium (Enoxaparin Sodium 40 Mg/0.4 Ml Syringe) 40 mg SUBCUT Q24H BALDOMERO Lactated Ringer's (Lr) 1,000 mls @ 100 mls/hr IVCONT .Q10H BALDOMERO Magnesium Hydroxide (Milk Of Magnesia 30 Ml Oral.Susp) 30 ml PO DAILY PRN PRN Reason: Constipation Melatonin (Melatonin 3 Mg Tablet) 6 mg PO BEDTIME PRN PRN Reason: Insomnia Sodium Chloride (0.9 % Sodium Chloride Flush 3 Ml Syringe) 3 ml IVFLUSH QSHIFT BALDOMERO Home Medications ?Medication ?Instructions ?Recorded ?Confirmed ?Type albuterol sulfate 2.5 mg/3 mL 2.5 mg inhalation Q6H PRN 11/06/24 11/06/24 History (0.083 %) solution for nebulization Shortness Of Breath Or Wheezing cabozantinib 60 mg tablet 60 mg PO BEDTIME 11/06/24 11/06/24 History fluticasone 250 mcg-salmeterol 50 1 inh inhalation BID copd 11/06/24 11/06/24 History mcg/dose blistr powdr for inhalation (Wixela Inhub) vitamin B complex 1 tab PO DAILY 11/06/24 11/06/24 History Allergies Allergy/AdvReac Type Severity Reaction Status Date / Time No Known Allergies Allergy Verified 11/05/24 14:49 Physical Exam Vital signs: Vital Signs Temp 98.1 F 11/05/24 19:47 Pulse 91 11/05/24 19:47 Resp 20 11/05/24 19:47 BP 141/85 H 11/05/24 19:47 Pulse Ox 96 11/05/24 19:47 O2 Del Method Room Air 11/05/24 19:47 Intake & Output 11/05/24 11/05/24 11/06/24 06:59 18:59 06:59 Intake Total 50 / 50 Balance 50 / 50 Intake: Intake, IV Amount 50 / 50 Magnesium Sulfate/H2O 2 gm In 50 / 50 50 ml @ 150 mls/hr IV ONCE ONE Rx#:[id number] Other: Weight 68.039 kg Weight 68.039 kg Hem/Onc Consult Result - Labs CBC & Chem 7: 11/06/24 06:43 11/06/24 06:43 Labs: Short CBC 11/05/24 Range/Units 14:58 WBC 6.2 (4.8-10.8) X10*3/uL Hgb 15.2 (12.0-16.0) g/dl Hct 44.4 (37.0-47.0) % Plt Count 71 L (160-400) X10*3/uL BMP 11/05/24 14:58 Sodium 140 Potassium 4.3 Chloride 109 H Carbon Dioxide 24 BUN 12 Creatinine 0.92 Calcium 8.3 L Liver Function 11/05/24 Range/Units 14:58 Total Bilirubin 1.4 H (0.0-1.0) mg/dL AST 88 H (5-31) U/L ALT 51 H (0-31) U/L Alkaline Phosphatase 146 H (39-117) U/L Albumin 3.6 (3.5-5.0) g/dL Urine 11/05/24 Range/Units 15:05 Urine Color Dark Yellow Urine Appearance Cloudy Urine pH 5.5 (5.0-9.0) Ur Specific Raymond 1.020 (1.005-1.025) Urine Protein 30 (1+) H (Neg-Trace) mg/dL Urine Glucose (UA) Negative (Negative) mg/dL Assessment and Plan Patient Active problem list reviewed?: Yes (1) Malignant neuroendocrine neoplasm of pancreas Status: Acute Assessment and plan: This is a 79 year old lady, with history of 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 She has had previous treatment with chemotherapy and Embolization. Most recently she has been on Cabozantinib, since 09/13. Chromogranin A level elevated at 4325 NG/mL. 24 hour 5 HIAA elevated at 32.6 mg/24 hours (less than equal to 6). She was started on long-acting octreotide 30 mg IM on 02/05/2023. Since her PET DOTATATE scan was not avid for gallium, she is not a candidate for Lutathera. However bland embolization for symptom relief/palliation is being done. She was started on systemic chemotherapy 03/17/23, with CAPTEM, capecitabine 750 milligram/meter squared day 1-14 and temozolomide 200 milligram/meter squared day 10 to 14q28 day cycle, until August 2024. MRI abdomen with and without contrast performed 09/06/2024 showed progression of hepatic metastatic disease. HIDA scan performed 09/23/2024 showed no evidence of acute cholecystitis. Her treatment was switched to cabozantinib 60 mg daily on 09/13/2024. Her abdominal pain had initially improved significantly. She takes MS Contin 30 mg b.i.d. and oxycodone 5-10 mg every 4- 6 hours as needed. She presented with abdominal pain nausea diarrhea, ongoing for the past few weeks getting worse in the last few days. Pain mostly over the epigastric area. There is no vomiting. Diarrhea is brown in color. No hematemesis nor jailyn. She also complains of blistering of her right big toe. Pt. has been admitted with abdominal pain, nausea, diarrhea and dermatological changes. Cat scan of abdomen from 11/05: 1. Progression of hepatic metastatic disease when compared with 09/06/2024 MRI. 2. Diffuse small bowel wall thickening may indicate enteritis, either infectious or potentially portal enteropathy. Noted to have UTI and Colitis. The GI and skin symptoms likely related to Cabozantinib. PLAN: Will hold for now. Stool studies are pending. Continue iv fluids. Mag normalized with replacement therapy. On Ceftriaxone for UTI. Adjust antibiotic in light of culture results. If diarrhea persists, consider flex. sig. Thanks for the consult, Will follow alongwith you, CC: Dr. Robin. - Time Spent With Patient Time Spent with Patient (in minutes): 30
[2024-11-05] MEDS: Lactated Ringers 1,000 ML 100 ML IVCONT (20:06)
--- NOTE | 2024-11-05 21:00 | PM.IMHP ---
History of Present Illness Date of Service: 11/05/24 Chief Complaint: Diarrhea 79-year-old female with a past medical history of neuroendocrine neoplasm of the pancreas with metastasis to the liver; GERD, osteopenia, COPD, diabetes, anxiety, depression, pulmonary nodules; presented to the hospital today with a chief complaint of diarrhea. Patient mentioned that she has been on cabozantinib for her neuroendocrine cancer; has been following with Dr. Oritz. She has been having abdominal pain for a while now but over the past week she has been having increased abdominal pains not improve with her home oxycodone. Also having diarrhea which is not improving with her home loperamide. Has had significant episodes of loose stools over the past couple days. Spoke to the oncology team who suggested to go to the ER for further evaluation. Reports severe abdominal pain diffusely and also decreased oral intake. Denies any chest pain or palpitations Denies any urinary symptoms. Review of all other systems is negative except mentioned above ER course: Per ER team, patient not have diffuse abdominal tenderness; serum pressure findings concerning for enteritis; noted liver metastasis slightly increased; given IV fluids. Urinalysis abnormal consistent with UTI. Given ceftriaxone. [facility] Medical History Liver lesion Liver mass Heart attack (~2009) Serrated adenoma of colon (~2015) Generalized anxiety disorder History of COVID-19 (~01/2020) Right upper lobe pulmonary nodule Pulmonary nodules Personal history of nicotine dependence Osteopenia (~2013) Peptic ulcer disease Ulnar nerve entrapment Carpal tunnel syndrome Osteoarthritis Peripheral neuropathy Vitamin D deficiency Renal calculus Obesity (BMI 30-39.9) Hypertension COPD (chronic obstructive pulmonary disease) Coronary artery disease Hypercholesterolemia Family History Father CVD (cardiovascular disease) Throat cancer HTN (hypertension) Mother Alzheimer disease Surgical History History of colonoscopy History of appendectomy (~07/2011) History of fusion of cervical spine (~07/2003) History of meniscectomy of left knee (~05/2014) History of heart artery stent (~2009) History of removal of ureteral stent (~2017) History of tonsillectomy History of lithotripsy (~2017) Social History Household Members: None Housing: House Alcohol intake: current Alcohol intake frequency: holidays/special occasions only Patient Tobacco Use Status: Former Tobacco user Tobacco use type: Cigarette Smoked in Last 30 Days: No e-Cigarette/Vaping Use: Never Used Second Hand Smoke Exposure: No Use of substances other than those prescribed or required for medical reasons: Yes Advance Directives: No Advance Directives Information Provided: No Nutrition Risks: Difficulty chewing service: No Current occupational status: employed 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 Hearing needs: No Vision needs: Yes (Glasses) Meds Allergies Allergy/AdvReac Type Severity Reaction Status Date / Time No Known Allergies Allergy Verified 11/05/24 14:49 Active Medications: Current Medications Acetaminophen (Acetaminophen 325 Mg Tablet) 650 mg PO Q6H PRN PRN Reason: Pain, Mild 1-3,fever,headache Calcium Carbonate (Calcium Carbonate 750 Mg Tab.Chew) 750 mg PO Q4H PRN PRN Reason: Heartburn Enoxaparin Sodium (Enoxaparin Sodium 40 Mg/0.4 Ml Syringe) 40 mg SUBCUT Q24H [facility] Last Admin: 11/05/24 20:06 Dose: 40 mg Lactated Ringer's (Lr) 1,000 mls @ 100 mls/hr IVCONT .Q10H [facility] Last Admin: 11/05/24 20:06 Dose: 100 mls/hr Magnesium Hydroxide (Milk Of Magnesia 30 Ml Oral.Susp) 30 ml PO DAILY PRN PRN Reason: Constipation Melatonin (Melatonin 3 Mg Tablet) 6 mg PO BEDTIME PRN PRN Reason: Insomnia Sodium Chloride (0.9 % Sodium Chloride Flush 3 Ml Syringe) 3 ml IVFLUSH QSHIFT [facility] Home Medications ?Medication ?Instructions ?Recorded ?Confirmed ?Last Taken ?Type docusate sodium 50 mg capsule 50 mg PO BID 03/11/24 10/21/24 Unknown History aspirin 81 mg tablet,delayed 81 mg PO DAILY 06/22/24 10/21/24 Unknown History release (Adult Aspirin Regimen) Physical Exam Vital Signs and Narrative: Vital Signs: Last Vital Signs Temp 98.1 F 11/05/24 19:47 Pulse 91 11/05/24 19:47 Resp 20 11/05/24 19:47 BP 141/85 H 11/05/24 19:47 Pulse Ox 96 11/05/24 19:47 O2 Del Method Room Air 11/05/24 19:47 BMI result Body Mass Index 29.3 Gen: Appears be in no acute distress HEENT: NCAT, Moist mucosa. Pulmonary: Vesicular breath sounds, fair air entry CVS: Normal S1-S2 Abdomen: BS+, Soft, mildly tender diffusely Extremities: Warm well perfused Neuro: Alert and awake. Results Labs 11/05/24 14:58 11/05/24 14:58 Labs: Laboratory Results - last 24 hr 11/05/24 11/05/24 11/05/24 14:58 15:05 17:42 MCV 89.5 MCH 30.6 MCHC 34.2 RDW 17.8 H Plt Count 71 L MPV 11.6 Immature Gran % (Auto) 0.3 Neut % (Auto) 67.9 Lymph % (Auto) 25.7 [place] % (Auto) 5.5 Eos % (Auto) 0.3 Baso % (Auto) 0.3 Lymph # (Auto) 1.6 [place] # (Auto) 0.3 Eos # (Auto) 0.0 Baso # (Auto) 0.0 Abs Immat Gran (auto) 0.02 Absolute Neuts (auto) 4.2 Absolute Nucleated RBC 0.000 Nucleated RBC % (auto) 0.0 ESR 2 PT 11.9 INR 1.0 Anion Gap 11 L Estim Creat Clear Calc 44.0 Estimated GFR 59 Random Glucose 152 H Lactic Acid 1.3 Calcium 8.3 L Magnesium 1.3 L* Total Bilirubin 1.4 H AST 88 H ALT 51 H Alkaline Phosphatase 146 H C-Reactive Protein 0.46 Total Protein 6.4 L Albumin 3.6 Lipase 29 Urine Color Dark Yellow Urine Appearance Cloudy Urine pH 5.5 Ur Specific [place] 1.020 Urine Protein 30 (1+) H Urine Glucose (UA) Negative Urine Ketones Negative Urine Blood Negative Urine Nitrite Negative Ur Leukocyte Esterase Moderate (2+) H Urine RBC 0-2 Urine WBC >50 H Ur Squamous Epith Cells >20 Urine Bacteria 3+ Hyaline Casts 0-2 Assessment and Plan (1) Enteritis: Status: Acute Plan 79-year-old female with a past medical history of neuroendocrine neoplasm of the pancreas with metastasis to the liver; GERD, osteopenia, COPD, hypertension, HLD, CAD, diabetes, anxiety, depression, pulmonary nodules; presented to the hospital today with a chief complaint of diarrhea. Diarrhea: CT scan showed findings concerning for enteritis Also possible side effect from her cabozantinib Supportive care Advanced diet as tolerated Gentle IV fluids UTI: Continue ceftriaxone. Follow up cultures. Pancreatic neuroendocrine neoplasm with liver metastasis: Abdominal pain: Slightly increased liver Mets on the current CAT scan. Oncology follow-up Pain control with Dilaudid. Generalized weakness: In the setting of multiple episodes of diarrhea/poor intact. Fall precautions. PT/OT when ready for discharge. Hypomagnesemia: Repleted Transaminitis: Patient has similar evaluation in the past. Will monitor. HTN/HLD: Hold home medications. Patient's blood pressure on softer. Continue IV fluids. Thrombocytopenia: denies signs of bleeding. We monitor. DVT prophylaxis: SCDs. Hold pharmacologic agent due to low plts. Code status: Full code Quality Stroke Does the patient have a stroke diagnosis?: No VTE Prior VTE?: No VTE Risk Level:: Medical - moderate - high VTE Device Contraindication: Treatment Not Indicated VTE Drug Contraindication: N/A - Med Ordered
--- NOTE | 2024-11-05 21:17 | HO.NURTONUR ---
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 She has had previous treatment with chemotherapy and Embolization. Most recently she has been on Cabozantinib, since 09/13. She presented with abdominal pain nausea diarrhea, ongoing for the past few weeks getting worse in the last few days. Pain mostly over the epigastric area. There is no vomiting. Diarrhea is brown in color. No hematemesis nor jailyn. She also complains of blistering of her right big toe. Patient's CT scan of the abdomen showed no acute obstruction it does show fairly extensive enteritis. Given IV fluid hydrated. Patient's labs were relatively unremarkable. After speaking w/ ED provider pt wants to stay in the hospital for additional hydration. Urine also infected. Currently in stable condition hospitalist team consulted will admit for further evaluation of abd pain, dehydration, diarrhea, enteritis Access: 20g in the r. ac w/ LR running at 100mL/hr
--- NOTE | 2024-11-05 21:45 | PC.NURSE ---
Addendum entered by Enrico Mortensen 11/05/24 21:48: most recent BP 96/60 after sitting pt up in bed, provider aware Original Note: pt BP noted to be 75/47 on the monitor, pt repositioned and BP done on opposite arm to be 83/60, provider Eugene Galo made aware at this time, verbal order to continue LR @100ml/hr and give hydrocortisone if BP drops down again
--- NOTE | 2024-11-05 22:09 | PC.NURSE ---
primary RN Enrico made aware of BP. pt denies sx at this time.
[2024-11-05] MEDS: Hydrocortisone Sod Succ/PF 100 MG VIAL 50 MG IVPUSH (22:25)
--- NOTE | 2024-11-05 22:26 | PC.NURSE ---
pt BP noted to drop to 87/56 @2209 providerEugene made aware, order for hydrocortisone placed, pt medicated per MAR
--- NOTE | 2024-11-05 23:40 | PC.NURSE ---
pt VSS stable at this time
[2024-11-06] VITALS: BP 116/73; PULSE 87; RESP 20; TEMP 36.2; O2SAT 96
[2024-11-06 04:00] VITALS: BP 119/73; PULSE 55; RESP 20; TEMP 36.8; O2SAT 95
[2024-11-06] MEDS: Lactated Ringers 1,000 ML 100 ML IVCONT ×2 (05:58→17:40)
[2024-11-06 07:42] VITALS: BP 122/64; PULSE 79; RESP 16; TEMP 36.2; O2SAT 96
[2024-11-06 07:47] LABS: MANUAL DIFF FLAG NO
[2024-11-06 07:50] LABS: NRBC Abs Auto 0.000 X10*3/uL (0.0-0.012); NRBC Pct Auto 0.0 /100WBC (0.0-0.2); PLT CLUMP 1; SCAN SMEAR FLAG 1
[2024-11-06 07:52] LABS: Hematocrit 39.8 % (37.0-47.0); Hemoglobin 13.2 g/dl (12.0-16.0); Imm Gran Abs Auto 0.02 X10*3/uL (0.00-0.03); Imm Gran Pct Auto 0.4 % (0.0-0.4); Lymphocytes Absolute Auto 1.5 X10*3/uL (1.2-4.9); Mean Corpuscular HGB Conc 33.2 g/dl (31.0-35.0); Mean Corpuscular Hemoglobin 30.3 pg (27.0-33.0); Mean Corpuscular Volume 91.3 fL (80.0-98.0); Red Blood Count 4.36 X10*6/uL (4.20-5.50)
[2024-11-06 08:00] LABS: Platelet Count 66 X10*3/uL (160-400); White Blood Count 5.3 X10*3/uL (4.8-10.8)
[2024-11-06 08:15] LABS: Alanine Aminotransferase 33 U/L (0-31); Albumin Level 2.9 g/dL (3.5-5.0); Alkaline Phosphatase 112 U/L (39-117); Anion Gap 9 (12-20); Aspartate Amino Transferase 66 U/L (5-31); Blood Urea Nitrogen 11 mg/dL (9-16); Calcium 7.6 mg/dL (8.4-10.2); Carbon Dioxide 24 mmol/L (22-29); Chloride 113 mmol/L (96-108); Creatinine Clr Calc Pharmacy 51.9; Estimated Glomerular Filt Rate > 60; Magnesium 1.7 mg/dL (1.6-2.6); Potassium 4.4 mmol/L (3.3-5.1); Sodium 142 mmol/L (135-145); Total Protein 5.0 g/dL (6.5-8.0)
--- NOTE | 2024-11-06 09:37 | HO.PM.IMPN ---
Subjective Subjective Date of Service: 11/06/24 Interval History: still with diarrhea Physical Exam Exam: Exam: General: AO X 3, no acute distress Resp: CTA bilateral, no accessory muscles used CVS: S1,S2,RRR GI: soft, non tender, non distended Neuro: motor grossly intact, alert Psych: appropriate affect, appropriate insight Vital Signs: Vital Signs: Last Vital Signs Temp 97.1 F 11/06/24 07:42 Pulse 79 11/06/24 07:42 Resp 16 11/06/24 07:42 BP 122/64 11/06/24 07:42 Pulse Ox 96 11/06/24 07:42 O2 Del Method Room Air 11/06/24 07:42 BMI result Body Mass Index 29.3 Objective Data Active Medications Acetaminophen (Acetaminophen 325 Mg Tablet) 650 mg PO Q6H PRN PRN Reason: Pain, Mild 1-3,fever,headache Last Admin: 11/06/24 09:11 Dose: 650 mg Documented By: ANDRE Calcium Carbonate (Calcium Carbonate 750 Mg Tab.Chew) 750 mg PO Q4H PRN PRN Reason: Heartburn Ceftriaxone Sodium (Ceftriaxone Sodium 1 Gm Vial) 1 gm IVPUSH Q24H [facility] Enoxaparin Sodium (Enoxaparin Sodium 40 Mg/0.4 Ml Syringe) 40 mg SUBCUT Q24H [facility] Last Admin: 11/05/24 20:06 Dose: 40 mg Documented By: JOSE Hydromorphone HCl (Hydromorphone Hcl 0.5 Mg/0.5 Ml Syringe) 0.5 mg IVPUSH Q4H PRN; Protocol PRN Reason: Breakthrough Pain Last Admin: 11/06/24 06:26 Dose: 0.5 mg Documented By: RAYA Lactated Ringer's (Lr) 1,000 mls @ 100 mls/hr IVCONT .Q10H [facility] Last Admin: 11/06/24 05:58 Dose: 100 mls/hr Documented By: RAYA Magnesium Hydroxide (Milk Of Magnesia 30 Ml Oral.Susp) 30 ml PO DAILY PRN PRN Reason: Constipation Melatonin (Melatonin 3 Mg Tablet) 6 mg PO BEDTIME PRN PRN Reason: Insomnia Sodium Chloride (0.9 % Sodium Chloride Flush 3 Ml Syringe) 3 ml IVFLUSH QSHIFT [facility] Last Admin: 11/06/24 08:56 Dose: Not Given Documented By: ANDRE Non-Admin Reason: IV Running Labs 11/06/24 06:43 11/06/24 06:43 Labs: Laboratory Results - last 24 hr 11/05/24 11/05/24 11/05/24 14:58 15:05 17:42 MCV 89.5 MCH 30.6 MCHC 34.2 RDW 17.8 H Plt Count 71 L MPV 11.6 Immature Gran % (Auto) 0.3 Neut % (Auto) 67.9 Lymph % (Auto) 25.7 [place] % (Auto) 5.5 Eos % (Auto) 0.3 Baso % (Auto) 0.3 Lymph # (Auto) 1.6 [place] # (Auto) 0.3 Eos # (Auto) 0.0 Baso # (Auto) 0.0 Abs Immat Gran (auto) 0.02 Absolute Neuts (auto) 4.2 Absolute Nucleated RBC 0.000 Nucleated RBC % (auto) 0.0 ESR 2 Hold Purple Top PT 11.9 INR 1.0 Anion Gap 11 L Estim Creat Clear Calc 44.0 Estimated GFR 59 Random Glucose 152 H Lactic Acid 1.3 Calcium 8.3 L Magnesium 1.3 L* Total Bilirubin 1.4 H AST 88 H ALT 51 H Alkaline Phosphatase 146 H C-Reactive Protein 0.46 Total Protein 6.4 L Albumin 3.6 Lipase 29 Urine Color Dark Yellow Urine Appearance Cloudy Urine pH 5.5 Ur Specific [place] 1.020 Urine Protein 30 (1+) H Urine Glucose (UA) Negative Urine Ketones Negative Urine Blood Negative Urine Nitrite Negative Ur Leukocyte Esterase Moderate (2+) H Urine RBC 0-2 Urine WBC >50 H Ur Squamous Epith Cells >20 Urine Bacteria 3+ Hyaline Casts 0-2 11/06/24 11/06/24 06:43 06:44 MCV 91.3 MCH 30.3 MCHC 33.2 RDW 17.9 H Plt Count 66 L MPV 11.5 Immature Gran % (Auto) 0.4 Neut % (Auto) 64.5 Lymph % (Auto) 28.1 [place] % (Auto) 6.4 Eos % (Auto) 0.2 Baso % (Auto) 0.4 Lymph # (Auto) 1.5 [place] # (Auto) 0.3 Eos # (Auto) 0.0 Baso # (Auto) 0.0 Abs Immat Gran (auto) 0.02 Absolute Neuts (auto) 3.4 Absolute Nucleated RBC 0.000 Nucleated RBC % (auto) 0.0 ESR Hold Purple Top SEE NOTE PT INR Anion Gap 9 L Estim Creat Clear Calc 51.9 Estimated GFR > 60 Random Glucose 118 H Lactic Acid Calcium 7.6 L D Magnesium 1.7 Total Bilirubin 1.0 AST 66 H ALT 33 H Alkaline Phosphatase 112 C-Reactive Protein Total Protein 5.0 L Albumin 2.9 L Lipase Urine Color Urine Appearance Urine pH Ur Specific [place] Urine Protein Urine Glucose (UA) Urine Ketones Urine Blood Urine Nitrite Ur Leukocyte Esterase Urine RBC Urine WBC Ur Squamous Epith Cells Urine Bacteria Hyaline Casts Assessment and Plan (1) Diarrhea: Status: Acute Plan 79F PMH 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, GERD, osteopenia, COPD, diabetes, anxiety, depression, pulmonary nodules presented with diarrhea Enteritis Possibly due to cabozantinib vs infectious iv fluids, advance diet, oncology eval, stool studies neuroendocrine neoplasm with mets to liver oncology uti rocphein, follow up cultures Hypomagnesemia Replace and Chronic thrombocytopenia montior dvt prophylaxis - mechanical due to thrombocytopenia full code reason for continued hospitalization:still [facility] diarhea Quality Stroke Does the patient have a stroke diagnosis?: No VTE Prior VTE?: No VTE Risk Level:: Medical - moderate - high VTE Device Contraindication: Treatment Not Indicated VTE Drug Contraindication: N/A - Med Ordered
[2024-11-06 10:50] LABS: CDiff Gene PCR NEGATIVE (Negative)
--- NOTE | 2024-11-06 10:52 | PHA.MEDREC ---
Addendum entered by Vannessa Ramos, PharmD 11/06/24 11:05: [facility] REVIEWED Original Note: Pharmacy Consult ? Medication Reconciliation Pharmacy has completed the medication reconciliation. Confirmed medication list with patient. Patient takes cabozantinib (cabometyx) at night. Patient last took home medications (including night meds) on Thursday.
[2024-11-06 11:14] LABS: E. coli EAEC Not Detected (Not Detect.); E. coli EPEC Not Detected (Not Detect.); E. coli ETEC Not Detected (Not Detect.); E. coli STEC Not Detected (Not Detect.); Shigella sp./EIEC Not Detected (Not Detect.)
[2024-11-06 11:27] VITALS: BP 107/67; PULSE 89; RESP 18; TEMP 36.8; O2SAT 95
[2024-11-06] MEDS: Morphine Sulfate ER 30 MG TABLET.ER PO (13:03)
--- NOTE | 2024-11-06 14:40 | MHC.CM.PN ---
IMM GIVEN 11/06. THIS CM MET WITH PT, SHE STATES SHE IS SELF-CARE, LIVES AT HOME ALONE. 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 PT WILL ARRANGED HER OWN TRANSPORT HOME AT DISCHARGE. PT STATES HER SON AND HIS FRIEND JESSY MARQUEZ ARE HER HCP'S, COPY REQUESTED. DCP: RETURN HOME SELF-CARE VIA SELF-ARRANGED TRANSPORT. PCP: DR. ECKERT PO
[2024-11-06 15:28] VITALS: BP 103/59; PULSE 83; RESP 16; TEMP 36.8; O2SAT 94
[2024-11-06 19:54] VITALS: BP 123/63; PULSE 84; RESP 16; TEMP 36.6; O2SAT 90
[2024-11-06 21:36] LABS: Glucose, Whole Blood 181 mg/dL (60-115)
[2024-11-07] VITALS: BP 144/76; PULSE 73; RESP 16; TEMP 36.5; O2SAT 91
[2024-11-07] MEDS: Morphine Sulfate ER 30 MG TABLET.ER PO ×2 (01:47→09:28)
[2024-11-07 04:00] VITALS: BP 150/85; PULSE 77; RESP 16; TEMP 36.2; O2SAT 100
[2024-11-07] MEDS: Lactated Ringers 1,000 ML 100 ML IVCONT (04:02)
[2024-11-07 07:13] LABS: Hematocrit 34.6 % (37.0-47.0); Hemoglobin 11.4 g/dl (12.0-16.0); Mean Corpuscular HGB Conc 32.9 g/dl (31.0-35.0); Mean Corpuscular Hemoglobin 30.5 pg (27.0-33.0); Mean Corpuscular Volume 92.5 fL (80.0-98.0); NRBC Abs Auto 0.000 X10*3/uL (0.0-0.012); NRBC Pct Auto 0.0 /100WBC (0.0-0.2); Red Blood Count 3.74 X10*6/uL (4.20-5.50); White Blood Count 3.9 X10*3/uL (4.8-10.8)
[2024-11-07 07:18] LABS: Platelet Count 57 X10*3/uL (160-400)
[2024-11-07 07:29] LABS: Alanine Aminotransferase 29 U/L (0-31); Albumin Level 2.7 g/dL (3.5-5.0); Alkaline Phosphatase 100 U/L (39-117); Anion Gap 8 (12-20); Aspartate Amino Transferase 60 U/L (5-31); Blood Urea Nitrogen 9 mg/dL (9-16); Calcium 7.6 mg/dL (8.4-10.2); Carbon Dioxide 27 mmol/L (22-29); Chloride 112 mmol/L (96-108); Creatinine Clr Calc Pharmacy 58.7; Estimated Glomerular Filt Rate > 60; Magnesium 1.5 mg/dL (1.6-2.6); Potassium 4.3 mmol/L (3.3-5.1); Sodium 143 mmol/L (135-145); Total Protein 4.6 g/dL (6.5-8.0)
[2024-11-07 07:40] VITALS: BP 145/81; PULSE 70; RESP 18; TEMP 36.3; O2SAT 94
--- NOTE | 2024-11-07 09:26 | PM.DS ---
DS: Providers Provider Date of Service: 11/07/24 Date of admission: 11/05/24 19:43 Date of discharge: 11/07/24 Primary care physician: Abilio Robin MD Consults: 11/05/24 19:45 Consult to Hematology / Oncology Routine Consulting Provider: [facility] [place] Oncology/Hematology Reason for consultation: neuroendocrine tumor; liver mets 11/06/24 09:37 Consult to Wound Care Routine Reason for consultation: intact blister to right great toe DS: Diagnosis Discharge Diagnosis (1) Malignant neuroendocrine neoplasm of pancreas: Status: Acute DS: Summary Hospital Course Hospital Course: from initial hpi: 79-year-old female with a past medical history of neuroendocrine neoplasm of the pancreas with metastasis to the liver; GERD, osteopenia, COPD, diabetes, anxiety, depression, pulmonary nodules; presented to the hospital today with a chief complaint of diarrhea. Patient mentioned that she has been on cabozantinib for her neuroendocrine cancer; has been following with Dr. Ortiz. She has been having abdominal pain for a while now but over the past week she has been having increased abdominal pains not improve with her home oxycodone. Also having diarrhea which is not improving with her home loperamide. Has had significant episodes of loose stools over the past couple days. Spoke to the oncology team who suggested to go to the ER for further evaluation. Reports severe abdominal pain diffusely and also decreased oral intake. Denies any chest pain or palpitations Denies any urinary symptoms. Review of all other systems is negative except mentioned above ER course: Per ER team, patient not have diffuse abdominal tenderness; serum pressure findings concerning for enteritis; noted liver metastasis slightly increased; given IV fluids. Urinalysis abnormal consistent with UTI. Given ceftriaxone. hospital course: Patient was admitted for enteritis likely caused by cabozantinib, stool studies were negative, was given IV fluids and diet was advanced and is now feeling much better. Was seen by Oncology who recommended holding off on cabozantinib for now can use Imodium as needed. For urinary tract infection was treated with ceftriaxone with improvement in symptoms. Urine grew mixed sabina will be discharged on empiric Ceftin. Hypomagnesemia was replaced. Chronic thrombocytopenia stable. Time Attestation Discharge Coordination Time (in mins): 34 Quality: Safe Use of Opioids Does Pt have an Active Cancer Diagnosis on the Problem List?: No Quality: Stroke Does the patient have a stroke diagnosis?: No Physical Exam Exam: Exam: General: AO X 3, no acute distress Resp: CTA bilateral, no accessory muscles used CVS: S1,S2,RRR GI: soft, non tender, non distended Neuro: motor grossly intact, alert Psych: appropriate affect, appropriate insight Vital Signs: Vital Signs: Last Vital Signs Temp 97.3 F 11/07/24 07:40 Pulse 70 11/07/24 07:40 Resp 18 11/07/24 07:40 BP 145/81 H 11/07/24 07:40 Pulse Ox 94 11/07/24 07:40 O2 Del Method Room Air 11/07/24 07:40 BMI result Body Mass Index 29.3 DS: Data Data Completed and Pending Labs on day of discharge: Laboratory Results - last 24 hr 11/06/24 11/06/24 11/07/24 09:05 21:27 06:40 WBC 3.9 L RBC 3.74 L Hgb 11.4 L Hct 34.6 L MCV 92.5 MCH 30.5 MCHC 32.9 RDW 17.9 H Plt Count 57 L MPV 11.0 Absolute Nucleated RBC 0.000 Nucleated RBC % (auto) 0.0 Sodium 143 Potassium 4.3 Chloride 112 H Carbon Dioxide 27 Anion Gap 8 L BUN 9 Creatinine 0.69 Estim Creat Clear Calc 58.7 Estimated GFR > 60 POC Glucose 181 H Random Glucose 99 Calcium 7.6 L Magnesium 1.5 L Total Bilirubin 0.9 Direct Bilirubin 0.3 AST 60 H ALT 29 Alkaline Phosphatase 100 Total Protein 4.6 L Albumin 2.7 L Stl C. cayetanensis PCR Not Detected Stool Rotavirus A PCR Not Detected Stl Adenov F 40/ PCR Not Detected Stool Astrovirus (PCR) Not Detected Stool Campylobacter PCR Not Detected Stool Cryptosporidium PCR Not Detected Stl Sh Tox Pr E STEC PCR Not Detected Stool E coli O157 PCR Not applicable Stl Enterotoxigenic E PCR Not Detected Stool EPEC (PCR) Not Detected Stool EAEC (PCR) Not Detected Stl E. histolytica PCR Not Detected Stool Giardia [place]lia PCR Not Detected Stl P. shigelloides PCR Not Detected Stool Salmonella PCR Not Detected Stool Sapovirus (PCR) Not Detected Stl Shigella/EIEC PCR Not Detected St Y.enterocolitica PCR Not Detected Stool Vibrio (PCR) Not Detected Stl Vibrio cholerae PCR Not Detected Stl Norovirus GI/GII PCR Not Detected C. difficile Tox B Gene NEGATIVE Preliminary micro results at discharge 11/05/24 18:02 Blood Culture - Preliminary Blood - Venous No growth after 24 hours. 11/05/24 17:42 Blood Culture - Preliminary Blood - Venous No growth after 24 hours. Discharge Plan Discharge Anticipated Discharge Date/Time: 11/07/24 09:20 Patient Disposition: Home, Self-Care Discharge Diagnosis: caboxantinib induced enteritis, uti Referrals: Po,Abilio Harry MD [Primary Care Provider, Internal Medicine] - 1 Week Discharge Medications: New cefuroxime axetil 500 mg tablet 500 mg PO BID Qty: 10 0RF Continued metoprolol succinate 25 mg tablet extended release 24 hr 25 mg PO DAILY Qty: 90 3RF atorvastatin 40 mg tablet 40 mg PO DAILY Qty: 90 3RF loperamide 2 mg Tablet 2 mg PO Q6H PRN (Reason: Diarrhea) Qty: 30 1RF amlodipine 10 mg Tablet 10 mg PO DAILY Qty: 30 3RF ondansetron 8 mg Tablet,Disintegrating 8 mg PO Q8H PRN (Reason: Nausea And Vomiting) Qty: 30 1RF morphine [MS Contin] 30 mg Tablet Extended Release 30 mg PO Q12H Qty: 60 0RF Rx Instructions: Partial Fill upon patient request. oxycodone 5 mg Tablet 5 mg PO Q4H PRN (Reason: Pain (Scale Score 7-10)) Qty: 60 0RF Rx Instructions: Partial Fill upon patient request. albuterol sulfate 2.5 mg /3 mL (0.083 %) solution for nebulization 2.5 mg inhalation Q6H PRN (Reason: Shortness Of Breath Or Wheezing) fluticasone propion-salmeterol [Wixela Inhub] 250-50 mcg/dose blister with device 1 inh inhalation BID vitamin B complex Tablet Extended Release 1 tab PO DAILY lisinopril 20 mg tablet 20 mg PO DAILY Qty: 90 3RF Discontinued cabozantinib 60 mg tablet 60 mg PO BEDTIME Discharge Orders: Discharge Order (Routine); Ordered 11/07/24 Ordered By: Narayan Tai Diet: Advance to usual diet Activity on Discharge: As tolerated Stand Alone Forms: Patient Portal Discharge page Print Language: Czech Care Plan Goals: recovery Health Concerns: enteritis, uti Plan of Treatment: stop cabo, follow up oncology 5 more days ceftin Assessment: see above
[2024-11-07] MEDS: 0.9 % Sodium Chloride Flush 3 ML SYRINGE IVFLUSH (09:29)
--- NOTE | 2024-11-07 09:34 | MHC.CM.PN ---
PT MEDICALLY CLEARED FOR DC HOME SELF CARE, PT TO ARRANGE TRANSPORT.
[2024-11-07] MEDS: Magnesium Sulfate/H2O 2 GM/50 ML PIGGYBACK IV (10:26)
[2024-11-07 11:04] VITALS: BP 126/69; PULSE 75; RESP 18; TEMP 36.7; O2SAT 93
== END 2024-11-07 14:02 | disposition home or self-care (01) | DRG 394 ==
LOC: HO.ED 19:47 → HO.EDOVER 20:36 → HO.IMC 21:08
PROVIDERS: Registered Nurse Emergency; Admitting Provider Hospitalist; Emergency Provider Emergency Medicine Emergency Medical Services; PCP Internal Medicine; Visit Provider Internal Medicine
DX: K52.1 Toxic gastroenteritis and colitis (principal); C78.7 Secondary malignant neoplasm of liver and intrahepatic bile duct; C7A.8 Other malignant neuroendocrine tumors; N39.0 Urinary tract infection, site not specified; E83.42 Hypomagnesemia; D69.6 Thrombocytopenia, unspecified; T45.1X5A Adverse effect of antineoplastic and immunosuppressive drugs, initial encounter; I25.10 Atherosclerotic heart disease of native coronary artery without angina pectoris; Z95.5 Presence of coronary angioplasty implant and graft; Z87.81 Personal history of (healed) traumatic fracture; Z87.891 Personal history of nicotine dependence; Z79.51 Long term (current) use of inhaled steroids; Z79.899 Other long term (current) drug therapy
CPT/HCPCS: 36415; 74177; 80048; 80053; 80076; 81001; 82947; 83605; 83690; 83735; 85025; 85027; 85610; 85652; 86140; 87040; 87086; 87493; 87507; 99285; J0696; J1171; J1650; J1720; J3475; J7120; Q9967

== ENCOUNTER → 2024-11-05 17:21 | Outpatient (BNV) | payer MEDICARE, SELFPAY | PROVIDERS: Emergency Provider Emergency Medicine Emergency Medical Services; PCP Internal Medicine; Visit Provider Radiology Diagnostic Radiology | DX: K63.89 Other specified diseases of intestine (principal); K76.9 Liver disease, unspecified | CPT/HCPCS: 74177 ==

== ENCOUNTER → 2024-11-05 19:43 | Outpatient (BNV) | payer MEDICARE, SELFPAY | PROVIDERS: Admitting Provider Hospitalist; Emergency Provider Emergency Medicine Emergency Medical Services; PCP Internal Medicine; Visit Provider Internal Medicine | DX: K52.9 Noninfective gastroenteritis and colitis, unspecified (principal); R19.7 Diarrhea, unspecified | CPT/HCPCS: 99223; 99232 ==

== ENCOUNTER → 2024-11-05 19:43 | Outpatient (BNV) | payer MEDICARE, SELFPAY | PROVIDERS: Admitting Provider Hospitalist; Emergency Provider Emergency Medicine Emergency Medical Services; PCP Internal Medicine; Visit Provider Internal Medicine Medical Oncology | DX: C25.9 Malignant neoplasm of pancreas, unspecified (principal); C78.7 Secondary malignant neoplasm of liver and intrahepatic bile duct | CPT/HCPCS: 99222 ==

== ENCOUNTER 2024-11-17 08:25 | Outpatient (REF) | payer MEDICARE, SELFPAY ==
--- NOTE | ~2024-11-17 | FL_ITS ---
EXAMINATION: XR UPPER GI SERIES WITH barium swallow CLINICAL INFORMATION: Dysphagia. Patient has history of gastric cancer. COMPARISON: None available. TECHNIQUE: Barium swallow and upper GI was performed using thin and thick barium and effervescent granules. Barium tablet was also administered. FINDINGS: The swallowing mechanism is normal. No aspiration or penetration. There is abnormal esophageal motility. There is moderate gastroesophageal reflux. No hiatal hernia is seen. There is stasis of the barium tablet in the mid thoracic esophagus. There are feline contractions in the distal esophagus just above esophagitis. There is mild narrowing or under distention of the distal esophagus. There is limited distention of the stomach stomach. No mucosal abnormality or fold thickening is appreciated. There is no evidence of gastric outlet obstruction without passage of contrast into the proximal to small bowel. Visualized proximal small bowel is unremarkable. FLUOROSCOPY TIME: 1 minute and 57 seconds DOSE AREA PRODUCT: 1131 uGy-m2 (microgray-meter squared) FL/FL upper GI w air w Ba Swallow IMPRESSION: Abnormal appearing esophagus with dysmotility, gastroesophageal reflux, and probable mild distal esophagitis. There is also under distention of the mid and distal thoracic esophagus and hold up of the barium tablet. There is underdistention of the stomach. No mucosal abnormality appreciated or evidence of gastric outlet obstruction. Electronically signed by: Violetta Villanueva MD 11/17/2024 09:32 AM EDT
== END 2024-11-17 08:26 | disposition home or self-care (01) ==
LOC: HO.XRAY 08:25
PROVIDERS: PCP Internal Medicine; Visit Provider Internal Medicine
DX: R13.10 Dysphagia, unspecified (principal); K21.9 Gastro-esophageal reflux disease without esophagitis
CPT/HCPCS: 74246

== ENCOUNTER → 2024-11-17 08:27 | Outpatient (BNV) | payer MEDICARE, SELFPAY | PROVIDERS: PCP Internal Medicine; Visit Provider Radiology Diagnostic Radiology | DX: R13.10 Dysphagia, unspecified (principal); K21.9 Gastro-esophageal reflux disease without esophagitis | CPT/HCPCS: 74246 ==

== ENCOUNTER 2024-11-25 14:45 | Outpatient (AMB) | payer MEDICARE, SELFPAY ==
--- NOTE | 2024-11-25 14:54 | A.OFFPC_ITS ---
Vital Signs 11/25/24 14:55 Height 4 ft 10.27 in Weight 151 lb 6 oz BMI 31.3 BP 110/60 Blood Pressure Location Lt brachial Position Sitting Pulse 81 Pulse Source Pulse Oximeter Temp 97.1 F Temp Source Temporal Artery Scan Pulse Oximetry (%) 93 Oxygen Delivery Method Room Air Intake Visit Reasons: gerd, Intake Note: Patient is here to follow up on GERD. Special Needs Nanny Required: No Truck Packer: Not Required per policy Accompanied by: Self / Same As Patient Allergies No Known Allergies Allergy (Verified 11/25/24 14:55) Tobacco use date assessed: 11/25/24 Fall risk assessment: No Falls in past year Last assessed Fall Risk: 11/25/24 Dental Screening Dental Screen Date: 07/28/24 [facility] Medical History Liver lesion Liver mass Heart attack (~2009) Serrated adenoma of colon (~2015) Generalized anxiety disorder History of COVID-19 (~01/2020) Right upper lobe pulmonary nodule Pulmonary nodules Personal history of nicotine dependence Osteopenia (~2013) Peptic ulcer disease Ulnar nerve entrapment Carpal tunnel syndrome Osteoarthritis Peripheral neuropathy Vitamin D deficiency Renal calculus Obesity (BMI 30-39.9) Hypertension COPD (chronic obstructive pulmonary disease) Coronary artery disease Hypercholesterolemia Surgical History History of colonoscopy History of appendectomy (~07/2011) History of fusion of cervical spine (~07/2003) History of meniscectomy of left knee (~05/2014) History of heart artery stent (~2009) History of removal of ureteral stent (~2017) History of tonsillectomy History of lithotripsy (~2017) Family History Father CVD (cardiovascular disease) Throat cancer HTN (hypertension) Mother Alzheimer disease Social History Household Members: None Housing: Apartment Do you presently have visiting nurse or other home services: No Alcohol intake: current Alcohol intake frequency: holidays/special occasions only Patient Tobacco Use Status: Former Tobacco user Tobacco use type: Cigarette e-Cigarette/Vaping Use: Never Used Second Hand Smoke Exposure: Yes service: No Current occupational status: employed 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 1. Little interest or pleasure in doing things: several days 2. Feeling down, depressed, or hopeless: not at all 3. Trouble falling or staying asleep, or sleeping too much: not at all 4. Feeling tired or having little energy: several days 5. Poor appetite or overeating: several days 6. Feeling bad about yourself - or that you are a failure or have let yourself or your family down: not at all 7. Trouble concentrating on things, such as reading the newspaper or watching television: several days 8. Moving or speaking so slowly that other people could have noticed. Or the opposite - being so fidgety or restless that you have been moving around a lot more than usual: not at all 9. Thoughts that you would be better off or of hurting yourself in some way: not at all Total score: 4 Depression Screening Interpretation: Positive Depression Screening Done: Yes Source: Developed by Drs. Kalyan Noguera, Jovana Clarke, Franklyn Lares and colleagues, with an educational elmo from [employer]. Thrive Questionnaire Date Thrive assessed: 11/06/24 I am a: Patient What is your living situation today?: I have a steady place to live Within the past 12 months, did the food you bought not last and you didn't have the money to get more?: Never true Within the past 12 months, did you worry whether your food would run out before you got money to buy more?: Never true Do you have trouble paying for medicines?: I choose not to answer this question Do you have trouble getting transportation to medical appointments?: No Do you have trouble paying your heating and electricity bill?: No Do you have trouble taking care of your child, family member or friend?: No Do you have trouble with day-to-day activities such as bathing, preparing meals, shopping, managing finances, etc.?: No Are you currently unemployed and looking for a job?: No Are you interested in more education?: No Please select the resources that you would like help with: None Currently or been in a relationship where the following occur: I choose not to answer THRIVE Score: 0 AUDIT C Alcohol Use Questionnaire (AUDIT-C) 1. How often do you have a drink containing alcohol?: Never Total Score: 0 MADELINE-7 AMB Questionnaire MADELINE-7 Date MADELINE - 7 assessed: 07/28/24 Feeling nervous, anxious, or on edge: 0 = Not at all Not being able to stop or control worryin = Not at all Worrying too much about different things: 0 = Not at all Trouble relaxin = Not at all Being so restless that it is hard to sit still: 0 = Not at all Becoming easily annoyed or irritable: 0 = Not at all Feeling afraid as if something awful might happen: 0 = Not at all Total MADELINE-7 score (0-4 normal; 5-9 mild; 10-14 moderate; 15-21 severe): 0 Source: Developed by Drs. Kalyan Noguera, Jovana Clarke, Franklyn Lares and colleagues, with an educational elmo from [employer]. Physical exam (Primary Care) Vital Signs: Last Vital Signs Temp 97.1 F 11/25/24 14:55 Pulse 81 11/25/24 14:55 BP 110/60 11/25/24 14:55 Pulse Ox 93 11/25/24 14:55 Oxygen Delivery Method Room Air 11/25/24 14:55 BMI result Body Mass Index 31.3 Tobacco/Smoking Status: Tobacco use Status Tobacco use date assessed 11/25/24 11/25/24 15:01 Patient Tobacco Use Status Former Tobacco user 11/25/24 15:01 Tobacco use type Cigarette 11/25/24 15:01 e-Cigarette/Vaping Use Never Used 11/25/24 15:01 PHQ-9: PHQ-9 Score PHQ-9: Total score 4 11/25/24 15:34 Depression Screening Interpretation: Positive Thrive Assessment: Date of Thrive Assessment Date Thrive assessed 11/06/24 11/25/24 15:01 Currently or been in a relationship where the following occur: I choose not to answer Const General: alert; No acute distress Eyes Conjunctivae: conjunctivae normal Resp Auscultation: clear to auscultation bilaterally Cardio Rate: regular rate Rhythm: regular rhythm GI Inspection: Yes normal to inspection Extrem General: Yes normal to inspection and No edema Office Procedures Flu Questionnaire Does the patient have a severe egg allergy?: No Does the patient have severe life threatening allergies?: No Does the patient have a fever or illness today?: No Has the patient ever had Guillain-[place] Syndrome?: No Has the patient ever had any past reaction to a flu shot?: No Results AMB Hemoglobin A1c AMB Hemoglobin A1c 5.4 % Last Edit by PRABHU Camacho on 11/25/24 15:30 Immunizations Fluarix [id number] (PF) 45 mcg (15 mcg x 3)/0.5 mL IM syringe Performing Provider: Abilio Robin MD [facility] Administered by: PRABHU Moreno on 11/25/24 15:34 Dose Route Admin Location Dispensed Lot Number Expiration Date NDC Lime Supervisor 0.5 mL IM Left Deltoid 0.5 mL [id number] 08/08/25 [id number] [employer] VIS Given Date VIS Provided VIS Publication Date 11/25/24 Single Vaccine 24 Eligibility Eligibility Date Funding Source Not [facility] Eligible 11/25/24 Private Results Reviewed Results Reviewed: Laboratory Last Values Hgb A1c (Clinic) 5.4 % (4.0-6.0) 11/25/24 15:02 Coding Level of Care Code Est Pt Level 4 (12638) Complex EM visit Add On G2211 Diagnoses Type 2 diabetes mellitus with hyperglycemia, without long-term current use of insulin E11.65 Diabetes mellitus skilled nursing insulin use: without remote computer terminal operator use Coronary artery disease involving [place] coronary artery of [place] heart without angina pectoris I25.10 Associated angina: without angina Coronary Disease-Associated Artery/Lesion type: [place] artery [place] vs. 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 Pineda Code(s): E11.65 - Type 2 diabetes mellitus with hyperglycemia Category: Medical Qualifiers: Diabetes mellitus skilled nursing insulin use: without remote computer terminal operator use Qualified Code(s): E11.65 - Type 2 diabetes mellitus with hyperglycemia Plan: Decrease the amount of carbohydrate intake, pasta, bread, rice and potatoes are all sugar and that is aside from all the sweet stuff, remember that fruits are good but they are Sweet also. Hemoglobin A1c goal of less than 7.0 presently diet controlled (2) Coronary artery disease: Comment: (2010 - STEMI /VFib arrest - s/p stent to circumflex) Code(s): I25.10 - Atherosclerotic heart disease of [place] coronary artery without angina pectoris Category: Medical Qualifiers: Associated angina: without angina Coronary Disease-Associated Artery/Lesion type: [place] artery [place] vs. transplanted heart: [place] heart Qualified Code(s): I25.10 - Atherosclerotic heart disease of [place] coronary artery without angina pectoris Plan: Control the cholesterol, weight, blood pressure, diabetes cardiology follow-up (3) Hypertension: Code(s): I10 - Essential (primary) hypertension Category: Medical Qualifiers: Hypertension type: essential hypertension Qualified Code(s): I10 - Essential (primary) hypertension Plan: Continue with blood pressure medication. Decrease salt intake and exercise on amlodipine 10 mg once a day lisinopril 20 mg once a day metoprolol 25 mg once a day (4) Hypercholesterolemia: Code(s): E78.00 - Pure hypercholesterolemia, unspecified Category: Medical Plan: Avoid fried foods, chicken skin, eggs, butter margarine, pastries and meat. Be it pork or beef they have a lot of cholesterol on atorvastatin 40 mg once a day (5) GERD (gastroesophageal reflux disease): Code(s): K21.9 - Gastro-esophageal reflux disease without esophagitis Category: Medical Qualifiers: Esophagitis presence: without esophagitis Qualified Code(s): K21.9 - Gastro-esophageal reflux disease without esophagitis Plan: Avoid the foods that causes that usually spicy foods, tomato products, juices, coffee, soda and foods that your sensitive to. After eating do not lie down, allow 3-4 hours before in lie down. And keep the head of bed above 30 degrees to avoid the acid from going up. (6) Neuroendocrine carcinoma metastatic to liver: Code(s): C7A.8 - Other malignant neuroendocrine tumors; C7B.8 - Other secondary neuroendocrine tumors Category: Medical Plan: Patient had side effects from the chemotherapy and has dose decreased. (7) Chronic pain syndrome: Code(s): G89.4 - Chronic pain syndrome Category: Medical Plan: Continuing with pain medication (8) COPD (chronic obstructive pulmonary disease): Comment: COPD is Moderately severe , remains controlled, c/o mild dyspnea on exertion. Code(s): J44.9 - Chronic obstructive pulmonary disease, unspecified Category: Medical Qualifiers: COPD type: emphysema Emphysema type: unspecified Qualified Code(s): J43.9 - Emphysema, unspecified Plan: Continue with albuterol inhaler and Wixela Plan History of Present Illness The patient is a 79-year-old female presenting for a follow-up visit. She has a history of neuroendocrine carcinoma metastatic to the liver, for which she has been receiving systemic chemotherapy. In August 2024, an MRI showed progression of the disease, leading to the decision to stop chemotherapy. The patient is currently on pain management with MS Contin and oxycodone. The patient has coronary artery disease and was seen by cardiology on September 15. She is on aggressive medical management, including aspirin and high-dose intensity statins, and continues with her current blood pressure medications: amlodipine, lisinopril, and metoprolol. She has a history of hypercholesterolemia and is currently on atorvastatin 40 mg once a day. The patient has diabetes mellitus, with a hemoglobin A1c goal of less than 7.0, and is currently diet-controlled. She also has generalized anxiety disorder, gastroesophageal reflux disease, and chronic obstructive pulmonary disease. A recent GI series showed dysmotility reflux with mild distal esophagitis. Her recent blood work from November 17 showed mild anemia and past thrombocytopenia, with good electrolyte and renal function, but elevated blood sugar and mildly elevated liver numbers. Health Maintenance Social History Review of Systems Physical Exam Results - MRI in August 2024 showed progression of neuroendocrine carcinoma. - GI series showed dysmotility reflux with mild distal esophagitis. - Blood work on November 17 showed mild anemia, past thrombocytopenia, good electrolyte and renal function, elevated blood sugar, and mildly elevated liver numbers. Plan Patient was informed and verbally consented to the use of an ambient scribe for clinic note documentation during this visit. 1. Neuroendocrine Carcinoma Metastatic To The Liver The patient has been receiving systemic chemotherapy for neuroendocrine carcinoma metastatic to the liver. In August 2024, an MRI showed disease progression, leading to the cessation of chemotherapy. Pain management is being addressed with MS Contin and oxycodone. 2. Coronary Artery Disease The patient is under aggressive medical management for coronary artery disease, including aspirin and high-dose intensity statins. She continues with her current antihypertensive regimen of amlodipine, lisinopril, and metoprolol. 3. Diabetes Mellitus The patient's diabetes mellitus is currently diet-controlled, with a hemoglobin A1c goal of less than 7.0. 4. Hypercholesterolemia The patient is on atorvastatin 40 mg once a day for hypercholesterolemia. 5. Gastroesophageal Reflux Disease (Gerd) A GI series showed dysmotility reflux with mild distal esophagitis, indicating ongoing management needs for GERD. 6. Chronic Obstructive Pulmonary Disease (Copd) The patient continues with albuterol inhaler and Wixela for COPD management. Discussion Notes Patient Instructions Orders: Orders AMB Hemoglobin A1c Today E11.65 - Type 2 diabetes mellitus with hyperglycemia Influenza [id number] Immunization Today Z23 - Encounter for immunization
[2024-11-25 14:55] VITALS: BP 110/60; PULSE 81; TEMP 36.2; O2SAT 93; BMI 31.3
--- OUTSIDE RECORDS SUMMARY | 2024-11-25 17:18 | XMS_ITS | Patient Health Record ---
Author Organization [facility] Address [address] [place] [address] Care Team Providers Care Powerplant Operator Name Role Phone Abilio Robin Primary Care Provider Anabel Salcedo [phone] Allergies Allergen (clinical drug ingredient) Drug/Non Drug [...] Treatment Pending Test Test Name Order Date [id number] NAIL, 6 OR MORE 04/03/2015 Insurance Providers Payer Name Payer Address Payer Phone Subscriber Number Group Number Insured Name Patient Relationship to Insured Coverage Start Date Coverage End Date [facility] [address] [place] [phone] [id number] Ann Nash Self - patient is the insured Medical (General) History Medical History History ICD Code asthma Back,Hip,and Knee pain High blood pressure COPD Sciatica Measles Chicken pox Surgical History Surgery Date(Month/Year) appendectomy 07/2011 heart attack/stent 05/2009 spinal fusion c-3-c-5
--- OUTSIDE RECORDS SUMMARY | 2024-11-25 17:18 | XMS_ITS | Clinical Summary ---
Author Organization [facility] Address [address] [place] [phone] Phone Care Team Providers Care Reception Agent Name Role Phone Abilio Robin MD Primary Care Provider [phone] Tonja Ortiz MD Unavailable [phone] Keo Darby MD Unavailable [phone] Felecia Wiggins MD Unavailable [phone] Allergies Active Allergy Reactions Criticality Noted Date [...] topic Medical Devices Not on file Insurance 73 [address] [place] [facility] MEDICARE PPO BLUE REPLACEMENT [facility] MEDICARE PPO BLUE REPLACEMENT [facility] MEDICARE PPO BLUE REPLACEMENT [facility] MEDICARE PPO BLUE REPLACEMENT [facility] MEDICARE PPO BLUE REPLACEMENT [facility] MEDICARE PPO BLUE REPLACEMENT [facility] MEDICARE PPO BLUE REPLACEMENT [facility] MEDICARE PPO BLUE REPLACEMENT [facility] MEDICARE PPO BLUE REPLACEMENT Care Teams Reception Agent Relationship Specialty Start Date End Date Po, Abilio Hernandez MD [address] [place] [id number] PCP - General 02/19/23 Tonja Ortiz MD [address] [place] [id number] Referring Physician Internal Medicine 07/17/23 Keo Darby MD [address] [place] [id number] [email or web address] Medical Oncology 07/17/23 Felecia Wiggins MD [address] [place] [address] Hematology and Oncology 07/17/23 Additional Source Comments The information contained in this document represents components of the legal health record. It is not the complete legal health record.[facility]
--- OUTSIDE RECORDS SUMMARY | 2024-11-25 17:18 | XMS_ITS | Patient Health Record ---
Author Organization [facility] Address [address] [place] [address] Care Team Providers Care Appliance Service Technician Name Role Phone Po Abilio ASHRAF Primary Care Provider Kalyan Meade [phone] Allergies No Known Allergies Reason For Referral No Information Medications Medication SIG (Take, Route, Frequency, Duration) Notes Start Date End Date Status Lisinopril 20 MG 1 tablet Orally Once a day Active Temozolomide 250 MG as directed Orally Active Albuterol Sulfate (2.5 MG/3ML) 0.083% USE 2.5 MG (3 ML) INHALED EVERY 6 HOURS Inhalation; Duration: 13 Days Active Cyclobenzaprine HCl 10 MG 1 tablet at be dtime as needed Orally Once a day Active Morphine Sulfate ER 30 MG TAKE 1 TABLET BY MOUTH EVERY 12 HOURS Oral; Duration: 30 Days Active Loperamide HCl 2 MG 1 capsule as needed Orally Four times a day Active oxyCODONE HCl 5 MG TAKE 1 TABLET BY MOUTH EVERY 4 HOURS NEEDED FOR PAIN (SCALE SCORE 7-10) Oral; Duration: 10 Days Active Fluticasone Propionate 50 MCG/ACT [...] 40 MG Orally Active Capecitabine 150 MG Oral; Duration: 14 Days Active Omeprazole 20 MG 1 capsule 1/2 to 1 hour before morning meal Orally Once a day 05/03/2024 Active Capecitabine 500 MG Oral; Duration: 14 Days Active Immunizations Vaccine Route Administration [...] Status Risk Notes Problem Colon cancer screening (923852337) Colon cancer screening (Z12.11) Active confirmed Problem Screening for malignant neoplasm of colon (813640356) Encounter for screening for malignant neoplasm of colon (Z12.11) Active confirmed Problem Constipation (04047016) Constipation (K59.00) Active confirmed Problem History of polyp of colon (situation) (323391791) Personal history of colonic polyps (Z86.010) Active confirmed Problem Neuroendocrine neoplasm, malignant (disorder) (6499162569) Other malignant neuroendocrine tumors (C7A.8) Active confirmed Problem Screening for malignant neoplasm of rectum (192548188) Encounter for screening for malignant neoplasm of rectum (Z12.12) Active confirmed Problem Preprocedural examination (613468801969698) Preprocedural examination (Z01.818) Active confirmed Problem Computed tomography result abnormal (882255989) Abnormal CT scan, colon (R93.3) Active confirmed Problem Long-term current use of antiplatelet drug (987945288729686) Long-term use of aspirin therapy (Z79.82) Active confirmed Problem Irregular bowel habits (028381001) Irregular bowel habits (R19.8) Active confirmed Problem Diverticulosis of sigmoid colon (062742924) Diverticulosis of sigmoid colon (K57.30) Active confirmed Problem Abnormal compute d tomography of sigmoid colon (R93.3) Active confirmed Problem Fecal soiling (053648835) Fecal soiling (R15.1) Active confirmed Problem Benign neoplasm of colon (87607891) Serrated adenoma of colon (D12.6) Active confirmed Problem Metastasis to liver (79242487) Metastasis to liver (C78.7) Active confirmed Vital Signs Blood pressure diastolic 111 mm Hg 05/03/2024 Height 59.75 in 05/03/2024 Blood pressure systolic 111 mm Hg 05/03/2024 Weight 155 lbs 05/03/2024 BMI 30.52 kg/m2 05/03/2024 Encounters Encounter Location Date Provider Diagnosis [facility] [address] [place] [address] 05/03/2024 Kalyan Velasquez Metastasis to liver C78.7 [...] Insured Coverage Start Date Coverage End Date [facility] [address] [place] [address] [id number] ANNAANN Self - patient is the insured Medical (General) History Medical History History ICD Code [place] 2009-has 1 stent--fine since--sees Dr Kike Stephen [...] with chemotherapy and by Dr. Wiggins at [facility] with embolization ablation treatment of some of the larger lesions in the liver. Surgical History Surgery Date(Month/Year) liver ablasions [facility] dr. varun Mir p resently on chemo 2023 Neck surgery to remove hardware 11/2020 Tonsillectomy Left knee surgery/meniscus tear 2015 Appendectomy 2011 Cervical spinal fusion 1999
== END 2024-11-25 15:36 | disposition home or self-care (01) ==
LOC: HO.HMCH 14:46
PROVIDERS: PCP Internal Medicine; Visit Provider Internal Medicine
DX: E11.65 Type 2 diabetes mellitus with hyperglycemia (principal); I25.10 Atherosclerotic heart disease of native coronary artery without angina pectoris; I10 Essential (primary) hypertension; E78.00 Pure hypercholesterolemia, unspecified; K21.9 Gastro-esophageal reflux disease without esophagitis; C7A.8 Other malignant neuroendocrine tumors; C7B.8 Other secondary neuroendocrine tumors; G89.4 Chronic pain syndrome; J43.9 Emphysema, unspecified; Z23 Encounter for immunization

== ENCOUNTER → 2024-11-25 14:45 | Outpatient (BNVA) | payer MEDICARE, SELFPAY | PROVIDERS: PCP Internal Medicine; Visit Provider Internal Medicine | DX: K21.9 Gastro-esophageal reflux disease without esophagitis (principal); E11.65 Type 2 diabetes mellitus with hyperglycemia; I25.10 Atherosclerotic heart disease of native coronary artery without angina pectoris; I10 Essential (primary) hypertension; E78.00 Pure hypercholesterolemia, unspecified; C7A.8 Other malignant neuroendocrine tumors; C7B.8 Other secondary neuroendocrine tumors; G89.4 Chronic pain syndrome; J43.9 Emphysema, unspecified; Z23 Encounter for immunization | CPT/HCPCS: 83036; 90471; 90656; 96127; 99212 ==

== ENCOUNTER → 2024-12-28 08:15 | Outpatient (BNV) | payer MEDICARE, SELFPAY | PROVIDERS: PCP Internal Medicine; Visit Provider Internal Medicine | DX: Z12.31 Encounter for screening mammogram for malignant neoplasm of breast (principal) | CPT/HCPCS: 77063; 77067 ==

== ENCOUNTER 2024-12-28 08:21 | Outpatient (REF) | payer MEDICARE, SELFPAY | END 2024-12-28 08:22 | disposition home or self-care (01) | LOC: HO.MAMMO 08:21 | PROVIDERS: PCP Internal Medicine; Visit Provider Internal Medicine | DX: Z12.31 Encounter for screening mammogram for malignant neoplasm of breast (principal); J43.1 Panlobular emphysema; R91.1 Solitary pulmonary nodule; Z87.891 Personal history of nicotine dependence | CPT/HCPCS: 77063; 77067; 99212 ==

== ENCOUNTER 2024-12-28 08:55 | Outpatient (AMB) | payer MEDICARE, SELFPAY ==
--- NOTE | 2024-12-28 09:29 | MHC.OFFVIS ---
Vital Signs 12/28/24 09:30 Height 5 ft Weight 145 lb 8.081 oz BMI 28.4 BP 138/60 Blood Pressure Location Lt brachial Position Sitting Pulse 83 Pulse Source Pulse Oximeter Pulse Oximetry (%) 96 Oxygen Delivery Method Room Air Intake Visit Reasons: COPD Intake Note: pt is here for follow up and states her breathing is fine most of the time. Pelts Skinner Required: No Allergies No Known Allergies Allergy (Verified 12/28/24 09:56) Medication List - Last Reconciled 12/28/24 by Ricky Andujar MD albuterol sulfate 2.5 mg inhalation Q6H PRN amlodipine 10 mg PO DAILY atorvastatin 40 mg PO DAILY cabozantinib (Cabometyx) 40 mg PO DAILY diphenoxylate-atropine 2.5-0.025 mg (Lomotil) 1 tab PO TID fluticasone propion-salmeterol 250-50 mcg/dose (Wixela Inhub) 1 ea inhalation BID lisinopril 20 mg PO DAILY loperamide 2 mg PO Q6H PRN metoprolol succinate ER 25 mg PO DAILY morphine ER (MS Contin) 30 mg PO Q12H omeprazole 1 cap PO DAILY ondansetron 8 mg PO Q8H PRN oxycodone 5 mg PO Q4H PRN vitamin B complex ER 1 tab PO DAILY Do you need a note to return to daycare/school/sports/work: No HPI HPI COPD: Details: Ann comes after 6 months for her routine follow-up for COPD. Breathing status has remained very stable without any flare ups. She actually uses Wixela 250-50 1 inhalation just in the morning and once. in a while takes the evening dose She has not needed to use albuterol HFA for long time. Her main problem is ongoing treatment for liver cancer. After being on chemotherapy for 2 years now she is on targeted therapy, had all kinds of side effects,, now tolerating the lower dose but still having some side effects. [facility] Medical History Liver lesion Liver mass Heart attack (~2009) Serrated adenoma of colon (~2015) Generalized anxiety disorder History of COVID-19 (~01/2020) Right upper lobe pulmonary nodule Pulmonary nodules Personal history of nicotine dependence Osteopenia (~2013) Peptic ulcer disease Ulnar nerve entrapment Carpal tunnel syndrome Osteoarthritis Peripheral neuropathy Vitamin D deficiency Renal calculus Obesity (BMI 30-39.9) Hypertension COPD (chronic obstructive pulmonary disease) Coronary artery disease Hypercholesterolemia Surgical History History of colonoscopy History of appendectomy (~07/2011) History of fusion of cervical spine (~07/2003) History of meniscectomy of left knee (~05/2014) History of heart artery stent (~2009) History of removal of ureteral stent (~2017) History of tonsillectomy History of lithotripsy (~2017) Family History Father CVD (cardiovascular disease) Throat cancer HTN (hypertension) Mother Alzheimer disease Social History Household Members: None Housing: Apartment Do you presently have visiting nurse or other home services: No Alcohol intake: current Alcohol intake frequency: holidays/special occasions only Patient Tobacco Use Status: Former Tobacco user Tobacco use type: Cigarette e-Cigarette/Vaping Use: Never Used Second Hand Smoke Exposure: Yes service: No Current occupational status: employed 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 Hearing needs: No Vision needs: Yes (Glasses) Review of Systems Const All systems reviewed & are unremarkable except as noted in HPI and below Eyes Reports no additional complaints ENT Reports no additional complaints Card Denies chest pain, Denies irregular heart rhythm, Denies leg edema and Reports dyspnea on exertion Resp Reports as per HPI and Reports dyspnea on exertion GI Reports no additional complaints Reports no additional complaints Musc Reports no additional complaints Skin/Breast Reports system reviewed and no additional complaints, except as documented Neuro Reports no additional complaints Psych Reports no additional complaints Physical Exam Vital Signs: Last Vital Signs Pulse 83 12/28/24 09:30 BP 138/60 12/28/24 09:30 Pulse Ox 96 12/28/24 09:30 Oxygen Delivery Method Room Air 12/28/24 09:30 BMI result Body Mass Index 28.4 Const General: comfortable, no acute distress, alert and awake Orientation/consciousness: patient oriented x3 HEENT Head: Yes normal to inspection General nose exam: No nasal polyps present and No nasal discharge present Face and sinus: Yes sinuses nontender Mouth: oropharynx normal Throat: Yes posterior oropharynx normal Eyes General: appearance normal, both eyes and all related structures Neck Neck: Yes normal visual inspection, Yes no lymphadenopathy, Yes trachea midline and Yes no JVD Thyroid: Thyroid normal Chest Chest palpation & inspection: normal inspection of the chest, normal palpation of entire chest wall and no tenderness Resp Other: Percussion note is resonant, breath sounds slightly distant with prolonged expiratory phase, No wheezes or rhonchi are heard. Cardio Palpation: normal PMI Rate: regular rate Rhythm: regular rhythm Heart sounds: no gallops and no murmurs Peripheral pulses: Peripheral pulses 2+ throughout GI Palpation (GI): Soft to palpation, nontender, No hepatosplenomegaly present and no masses Auscultation: normal bowel sounds Back/Spine/Pelvis Thoracic/Lumbar Spine: thoracic and lumbar spine normal to inspection Skin General skin exam: no rashes or lesions noted Neuro General: patient oriented x3 and no focal motor deficits Cranial nerves: Yes CN's II-XII intact bilaterally Extrem General: Yes normal to inspection, Yes no calf tenderness and Yes edema (1+ EDEMA OF both legs ) Psych Appearance: grossly normal and well kempt Speech and movement: Normal speech and movement present Assessment & Plan Assessment & Plan (1) COPD (chronic obstructive pulmonary disease): Comment: COPD is Moderately severe , remains controlled, c/o mild dyspnea on exertion. Code(s): J44.9 - Chronic obstructive pulmonary disease, unspecified Category: Medical Qualifiers: COPD type: emphysema Emphysema type: unspecified Qualified Code(s): J43.9 - Emphysema, unspecified Plan: Continue to use Wixela 250-50 1 inhalation b.i.d.. And if symptoms are well controlled then she can use just once a day.. Albuterol HFA 1 or 2 puffs Q 6 hours only p.r.n.. (2) Pulmonary nodule: Comment: CATEGORY -2 BENIGN . PATIENT PARTICIPATING IN ANNUAL LD CT SCAN PROGRAM Code(s): R91.1 - Solitary pulmonary nodule Category: Medical Plan: Continue to have annual lung screening Coding Level of Care Code Est Pt Level 3 (80459) Diagnoses Pulmonary emphysema, unspecified emphysema type J43.9 COPD type: emphysema Emphysema type: unspecified Pulmonary nodule R91.1
[2024-12-28 09:30] VITALS: BP 138/60; PULSE 83; O2SAT 96; BMI 28.4
--- OUTSIDE RECORDS SUMMARY | 2024-12-28 16:34 | XMS_ITS | Patient Health Record ---
Author Organization [facility] Address [address] [place] [address] Care Team Providers Care Embroidery Machine Operator Name Role Phone Po Abilio ASHRAF Primary Care Provider Kalyan Meade [phone] Allergies No Known Allergies Reason For Referral No Information Medications Medication SIG (Take, Route, Frequency, Duration) Notes Start Date End Date Status Lisinopril 20 MG Tablet 1 tablet Orally Once a day Active Temozolomide 250 MG Capsule as directed Orally Active Albuterol Sulfate (2.5 MG/3ML) 0.083% Nebulization Solution USE 2.5 MG (3 ML) INHALED EVERY 6 HOURS Inhalation; Duration: 13 Days Active Cyclobenzaprine HCl 10 MG Tablet 1 tablet at bedtime as needed Orally Once a day Active Morphine Sulfate ER 30 MG Tablet Extended Release TAKE 1 TABLET BY MOUTH EVERY 12 HOURS Oral; Duration: 30 Days Active Loperamide HCl 2 MG Capsule 1 capsule as needed Orally Four times a day Active oxyCODONE HCl 5 MG Tablet TAKE 1 TABLET BY MOUTH EVERY 4 HOURS NEEDED FOR PAIN (SCALE SCORE 7-10) Oral; Duration: 10 Days Active Fluticasone Propionate 50 MCG/ACT Suspension 1 spray in each nostril Nasally Twice a day Active Famotidine 20 MG Tablet 1 tablet at bedt tea as needed Orally Once a day Not-Taking/PRN Ondansetron 8 MG Tablet Disintegrating 1 tablet on the tongue and allow to dissolve as needed Orally Once a day Active Wixela Inhub 250-50 MCG/ACT Aerosol Powder Breath Activated 1 puff Inhalation Twice a day Active Atorvastatin Calcium 40 MG Tablet Orally Active Capecitabine 150 MG Tablet Oral; Duration: 14 Days Active Omeprazole 20 MG Capsule Delayed Release 1 capsule 1/2 to 1 hour before morning meal Orally Once a day 05/03/2024 Active Capecitabine 500 MG Tablet Oral; Duration: 14 Days Active Immunizations Vaccine Route Administration Date Status Comme nts Influenza Unknown 01/01/2021 Administered Social History Tobacco Use: Social History Observation Description Date Details (start date - stop date) Former Smoker NA - NA Social History Drug/Alcohol: Social Info Question Answer Notes AUDIT-C (Standard) Did you have a drink containing alcohol in the past year? 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[employer] Section Notes: Patient currently on chantix ---still having 1-2 cigs per day; no sig alcohol Nonsmoker > 5 years ago; no sig alcohol Nonsmoker > 5 years ago; no sig alcohol Nonsmoker > 5 years ago; no sig alcohol Problems Problem Type SNOMED Code ICD Code Onset Dates Problem Status W/U Status Risk Notes Problem Colon cancer screening (173113049) Colon cancer screening (Z12.11) Active confirmed Problem Screening for malignant neoplasm of colon (923681021) Encounter for screening for malignant neoplasm of colon (Z12.11) Active confirmed Problem Constipation (63624657) Constipation (K59.00) Active confirmed Problem History of polyp of colon (situation) (003069069) Personal history of colonic polyps (Z86.010) Active confirmed Problem Neuroendocrine neoplasm, malignant (disorder) (7369279734) Other malignant neuroendocrine tumors (C7A.8) Active confirmed Problem Screening for malignant neoplasm of rectum (295467760) Encounter for screening for malignant neoplasm of rectum (Z12.12) Active confirmed Problem Preprocedural examination (879429001603466) Preprocedural examination (Z01.818) Active confirmed Problem Computed tomography result abnormal (621091376) Abnormal CT scan, colon (R93.3) Active confirmed Problem Long-term current use of antiplatelet drug (875627310092670) Long-term use of aspirin therapy (Z79.82) Active confirmed Problem Irregular bowel habits (221185887) Irregular bowel habits (R19.8) Active confirmed Problem Diverticulosis of sigmoid colon (048294757) Diverticulosis of sigmoid colon (K57.30) Active confirmed Problem Abnormal compute d tomography of sigmoid colon (R93.3) Active confirmed Problem Fecal soiling (097266548) Fecal soiling (R15.1) Active confirmed Problem Benign neoplasm of colon (62903378) Serrated adenoma of colon (D12.6) Active confirmed Problem Metastasis to liver (99179986) Metastasis to liver (C78.7) Active confirmed Vital Signs Blood pressure diastolic 111 mm Hg 05/03/2024 Height 59.75 in 05/03/2024 Blood pressure systolic 111 mm Hg 05/03/2024 Weight 155 lbs 05/03/2024 BMI 30.52 kg/m2 05/03/2024 Encounters Encounter Location Date Provider Diagnosis [facility] [address] [place] [address] 05/03/2024 Kalyan Velasquez Metastasis to liver C78.7 [...] Insured Coverage Start Date Coverage End Date [facility] [address] [place] [address] [id number] ANN CASTILLO Self - patient is the insured Medical (General) History Medical History History ICD Code [place] 2009-has 1 stent--fine since--sees Dr Kike Stephen [...] with chemotherapy and by Dr. Wiggins at [facility] with embolization ablation treatment of some of the larger lesions in the liver. Surgical History Surgery Date(Month/Year) Cervical spinal fusion 1999 Appendectomy 2011 Left knee surgery/meniscus tear 2015 Tonsillectomy Neck surgery to remove hardware 11/2020 [facility] [address] varun Mir p resently on chemo 2023
--- OUTSIDE RECORDS SUMMARY | 2024-12-28 16:34 | XMS_ITS | Patient Health Record ---
Author Organization [facility] Address [address] [place] [address] Care Team Providers Care Infection Control Nurse Name Role Phone Abilio Robin Primary Care Provider Anabel Salcedo [phone] Allergies Allergen (clinical drug ingredient) Drug/Non Drug [...] Treatment Pending Test Test Name Order Date [id number] NAIL, 6 OR MORE 04/03/2015 Insurance Providers Payer Name Payer Address Payer Phone Subscriber Number Group Number Insured Name Patient Relationship to Insured Coverage Start Date Coverage End Date [facility] [address] [place] [phone] [id number] Ann Nash Self - patient is the insured Medical (General) History Medical History History ICD Code asthma Back,Hip,and Knee pain High blood pressure COPD Sciatica Measles Chicken pox Surgical History Surgery Date(Month/Year) appendectomy 07/2011 heart attack/stent 05/2009 spinal fusion c-3-c-5
== END 2024-12-28 09:59 | disposition home or self-care (01) ==
LOC: HO.HPS 08:55
PROVIDERS: PCP Internal Medicine; Visit Provider Internal Medicine
DX: J43.9 Emphysema, unspecified (principal); R91.1 Solitary pulmonary nodule
CPT/HCPCS: 99213

== ENCOUNTER 2025-01-10 12:42 | Outpatient (REF) | payer MEDICARE, SELFPAY ==
--- NOTE | ~2025-01-10 | CT_ITS ---
CLINICAL HISTORY: Metastatic pancreatic neuroendocrine tumor CT abdomen and pelvis with contrast Comparison: CT/REG/SR - CT ABDOMEN PELVIS W IV CON - 11/05/24 18:24 EDT Findings: No consolidation or effusion. Innumerable /large hepatic tumor burden, unchanged in the interval. Interval resolution of the right perihepatic fluid collection. Mild atrophic changes of the right kidney. The left kidney is unremarkable. Moderately distended gallbladder with mild wall thickening, unchanged in the interval. Bowel loops are nondilated. Status post appendectomy. Interval resolution of the abdominal and pelvic ascites. No bowel obstruction, pneumoperitoneum, or pneumatosis. Pelvic contents unremarkable. The bones are intact. Moderate multilevel spondylosis of the lumbar spine with grade 1 anterolisthesis of L4 causing severe spinal canal narrowing at this level. IMPRESSION: No acute findings. Redemonstration of large hepatic metastatic tumor burden. Interval resolution of the perihepatic and pelvic ascites. Moderate to severe multilevel spondylosis of the lumbar spine with grade 1 anterolisthesis of L4 causing severe spinal canal narrowing at this level. This document has been electronically signed by: Daisy Ervin MD on 01/10/2025 20:50:24
--- OUTSIDE RECORDS SUMMARY | 2025-01-10 14:38 | XMS_ITS | Clinical Summary ---
Author Organization [facility] Address [address] [place] [address] Phone Care Team Providers Care Farm Planner Name Role Phone Abilio Rboin MD Primary Care Provider [phone] Tonja Ortiz MD Unavailable [phone] Keo Darby MD Unavailable [phone] Felecia Wiggisn MD Unavailable [phone] Allergies Active Allergy Reactions Criticality Noted Date [...] file Insurance 73 [address] [employer] [place] [facility] MEDICARE PPO BLUE REPLACEMENT [facility] MEDIC[facility] PPO BLUE REPLACEMENT [facility] MED[facility] PPO BLUE [facility]PLACEMENT [facility] PPO BLUE REPLACEMENT [facility] PPO BLUE [facility]PLACEMENT [facility] MED[facility] PPO BLUE REPLACEMENT [facility] MED[facility] PPO BLUE REPLACEMENT [facility] MEDIC[facility] PPO BLUE REPLACEMENT [facility] MEDIC[facility] PPO BLUE REPLACEMENT Care Teams Farm Planner Relationship Specialty Start Date End Date Po, Abilio Hernandez MD [address] [place] [phone] PCP - General 02/19/23 Tonja Ortiz MD [address] [place] [id number] [email or web address] Physician Internal Medicine 07/17/23 Keo Darby MD [address] [place] [id number] [email or web address] Medical Oncology 07/17/23 Felecia Wiggins MD [address] [place] [address] Hematology and Oncology 07/17/23 Additional Source Comments The information contained in this document represents components of the legal health record. It is not the complete legal health record.[facility]
[2025-01-10] MEDS: iohexoL 350 MG/ML 100 ML INFUS..BTL IV (15:29)
== END 2025-01-10 12:43 | disposition home or self-care (01) ==
LOC: HO.CT 12:42
PROVIDERS: Visit Provider Internal Medicine
DX: C7A.8 Other malignant neuroendocrine tumors (principal)
CPT/HCPCS: 74177; Q9967

== ENCOUNTER → 2025-01-10 12:44 | Outpatient (BNV) | payer MEDICARE, SELFPAY | PROVIDERS: Visit Provider Student in an Organized Health Care Education/Training Program | DX: R18.0 Malignant ascites (principal); C25.4 Malignant neoplasm of endocrine pancreas | CPT/HCPCS: 74177 ==